=== PATIENT | female | born 1965 | race African-American/Black ===

== ENCOUNTER 2019-10-10 22:18 | Inpatient (IN) | payer MEDICARE, MEDICAID ==
[~2019-10-10] VITALS: Ht 154.9 cm; Wt 71.7 kg
[~2019-10-10 22:18] MED LIST: FOLIC ACID1 MG ORAL; IBUPROFEN200 MG ORAL; LIORESAL20 MG ORAL; MIRALAX17 G2 ORAL; NEURONTIN300 MG ORAL; NKM
--- NOTE | 2019-10-10 22:35 | Emergency Room Report ---
History of Present Illness General Chief Complaint: General Complaint Source: Patient, EMS Present Illness HPI Patient is a 54-year-old female presents after decreased blood pressure. Patient had a prior history of multiple sclerosis. She had been noted to have diminished blood pressure in the facility and was sent to the hospital for further evaluation and treatment. She reports having some increased low back pain. Allergies: Coded Allergies: PENICILLINS (Verified Allergy, Unknown, 07/05/16) Patient History Past Medical History: see triage record Reviewed Nursing Documentation: PMH: Agreed; PSxH: Agreed Nursing Documentation-PMH Hx Cardiac Problems: No Hx Hypertension: Yes Hx Cancer: No Hx Gastrointestinal Problems: No Review of Systems All Other Systems: limited - by poor histor Physical Exam Vital Signs Date Time Temp Pulse Resp B/P (MAP) Pulse Ox O2 Delivery O2 Flow Rate FiO2 10/10/19 22:23 98.8 98 20 87/52 (64) 95 Room Air General Appearance: alert, GCS 15, Chronically Ill Head: other ENT: hearing grossly normal Neck: limited range of motion Respiratory: normal inspection, chest non-tender, lungs clear, normal breath sounds Cardiovascular #1: normal inspection, regular rate, rhythm Gastrointestinal: normal inspection, soft Musculoskeletal: other - Limited range of motion, contractures Neurologic: alert, oriented x3, motor weakness Psychiatric: normal inspection Skin: other - decubitus ulcer Medical Decision Making Diagnostic Impression: Primary Impression: Sepsis Additional Impressions: Multiple sclerosis Urinary tract infection Decubitus ulcer ER Course Present for low blood pressure. Differential diagnosis include was not limited to sepsis, myocardial infarction, dehydration among others. Because of complexity of patient's case laboratory tests and imaging studies were ordered. Laboratory testing was notable for elevated white blood count. EKG interpreted by me showed normal sinus rhythm with a rate of [address] or T wave changes. Patient was noted to have previous IV access. Patient was started on IV Levaquin due to what appears to be urinary infection. Patient's laboratory testing showed elevated white blood count. Patient will require an inpatient management due to initial hypotension.Patient was given IV fluids.Patient's lactic acid level is normal. Patient was discussed with Dr. Pavon for inpatient management for [facility] Labs Test 10/10/19 22:35 10/10/19 22:43 10/10/19 23:50 White Blood Count 15.5 K/UL (4.8-10.8) Red Blood Count 3.54 M/UL (4.20-5.40) Hemoglobin 9.2 G/DL (12.0-16.0) Hematocrit 29.4 % (37.0-47.0) Mean Corpuscular Volume 83 FL (80-99) Mean Corpuscular Hemoglobin 26.1 PG (27.0-31.0) Mean Corpuscular Hemoglobin Concent 31.4 G/DL (32.0-36.0) Red Cell Distribution Width 19.7 % (11.6-14.8) Platelet Count 265 K/UL (150-450) Mean Platelet Volume 6.3 FL (6.5-10.1) Neutrophils (%) (Auto) % (45.0-75.0) Lymphocytes (%) (Auto) % (20.0-45.0) Monocytes (%) (Auto) % (1.0-10.0) Eosinophils (%) (Auto) % (0.0-3.0) Basophils (%) (Auto) % (0.0-2.0) Sodium Level 141 MMOL/L (136-145) Potassium Level 3.9 MMOL/L (3.5-5.1) Chloride Level 109 MMOL/L (98-107) Carbon Dioxide Level 23 MMOL/L (21-32) Anion Gap 9 mmol/L (5-15) Blood Urea Nitrogen 37 mg/dL (7-18) Creatinine 0.9 MG/DL (0.55-1.30) Estimat Glomerular Filtration Rate > 60 mL/min (>60) Glucose Level 72 MG/DL (74-106) Calcium Level 8.0 MG/DL (8.5-10.1) Phosphorus Level 3.9 MG/DL (2.5-4.9) Magnesium Level 2.0 MG/DL (1.8-2.4) Total Bilirubin 0.2 MG/DL (0.2-1.0) Aspartate Amino Transf (AST/SGOT) 35 U/L (15-37) Alanine Aminotransferase (ALT/SGPT) 46 U/L (12-78) Alkaline Phosphatase 241 U/L (46-116) Total Creatine Kinase 24 U/L (26-308) Creatine Kinase MB 2.7 NG/ML (0.0-3.6) Creatine Kinase MB Relative Index 11.2 Troponin I 0.000 ng/mL (0.000-0.056) Total Protein 7.6 G/DL (6.4-8.2) Albumin 1.3 G/DL (3.4-5.0) Globulin 6.3 g/dL Albumin/Globulin Ratio 0.2 (1.0-2.7) Urine Color Yellow Urine Appearance Cloudy Urine pH 5 (4.5-8.0) Urine Specific [place] 1.020 (1.005-1.035) Urine Protein 3+ (NEGATIVE) Urine Glucose (UA) Negative (NEGATIVE) Urine Ketones Negative (NEGATIVE) Urine Blood 5+ (NEGATIVE) Urine Nitrite Positive (NEGATIVE) Urine Bilirubin Negative (NEGATIVE) Urine Urobilinogen Normal MG/DL (0.0-1.0) Urine Leukocyte Esterase 3+ (NEGATIVE) Urine RBC 15-20 /HPF (0 - 2) Urine WBC Tntc /HPF (0 - 2) Urine Squamous Epithelial Cells None /LPF (NONE/OCC) Urine Bacteria Many /HPF (NONE) Lactic Acid Level 1.00 mmol/L (0.4-2.0) EKG Diagnostic Results Rate: normal Rhythm: NSR ST Segments: no acute changes Last Vital Signs Date Time Temp Pulse Resp B/P (MAP) Pulse Ox O2 Delivery O2 Flow Rate FiO2 10/10/19 22:23 98.8 98 20 87/52 (64) 95 Room Air Status: improved Disposition: ADMITTED INPATIENT Condition: Stable Harish Tatum MD Oct 10, 2019 22:35
[2019-10-10 22:56] VITALS: BP 87/52
[2019-10-10 23:27] LABS: APPEARANCE,URINE CLOUDY; BILIRUBIN, URINE NEGATIVE (NEGATIVE); GLUCOSE, URINE (UA) NEGATIVE (NEGATIVE); KETONES,URINE NEGATIVE (NEGATIVE); LEUKOCYTE ESTERASE ,URINE 3+ (NEGATIVE); NITRITE,URINE POSITIVE (NEGATIVE); PH,URINE 5 (4.5-8.0); PROTEIN,URINE 3+ (NEGATIVE); UROBILINOGEN,URINE NORMAL MG/DL (0.0-1.0)
[2019-10-10 23:27] LABS: HEMATOCRIT 29.4 % (37.0-47.0); HEMOGLOBIN 9.2 G/DL (12.0-16.0); MEAN CORPUSCULAR VOLUME 83 FL (80-99); PLATELET COUNT 265 K/UL (150-450); RED BLOOD COUNT 3.54 M/UL (4.20-5.40); RED CELL DISTRIBUTION WIDTH 19.7 % (11.6-14.8); WHITE BLOOD COUNT 15.5 K/UL (4.8-10.8)
[2019-10-10 23:32] LABS: ANION GAP 9 mmol/L (5-15); BLOOD UREA NITROGEN 37 mg/dL (7-18); CARBON DIOXIDE 23 MMOL/L (21-32); CHLORIDE 109 MMOL/L (98-107); CREATININE 0.9 MG/DL (0.55-1.30); POTASSIUM 3.9 MMOL/L (3.5-5.1); SODIUM 141 MMOL/L (136-145)
[2019-10-10 23:35] LABS: COLOR,URINE YELLOW
[2019-10-10] MEDS ORDERED: MULTI-VITAMIN1 EACH PO (23:41)
[2019-10-10] MEDS ORDERED: ASPIR 8181 MG ORAL (23:41)
[2019-10-10] MEDS ORDERED: METOPROLOL TART25 MG ORAL (23:41)
[2019-10-10] MEDS ORDERED: DUONEB 0.5-3(2.53 ML HHN (23:41)
[2019-10-10] MEDS ORDERED: NORCO 5-325 TA1 EACH ORAL (23:41)
[2019-10-10] MEDS ORDERED: CRANBERRY400 MG PO (23:41)
[2019-10-10] MEDS ORDERED: ZOFRAN4 M1 ORAL (23:41)
[2019-10-10] MEDS ORDERED: CATAPRES0.1 MG ORAL (23:41)
[2019-10-10] MEDS ORDERED: PRO-STAT LIQUID30 ML ORAL (23:41)
[2019-10-10] MEDS ORDERED: ATORVASTATIN CA20 MG ORAL (23:41)
[2019-10-10] MEDS ORDERED: VITAMIN C500 M1 ORAL (23:41)
[2019-10-10] MEDS ORDERED: ALBUTEROL0.63 MG/3 HHN (23:41)
[2019-10-10 23:45] VITALS: BP 92/61
[2019-10-10 23:45] LABS: ALANINE AMINOTRANSFERASE 46 U/L (12-78); ALBUMIN 1.3 G/DL (3.4-5.0); ALBUMIN/GLOBULIN RATIO 0.2 (1.0-2.7); ALKALINE PHOSPHATASE 241 U/L (46-116); ASPARTATE AMINO TRANSFERASE 35 U/L (15-37); BILIRUBIN,TOTAL 0.2 MG/DL (0.2-1.0); CKMB 2.7 NG/ML (0.0-3.6); CREATINE KINASE 24 U/L (26-308); PHOSPHORUS 3.9 MG/DL (2.5-4.9)
[2019-10-11] VITALS (20 sets, daily range): BP systolic 74–125; BP diastolic 41–94
[2019-10-11] MEDS ORDERED: Cefepime HCl 2 GM in D5W 55 ML IVPB SCH (04:00)
[2019-10-11] MEDS: Cefepime HCl 2 GM in D5W 55 ML IVPB SCH ×2 (06:08→17:56)
[2019-10-11] MEDS: Heparin 5000 units/ml inj SUBQ SCH ×2 (08:44→20:40)
--- NOTE | 2019-10-11 09:55 | History and Physical ---
History of Present Illness General Date patient seen: Oct 11, 2019 Reason for Hospitalization: low bp Present Illness HPI Patient is a 54-year-old -[place] female resident of [facility] who was sent to the hospital for low blood pressure. Patient is alert and oriented x2, in addition she knows she is in the hospital, however she does not know the date. She has a medical history of advanced multiple sclerosis and functional quadriplegia. Patient is a poor historian and information was gathered via reviewing ED records and medical chart. In the ER she was found to be hypotensive to systolic blood pressures of 80/52 and tachycardic to 107. Patient currently denies any chest pain, palpitations, shortness of breath, urinary frequency or burning. She does however complain of low back pain. No report of fever or chills. She does have stage IV sacral decubiti however they do not seem infected. 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, unknown tobacco and alcohol exposure in the past Allergies: Coded Allergies: PENICILLINS (Verified Allergy, Unknown, 07/05/16) Medication History Scheduled Albuterol Sulfate (Albuterol Sulfate), 0.63 MG HHN Q4HR, (Reported) Amino Acids/Protein Hydrolys (Pro-Stat Liquid), 30 ML ORAL TWICE A DAY, ( Reported) Ascorbic Acid* (Vitamin C*), 500 MG ORAL DAILY, (Reported) Aspirin (Aspirin EC), 81 MG ORAL DAILY, (Reported) Aspirin* (Aspir 81*), 81 MG ORAL DAILY, (Reported) Atorvastatin Calcium* (Atorvastatin Calcium*), 20 MG ORAL BEDTIME, (Reported) Baclofen (Baclofen), 20 MG ORAL Q8HR Clonidine Hcl* (Catapres*), 0.1 MG ORAL EVERY 6 HOURS, (Reported) Cranberry (Cranberry), 450 MG PO DAILY, (Reported) Folic Acid* (Folic Acid*), 1 MG ORAL DAILY Gabapentin (Neurontin), 300 MG ORAL TID Metoprolol Tartrate* (Metoprolol Tartrate*), 25 MG ORAL EVERY 12 HOURS, ( Reported) No Known Medications* (NKM - No Known Medications*), 0 ., (Reported) Zinc Sulfate (Zinc Sulfate), 220 MG ORAL DAILY, (Reported) Scheduled PRN Hydrocodone Bit/Acetaminophen 5-325* (Stark 5-325*), 1 TAB ORAL EVERY 8 HOURS PRN for Moderate Breakthru Pain (5-7), (Reported) Hydrocodone Bit/Acetaminophen 5-325* (Stark 5-325*), 1 TAB ORAL Q6H PRN for For Pain, (Reported) Hydrocodone Bit/Acetaminophen 7.5-325* (Stark 7.5-325*), 1 TAB ORAL Q4H PRN for For Pain, (Reported) Ibuprofen (Ibuprofen*), 400 MG ORAL TID PRN for Mild Pain (Pain Scale 1-3) Ondansetron (Zofran), 4 MG ORAL Q6H PRN for Nausea & Vomiting, (Reported) Ondansetron (Zofran), 4 MG ORAL Q6H PRN for Nausea & Vomiting, (Reported) Polyethylene Glycol 3350* (Miralax*), 17 GM ORAL HSPRN PRN for Constipation Miscellaneous Medications Ipratropium/Albuterol Sulfate (DuoNeb 0.5-3(2.5)mg/3ml), 3 ML HHN, (Reported) Multivitamin (Multi-Vitamin Daily), 1 EACH PO, (Reported) Patient History Healthcare decision maker Resuscitation status Full Code Advanced Directive on File Review of Systems Musculoskeletal: Reports: back pain ROS Narrative Although poor historian she denies any chest pain, shortness of breath, palpitations, fever, chills, nausea, vomiting or abdominal pain. She complains of worsening lower back pain. Physical Exam General Appearance: no apparent distress Lines, tubes and drains: peripheral HEENT: normocephalic, atraumatic, anicteric, no JVD, other - right eye deviated to the right, unable to abduct Neck: non-tender, supple Respiratory/Chest: lungs clear, normal breath sounds, no respiratory distress, no accessory muscle use Cardiovascular/Chest: normal peripheral pulses, normal rate, regular rhythm, no gallop/murmur Abdomen: normal bowel sounds, non tender, soft, no organomegaly, other - pressure ulcer LLQ Genitourinary/Rectal: briseno, other - +CVA tenderness Extremities: no calf tenderness, no edema, no cyanosis Skin Exam: other - multiple stage 4 sacral decubutis Neurologic: oriented x 3, responsive, motor weakness - 3/5 bilateral LE, 4/5 bilateral UE Musculoskeletal: atrophy Last 24 Hour Vital Signs Date Time Temp Pulse Resp B/P (MAP) Pulse Ox O2 Delivery O2 Flow Rate FiO2 10/11/19 09:00 98.4 96 15 118/84 (95) 99 10/11/19 08:00 2.0 10/11/19 08:00 96 16 107/55 (72) 99 10/11/19 08:00 Nasal Cannula 2.0 10/11/19 07:53 Nasal Cannula 2.0 10/11/19 07:00 94 14 125/94 (104) 100 10/11/19 06:00 97.3 97 13 116/91 (99) 99 10/11/19 05:15 98.8 107 20 80/64 95 Room Air 10/11/19 02:47 98.8 107 20 80/64 95 Room Air 10/10/19 23:45 98.8 97 18 92/61 95 Room Air 10/10/19 22:56 98.8 94 20 87/52 95 Room Air 10/10/19 22:56 98 20 Room Air 10/10/19 22:23 98.8 98 20 87/52 (64) 95 Room Air Intake and Output 10/10/19 10/11/19 19:00 07:00 Intake Total 130 ml Output Total 200 ml Balance -70 ml Intake Oral 0 ml IV Total 130 ml Output Urine Total 200 ml Laboratory Tests Test 10/10/19 22:35 10/10/19 22:43 10/10/19 23:50 White Blood Count 15.5 K/UL (4.8-10.8) H Red Blood Count 3.54 M/UL (4.20-5.40) L Hemoglobin 9.2 G/DL (12.0-16.0) L Hematocrit 29.4 % (37.0-47.0) L Mean Corpuscular Volume 83 FL (80-99) Mean Corpuscular Hemoglobin 26.1 PG (27.0-31.0) L Mean Corpuscular Hemoglobin Concent 31.4 G/DL (32.0-36.0) L Red Cell Distribution Width 19.7 % (11.6-14.8) H Platelet Count 265 K/UL (150-450) Mean Platelet Volume 6.3 FL (6.5-10.1) L Neutrophils (%) (Auto) % (45.0-75.0) Lymphocytes (%) (Auto) % (20.0-45.0) Monocytes (%) (Auto) % (1.0-10.0) Eosinophils (%) (Auto) % (0.0-3.0) Basophils (%) (Auto) % (0.0-2.0) Sodium Level 141 MMOL/L (136-145) Potassium Level 3.9 MMOL/L (3.5-5.1) Chloride Level 109 MMOL/L (98-107) H Carbon Dioxide Level 23 MMOL/L (21-32) Anion Gap 9 mmol/L (5-15) Blood Urea Nitrogen 37 mg/dL (7-18) H Creatinine 0.9 MG/DL (0.55-1.30) Estimat Glomerular Filtration Rate > 60 mL/min (>60) Glucose Level 72 MG/DL (74-106) L Calcium Level 8.0 MG/DL (8.5-10.1) L Phosphorus Level 3.9 MG/DL (2.5-4.9) Magnesium Level 2.0 MG/DL (1.8-2.4) Total Bilirubin 0.2 MG/DL (0.2-1.0) Aspartate Amino Transf (AST/SGOT) 35 U/L (15-37) Alanine Aminotransferase (ALT/SGPT) 46 U/L (12-78) Alkaline Phosphatase 241 U/L (46-116) H Total Creatine Kinase 24 U/L (26-308) L Creatine Kinase MB 2.7 NG/ML (0.0-3.6) Creatine Kinase MB Relative Index 11.2 Troponin I 0.000 ng/mL (0.000-0.056) Total Protein 7.6 G/DL (6.4-8.2) Albumin 1.3 G/DL (3.4-5.0) L Globulin 6.3 g/dL Albumin/Globulin Ratio 0.2 (1.0-2.7) L Urine Color Yellow Urine Appearance Cloudy Urine pH 5 (4.5-8.0) Urine Specific [place] 1.020 (1.005-1.035) Urine Protein 3+ (NEGATIVE) H Urine Glucose (UA) Negative (NEGATIVE) Urine Ketones Negative (NEGATIVE) Urine Blood 5+ (NEGATIVE) H Urine Nitrite Positive (NEGATIVE) H Urine Bilirubin Negative (NEGATIVE) Urine Urobilinogen Normal MG/DL (0.0-1.0) Urine Leukocyte Esterase 3+ (NEGATIVE) H Urine RBC 15-20 /HPF (0 - 2) H Urine WBC Tntc /HPF (0 - 2) H Urine Squamous Epithelial Cells None /LPF (NONE/OCC) Urine Bacteria Many /HPF (NONE) H Lactic Acid Level 1.00 mmol/L (0.4-2.0) Height (Feet): 5 Height (Inches): 1.00 Weight (Pounds): 150 Medications Current Medications Medications (Trade) Dose Ordered Sig/Lenard Route PRN Reason Start Time Stop Time Status Last Admin Dose Admin Acetaminophen (Tylenol) 650 mg Q4H PRN ORAL Mild Pain (Pain Scale 1-3) 10/11/19 02:45 11/10/19 02:44 Acetaminophen (Tylenol) 650 mg Q4H PRN ORAL fever 10/11/19 02:45 11/10/19 02:44 Cefepime HCl 2 gm/ Dextrose 55 ml @ 110 mls/hr Q12H IVPB 10/11/19 06:00 10/18/19 05:59 10/11/19 06:08 Dextrose (Dextrose 50%) 25 ml Q30M PRN IV Hypoglycemia 10/11/19 02:45 11/10/19 02:44 Dextrose (Dextrose 50%) 50 ml Q30M PRN IV Hypoglycemia 10/11/19 02:45 11/10/19 02:44 Heparin Sodium (Porcine) (Heparin 5000 units/ml) 5,000 units EVERY 12 HOURS SUBQ 10/11/19 09:00 11/10/19 08:59 10/11/19 08:44 Sodium Chloride 1,000 ml @ 75 mls/hr [id number] IVLG 10/11/19 03:38 11/10/19 03:37 10/11/19 06:08 Objective Narrative ekg tracing personally interpreted by me: nsr no acute st-t changes CXR: pending Assessment/Plan Problem List: (1) Sepsis ICD Codes: A41.9 - Sepsis, unspecified organism SNOMED: 76671516 (2) Urinary tract infection ICD Codes: N39.0 - Urinary tract infection, site not specified SNOMED: 48094099 (3) Multiple sclerosis ICD Codes: G35 - Multiple sclerosis SNOMED: 27694733 (4) Stage 4 skin ulcer of sacral region ICD Codes: L98.429 - Non-pressure chronic ulcer of back with unspecified severity SNOMED: 36601924, 326515895 (5) HTN (hypertension) ICD Codes: I10 - Essential (primary) hypertension SNOMED: 90130916 (6) HLD (hyperlipidemia) ICD Codes: E78.5 - Hyperlipidemia, unspecified SNOMED: 75645722 (7) Unspecified dementia without behavioral disturbance ICD Codes: F03.90 - Unspecified dementia without behavioral disturbance SNOMED: 13679385 (8) Chronic pain syndrome ICD Codes: G89.4 - Chronic pain syndrome SNOMED: 795413625 (9) Moderate protein malnutrition ICD Codes: E44.0 - Moderate protein-calorie malnutrition SNOMED: 615241077 Status: progressing Assessment/Plan: 54 year old female with multiple sclerosis and functional quadriplegia being admitted for sepsis secondary to UTI. Responding to fluid resuscitation. ICU- Continue IVF, decrease rate per BP response, BP is better now continue to monitor closely. Add D5 to NS to avoid hypoglycemia. Continue Cefepime, follow up blood and urine culture. remove and replce briseno. d /w rn monitor wbc outpatient urology follow up. ? neurogenic bladder ID consult with Dr. Palacios. d/w Follow up CXR News Librarian consult wound care and wound MD consult with Dr. Solis CLAY PREPARATION SUPERVISOR consult to evaluate swallowing Aspiration precautions Hold all BP meds pain control. vte ppx: heparin subq GI ppx: not indicated Code status: full code, POLST signed by SNF Md but not patient and it's blank I spent 75 minutes on this encounter, 40 minutes dedicated to critical care. Additional 35 minutes spent in non face to face review of outside records including penitentiary and prior hospitalization. Critical services performed: Telemetry review Hemodynamic measurement interpretation Laboratory data review and interpretation Radiology image review and interpretation EKG review and interpretation Discussion of patient's care with ICU team, nursing staff and or consulting services Time of this note may not reflect time of encounter. Mikal Quiles M.D. 5, 2019 09:55
[2019-10-11] MEDS ORDERED: ZINC SULFATE220 M2 ORAL (10:21)
[2019-10-11] MEDS ORDERED: ASPIRIN-LOW81 MG ORAL (10:21)
[2019-10-11] MEDS ORDERED: NORCO 7.5-3251 EACH ORAL (10:21)
[2019-10-11] MEDS ORDERED: NORCO 5-325 TA1 EACH ORAL (10:21)
[2019-10-11] MEDS ORDERED: ZOFRAN4 M1 ORAL (10:22)
--- NOTE | 2019-10-11 12:46 | Cardiology Report ---
APPROVED REPORT EKG Measurement Heart [id number] Sinus rhythm with short MS Otherwise normal ECG
[2019-10-11] MEDS ORDERED: D5NS 1,000 ML IV SCH (14:00)
--- NOTE | 2019-10-11 14:44 | General Progress Note ---
Progress Note Progress Note An independent Hospitalist group, where every patient is our [facility] Internal Medicine Hospitalist Advanced Care Planning Note Please contact us at Date of Discussion: 10/11/2019 A [id number] discussion with the Cass Richardson regarding the patient's advanced care planning took place during this hospitalization on the above date. The discussion included the explanation and discussion of advance directives and associated forms/documents, as well as the patient's current code status. We also discussed at length the patient's medical conditions (both acute and chronic), general prognosis, treatment options, and goals of care. The following summarizes the discussion: Advance Care Planning/Goals of Care: - Will attempt to fill out an AD and/or POLST with the patient prior to discharge, if not already completed - Continue current evaluation and management of any acute and chronic medical issues - Will continue to support the patient/family - Will continue to discuss both short- and long-term goals of care DPOA-HC/Surrogate Decision Maker: None currently appointed Code Status: Full Code Advanced Care Planning Forms/Documents Completed: Deferred until later encounter/visit Mikal Quiles M.D. Oct 11, 2019 14:44
--- NOTE | 2019-10-11 16:01 | Consultation ---
History of Present Illness General Date patient seen: Oct 11, 2019 Reason for Hospitalization: General Complaint Present Illness HPI This is a very pleasant 54-year-old female with multiple medical comorbidities who presented from long term for hypotension. In ED identified to have leukocytosis and abnormal labs. Admitted to intensive care unit for further care and management. On admission identified to have multiple wounds requiring care and management. Surgery called to evaluate. Patient seen, patient evaluated, chart reviewed. Patient states she is well but feels "weird". States she is having some abdominal discomfort and unsure last bowel movement or flatus. No nausea vomiting fever chills. States she is cold at times. Noted to be lethargic by nursing staff at times. Allergies: Coded Allergies: PENICILLINS (Verified Allergy, Unknown, 07/05/16) Medication History Scheduled Albuterol Sulfate (Albuterol Sulfate), 0.63 MG HHN Q4HR, (Reported) Amino Acids/Protein Hydrolys (Pro-Stat Liquid), 30 ML ORAL TWICE A DAY, ( Reported) Ascorbic Acid* (Vitamin C*), 500 MG ORAL DAILY, (Reported) Aspirin (Aspirin EC), 81 MG ORAL DAILY, (Reported) Aspirin* (Aspir 81*), 81 MG ORAL DAILY, (Reported) Atorvastatin Calcium* (Atorvastatin Calcium*), 20 MG ORAL BEDTIME, (Reported) Baclofen (Baclofen), 20 MG ORAL Q8HR Clonidine Hcl* (Catapres*), 0.1 MG ORAL EVERY 6 HOURS, (Reported) Cranberry (Cranberry), 450 MG PO DAILY, (Reported) Folic Acid* (Folic Acid*), 1 MG ORAL DAILY Gabapentin (Neurontin), 300 MG ORAL TID Metoprolol Tartrate* (Metoprolol Tartrate*), 25 MG ORAL EVERY 12 HOURS, ( Reported) No Known Medications* (NKM - No Known Medications*), 0 ., (Reported) Zinc Sulfate (Zinc Sulfate), 220 MG ORAL DAILY, (Reported) Scheduled PRN Hydrocodone Bit/Acetaminophen 5-325* ([place] 5-325*), 1 TAB ORAL EVERY 8 HOURS PRN for Moderate [place] Pain (5-7), (Reported) Hydrocodone Bit/Acetaminophen 5-325* ([place] 5-325*), 1 TAB ORAL Q6H PRN for For Pain, (Reported) Hydrocodone Bit/Acetaminophen 7.5-325* ([place] 7.5-325*), 1 TAB ORAL Q4H PRN for For Pain, (Reported) Ibuprofen (Ibuprofen*), 400 MG ORAL TID PRN for Mild Pain (Pain Scale 1-3) Ondansetron (Zofran), 4 MG ORAL Q6H PRN for Nausea & Vomiting, (Reported) Ondansetron (Zofran), 4 MG ORAL Q6H PRN for Nausea & Vomiting, (Reported) Polyethylene Glycol 3350* (Miralax*), 17 GM ORAL HSPRN PRN for Constipation Miscellaneous Medications Ipratropium/Albuterol Sulfate (DuoNeb 0.5-3(2.5)mg/3ml), 3 ML HHN, (Reported) Multivitamin (Multi-Vitamin Daily), 1 EACH PO, (Reported) Patient History Limited by: medical condition History Provided By: Medical Record, PMD Healthcare decision maker Resuscitation status Full Code Advanced Directive on File Past Medical/Surgical History Past Medical/Surgical History: (1) Back pain (2) Decubitus ulcer (3) ACS (acute coronary syndrome) (4) Costochondritis (5) four point quadroplegia (6) Uncontrolled hypertension (7) UTI (urinary tract infection) (8) Multiple sclerosis (9) Urinary tract infection (10) Sepsis (11) Chronic pain syndrome (12) HTN (hypertension) (13) HLD (hyperlipidemia) (14) Moderate protein malnutrition (15) Unspecified dementia without behavioral disturbance (16) Stage 4 skin ulcer of sacral region Review of Systems Review of Symptoms General ROS: no weight loss or fever Psychological ROS: no depression or mood changes, no memory loss Ophthalmic ROS: no visual changes or eye irritation ENT ROS: no nasal congestion, hearing loss, dizziness Allergy and Immunology ROS: no allergic symptoms or urticaria Hematological and Lymphatic ROS: no swollen glands, unusual bleeding or bruising Endocrine ROS: no polyuria, polydipsia, weight changes, temperature intolerance Respiratory ROS: no cough, shortness of breath, or wheezing Cardiovascular ROS: no chest pain or dyspnea on exertion Gastrointestinal ROS: denies abdominal pain, bright red blood in stool. Musculoskeletal ROS: no myalgias or arthralgias Neurological ROS: no TIA or stroke symptoms Dermatological ROS: no new or changing skin lesions, rashes or pruritis Limited given patient's current mental status. Physical Exam Physical Exam General appearance: alert, lethargic at times no distress, appears stated age Head: Normocephalic, without obvious abnormality, atraumatic Eyes: conjunctivae/corneas clear. PERRL, EOM's intact. Fundi benign Throat: Lips, mucosa, and tongue normal. Teeth and gums normal Neck: supple, symmetrical, trachea midline, no adenopathy, thyroid: not enlarged, symmetric, no tenderness/mass/nodules, no carotid bruit and no JVD Lungs: clear to auscultation bilaterally Heart: regular rate and rhythm, S1, S2 normal, no murmur, click, rub or gallop Abdomen: soft, non-tender. Bowel sounds normal. No masses, no organomegaly Extremities: extremities normal, atraumatic, no cyanosis or edema Pulses: 2+ and symmetric Skin: Skin color, texture, turgor normal. No rashes or lesions Neurologic: Grossly normal Last 24 Hour Vital Signs Date Time Temp Pulse Resp B/P (MAP) Pulse Ox O2 Delivery O2 Flow Rate FiO2 10/11/19 15:00 92 12 110/46 (67) 100 10/11/19 14:00 86 15 117/71 (86) 99 10/11/19 13:00 86 14 103/41 (61) 99 10/11/19 12:00 2.0 10/11/19 12:00 96.5 85 13 99/52 (68) 99 10/11/19 12:00 Nasal Cannula 2.0 10/11/19 11:09 84 10/11/19 11:00 89 14 102/52 (69) 100 10/11/19 11:00 89 14 102/52 (69) 100 10/11/19 10:00 96 19 109/90 (96) 100 10/11/19 10:00 96 19 109/90 (96) 100 10/11/19 09:00 98.4 96 15 118/84 (95) 99 10/11/19 09:00 96 15 118/84 (95) 99 10/11/19 08:04 94 10/11/19 08:00 96 16 107/55 (72) 99 10/11/19 08:00 2.0 10/11/19 08:00 96 16 107/55 (72) 99 10/11/19 08:00 Nasal Cannula 2.0 10/11/19 07:53 Nasal Cannula 2.0 10/11/19 07:00 94 14 125/94 (104) 100 10/11/19 07:00 94 14 125/94 (104) 100 10/11/19 06:00 97 13 116/91 (99) 99 10/11/19 06:00 97.3 97 13 116/91 (99) 99 10/11/19 05:15 98.8 107 20 80/64 95 Room Air 10/11/19 02:47 98.8 107 20 80/64 95 Room Air 10/10/19 23:45 98.8 97 18 92/61 95 Room Air 10/10/19 22:56 98.8 94 20 87/52 95 Room Air 10/10/19 22:56 98 20 Room Air 10/10/19 22:23 98.8 98 20 87/52 (64) 95 Room Air Intake and Output 10/10/19 10/11/19 18:59 06:59 Intake Total 0 ml Output Total 200 ml Balance -200 ml Intake Oral 0 ml Output Urine Total 200 ml Laboratory Tests Test 10/10/19 22:35 10/10/19 22:43 10/10/19 23:50 White Blood Count 15.5 K/UL (4.8-10.8) H Red Blood Count 3.54 M/UL (4.20-5.40) L Hemoglobin 9.2 G/DL (12.0-16.0) L Hematocrit 29.4 % (37.0-47.0) L Mean Corpuscular Volume 83 FL (80-99) Mean Corpuscular Hemoglobin 26.1 PG (27.0-31.0) L Mean Corpuscular Hemoglobin Concent 31.4 G/DL (32.0-36.0) L Red Cell Distribution Width 19.7 % (11.6-14.8) H Platelet Count 265 K/UL (150-450) Mean Platelet Volume 6.3 FL (6.5-10.1) L Neutrophils (%) (Auto) % (45.0-75.0) Lymphocytes (%) (Auto) % (20.0-45.0) Monocytes (%) (Auto) % (1.0-10.0) Eosinophils (%) (Auto) % (0.0-3.0) Basophils (%) (Auto) % (0.0-2.0) Sodium Level 141 MMOL/L (136-145) Potassium Level 3.9 MMOL/L (3.5-5.1) Chloride Level 109 MMOL/L (98-107) H Carbon Dioxide Level 23 MMOL/L (21-32) Anion Gap 9 mmol/L (5-15) Blood Urea Nitrogen 37 mg/dL (7-18) H Creatinine 0.9 MG/DL (0.55-1.30) Estimat Glomerular Filtration Rate > 60 mL/min (>60) Glucose Level 72 MG/DL (74-106) L Calcium Level 8.0 MG/DL (8.5-10.1) L Phosphorus Level 3.9 MG/DL (2.5-4.9) Magnesium Level 2.0 MG/DL (1.8-2.4) Total Bilirubin 0.2 MG/DL (0.2-1.0) Aspartate Amino Transf (AST/SGOT) 35 U/L (15-37) Alanine Aminotransferase (ALT/SGPT) 46 U/L (12-78) Alkaline Phosphatase 241 U/L (46-116) H Total Creatine Kinase 24 U/L (26-308) L Creatine Kinase MB 2.7 NG/ML (0.0-3.6) Creatine Kinase MB Relative Index 11.2 Troponin I 0.000 ng/mL (0.000-0.056) Total Protein 7.6 G/DL (6.4-8.2) Albumin 1.3 G/DL (3.4-5.0) L Globulin 6.3 g/dL Albumin/Globulin Ratio 0.2 (1.0-2.7) L Urine Color Yellow Urine Appearance Cloudy Urine pH 5 (4.5-8.0) Urine Specific [place] 1.020 (1.005-1.035) Urine Protein 3+ (NEGATIVE) H Urine Glucose (UA) Negative (NEGATIVE) Urine Ketones Negative (NEGATIVE) Urine Blood 5+ (NEGATIVE) H Urine Nitrite Positive (NEGATIVE) H Urine Bilirubin Negative (NEGATIVE) Urine Urobilinogen Normal MG/DL (0.0-1.0) Urine Leukocyte Esterase 3+ (NEGATIVE) H Urine RBC 15-20 /HPF (0 - 2) H Urine WBC Tntc /HPF (0 - 2) H Urine Squamous Epithelial Cells None /LPF (NONE/OCC) Urine Bacteria Many /HPF (NONE) H Lactic Acid Level 1.00 mmol/L (0.4-2.0) Height (Feet): 5 Height (Inches): 1.00 Weight (Pounds): 150 Medications Current Medications Medications (Trade) Dose Ordered Sig/Lenard Route PRN Reason Start Time Stop Time Status Last Admin Dose Admin Acetaminophen (Tylenol) 650 mg Q4H PRN ORAL Mild Pain (Pain Scale 1-3) 10/11/19 02:45 11/10/19 02:44 Acetaminophen (Tylenol) 650 mg Q4H PRN ORAL fever 10/11/19 02:45 11/10/19 02:44 Ascorbic Acid (Vitamin C) 500 mg DAILY ORAL 10/12/19 09:00 11/11/19 08:59 Aspirin (Ecotrin) 81 mg DAILY ORAL 10/12/19 09:00 11/11/19 08:59 Atorvastatin Calcium (Lipitor) 20 mg BEDTIME ORAL 10/11/19 21:00 11/10/19 20:59 Cefepime HCl 2 gm/ Dextrose 55 ml @ 110 mls/hr Q12H IVPB 10/11/19 06:00 10/18/19 05:59 10/11/19 06:08 Dextrose (Dextrose 50%) 25 ml Q30M PRN IV Hypoglycemia 10/11/19 02:45 11/10/19 02:44 Dextrose (Dextrose 50%) 50 ml Q30M PRN IV Hypoglycemia 10/11/19 02:45 11/10/19 02:44 Dextrose/Sodium Chloride 1,000 ml @ 75 mls/hr [id number] IV 10/11/19 14:00 11/10/19 13:59 10/11/19 13:48 Folic Acid (Folate) 1 mg DAILY ORAL 10/12/19 09:00 11/11/19 08:59 Heparin Sodium (Porcine) (Heparin 5000 units/ml) 5,000 units EVERY 12 HOURS SUBQ 10/11/19 09:00 11/10/19 08:59 10/11/19 08:44 Multivitamins (Multivitamins) 1 tab DAILY ORAL 10/12/19 09:00 11/11/19 08:59 Sodium Chloride 1,000 ml @ 75 mls/hr [id number] IVLG 10/11/19 03:38 11/10/19 03:37 10/11/19 06:08 Zinc Sulfate (Zinc Sulfate) 220 mg DAILY ORAL 10/12/19 09:00 11/11/19 08:59 Assessment/Plan Problem List: (1) Decubitus ulcer Assessment & Plan: 54-year-old female multiple comorbidities who is fairly bedbound and care dependent presented from nursing facility with multiple decubitus ulcers requiring care and management and evaluation. Patient identified to have a right ischial and left ischial stage IV decubitus ulcers Patient Identified to have historic healed sacral decubitus ulcer pt presented on admission with multiple pressure injuries. Full thickness wound L abd with 95% slough, 5% surrounding erythema with macerated borders. Erythema without induration or elevation in skin temp periwound.(L)1.6cm x (W)1.7cm. Moisture intertrigo noted to abd folds and groin folds. Labia majora noted to be swollen. Hyperpigmentation from previous wound noted to Sacrum. Full thickness stage 4 pressure injury with undermining noted to L Ischium. [place] granulation noted to base of wound. No odor noted. Small amt serous exudate.(L)7.5cm x (W)4.5cm x (D)2.3cm, undermining clockwise 9-12o'clock by 3.6cm @12o'clock. Full thickness stage 4 pressure injury R ischium with two areas of tunneling. [place] granulation at base of wound with small amt of Biofilm. Surrounding pink epithelial borders. Small amt serosanguineous exudate noted. No odor noted. Periwound skin is dark without erythema,induration or elevation in skin temp.(L) 4cm x (W)2.5cm x (D)2.6cm ,tunneling clockwise @12 o'clock by3.6cm ,Tunneling clockwise @2o'clock by5.7cm. Areas of hyperpigmentation noted to L heel, distal/lateral L foot extending into plantar aspect. R heel is boggy with non-blanching erythema. Tx.Plan: Cleanse Abdominal wound with Saline. Apply TheraHoney. Apply Cavilon Skin Barrier periwound. Cover with Optifoam drsg. Change every 3 days and prn. Cleanse L ischial wound with Saline. Loosely Pack with Hydrogel impregnated Kerlix packing. Apply Moisture Barrier Paste periwound. Cover with Optifoam drsg Daily and prn. Cleanse R Ischial wound with Saline. Loosely pack with Hydrogel impregnated Kerlix. (ATTENTION:2 Tunneled areas 9o'clock and 2o'clock). Apply Moisture Barrier Paste periwound. Cover with Optifoam drsg Daily and prn. Apply Cav[place] Skin BArrier to both heels. Cover each heel with Optifoam drsg. Change every 7 days and prn. APM/AURA Mattress overlay. Reposition at least every 2hours or as tolerated. Off-load heels with pillow. Place pillow between knees. nutritional optimization as below ICD Codes: L89.90 - Pressure ulcer of unspecified site, unspecified stage SNOMED: 861635309 (2) Sepsis Assessment & Plan: 54-year-old female multiple committees presents with hypotension altered mental status. Patient with leukocytosis, abnormal labs. Currently intensive care unit under care and management. Wound evaluated and stage IV multiple but chronic and unlikely etiology of sepsis. We will continue to monitor and evaluate IV fluids IV antibiotics as per infectious disease O2 Trend labs We will follow with recommendations Thank you for let me participate in patient's care ICD Codes: A41.9 - Sepsis, unspecified organism SNOMED: 84221388 (3) Moderate protein malnutrition Assessment & Plan: DAILY ESTIMATED NEEDS: Needs based on Sepsis, stage 4 wounds; 51.6kg adj 30-35 kcals/kg 3447-4259 total kcals 1.5-2 g protein/kg 77-103 g total protein 25-30 mL/kg 1290- 1548 total fluid mLs NUTRITION DIAGNOSIS: * Increased kcal and pro needs r/t wound healing AEB pt adm with stage 4 wounds x2, unstageable abdominal wound, h/o MS. CURRENT DIET: No diet order in place yet. PO DIET RECOMMENDATIONS: Regular as tolerated; texture per ENVIRONMENTAL FIELD TEAM MEMBER Monitor PO intake w/ diet/ need for supplements and/or snacks ADDITIONAL RECOMMENDATIONS: 1) Obtain calibrated bedscale wt PER SNF: 139 lbs + 61 inches 2) 2) Wound healing: provide Elias in 8oz water BID -> Vit C 250mg BID + Zinc 220mg daily x 10days + MVI w/ MIN 3) Monitor BG- slightly low (72)-> rec D5 for hydration 4) ENVIRONMENTAL FIELD TEAM MEMBER eval for appropriate texture/ previously on aspiration precautions ICD Codes: E44.0 - Moderate protein-calorie malnutrition SNOMED: 317571902 Matty Solis Oct 11, 2019 16:01
--- NOTE | 2019-10-11 17:23 | Diagnostic Imaging Report ---
Indication: Shortness of breath Technique: One view of the chest Comparison: 06/26/1916 Findings: Patient is rotated to the right. Body habitus limits evaluation. Apparent hazy opacity of the left lung probably reflects overlying breast tissue. There is some thickening of the minor fissure. Lungs and pleural spaces are otherwise grossly clear. Impression: Doubt acute process. Findings as noted
[2019-10-11] MEDS ORDERED: Amikacin Rx to dose MISC PRN (17:45)
--- NOTE | 2019-10-11 17:57 | Infectious Diseases Prog Note ---
Assessment/Plan Assessment/Plan Full consult dictated: A) 1) uti/pyelonephritis, sepsis, leukocytosis, sirs 2) pmh noted 3) allergies - pcn 4) wounds noted P) 1) cefepime and amikacin 2) check urine culture and blood cultures 3) monitor labs 4) icu care 5) thank you Subjective Allergies: Coded Allergies: PENICILLINS (Verified Allergy, Unknown, 07/05/16) Objective Vital Signs Last 24 Hour Vital Signs Date Time Temp Pulse Resp B/P (MAP) Pulse Ox O2 Delivery O2 Flow Rate FiO2 10/11/19 17:00 103 15 104/89 (94) 10/11/19 16:18 Nasal Cannula 2.0 10/11/19 16:00 2.0 10/11/19 16:00 100 17 107/77 (87) 100 10/11/19 15:57 103 10/11/19 15:00 92 12 110/46 (67) 100 10/11/19 15:00 92 12 110/46 (67) 100 10/11/19 14:00 86 15 117/71 (86) 99 10/11/19 14:00 86 15 117/71 (86) 99 10/11/19 13:05 89 15 103/41 (61) 99 10/11/19 13:01 91 20 84/56 (65) 100 10/11/19 13:00 86 14 103/41 (61) 99 10/11/19 13:00 86 14 99 10/11/19 12:00 2.0 10/11/19 12:00 96.5 85 13 99/52 (68) 99 10/11/19 12:00 Nasal Cannula 2.0 10/11/19 12:00 85 13 74/46 (55) 99 10/11/19 11:09 84 10/11/19 11:00 89 14 102/52 (69) 100 10/11/19 11:00 89 14 102/52 (69) 100 10/11/19 11:00 89 14 102/52 (69) 100 10/11/19 10:00 96 19 109/90 (96) 100 10/11/19 10:00 96 19 109/90 (96) 100 10/11/19 10:00 96 19 109/90 (96) 100 10/11/19 09:00 96 15 118/84 (95) 99 10/11/19 09:00 98.4 96 15 118/84 (95) 99 10/11/19 09:00 96 15 118/84 (95) 99 10/11/19 08:04 94 10/11/19 08:00 96 16 107/55 (72) 99 10/11/19 08:00 96 16 107/55 (72) 99 10/11/19 08:00 2.0 10/11/19 08:00 96 16 107/55 (72) 99 10/11/19 08:00 Nasal Cannula 2.0 10/11/19 07:53 Nasal Cannula 2.0 10/11/19 07:00 94 14 125/94 (104) 100 10/11/19 07:00 94 14 125/94 (104) 100 10/11/19 07:00 94 14 125/94 (104) 100 10/11/19 06:00 97 13 116/91 (99) 99 10/11/19 06:00 97 13 116/91 (99) 99 10/11/19 06:00 97.3 97 13 116/91 (99) 99 10/11/19 05:15 98.8 107 20 80/64 95 Room Air 10/11/19 02:47 98.8 107 20 80/64 95 Room Air 10/10/19 23:45 98.8 97 18 92/61 95 Room Air 10/10/19 22:56 98.8 94 20 87/52 95 Room Air 10/10/19 22:56 98 20 Room Air 10/10/19 22:23 98.8 98 20 87/52 (64) 95 Room Air Height (Feet): 5 Height (Inches): 1.00 Weight (Pounds): 150 Laboratory Tests Test 10/10/19 22:35 10/10/19 22:43 10/10/19 23:50 White Blood Count 15.5 K/UL (4.8-10.8) H Red Blood Count 3.54 M/UL (4.20-5.40) L Hemoglobin 9.2 G/DL (12.0-16.0) L Hematocrit 29.4 % (37.0-47.0) L Mean Corpuscular Volume 83 FL (80-99) Mean Corpuscular Hemoglobin 26.1 PG (27.0-31.0) L Mean Corpuscular Hemoglobin Concent 31.4 G/DL (32.0-36.0) L Red Cell Distribution Width 19.7 % (11.6-14.8) H Platelet Count 265 K/UL (150-450) Mean Platelet Volume 6.3 FL (6.5-10.1) L Neutrophils (%) (Auto) % (45.0-75.0) Lymphocytes (%) (Auto) % (20.0-45.0) Monocytes (%) (Auto) % (1.0-10.0) Eosinophils (%) (Auto) % (0.0-3.0) Basophils (%) (Auto) % (0.0-2.0) Sodium Level 141 MMOL/L (136-145) Potassium Level 3.9 MMOL/L (3.5-5.1) Chloride Level 109 MMOL/L (98-107) H Carbon Dioxide Level 23 MMOL/L (21-32) Anion Gap 9 mmol/L (5-15) Blood Urea Nitrogen 37 mg/dL (7-18) H Creatinine 0.9 MG/DL (0.55-1.30) Estimat Glomerular Filtration Rate > 60 mL/min (>60) Glucose Level 72 MG/DL (74-106) L Calcium Level 8.0 MG/DL (8.5-10.1) L Phosphorus Level 3.9 MG/DL (2.5-4.9) Magnesium Level 2.0 MG/DL (1.8-2.4) Total Bilirubin 0.2 MG/DL (0.2-1.0) Aspartate Amino Transf (AST/SGOT) 35 U/L (15-37) Alanine Aminotransferase (ALT/SGPT) 46 U/L (12-78) Alkaline Phosphatase 241 U/L (46-116) H Total Creatine Kinase 24 U/L (26-308) L Creatine Kinase MB 2.7 NG/ML (0.0-3.6) Creatine Kinase MB Relative Index 11.2 Troponin I 0.000 ng/mL (0.000-0.056) Total Protein 7.6 G/DL (6.4-8.2) Albumin 1.3 G/DL (3.4-5.0) L Globulin 6.3 g/dL Albumin/Globulin Ratio 0.2 (1.0-2.7) L Urine Color Yellow Urine Appearance Cloudy Urine pH 5 (4.5-8.0) Urine Specific [place] 1.020 (1.005-1.035) Urine Protein 3+ (NEGATIVE) H Urine Glucose (UA) Negative (NEGATIVE) Urine Ketones Negative (NEGATIVE) Urine Blood 5+ (NEGATIVE) H Urine Nitrite Positive (NEGATIVE) H Urine Bilirubin Negative (NEGATIVE) Urine Urobilinogen Normal MG/DL (0.0-1.0) Urine Leukocyte Esterase 3+ (NEGATIVE) H Urine RBC 15-20 /HPF (0 - 2) H Urine WBC Tntc /HPF (0 - 2) H Urine Squamous Epithelial Cells None /LPF (NONE/OCC) Urine Bacteria Many /HPF (NONE) H Lactic Acid Level 1.00 mmol/L (0.4-2.0) Current Medications Medications (Trade) Dose Ordered Sig/[place] Route PRN Reason Start Time Stop Time Status Last Admin Dose Admin Acetaminophen (Tylenol) 650 mg Q4H PRN ORAL Mild Pain (Pain Scale 1-3) 10/11/19 02:45 11/10/19 02:44 Acetaminophen (Tylenol) 650 mg Q4H PRN ORAL fever 10/11/19 02:45 11/10/19 02:44 Ascorbic Acid (Vitamin C) 500 mg DAILY ORAL 10/12/19 09:00 11/11/19 08:59 Aspirin (Ecotrin) 81 mg DAILY ORAL 10/12/19 09:00 11/11/19 08:59 Atorvastatin Calcium (Lipitor) 20 mg BEDTIME ORAL 10/11/19 21:00 11/10/19 20:59 Cefepime HCl 2 gm/ Dextrose 55 ml @ 110 mls/hr Q12H IVPB 10/11/19 06:00 10/18/19 05:59 10/11/19 06:08 Dextrose (Dextrose 50%) 25 ml Q30M PRN IV Hypoglycemia 10/11/19 02:45 11/10/19 02:44 Dextrose (Dextrose 50%) 50 ml Q30M PRN IV Hypoglycemia 10/11/19 02:45 11/10/19 02:44 Dextrose/Sodium Chloride 1,000 ml @ 75 mls/hr [id number] IV 10/11/19 14:00 11/10/19 13:59 10/11/19 13:48 Folic Acid (Folate) 1 mg DAILY ORAL 10/12/19 09:00 11/11/19 08:59 Heparin Sodium (Porcine) (Heparin 5000 units/ml) 5,000 units EVERY 12 HOURS SUBQ 10/11/19 09:00 11/10/19 08:59 10/11/19 08:44 Multivitamins (Multivitamins) 1 tab DAILY ORAL 10/12/19 09:00 11/11/19 08:59 Sodium Chloride 1,000 ml @ 75 mls/hr [id number] IVLG 10/11/19 03:38 11/10/19 03:37 10/11/19 06:08 Zinc Sulfate (Zinc Sulfate) 220 mg DAILY ORAL 10/12/19 09:00 11/11/19 08:59 Jt Land MD Oct 11, 2019 17:57
[2019-10-11] MEDS ORDERED: Amikacin 850 MG in NS 110 ML IV SCH (20:00)
[2019-10-11] MEDS: Atorvastatin 20mg tab ORAL SCH ×2 (20:39→20:44)
[2019-10-11] MEDS ORDERED: Dyna-Hex 2% Top Sol 2oz TOPIC SCH ×2 (21:00→21:30)
[2019-10-11] MEDS: D5NS 1,000 ML IV SCH (21:28)
--- NOTE | 2019-10-11 22:04 | Consultation ---
DATE OF CONSULTATION: 10/11/2019 INFECTIOUS DISEASE CONSULTATION CONSULTING PHYSICIAN: Jt Land M.D. ATTENDING PHYSICIAN: Yoly Tai M.D. REFERRING PHYSICIAN: Mikal Quiles M.D. REASON FOR CONSULTATION: Urinary tract infection, sepsis, and leukocytosis. CHIEF COMPLAINT: The patient's chief complaint coming in to the hospital is hypotension and sepsis. HISTORY OF PRESENT ILLNESS: This is a very pleasant 54-year-old female, who has I believe a chronic Haynes. The patient presents to [facility] with sepsis, elevated white count, and hypotension. She is not on pressors. Workup shows that she has urinary tract infection with 3+ leukocyte esterase and positive nitrite on urinalysis and too many to count white blood cells. Infectious Disease consultation is requested for antibiotic management. She is allergic to penicillin, but tolerates cefepime. She is on 2 grams intravenous q.12 hours for cefepime for urinary tract infection, sepsis, and elevated white count. She could have a pyelonephritis based on urinalysis also. I will also add amikacin because of her critical status and allergy to penicillin. Case was communicated with Dr. Quiles. We will continue cefepime and amikacin for urinary tract infection and sepsis pending final culture results. Chest x-ray showed no acute disease. The patient is currently in the ICU. MAR was noted. Orders were noted. Noted and records were reviewed. The case was discussed with RN at length. REVIEW OF SYSTEMS: CONSTITUTIONAL: The patient has a Haynes that is chronic I believe. She has generalized fatigue, weakness, and is responsive. She is not on pressors. She has no fevers. HEAD AND NECK: No head pain or neck pain. CARDIAC: No chest pain. No pressors. GASTROINTESTINAL: No nausea, vomiting, or diarrhea. GENITOURINARY: She has a Haynes. No CVA tenderness. PULMONARY: No significant congestion or shortness of breath. SKIN: No rash or itching. EXTREMITY: No pain. NEUROLOGIC: No seizures, generalized fatigue, and weakness. No night sweats or weight loss. PAST MEDICAL HISTORY: The patient's past medical history includes the following: The patient has a past medical history of multiple wounds. She has chronic Haynes. She has a history from being to an ECF. She has history of multiple sclerosis, history of UTIs in the past, hypertension, hyperlipidemia, dyslipidemia, history of seizures, chronic pain syndrome, dementia, and behavioral disturbance. History of protein malnutrition also. MEDICATIONS: Upon reviewing the MAR, she is on the following medications. She is ascorbic acid, aspirin, folic acid, multivitamins, amikacin to be started , atorvastatin, intravenous fluids, heparin, cefepime, and acetaminophen. Outside medications were noted and reconciliated. ALLERGIES: Include penicillin. Tolerates cephalosporins and cefepime. FAMILY HISTORY: Noncontributory. Negative for tuberculosis or cancer. SOCIAL HISTORY: Negative for smoking, alcohol, or drug abuse. She resides in [facility]. PHYSICAL EXAMINATION: VITAL SIGNS: Pulse rate 103, respiratory rate 15, blood pressure 104/89, and saturation is 100% on 2 liters. T-max is 98.8. Currently, temperature is 96.5. GENERAL: Alert and responsive, in no distress. HEAD AND NECK: Oral exam, no thrush. Eye exam, no icterus. Neck is supple. No JVD. Normocephalic. HEART: Regular. No gallop or murmur. No friction rub. ABDOMEN: Soft. Positive bowel sounds. Nontender. LUNGS: Clear bilaterally. No rhonchi or rales. SKIN: No rash. Multiple wounds were reviewed, not acutely infected. MUSCULOSKELETAL: No effusion or septic arthritis. Legs are without cellulitis. PERIPHERAL VASCULAR: No gangrene. GENITOURINARY: She has a Haynes. Urine is cloudy. LINE SITES: Without phlebitis. NEUROLOGIC: Generalized weakness, responsive, and alert. Nodules responsive alert. LABORATORY DATA: The laboratory data data is as follows. UA had positive nitrite, 3+ leukocyte esterase, too many to count white blood cells, many bacteria. Blood and urine cultures are pending. White count 15.5 and hemoglobin 9.2. Creatinine 0.9. Chest x-ray showed no acute process noted and reviewed. ASSESSMENT AND PLAN: 1. The patient has urinary tract infection, low blood pressure, sepsis, elevated white count, SIRS criteria, and tachycardia. It is unclear if she has pyelonephritis. She has too many to count white blood cells on urinalysis. She does have significant complicated urinary tract infection with sepsis, and elevated white count. Continue cefepime 2 grams IV q.12 hours for sepsis and urinary tract infection. However, I will also add amikacin for ESBL coverage. She is allergic to penicillin. We will try to avoid carbapenems, but she could have a cross reaction and she is tolerating cefepime. Continue cefepime and amikacin for urinary tract infection and sepsis and elevated white count. Check cultures and laboratories. Chest x-ray is negative. 2. Intensive care unit care. 3. Skin care protocol. 4. The patient is anemic. 5. Hypertension. 6. Blood pressure treatment primary care team. 7. Multiple sclerosis. 8. History of UTIs. 9. Hyperlipidemia. 10. Seizures. 11. Chronic pain syndrome. 12. Dementia. 13. Malnutrition. 14. Allergic to penicillin. 15. Social history is negative. 16. Family history is noncontributory. 17. MAR is noted. 18. Case was discussed with RN. 19. Case was discussed with Dr. Quiles. 20. Continue treatment per primary consultants. Jt Land M.D. DR: ROXANNA JOB#: [id number] CC: KAUR
[2019-10-12 04:00] VITALS: BP 131/75
[2019-10-12] MEDS: Cefepime HCl 2 GM in D5W 55 ML IVPB SCH ×2 (06:52→18:21)
[2019-10-12 08:00] VITALS: BP 120/83
[2019-10-12] MEDS ORDERED: Aspirin EC 81mg tab ORAL SCH (09:00)
[2019-10-12] MEDS ORDERED: Amikacin Rx to dose MISC PRN (09:00)
[2019-10-12] MEDS ORDERED: Ascorbic Acid 500mg tab ORAL SCH (09:00)
[2019-10-12] MEDS ORDERED: Zinc Sulfate 220mg cap ORAL SCH (09:00)
[2019-10-12] MEDS: Zinc Sulfate 220mg cap ORAL SCH (09:21)
[2019-10-12] MEDS: Aspirin EC 81mg tab ORAL SCH (09:21)
[2019-10-12] MEDS: Ascorbic Acid 500mg tab ORAL SCH (09:22)
[2019-10-12] MEDS: Heparin 5000 units/ml inj SUBQ SCH ×2 (09:23→20:44)
[2019-10-12] MEDS: D5NS 1,000 ML IV SCH ×3 (09:23→20:43)
--- NOTE | 2019-10-12 09:24 | General Progress Note ---
Assessment/Plan Problem List: (1) Sepsis ICD Codes: A41.9 - Sepsis, unspecified organism SNOMED: 05036059 (2) Urinary tract infection ICD Codes: N39.0 - Urinary tract infection, site not specified SNOMED: 18997548 (3) Multiple sclerosis ICD Codes: G35 - Multiple sclerosis SNOMED: 32153700 (4) Stage 4 skin ulcer of sacral region ICD Codes: L98.429 - Non-pressure chronic ulcer of back with unspecified severity SNOMED: 43891797, 122532502 (5) HTN (hypertension) ICD Codes: I10 - Essential (primary) hypertension SNOMED: 86430103 (6) HLD (hyperlipidemia) ICD Codes: E78.5 - Hyperlipidemia, unspecified SNOMED: 19539729 (7) Unspecified dementia without behavioral disturbance ICD Codes: F03.90 - Unspecified dementia without behavioral disturbance SNOMED: 00596589 (8) Chronic pain syndrome ICD Codes: G89.4 - Chronic pain syndrome SNOMED: 646074046 (9) Moderate protein malnutrition ICD Codes: E44.0 - Moderate protein-calorie malnutrition SNOMED: 147584362 Status: progressing Assessment/Plan: 54 year old female with multiple sclerosis, neurogenic bladder and functional quadriplegia being admitted for sepsis secondary to UTI. Responding to fluid resuscitation. Remains tachycardic, wbc increasing. ?CAP or possibly wound infection ICU --> telemetry Continue Cefepime and Amikacin per ID. Will consider adding Azithromycin and vancomycin to cover wound infection and atypical pneumonia Repeat CXR follow up blood cultures urine culture- gram negative rods remove and replaced briseno. d/w rn monitor wbc outpatient urology follow up. ID consult with Dr. Palacios. 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 Solis [employer] T[employer] RE[employer]ER consult to evaluate swallowing- PENDING Aspiration precautions Hold all BP meds pain control. vte ppx: heparin subq GI ppx: not indicated Code status: full code, POLST signed by SNF Md but not patient and it's blank. Will attempt to call Kirsten Richardson, daughter of patient: [phone] I spent 40 minutes on this encounter, > 50% spent on counselling and care coordination Time of this note may not reflect time of encounter. Subjective Date patient seen: Oct 12, 2019 ROS Limited/Unobtainable: Yes Allergies: Coded Allergies: PENICILLINS (Verified Allergy, Unknown, 07/05/16) Subjective Confused. BP stable but tachycardic. Tele reviewed, sinus tachycardia. WBC worsening. temp 100.4 Objective Last 24 Hour Vital Signs Date Time Temp Pulse Resp B/P (MAP) Pulse Ox O2 Delivery O2 Flow Rate FiO2 10/12/19 08:30 Nasal Cannula 2.0 10/12/19 08:00 96.6 61 18 120/83 (95) 98 10/12/19 08:00 126 10/12/19 04:00 119 10/12/19 04:00 100.4 121 19 131/75 (93) 95 10/12/19 00:00 10/12/19 00:00 121 10/11/19 22:00 97.2 113 20 125/72 (89) 95 10/11/19 21:00 108 16 122/73 (89) 100 10/11/19 20:00 108 10/11/19 20:00 Nasal Cannula 2.0 10/11/19 20:00 98.4 110 16 116/73 (87) 100 10/11/19 19:00 109 16 121/67 (85) 100 10/11/19 18:00 109 17 116/54 (74) 99 10/11/19 17:00 103 15 104/89 (94) 10/11/19 16:18 Nasal Cannula 2.0 10/11/19 16:00 2.0 10/11/19 16:00 98.5 100 17 107/77 (87) 100 10/11/19 15:57 103 10/11/19 15:00 92 12 110/46 (67) 100 10/11/19 14:00 86 15 117/71 (86) 99 10/11/19 13:00 86 14 103/41 (61) 99 10/11/19 12:00 2.0 10/11/19 12:00 96.5 85 13 99/52 (68) 99 10/11/19 12:00 Nasal Cannula 2.0 10/11/19 11:09 84 10/11/19 11:00 89 14 102/52 (69) 100 10/11/19 10:00 96 19 109/90 (96) 100 Intake and Output 10/11/19 10/12/19 19:00 07:00 Intake Total 1195.00 ml 263.4 ml Output Total 490 ml 160 ml Balance 705.00 ml 103.4 ml Intake Oral 240 ml IV Total 955.00 ml 263.4 ml Output Urine Total 490 ml 160 ml # Bowel Movements 2 Laboratory Tests 10/12/19 08:00: Random Amikacin Level [Pending] 10/12/19 08:10: Laboratory Tests Test 10/10/19 22:35 10/10/19 22:43 10/10/19 23:50 10/12/19 08:10 White Blood Count 15.5 K/UL (4.8-10.8) H 16.3 K/UL (4.8-10.8) H Red Blood Count 3.54 M/UL (4.20-5.40) L 3.37 M/UL (4.20-5.40) L Hemoglobin 9.2 G/DL (12.0-16.0) L 8.6 G/DL (12.0-16.0) L Hematocrit 29.4 % (37.0-47.0) L 27.8 % (37.0-47.0) L Mean Corpuscular Volume 83 FL (80-99) 83 FL (80-99) Mean Corpuscular Hemoglobin 26.1 PG (27.0-31.0) L 25.5 PG (27.0-31.0) L Mean Corpuscular Hemoglobin Concent 31.4 G/DL (32.0-36.0) L 30.9 G/DL (32.0-36.0) L Red Cell Distribution Width 19.7 % (11.6-14.8) H 19.4 % (11.6-14.8) H Platelet Count 265 K/UL (150-450) 280 K/UL (150-450) Mean Platelet Volume 6.3 FL (6.5-10.1) L 6.8 FL (6.5-10.1) Neutrophils (%) (Auto) % (45.0-75.0) % (45.0-75.0) Lymphocytes (%) (Auto) % (20.0-45.0) % (20.0-45.0) Monocytes (%) (Auto) % (1.0-10.0) % (1.0-10.0) Eosinophils (%) (Auto) % (0.0-3.0) % (0.0-3.0) Basophils (%) (Auto) % (0.0-2.0) % (0.0-2.0) Sodium Level 141 MMOL/L (136-145) 143 MMOL/L (136-145) Potassium Level 3.9 MMOL/L (3.5-5.1) 3.5 MMOL/L (3.5-5.1) Chloride Level 109 MMOL/L (98-107) H 114 MMOL/L (98-107) H Carbon Dioxide Level 23 MMOL/L (21-32) 17 MMOL/L (21-32) L Anion Gap 9 mmol/L (5-15) 12 mmol/L (5-15) Blood Urea Nitrogen 37 mg/dL (7-18) H 34 mg/dL (7-18) H Creatinine 0.9 MG/DL (0.55-1.30) 0.9 MG/DL (0.55-1.30) Estimate Glomerular Filtration Rate > 60 mL/min (>60) > 60 mL/min (>60) Glucose Level 72 MG/DL (74-106) L 121 MG/DL (74-106) H Calcium Level 8.0 MG/DL (8.5-10.1) L 8.4 MG/DL (8.5-10.1) L Phosphorus Level 3.9 MG/DL (2.5-4.9) Magnesium Level 2.0 MG/DL (1.8-2.4) Total Bilirubin 0.2 MG/DL (0.2-1.0) 0.3 MG/DL (0.2-1.0) Aspartate Amino Transferase (AST) 35 U/L (15-37) 22 U/L (15-37) Alanine Aminotransferase (ALT) 46 U/L (12-78) 33 U/L (12-78) Alkaline Phosphatase 241 U/L (46-116) H 216 U/L (46-116) H Total Creatine Kinase 24 U/L (26-308) L Creatine Kinase MB 2.7 NG/ML (0.0-3.6) Creatine Kinase MB Relative Index 11.2 Troponin I 0.000 ng/mL (0.000-0.056) Total Protein 7.6 G/DL (6.4-8.2) 7.6 G/DL (6.4-8.2) Albumin 1.3 G/DL (3.4-5.0) L 1.3 G/DL (3.4-5.0) L Globulin 6.3 g/dL 6.3 g/dL Albumin/Globulin Ratio 0.2 (1.0-2.7) L 0.2 (1.0-2.7) L Urine Color Yellow Urine Appearance Cloudy Urine pH 5 (4.5-8.0) Urine Specific Coral 1.020 (1.005-1.035) Urine Protein 3+ (NEGATIVE) H Urine Glucose (UA) Negative (NEGATIVE) Urine Ketones Negative (NEGATIVE) Urine Blood 5+ (NEGATIVE) H Urine Nitrite Positive (NEGATIVE) H Urine Bilirubin Negative (NEGATIVE) Urine Urobilinogen Normal MG/DL (0.0-1.0) Urine Leukocyte Esterase 3+ (NEGATIVE) H Urine RBC 15-20 /HPF (0 - 2) H Urine WBC Tntc /HPF (0 - 2) H Urine Squamous Epithelial Cells None /LPF (NONE/OCC) Urine Bacteria Many /HPF (NONE) H Lactic Acid Level 1.00 mmol/L (0.4-2.0) Differential Total Cells Counted 100 Neutrophils % (Manual) 87 % (45-75) H Lymphocytes % (Manual) 8 % (20-45) L Monocytes % (Manual) 5 % (1-10) Eosinophils % (Manual) 0 % (0-3) Basophils % (Manual) 0 % (0-2) Band Neutrophils 0 % (0-8) Platelet Estimate Adequate Platelet Morphology Normal Hypochromasia 2+ Anisocytosis 2+ Random Amikacin Level 30.2 ug/mL Microbiology Date/Time Source Procedure Growth Status 10/10/19 23:50 Blood Blood Culture - Preliminary NO GROWTH AFTER 24 HOURS Resulted 10/10/19 23:35 Blood Blood Culture - Preliminary Resulted 10/11/19 16:23 Indwelling Cath Urine Culture - Preliminary Resulted 10/10/19 22:43 Urine,Clean Catch Urine Culture - Preliminary Gram Negative Bacillus 1 Resulted White Blood Count [Pending], Red Blood Count [Pending], Hemoglobin [Pending], Hematocrit [Pending], Mean Corpuscular Volume [Pending], Mean Corpuscular Hemoglobin [Pending], Mean Corpuscular Hemoglobin Concent [Pending], Red Cell Distribution Width [Pending], Platelet Count [Pending], Mean Platelet Volume [ Pending], Neutrophils (%) (Auto) [Pending], Lymphocytes (%) (Auto) [Pending], Monocytes (%) (Auto) [Pending], Eosinophils (%) (Auto) [Pending], Basophils (%) (Auto) [Pending], Sodium Level [Pending], Potassium Level [Pending], Chloride Level [Pending], Carbon Dioxide Level [Pending], Blood Urea Nitrogen [Pending], Creatinine [Pending], Estimat Glomerular Filtration Rate [Pending], Glucose Level [Pending], Calcium Level [Pending], Total Bilirubin [Pending], Aspartate Amino Transf (AST/SGOT) [Pending], Alanine Aminotransferase (ALT/SGPT) [Pending] , Alkaline Phosphatase [Pending], Total Protein [Pending], Albumin [Pending], Globulin [Pending] Height (Feet): 5 Height (Inches): 1.00 Weight (Pounds): 160 Objective General Appearance: no apparent distress, confused Lines, tubes and drains: peripheral HEENT: normocephalic, atraumatic, anicteric, no JVD, other - right eye deviated to the right, unable to abduct Neck: non-tender, supple Respiratory/Chest: lungs clear, normal breath sounds, no respiratory distress, no accessory muscle use Cardiovascular/Chest: normal peripheral pulses, normal rate, regular rhythm, no gallop/murmur Abdomen: normal bowel sounds, non tender, soft, no organomegaly, other - pressure ulcer LLQ Genitourinary/Rectal: briseno, other - +CVA tenderness Extremities: no calf tenderness, no edema, no cyanosis Skin Exam: other - multiple stage 4 sacral decubutis Neurologic: confused , motor weakness - quadriplegia Musculoskeletal: atrophy Mikal Quiles M.D. Oct 12, 2019 09:24
[2019-10-12 09:28] LABS: ALANINE AMINOTRANSFERASE 33 U/L (12-78); ALBUMIN 1.3 G/DL (3.4-5.0); ALBUMIN/GLOBULIN RATIO 0.2 (1.0-2.7); ALKALINE PHOSPHATASE 216 U/L (46-116); ANION GAP 12 mmol/L (5-15); ASPARTATE AMINO TRANSFERASE 22 U/L (15-37); BILIRUBIN,TOTAL 0.3 MG/DL (0.2-1.0); BLOOD UREA NITROGEN 34 mg/dL (7-18); CALCIUM 8.4 MG/DL (8.5-10.1); CARBON DIOXIDE 17 MMOL/L (21-32); CHLORIDE 114 MMOL/L (98-107); CREATININE 0.9 MG/DL (0.55-1.30); POTASSIUM 3.5 MMOL/L (3.5-5.1); SODIUM 143 MMOL/L (136-145)
[2019-10-12 09:33] LABS: HEMATOCRIT 27.8 % (37.0-47.0); HEMOGLOBIN 8.6 G/DL (12.0-16.0); MEAN CORPUSCULAR VOLUME 83 FL (80-99); PLATELET COUNT 280 K/UL (150-450); RED BLOOD COUNT 3.37 M/UL (4.20-5.40); RED CELL DISTRIBUTION WIDTH 19.4 % (11.6-14.8); WHITE BLOOD COUNT 16.3 K/UL (4.8-10.8)
[2019-10-12 12:00] VITALS: BP 124/64
--- NOTE | 2019-10-12 13:36 | Infectious Diseases Prog Note ---
Assessment/Plan Assessment/Plan Full consult dictated: A) 1) gram neg uti/pyelonephritis, sepsis, leukocytosis, sirs, fevers, ? pna, ? wound infection 2) pmh noted 3) allergies - pcn 4) wounds noted P) 1) cefepime and amikacin, vancomycin and azithromycin added 2) check urine culture and blood cultures 3) monitor labs 4) icu care 5) d/w Dr. Quiles Subjective Constitutional: Reports: fever HEENT: Denies: congestion Respiratory: Denies: shortness of breath Cardiovascular: Denies: chest pain Gastrointestinal/Abdominal: Denies: nausea, vomiting Neurologic: Reports: headache Allergies: Coded Allergies: PENICILLINS (Verified Allergy, Unknown, 07/05/16) Objective Vital Signs Last 24 Hour Vital Signs Date Time Temp Pulse Resp B/P (MAP) Pulse Ox O2 Delivery O2 Flow Rate FiO2 10/12/19 12:15 126 120/83 10/12/19 12:00 125 10/12/19 12:00 98.6 80 20 124/64 (84) 92 10/12/19 08:30 Nasal Cannula 2.0 10/12/19 08:00 96.6 61 18 120/83 (95) 98 10/12/19 08:00 126 10/12/19 04:00 119 10/12/19 04:00 100.4 121 19 131/75 (93) 95 10/12/19 00:00 10/12/19 00:00 121 10/11/19 22:00 97.2 113 20 125/72 (89) 95 10/11/19 21:00 108 16 122/73 (89) 100 10/11/19 20:00 108 10/11/19 20:00 Nasal Cannula 2.0 10/11/19 20:00 98.4 110 16 116/73 (87) 100 10/11/19 19:00 109 16 121/67 (85) 100 10/11/19 18:00 109 17 116/54 (74) 99 10/11/19 17:00 103 15 104/89 (94) 10/11/19 16:18 Nasal Cannula 2.0 10/11/19 16:00 2.0 10/11/19 16:00 98.5 100 17 107/77 (87) 100 10/11/19 15:57 103 10/11/19 15:00 92 12 110/46 (67) 100 10/11/19 14:00 86 15 117/71 (86) 99 Height (Feet): 5 Height (Inches): 1.00 Weight (Pounds): 160 General Appearance: no acute distress HEENT: normocephalic, atraumatic, anicteric, mucous membranes moist Respiratory/Chest: crackles/rales, rhonchi - bilaterally Cardiovascular: normal rate, regular rhythm Abdomen: soft, non tender, no organomegaly Genitourinary: other - + briseno Skin: ulcers - wound pictures reviewed Microbiology Date/Time Source Procedure Growth Status 10/10/19 23:50 Blood Blood Culture - Preliminary NO GROWTH AFTER 24 HOURS Resulted 10/10/19 23:35 Blood Blood Culture - Preliminary Resulted 10/11/19 16:23 Indwelling Cath Urine Culture - Preliminary Resulted 10/10/19 22:43 Urine,Clean Catch Urine Culture - Preliminary Gram Negative Bacillus 1 Resulted Laboratory Tests Test 10/12/19 08:10 White Blood Count 16.3 K/UL (4.8-10.8) H Red Blood Count 3.37 M/UL (4.20-5.40) L Hemoglobin 8.6 G/DL (12.0-16.0) L Hematocrit 27.8 % (37.0-47.0) L Mean Corpuscular Volume 83 FL (80-99) Mean Corpuscular Hemoglobin 25.5 PG (27.0-31.0) L Mean Corpuscular Hemoglobin Concent 30.9 G/DL (32.0-36.0) L Red Cell Distribution Width 19.4 % (11.6-14.8) H Platelet Count 280 K/UL (150-450) Mean Platelet Volume 6.8 FL (6.5-10.1) Neutrophils (%) (Auto) % (45.0-75.0) Lymphocytes (%) (Auto) % (20.0-45.0) Monocytes (%) (Auto) % (1.0-10.0) Eosinophils (%) (Auto) % (0.0-3.0) Basophils (%) (Auto) % (0.0-2.0) Differential Total Cells Counted 100 Neutrophils % (Manual) 87 % (45-75) H Lymphocytes % (Manual) 8 % (20-45) L Monocytes % (Manual) 5 % (1-10) Eosinophils % (Manual) 0 % (0-3) Basophils % (Manual) 0 % (0-2) Band Neutrophils 0 % (0-8) Platelet Estimate Adequate Platelet Morphology Normal Hypochromasia 2+ Anisocytosis 2+ Sodium Level 143 MMOL/L (136-145) Potassium Level 3.5 MMOL/L (3.5-5.1) Chloride Level 114 MMOL/L (98-107) H Carbon Dioxide Level 17 MMOL/L (21-32) L Anion Gap 12 mmol/L (5-15) Blood Urea Nitrogen 34 mg/dL (7-18) H Creatinine 0.9 MG/DL (0.55-1.30) Estimat Glomerular Filtration Rate > 60 mL/min (>60) Glucose Level 121 MG/DL (74-106) H Calcium Level 8.4 MG/DL (8.5-10.1) L Total Bilirubin 0.3 MG/DL (0.2-1.0) Aspartate Amino Transf (AST/SGOT) 22 U/L (15-37) Alanine Aminotransferase (ALT/SGPT) 33 U/L (12-78) Alkaline Phosphatase 216 U/L (46-116) H Total Protein 7.6 G/DL (6.4-8.2) Albumin 1.3 G/DL (3.4-5.0) L Globulin 6.3 g/dL Albumin/Globulin Ratio 0.2 (1.0-2.7) L Random Amikacin Level 30.2 ug/mL Current Medications Medications (Trade) Dose Ordered Sig/Lenard Route PRN Reason Start Time Stop Time Status Last Admin Dose Admin Acetaminophen (Tylenol) 650 mg Q4H PRN ORAL Mild Pain (Pain Scale 1-3) 10/11/19 21:28 11/10/19 21:27 Acetaminophen (Tylenol) 650 mg Q4H PRN ORAL fever 10/11/19 21:28 11/10/19 21:27 Amikacin Protocol (Amikacin pharmacy to dose) 1 ea DAILY PRN MISC Per rx protocol 10/12/19 09:00 11/10/19 17:44 Ascorbic Acid (Vitamin C) 500 mg DAILY ORAL 10/12/19 09:00 11/11/19 08:59 10/12/19 09:22 Aspirin (Ecotrin) 81 mg DAILY ORAL 10/12/19 09:00 11/11/19 08:59 10/12/19 09:21 Atorvastatin Calcium (Lipitor) 20 mg BEDTIME ORAL 10/12/19 21:00 11/10/19 20:59 Azithromycin 500 mg/Dextrose 275 ml @ 275 mls/hr Q24HRS IV 10/12/19 15:00 10/16/19 15:59 Cefepime HCl 2 gm/ Dextrose 55 ml @ 110 mls/hr Q12H IVPB 10/12/19 06:00 10/18/19 05:59 10/12/19 06:52 Chlorhexidine Gluconate (Bailee-Hex 2%) 1 applic DAILY@2000 TOPIC 10/12/19 20:00 11/11/19 19:59 Dextrose (Dextrose 50%) 25 ml Q30M PRN IV Hypoglycemia 10/11/19 21:45 11/10/19 02:44 Dextrose (Dextrose 50%) 50 ml Q30M PRN IV Hypoglycemia 10/11/19 21:45 11/10/19 02:44 Dextrose/Sodium Chloride 1,000 ml @ 125 mls/hr Q8H IV 10/12/19 12:39 11/11/19 12:38 10/12/19 13:04 Folic Acid (Folate) 1 mg DAILY ORAL 10/12/19 09:00 11/11/19 08:59 10/12/19 09:22 Heparin Sodium (Porcine) (Heparin 5000 units/ml) 5,000 units EVERY 12 HOURS SUBQ 10/12/19 09:00 11/10/19 08:59 10/12/19 09:23 Multivitamins (Multivitamins) 1 tab DAILY ORAL 10/12/19 09:00 11/11/19 08:59 10/12/19 09:22 Vancomycin HCl (Vanco rx to dose) 1 ea DAILY PRN MISC Per rx protocol 10/12/19 12:45 11/11/19 12:44 Vancomycin HCl 1 gm/Dextrose 275 ml @ 183.708 mls/hr Q12HR@0200,1400 IVPB 10/12/19 14:00 10/17/19 13:59 Zinc Sulfate (Zinc Sulfate) 220 mg DAILY ORAL 10/12/19 09:00 11/11/19 08:59 10/12/19 09:21 Jt Land MD Oct 12, 2019 13:35
[2019-10-12] MEDS: Vancomycin 1gm in D5W 275ml IVPB SCH (14:29)
--- NOTE | 2019-10-12 15:57 | Diagnostic Imaging Report ---
Indication: Shortness of breath Technique: One view of the chest Comparison: Of 02/24/2019 Findings: The heart is upper limits of normal in size. Lungs and pleural spaces are clear. No significant interim change Impression: No acute process
[2019-10-12 16:00] VITALS: BP 120/63
[2019-10-12] MEDS: Azithromycin 500 MG in D5W 275 ML IV SCH (16:17)
[2019-10-12] MEDS ORDERED: Dyna-Hex 2% Top Sol 2oz TOPIC SCH (20:00)
[2019-10-12] MEDS: Atorvastatin 20mg tab ORAL SCH (20:43)
[2019-10-12] MEDS: Dyna-Hex 2% Top Sol 2oz TOPIC SCH (20:43)
[2019-10-13] VITALS: BP 135/79
[2019-10-13] MEDS: Vancomycin 1gm in D5W 275ml IVPB SCH ×2 (02:11→13:57)
[2019-10-13 04:00] VITALS: BP 153/84
[2019-10-13] MEDS: D5NS 1,000 ML IV SCH ×3 (06:00→20:10)
[2019-10-13] MEDS: Cefepime HCl 2 GM in D5W 55 ML IVPB SCH ×2 (06:00→17:25)
[2019-10-13 07:38] LABS: HEMATOCRIT 25.2 % (37.0-47.0); HEMOGLOBIN 7.8 G/DL (12.0-16.0); MEAN CORPUSCULAR VOLUME 83 FL (80-99); PLATELET COUNT 186 K/UL (150-450); RED BLOOD COUNT 3.03 M/UL (4.20-5.40); RED CELL DISTRIBUTION WIDTH 19.1 % (11.6-14.8); WHITE BLOOD COUNT 11.8 K/UL (4.8-10.8)
[2019-10-13 07:56] LABS: ANION GAP 10 mmol/L (5-15); BLOOD UREA NITROGEN 28 mg/dL (7-18); CALCIUM 7.6 MG/DL (8.5-10.1); CARBON DIOXIDE 21 MMOL/L (21-32); CHLORIDE 113 MMOL/L (98-107); CREATININE 1.1 MG/DL (0.55-1.30); POTASSIUM 3.5 MMOL/L (3.5-5.1); SODIUM 144 MMOL/L (136-145)
[2019-10-13] MEDS ORDERED: Amikacin 850 MG in NS 110 ML IV SCH (08:00)
[2019-10-13 08:36] VITALS: BP 137/63
[2019-10-13] MEDS: Ascorbic Acid 500mg tab ORAL SCH (09:22)
[2019-10-13] MEDS: Zinc Sulfate 220mg cap ORAL SCH (09:22)
[2019-10-13] MEDS: Aspirin EC 81mg tab ORAL SCH (09:22)
[2019-10-13] MEDS: Heparin 5000 units/ml inj SUBQ SCH ×2 (09:23→20:11)
--- NOTE | 2019-10-13 11:41 | Surgery Progress Note ---
Surgery Progress Note Subjective Additional Comments Patient seen and examined bedside. No acute events. Resting comfortable. No complaints. Wants to be repositioned more often. Labs noted. Leukocytosis trending down. ESR CRP elevated. H&H noted Objective Last 24 Hour Vital Signs Date Time Temp Pulse Resp B/P (MAP) Pulse Ox O2 Delivery O2 Flow Rate FiO2 10/13/19 08:36 98.1 100 18 137/63 (87) 100 10/13/19 04:00 125 10/13/19 04:00 98.1 124 20 153/84 (107) 98 10/13/19 00:00 97.7 127 21 135/79 (97) 97 10/13/19 00:00 125 10/12/19 21:00 Nasal Cannula 2.0 10/12/19 20:00 125 10/12/19 20:00 122 10/12/19 16:00 98.2 70 18 120/63 (82) 96 10/12/19 16:00 113 10/12/19 12:15 126 120/83 10/12/19 12:00 125 10/12/19 12:00 98.6 80 20 124/64 (84) 92 I&O Intake and Output 10/12/19 10/13/19 19:00 07:00 Output Total 800 ml Balance -800 ml Output Urine Total 800 ml Dressing: saturated Wound: clean Cardiovascular: RSR Respiratory: clear Abdomen: soft, non-tender, present bowel sounds Extremities: edema, no cyanosis, other Laboratory Tests Test 10/12/19 17:45 10/13/19 07:00 Random Amikacin Level 14.0 MG/L 5.3 ug/mL White Blood Count 11.8 K/UL (4.8-10.8) H Red Blood Count 3.03 M/UL (4.20-5.40) L Hemoglobin 7.8 G/DL (12.0-16.0) L Hematocrit 25.2 % (37.0-47.0) L Mean Corpuscular Volume 83 FL (80-99) Mean Corpuscular Hemoglobin 25.6 PG (27.0-31.0) L Mean Corpuscular Hemoglobin Concent 30.8 G/DL (32.0-36.0) L Red Cell Distribution Width 19.1 % (11.6-14.8) H Platelet Count 186 K/UL (150-450) Mean Platelet Volume 6.5 FL (6.5-10.1) Neutrophils (%) (Auto) % (45.0-75.0) Lymphocytes (%) (Auto) % (20.0-45.0) Monocytes (%) (Auto) % (1.0-10.0) Eosinophils (%) (Auto) % (0.0-3.0) Basophils (%) (Auto) % (0.0-2.0) Differential Total Cells Counted 100 Neutrophils % (Manual) 79 % (45-75) H Lymphocytes % (Manual) 17 % (20-45) L Monocytes % (Manual) 4 % (1-10) Eosinophils % (Manual) 0 % (0-3) Basophils % (Manual) 0 % (0-2) Band Neutrophils 0 % (0-8) Platelet Estimate Adequate Platelet Morphology Normal Hypochromasia 3+ Anisocytosis 2+ Erythrocyte Sedimentation Rate 128 MM/HR (0-30) H Sodium Level 144 MMOL/L (136-145) Potassium Level 3.5 MMOL/L (3.5-5.1) Chloride Level 113 MMOL/L (98-107) H Carbon Dioxide Level 21 MMOL/L (21-32) Anion Gap 10 mmol/L (5-15) Blood Urea Nitrogen 28 mg/dL (7-18) H Creatinine 1.1 MG/DL (0.55-1.30) Estimat Glomerular Filtration Rate > 60 mL/min (>60) Glucose Level 145 MG/DL (74-106) H Calcium Level 7.6 MG/DL (8.5-10.1) L C-Reactive Protein, Quantitative 19.2 mg/dL (0.00-0.90) H Lipase 128 U/L (73-393) Plan Problems: (1) Decubitus ulcer Assessment & Plan: 54-year-old female multiple comorbidities who is fairly bedbound and care dependent presented from nursing facility with multiple decubitus ulcers requiring care and management and evaluation. Patient identified to have a right ischial and left ischial stage IV decubitus ulcers Patient Identified to have historic healed sacral decubitus ulcer pt presented on admission with multiple pressure injuries. Full thickness wound L abd with 95% slough, 5% surrounding erythema with macerated borders. Erythema without induration or elevation in skin temp periwound.(L)1.6cm x (W)1.7cm. Moisture intertrigo noted to abd folds and groin folds. Labia majora noted to be swollen. Hyperpigmentation from previous wound noted to Sacrum. Full thickness stage 4 pressure injury with undermining noted to L Ischium. Langlois granulation noted to base of wound. No odor noted. Small amt serous exudate.(L)7.5cm x (W)4.5cm x (D)2.3cm, undermining clockwise 9-12o'clock by 3.6cm @12o'clock. Full thickness stage 4 pressure injury R ischium with two areas of tunneling. Langlois granulation at base of wound with small amt of Biofilm. Surrounding pink epithelial borders. Small amt serosanguineous exudate noted. No odor noted. Periwound skin is dark without erythema,induration or elevation in skin temp.(L) 4cm x (W)2.5cm x (D)2.6cm ,tunneling clockwise @12 o'clock by3.6cm ,Tunneling clockwise @2o'clock by5.7cm. Areas of hyperpigmentation noted to L heel, distal/lateral L foot extending into plantar aspect. R heel is boggy with non-blanching erythema. unlikely etiology of sepsis as chronic wounds with good granulation tissue slowly healing Tx.Plan: Cleanse Abdominal wound with Saline. Apply TheraHoney. Apply Cavilon Skin Barrier periwound. Cover with Optifoam drsg. Change every 3 days and prn. Cleanse L ischial wound with Saline. Loosely Pack with Hydrogel impregnated Kerlix packing. Apply Moisture Barrier Paste periwound. Cover with Optifoam drsg Daily and prn. Cleanse R Ischial wound with Saline. Loosely pack with Hydrogel impregnated Kerlix. (ATTENTION:2 Tunneled areas 9o'clock and 2o'clock). Apply Moisture Barrier Paste periwound. Cover with Optifoam drsg Daily and prn. Apply Cavilon Skin BArrier to both heels. Cover each heel with Optifoam drsg. Change every 7 days and prn. APM/AURA Mattress overlay. Reposition at least every 2hours or as tolerated. Off-load heels with pillow. Place pillow between knees. nutritional optimization as below (2) Sepsis Assessment & Plan: 54-year-old female multiple committees presents with hypotension altered mental status. Patient with leukocytosis, abnormal labs. Currently intensive care unit under care and management. Wound evaluated and stage IV multiple but chronic and unlikely etiology of sepsis. We will continue to monitor and evaluate IV fluids IV antibiotics as per infectious disease O2 Trend labs We will follow with recommendations Thank you for let me participate in patient's care (3) Moderate protein malnutrition Assessment & Plan: DAILY ESTIMATED NEEDS: Needs based on Sepsis, stage 4 wounds; 51.6kg adj 30-35 kcals/kg 8797-7991 total kcals 1.5-2 g protein/kg 77-103 g total protein 25-30 mL/kg 1290- 1548 total fluid mLs NUTRITION DIAGNOSIS: * Increased kcal and pro needs r/t wound healing AEB pt adm with stage 4 wounds x2, unstageable abdominal wound, h/o MS. CURRENT DIET: No diet order in place yet. PO DIET RECOMMENDATIONS: Regular as tolerated; texture per V BELT BUILDER Monitor PO intake w/ diet/ need for supplements and/or snacks ADDITIONAL RECOMMENDATIONS: 1) Obtain calibrated bedscale wt PER SNF: 139 lbs + 61 inches 2) 2) Wound healing: provide Elias in 8oz water BID -> Vit C 250mg BID + Zinc 220mg daily x 10days + MVI w/ MIN 3) Monitor BG- slightly low (72)-> rec D5 for hydration 4) V BELT BUILDER eval for appropriate texture/ previously on aspiration precautions Matty Solis Oct 13, 2019 11:41
[2019-10-13 12:00] VITALS: BP 108/69
--- NOTE | 2019-10-13 14:42 | General Progress Note ---
Assessment/Plan Status: progressing Assessment/Plan: Sepsis Urinary tract infection Multiple sclerosis Functional quadriplegia Stage 4 skin ulcer of sacral region HTN HLD Unspecified dementia without behavioral disturbance Chronic pain syndrome Moderate protein malnutrition Assessment/Plan: 54 year old female with multiple sclerosis, neurogenic bladder and functional quadriplegia being admitted for sepsis secondary to UTI. Responding to fluid resuscitation. Remains tachycardic, wbc increasing. ?CAP or possibly wound infection continue telemetry Continue abx for ID Repeat CXR without acute disease Urine culture from 10/10 with E. coli remove and replaced briseno monitor wbc outpatient urology follow up. Technical Illustrator consult offloading, local wound care and wound MD consult with Dr. Solis WAIST PRESSER eval Aspiration precautions cont to hold all BP meds pain control. vte ppx: heparin subq I spent 40 minutes on this encounter, > 50% spent on counselling and care coordination I spent an additional 35 minutes on review of medical records including prior outside hospital records, consult notes, progress notes, procedures, imaging, labs, hemodynamics, and other clinical documentation. Time of this note may not reflect time of encounter. Subjective Date patient seen: Oct 13, 2019 Time patient seen: 14:00 ROS Limited/Unobtainable: Yes Constitutional: Denies: fever Cardiovascular: Denies: chest pain Respiratory: Denies: cough Gastrointestinal/Abdominal: Denies: abdominal pain Allergies: Coded Allergies: PENICILLINS (Verified Allergy, Unknown, 07/05/16) Subjective Follow up for sepsis, UTI, possible pneumonia. No new issues overnight per nursing. Objective Last 24 Hour Vital Signs Date Time Temp Pulse Resp B/P (MAP) Pulse Ox O2 Delivery O2 Flow Rate FiO2 10/13/19 12:00 97.8 118 18 108/69 (82) 100 10/13/19 11:44 120 10/13/19 09:00 Nasal Cannula 2.0 10/13/19 08:36 98.1 100 18 137/63 (87) 100 10/13/19 07:41 103 10/13/19 04:00 125 10/13/19 04:00 98.1 124 20 153/84 (107) 98 10/13/19 00:00 97.7 127 21 135/79 (97) 97 10/13/19 00:00 125 10/12/19 21:00 Nasal Cannula 2.0 10/12/19 20:00 125 10/12/19 20:00 122 10/12/19 16:00 98.2 70 18 120/63 (82) 96 10/12/19 16:00 113 Intake and Output 10/12/19 10/13/19 19:00 07:00 Output Total 800 ml Balance -800 ml Output Urine Total 800 ml Laboratory Tests 10/12/19 17:45: Random Amikacin Level 14.0 10/13/19 07:00: Random Amikacin Level 5.3, White Blood Count 11.8H, Red Blood Count 3.03L, Hemoglobin 7.8L, Hematocrit 25.2L, Mean Corpuscular Volume 83, Mean Corpuscular Hemoglobin 25.6L, Mean Corpuscular Hemoglobin Concent 30.8L, Red Cell Distribution Width 19.1H, Platelet Count 186, Mean Platelet Volume 6.5, Neutrophils (%) (Auto) , Lymphocytes (%) (Auto) , Monocytes (%) (Auto) , Eosinophils (%) (Auto) , Basophils (%) (Auto) , Differential Total Cells Counted 100, Neutrophils % (Manual) 79H, Lymphocytes % (Manual) 17L, Monocytes % (Manual) 4, Eosinophils % (Manual) 0, Basophils % (Manual) 0, Band Neutrophils 0, Platelet Estimate Adequate, Platelet Morphology Normal, Hypochromasia 3+, Anisocytosis 2+, Erythrocyte Sedimentation Rate 128H, Sodium Level 144, Potassium Level 3.5, Chloride Level 113H, Carbon Dioxide Level 21, Anion Gap 10, Blood Urea Nitrogen 28H, Creatinine 1.1, Estimat Glomerular Filtration Rate > 60, Glucose Level 145H, Calcium Level 7.6L, C-Reactive Protein , Quantitative 19.2H, Lipase 128 Height (Feet): 5 Height (Inches): 1.00 Weight (Pounds): 187 General Appearance: alert Neck: normal alignment, supple Cardiovascular: normal rate, regular rhythm Respiratory/Chest: lungs clear, normal breath sounds Abdomen: non tender, soft Maik Coello MD Oct 13, 2019 14:42
[2019-10-13] MEDS: Azithromycin 500 MG in D5W 275 ML IV SCH (15:00)
[2019-10-13 16:00] VITALS: BP 115/74
--- NOTE | 2019-10-13 17:38 | Infectious Diseases Prog Note ---
Assessment/Plan Assessment/Plan ASSESSMENT AND PLAN: 1. e.coli uti, hearing examiner bacteremia, sepsis, leukocytosis, fevers, ? sig gram +/yeast on f/u urine culture - likely contaminant chest x-ray neg x 2, wounds noted - vancomycin and cefepime, discontinue azithromycin - f/u cultures, labs, echo, f/u ua and reflex to culture - wound care per surgery and protocol - clinically improved 2. telemetry care 3. Skin care protocol. 4. The patient is anemic. 5. Hypertension. 6. Blood pressure treatment primary care team. 7. Multiple sclerosis. 8. History of UTIs. 9. Hyperlipidemia. 10. Seizures. 11. Chronic pain syndrome. 12. Dementia. 13. Malnutrition. 14. Allergic to penicillin. 15. Social history is negative. 16. Family history is noncontributory. 17. MAR is noted. 18. Case was discussed with RN. 19. Case was discussed with Dr. Quiles. 20. Continue treatment per primary consultants. Subjective Constitutional: Denies: fever HEENT: Denies: congestion Respiratory: Denies: shortness of breath Cardiovascular: Denies: chest pain Gastrointestinal/Abdominal: Denies: nausea, vomiting, diarrhea Genitourinary: Reports: other - + briseno Neurologic: Denies: headache Psychiatric: Denies: depression Skin: Denies: rash Hematologic: Denies: bleeding Musculoskeletal: Denies: pain Allergies: Coded Allergies: PENICILLINS (Verified Allergy, Unknown, 07/05/16) Objective Vital Signs Last 24 Hour Vital Signs Date Time Temp Pulse Resp B/P (MAP) Pulse Ox O2 Delivery O2 Flow Rate FiO2 10/13/19 16:00 97.9 117 18 115/74 (88) 99 10/13/19 12:00 97.8 118 18 108/69 (82) 100 10/13/19 11:44 120 10/13/19 09:00 Nasal Cannula 2.0 10/13/19 08:36 98.1 100 18 137/63 (87) 100 10/13/19 07:41 103 10/13/19 04:00 125 10/13/19 04:00 98.1 124 20 153/84 (107) 98 10/13/19 00:00 97.7 127 21 135/79 (97) 97 10/13/19 00:00 125 10/12/19 21:00 Nasal Cannula 2.0 10/12/19 20:00 125 10/12/19 20:00 122 Height (Feet): 5 Height (Inches): 1.00 Weight (Pounds): 187 General Appearance: no acute distress HEENT: normocephalic, atraumatic, anicteric, mucous membranes moist Respiratory/Chest: lungs clear, normal breath sounds, no respiratory distress, no accessory muscle use Cardiovascular: normal rate, regular rhythm, no gallop/murmur, no JVD Abdomen: normal bowel sounds, soft, non tender, no organomegaly, non distended Genitourinary: other - + briseno - urine clearer Extremities: no cyanosis Skin: no rash Neurologic/Psychiatric: teaching dietitian II-XII grossly normal, alert, oriented x 3, responsive Lymphatic: no neck adenopathy Musculoskeletal: no effusion Objective Chest x- ray - 10/12/19 - Procedure: XRAY Chest 1v Indication: Shortness of breath Technique: One view of the chest Comparison: Of 02/24/2019 Findings: The heart is upper limits of normal in size. Lungs and pleural spaces are clear. No significant interim change Impression: No acute process Microbiology Date/Time Source Procedure Growth Status 10/10/19 23:50 Blood Blood Culture - Preliminary Resulted 10/10/19 23:35 Blood Blood Culture - Preliminary Staphylococcus Sp Coag Neg Resulted 10/11/19 01:35 Nasal Nares MRSA Culture - Final Staphylococcus Aureus - Mrsa Complete 10/11/19 16:23 Indwelling Cath Urine Culture - Preliminary April Albicans Gram Positive Cocci Resulted 10/10/19 22:43 Urine,Clean Catch Urine Culture - Final Escherichia Coli Complete 10/11/19 01:35 Rectum - Final NO CARBAPENEM-RESISTANT ENTEROBACTERI... Complete 10/11/19 01:35 Rectum VRE Culture - Final NO VANCOMYCIN RESISTANT ENTEROCOCCUS ... Complete Laboratory Tests Test 10/12/19 17:45 10/13/19 07:00 Random Amikacin Level 14.0 MG/L 5.3 ug/mL White Blood Count 11.8 K/UL (4.8-10.8) H Red Blood Count 3.03 M/UL (4.20-5.40) L Hemoglobin 7.8 G/DL (12.0-16.0) L Hematocrit 25.2 % (37.0-47.0) L Mean Corpuscular Volume 83 FL (80-99) Mean Corpuscular Hemoglobin 25.6 PG (27.0-31.0) L Mean Corpuscular Hemoglobin Concent 30.8 G/DL (32.0-36.0) L Red Cell Distribution Width 19.1 % (11.6-14.8) H Platelet Count 186 K/UL (150-450) Mean Platelet Volume 6.5 FL (6.5-10.1) Neutrophils (%) (Auto) % (45.0-75.0) Lymphocytes (%) (Auto) % (20.0-45.0) Monocytes (%) (Auto) % (1.0-10.0) Eosinophils (%) (Auto) % (0.0-3.0) Basophils (%) (Auto) % (0.0-2.0) Differential Total Cells Counted 100 Neutrophils % (Manual) 79 % (45-75) H Lymphocytes % (Manual) 17 % (20-45) L Monocytes % (Manual) 4 % (1-10) Eosinophils % (Manual) 0 % (0-3) Basophils % (Manual) 0 % (0-2) Band Neutrophils 0 % (0-8) Platelet Estimate Adequate Platelet Morphology Normal Hypochromasia 3+ Anisocytosis 2+ Erythrocyte Sedimentation Rate 128 MM/HR (0-30) H Sodium Level 144 MMOL/L (136-145) Potassium Level 3.5 MMOL/L (3.5-5.1) Chloride Level 113 MMOL/L (98-107) H Carbon Dioxide Level 21 MMOL/L (21-32) Anion Gap 10 mmol/L (5-15) Blood Urea Nitrogen 28 mg/dL (7-18) H Creatinine 1.1 MG/DL (0.55-1.30) Estimat Glomerular Filtration Rate > 60 mL/min (>60) Glucose Level 145 MG/DL (74-106) H Calcium Level 7.6 MG/DL (8.5-10.1) L C-Reactive Protein, Quantitative 19.2 mg/dL (0.00-0.90) H Lipase 128 U/L (73-393) Current Medications Medications (Trade) Dose Ordered Sig/Lenard Route PRN Reason Start Time Stop Time Status Last Admin Dose Admin Acetaminophen (Tylenol) 650 mg Q4H PRN ORAL Mild Pain (Pain Scale 1-3) 12/5/19 21:28 11/10/19 21:27 Acetaminophen (Tylenol) 650 mg Q4H PRN ORAL fever 10/11/19 21:28 11/10/19 21:27 Amikacin Protocol (Amikacin pharmacy to dose) 1 ea DAILY PRN MISC Per rx protocol 10/12/19 09:00 11/10/19 17:44 Ascorbic Acid (Vitamin C) 500 mg DAILY ORAL 10/12/19 09:00 11/11/19 08:59 10/13/19 09:22 Aspirin (Ecotrin) 81 mg DAILY ORAL 10/12/19 09:00 11/11/19 08:59 10/13/19 09:22 Atorvastatin Calcium (Lipitor) 20 mg BEDTIME ORAL 10/12/19 21:00 11/10/19 20:59 10/12/19 20:43 Azithromycin 500 mg/Dextrose 275 ml @ 275 mls/hr Q24HRS IV 10/12/19 15:00 10/16/19 15:59 10/13/19 15:00 Cefepime HCl 2 gm/ Dextrose 55 ml @ 110 mls/hr Q12H IVPB 10/12/19 06:00 10/18/19 05:59 10/13/19 06:00 Chlorhexidine Gluconate (Bailee-Hex 2%) 1 applic DAILY@2000 TOPIC 10/12/19 20:00 11/11/19 19:59 10/12/19 20:43 Dextrose (Dextrose 50%) 25 ml Q30M PRN IV Hypoglycemia 10/11/19 21:45 11/10/19 02:44 Dextrose (Dextrose 50%) 50 ml Q30M PRN IV Hypoglycemia 10/11/19 21:45 11/10/19 02:44 Dextrose/Sodium Chloride 1,000 ml @ 125 mls/hr Q8H IV 10/12/19 12:39 11/11/19 12:38 10/13/19 13:57 Folic Acid (Folate) 1 mg DAILY ORAL 10/12/19 09:00 11/11/19 08:59 10/13/19 09:22 Heparin Sodium (Porcine) (Heparin 5000 units/ml) 5,000 units EVERY 12 HOURS SUBQ 10/12/19 09:00 11/10/19 08:59 10/13/19 09:23 Multivitamins (Multivitamins) 1 tab DAILY ORAL 10/12/19 09:00 11/11/19 08:59 10/13/19 09:22 Vancomycin HCl (Vanco rx to dose) 1 ea DAILY PRN MISC Per rx protocol 10/12/19 12:45 11/11/19 12:44 Vancomycin HCl 1 gm/Dextrose 275 ml @ 183.708 mls/hr Q12HR@0200,1400 IVPB 10/12/19 14:00 10/17/19 13:59 10/13/19 13:57 Zinc Sulfate (Zinc Sulfate) 220 mg DAILY ORAL 10/12/19 09:00 11/11/19 08:59 10/13/19 09:22 Jt Land MD Oct 13, 2019 17:38
[2019-10-13 18:41] LABS: APPEARANCE,URINE CLOUDY; BILIRUBIN, URINE NEGATIVE (NEGATIVE); COLOR,URINE PALE YELLOW; GLUCOSE, URINE (UA) NEGATIVE (NEGATIVE); KETONES,URINE NEGATIVE (NEGATIVE); LEUKOCYTE ESTERASE ,URINE 3+ (NEGATIVE); NITRITE,URINE NEGATIVE (NEGATIVE); PH,URINE 5 (4.5-8.0); PROTEIN,URINE 1+ (NEGATIVE); UROBILINOGEN,URINE NORMAL MG/DL (0.0-1.0)
[2019-10-13 20:00] VITALS: BP 135/77
[2019-10-13] MEDS: Dyna-Hex 2% Top Sol 2oz TOPIC SCH (20:08)
[2019-10-13] MEDS: Atorvastatin 20mg tab ORAL SCH (20:09)
[2019-10-14] VITALS: BP 127/72
[2019-10-14 01:35] LABS: HEMATOCRIT 24.7 % (37.0-47.0); HEMOGLOBIN 7.6 G/DL (12.0-16.0); MEAN CORPUSCULAR VOLUME 82 FL (80-99); PLATELET COUNT 160 K/UL (150-450); RED BLOOD COUNT 3.03 M/UL (4.20-5.40); WHITE BLOOD COUNT 18.5 K/UL (4.8-10.8)
[2019-10-14 01:55] LABS: ALANINE AMINOTRANSFERASE 49 U/L (12-78); ALBUMIN 1.1 G/DL (3.4-5.0); ALBUMIN/GLOBULIN RATIO 0.2 (1.0-2.7); ALKALINE PHOSPHATASE 272 U/L (46-116); ANION GAP 11 mmol/L (5-15); ASPARTATE AMINO TRANSFERASE 64 U/L (15-37); BILIRUBIN,TOTAL 0.5 MG/DL (0.2-1.0); BLOOD UREA NITROGEN 20 mg/dL (7-18); CALCIUM 7.9 MG/DL (8.5-10.1); CARBON DIOXIDE 20 MMOL/L (21-32); CHLORIDE 111 MMOL/L (98-107); SODIUM 139 MMOL/L (136-145)
[2019-10-14] MEDS: Vancomycin 1gm in D5W 275ml IVPB SCH (02:00)
[2019-10-14 02:06] LABS: POTASSIUM 2.3 MMOL/L (3.5-5.1)
[2019-10-14 03:15] LABS: ANION GAP 10 mmol/L (5-15); BLOOD UREA NITROGEN 20 mg/dL (7-18); CALCIUM 7.8 MG/DL (8.5-10.1); CARBON DIOXIDE 19 MMOL/L (21-32); CHLORIDE 110 MMOL/L (98-107); CREATININE 0.9 MG/DL (0.55-1.30); SODIUM 139 MMOL/L (136-145)
[2019-10-14 03:24] LABS: POTASSIUM 2.3 MMOL/L (3.5-5.1)
[2019-10-14] MEDS: D5NS 1,000 ML IV SCH ×4 (03:43→23:44)
[2019-10-14 04:00] VITALS: BP 121/54
[2019-10-14 08:00] VITALS: BP 154/102
[2019-10-14] MEDS: Zinc Sulfate 220mg cap ORAL SCH (09:26)
[2019-10-14] MEDS: Aspirin EC 81mg tab ORAL SCH (09:26)
[2019-10-14] MEDS: Cefepime HCl 2 GM in D5W 55 ML IVPB SCH ×2 (09:27→21:16)
[2019-10-14] MEDS: Ascorbic Acid 500mg tab ORAL SCH (09:32)
[2019-10-14] MEDS: Heparin 5000 units/ml inj SUBQ SCH ×2 (09:32→21:00)
[2019-10-14 12:00] VITALS: BP 137/93
--- NOTE | 2019-10-14 12:52 | General Progress Note ---
Assessment/Plan Status: progressing Assessment/Plan: Sepsis Urinary tract infection Multiple sclerosis Functional quadriplegia Stage 4 skin ulcer of sacral region HTN HLD Unspecified dementia without behavioral disturbance Chronic pain syndrome Moderate protein malnutrition Severe hypokalemia Assessment/Plan: 54 year old female with multiple sclerosis, neurogenic bladder and functional quadriplegia being admitted for sepsis secondary to UTI. Responding to fluid resuscitation. Remains tachycardic, wbc increasing. ?CAP or possibly wound infection continue telemetry Continue abx for ID Repeat CXR without acute disease Urine culture from 10/10 with E. coli remove and replaced briseno monitor wbc outpatient urology follow up. Gaggerman consult offloading, local wound care and wound MD consult with Dr. Solis MULTIMEDIA PRODUCTION ASSISTANT eval Aspiration precautions cont to hold all BP meds pain control. Check stat BMP, replace potassium as needed. Check AM labs vte ppx: heparin subq I spent 40 minutes on this encounter, > 50% spent on counselling and care coordination Time of this note may not reflect time of encounter. Subjective Date patient seen: Oct 14, 2019 Time patient seen: 11:35 ROS Limited/Unobtainable: Yes Constitutional: Denies: fever Cardiovascular: Denies: chest pain Respiratory: Denies: cough Allergies: Coded Allergies: PENICILLINS (Verified Allergy, Unknown, 07/05/16) Subjective Follow up for sepsis, UTI, possible pneumonia. K noted to be 2.3 overnight, given 40 mEq KCl. Repeat labs pending. Patient also with intermittent agitation per RN. Objective Last 24 Hour Vital Signs Date Time Temp Pulse Resp B/P (MAP) Pulse Ox O2 Delivery O2 Flow Rate FiO2 10/14/19 09:00 Nasal Cannula 2.0 10/14/19 08:00 98.2 114 16 154/102 (119) 100 10/14/19 08:00 107 10/14/19 04:58 98 10/14/19 04:00 98.7 100 16 121/54 (76) 98 10/14/19 00:00 105 10/14/19 00:00 97.9 105 18 127/72 (90) 99 10/13/19 21:00 Nasal Cannula 2.0 10/13/19 20:00 97.9 98 16 135/77 (96) 99 10/13/19 20:00 104 10/13/19 16:00 97.9 117 18 115/74 (88) 99 10/13/19 16:00 113 Intake and Output 10/13/19 10/14/19 19:00 07:00 Intake Total 635 ml 875 ml Output Total 750 ml 1500 ml Balance -115 ml -625 ml Intake Oral 510 ml IV Total 125 ml 875 ml Output Urine Total 750 ml 1500 ml Laboratory Tests 10/13/19 17:55: Urine Color Pale yellow, Urine Appearance Cloudy, Urine pH 5, Urine Specific [place] 1.005, Urine Protein 1+H, Urine Glucose (UA) Negative, Urine Ketones Negative, Urine Blood 4+H, Urine Nitrite Negative, Urine Bilirubin Negative, Urine Urobilinogen Normal, Urine Leukocyte Esterase 3+H, Urine RBC 30-40H, Urine WBC TntcH, Urine Squamous Epithelial Cells Occasional, Urine Bacteria ModerateH, Urine Yeast ModerateH 10/14/19 01:12: White Blood Count 18.5#H, Red Blood Count 3.03L, Hemoglobin 7.6L, Hematocrit 24.7L, Mean Corpuscular Volume 82, Mean Corpuscular Hemoglobin 25.1L, Mean Corpuscular Hemoglobin Concent 30.7L, Red Cell Distribution Width 19.0H, Platelet Count 160, Mean Platelet Volume 6.7, Neutrophils (%) (Auto) , Lymphocytes (%) (Auto) , Monocytes (%) (Auto) , Eosinophils (%) (Auto) , Basophils (%) (Auto) , Differential Total Cells Counted 100, Neutrophils % ( Manual) 85H, Lymphocytes % (Manual) 10L, Monocytes % (Manual) 5, Eosinophils % ( Manual) 0, Basophils % (Manual) 0, Band Neutrophils 0, Platelet Estimate Adequate, Platelet Morphology Normal, Sodium Level 139, Potassium Level 2.3*L, Chloride Level 111H, Carbon Dioxide Level 20L, Anion Gap 11, Blood Urea Nitrogen 20H, Creatinine 1.0, Estimat Glomerular Filtration Rate > 60, Glucose Level 128H, Calcium Level 7.9L, Total Bilirubin 0.5, Aspartate Amino Transf (AST /SGOT) 64H, Alanine Aminotransferase (ALT/SGPT) 49, Alkaline Phosphatase 272H, Total Protein 6.6, Albumin 1.1L, Globulin 5.5, Albumin/Globulin Ratio 0.2L, Vancomycin Level Trough 24.8H 10/14/19 03:03: Sodium Level 139, Potassium Level 2.3*L, Chloride Level 110H, Carbon Dioxide Level 19L, Anion Gap 10, Blood Urea Nitrogen 20H, Creatinine 0.9, Estimat Glomerular Filtration Rate > 60, Glucose Level 125H, Calcium Level 7.8L Height (Feet): 5 Height (Inches): 1.00 Weight (Pounds): 209 General Appearance: no apparent distress, alert Neck: normal alignment, supple Cardiovascular: normal rate, regular rhythm Respiratory/Chest: lungs clear, normal breath sounds Abdomen: non tender Maik Coello MD Oct 14, 2019 12:52
[2019-10-14 13:22] LABS: ANION GAP 12 mmol/L (5-15); BLOOD UREA NITROGEN 19 mg/dL (7-18); CALCIUM 8.2 MG/DL (8.5-10.1); CARBON DIOXIDE 17 MMOL/L (21-32); CHLORIDE 112 MMOL/L (98-107); CREATININE 0.9 MG/DL (0.55-1.30); SODIUM 141 MMOL/L (136-145)
[2019-10-14] MEDS: Vancomycin 750mg/D5W 275ml IVPB SCH ×2 (14:21)
[2019-10-14] MEDS ORDERED: D5NS 1000ml IV ONE (15:03)
[2019-10-14] MEDS ORDERED: Tubing IV Secondary IV ONE (15:03)
[2019-10-14 16:00] VITALS: BP 149/83
--- NOTE | 2019-10-14 16:12 | Surgery Progress Note ---
Surgery Progress Note Subjective Additional Comments Patient seen and examined bedside. No acute events. Afebrile, tachycardic, significant leukocytosis 18,000 with shift. Microbiology identified. Chest x-ray pending MRI pelvis ordered to ensure no acute active osteo-despite clean clinical appearance Objective Last 24 Hour Vital Signs Date Time Temp Pulse Resp B/P (MAP) Pulse Ox O2 Delivery O2 Flow Rate FiO2 10/14/19 12:00 114 10/14/19 12:00 97.9 93 18 137/93 (108) 99 10/14/19 09:00 Nasal Cannula 2.0 10/14/19 08:00 98.2 114 16 154/102 (119) 100 10/14/19 08:00 107 10/14/19 04:58 98 10/14/19 04:00 98.7 100 16 121/54 (76) 98 10/14/19 00:00 105 10/14/19 00:00 97.9 105 18 127/72 (90) 99 10/13/19 21:00 Nasal Cannula 2.0 10/13/19 20:00 97.9 98 16 135/77 (96) 99 10/13/19 20:00 104 I&O Intake and Output 10/13/19 10/14/19 19:00 07:00 Intake Total 635 ml 1475 ml Output Total 750 ml 1500 ml Balance -115 ml -25 ml Intake Oral 510 ml IV Total 125 ml 1475 ml Output Urine Total 750 ml 1500 ml Dressing: saturated Wound: clean Drains: other Cardiovascular: RSR Respiratory: clear, decreased breath sounds Abdomen: soft, non-tender, present bowel sounds Extremities: no cyanosis, other Laboratory Tests Test 10/13/19 17:55 10/14/19 01:12 10/14/19 03:03 10/14/19 12:30 Urine Color Pale yellow Urine Appearance Cloudy Urine pH 5 (4.5-8.0) Urine Specific Stanley 1.005 (1.005-1.035) Urine Protein 1+ (NEGATIVE) H Urine Glucose (UA) Negative (NEGATIVE) Urine Ketones Negative (NEGATIVE) Urine Blood 4+ (NEGATIVE) H Urine Nitrite Negative (NEGATIVE) Urine Bilirubin Negative (NEGATIVE) Urine Urobilinogen Normal MG/DL (0.0-1.0) Urine Leukocyte Esterase 3+ (NEGATIVE) H Urine RBC 30-40 /HPF (0 - 2) H Urine WBC Tntc /HPF (0 - 2) H Urine Squamous Epithelial Cells Occasional /LPF Urine Bacteria Moderate /HPF (NONE) H Urine Yeast Moderate /HPF (NONE) H White Blood Count 18.5 K/UL (4.8-10.8) #H Red Blood Count 3.03 M/UL (4.20-5.40) L Hemoglobin 7.6 G/DL (12.0-16.0) L Hematocrit 24.7 % (37.0-47.0) L Mean Corpuscular Volume 82 FL (80-99) Mean Corpuscular Hemoglobin 25.1 PG (27.0-31.0) L Mean Corpuscular Hemoglobin Concent 30.7 G/DL (32.0-36.0) L Red Cell Distribution Width 19.0 % (11.6-14.8) H Platelet Count 160 K/UL (150-450) Mean Platelet Volume 6.7 FL (6.5-10.1) Neutrophils (%) (Auto) % (45.0-75.0) Lymphocytes (%) (Auto) % (20.0-45.0) Monocytes (%) (Auto) % (1.0-10.0) Eosinophils (%) (Auto) % (0.0-3.0) Basophils (%) (Auto) % (0.0-2.0) Differential Total Cells Counted 100 Neutrophils % (Manual) 85 % (45-75) H Lymphocytes % (Manual) 10 % (20-45) L Monocytes % (Manual) 5 % (1-10) Eosinophils % (Manual) 0 % (0-3) Basophils % (Manual) 0 % (0-2) Band Neutrophils 0 % (0-8) Platelet Estimate Adequate Platelet Morphology Normal Sodium Level 139 MMOL/L (136-145) 139 MMOL/L (136-145) 141 MMOL/L (136-145) Potassium Level 2.3 MMOL/L (3.5-5.1) *L 2.3 MMOL/L (3.5-5.1) *L 3.0 MMOL/L (3.5-5.1) L Chloride Level 111 MMOL/L (98-107) H 110 MMOL/L (98-107) H 112 MMOL/L (98-107) H Carbon Dioxide Level 20 MMOL/L (21-32) L 19 MMOL/L (21-32) L 17 MMOL/L (21-32) L Anion Gap 11 mmol/L (5-15) 10 mmol/L (5-15) 12 mmol/L (5-15) Blood Urea Nitrogen 20 mg/dL (7-18) H 20 mg/dL (7-18) H 19 mg/dL (7-18) H Creatinine 1.0 MG/DL (0.55-1.30) 0.9 MG/DL (0.55-1.30) 0.9 MG/DL (0.55-1.30) Estimat Glomerular Filtration Rate > 60 mL/min (>60) > 60 mL/min (>60) > 60 mL/min (>60) Glucose Level 128 MG/DL (74-106) H 125 MG/DL (74-106) H 146 MG/DL (74-106) H Calcium Level 7.9 MG/DL (8.5-10.1) L 7.8 MG/DL (8.5-10.1) L 8.2 MG/DL (8.5-10.1) L Total Bilirubin 0.5 MG/DL (0.2-1.0) Aspartate Amino Transf (AST/SGOT) 64 U/L (15-37) H Alanine Aminotransferase (ALT/SGPT) 49 U/L (12-78) Alkaline Phosphatase 272 U/L (46-116) H Total Protein 6.6 G/DL (6.4-8.2) Albumin 1.1 G/DL (3.4-5.0) L Globulin 5.5 g/dL Albumin/Globulin Ratio 0.2 (1.0-2.7) L Vancomycin Level Trough 24.8 ug/mL (5.0-12.0) H Plan Problems: (1) Decubitus ulcer Assessment & Plan: 54-year-old female multiple comorbidities who is fairly bedbound and care dependent presented from nursing facility with multiple decubitus ulcers requiring care and management and evaluation. Patient identified to have a right ischial and left ischial stage IV decubitus ulcers Patient Identified to have historic healed sacral decubitus ulcer pt presented on admission with multiple pressure injuries. Full thickness wound L abd with 95% slough, 5% surrounding erythema with macerated borders. Erythema without induration or elevation in skin temp periwound.(L)1.6cm x (W)1.7cm. Moisture intertrigo noted to abd folds and groin folds. Labia majora noted to be swollen. Hyperpigmentation from previous wound noted to Sacrum. Full thickness stage 4 pressure injury with undermining noted to L Ischium. [place] granulation noted to base of wound. No odor noted. Small amt serous exudate.(L)7.5cm x (W)4.5cm x (D)2.3cm, undermining clockwise 9-12o'clock by 3.6cm @12o'clock. Full thickness stage 4 pressure injury R ischium with two areas of tunneling. [place] granulation at base of wound with small amt of Biofilm. Surrounding pink epithelial borders. Small amt serosanguineous exudate noted. No odor noted. Periwound skin is dark without erythema,induration or elevation in skin temp.(L) 4cm x (W)2.5cm x (D)2.6cm ,tunneling clockwise @12 o'clock by3.6cm ,Tunneling clockwise @2o'clock by5.7cm. Areas of hyperpigmentation noted to L heel, distal/lateral L foot extending into plantar aspect. R heel is boggy with non-blanching erythema. unlikely etiology of sepsis as chronic wounds with good granulation tissue slowly healing Tx.Plan: Cleanse Abdominal wound with Saline. Apply TheraHoney. Apply Cavilon Skin Barrier periwound. Cover with Optifoam drsg. Change every 3 days and prn. Cleanse L ischial wound with Saline. Loosely Pack with Hydrogel impregnated Kerlix packing. Apply Moisture Barrier Paste periwound. Cover with Optifoam drsg Daily and prn. Cleanse R Ischial wound with Saline. Loosely pack with Hydrogel impregnated Kerlix. (ATTENTION:2 Tunneled areas 9o'clock and 2o'clock). Apply Moisture Barrier Paste periwound. Cover with Optifoam drsg Daily and prn. Apply Cavilon Skin BArrier to both heels. Cover each heel with Optifoam drsg. Change every 7 days and prn. APM/AURA Mattress overlay. Reposition at least every 2hours or as tolerated. Off-load heels with pillow. Place pillow between knees. nutritional optimization as below (2) Sepsis Assessment & Plan: 54-year-old female multiple committees presents with hypotension altered mental status. Patient with leukocytosis, abnormal labs. Currently intensive care unit under care and management. Wound evaluated and stage IV multiple but chronic and unlikely etiology of sepsis. MRI ordered to ensure no leukocytosis from acute osteo despite clean clinical appearance We will continue to monitor and evaluate IV fluids IV antibiotics as per infectious disease O2 Trend labs We will follow with recommendations Thank you for let me participate in patient's care (3) Moderate protein malnutrition Assessment & Plan: DAILY ESTIMATED NEEDS: Needs based on Sepsis, stage 4 wounds; 51.6kg adj 30-35 kcals/kg 5278-4231 total kcals 1.5-2 g protein/kg 77-103 g total protein 25-30 mL/kg 1290- 1548 total fluid mLs NUTRITION DIAGNOSIS: * Increased kcal and pro needs r/t wound healing AEB pt adm with stage 4 wounds x2, unstageable abdominal wound, h/o MS. CURRENT DIET: No diet order in place yet. PO DIET RECOMMENDATIONS: Regular as tolerated; texture per ASSISTANT OFFICE MANAGER Monitor PO intake w/ diet/ need for supplements and/or snacks ADDITIONAL RECOMMENDATIONS: 1) Obtain calibrated bedscale wt PER SNF: 139 lbs + 61 inches 2) 2) Wound healing: provide Elias in 8oz water BID -> Vit C 250mg BID + Zinc 220mg daily x 10days + MVI w/ MIN 3) Monitor BG- slightly low (72)-> rec D5 for hydration 4) ASSISTANT OFFICE MANAGER eval for appropriate texture/ previously on aspiration precautions Matty Solis Oct 14, 2019 16:12
[2019-10-14 20:00] VITALS: BP 118/79
[2019-10-14] MEDS: Dyna-Hex 2% Top Sol 2oz TOPIC SCH (20:08)
[2019-10-14] MEDS: Atorvastatin 20mg tab ORAL SCH (21:16)
--- NOTE | 2019-10-14 22:47 | Initial Psychiatric Evaluation ---
Psychiatry Consultation Psychiatry Consultation Chief Complaint: General Complaint History of Present Illness: 54-year-old female, who has I believe a chronic Haynes. The patient presents to [facility] with sepsis, elevated white count, and hypotension. Allergies: Coded Allergies: PENICILLINS (Verified Allergy, Unknown, 07/05/16) Medication History Scheduled Albuterol Sulfate (Albuterol Sulfate), 0.63 MG HHN Q4HR, (Reported) Amino Acids/Protein Hydrolys (Pro-Stat Liquid), 30 ML ORAL TWICE A DAY, ( Reported) Ascorbic Acid* (Vitamin C*), 500 MG ORAL DAILY, (Reported) Aspirin (Aspirin EC), 81 MG ORAL DAILY, (Reported) Aspirin* (Aspir 81*), 81 MG ORAL DAILY, (Reported) Atorvastatin Calcium* (Atorvastatin Calcium*), 20 MG ORAL BEDTIME, (Reported) Baclofen (Baclofen), 20 MG ORAL Q8HR Clonidine Hcl* (Catapres*), 0.1 MG ORAL EVERY 6 HOURS, (Reported) Cranberry (Cranberry), 450 MG PO DAILY, (Reported) Folic Acid* (Folic Acid*), 1 MG ORAL DAILY Gabapentin (Neurontin), 300 MG ORAL TID Metoprolol Tartrate* (Metoprolol Tartrate*), 25 MG ORAL EVERY 12 HOURS, ( Reported) No Known Medications* (NKM - No Known Medications*), 0 ., (Reported) Zinc Sulfate (Zinc Sulfate), 220 MG ORAL DAILY, (Reported) Scheduled PRN Hydrocodone Bit/Acetaminophen 5-325* (Powersite 5-325*), 1 TAB ORAL EVERY 8 HOURS PRN for Moderate Breakthru Pain (5-7), (Reported) Hydrocodone Bit/Acetaminophen 5-325* (Pow[place] 5-325*), 1 TAB ORAL Q6H PRN for For Pain, (Reported) Hydrocodone Bit/Acetaminophen 7.5-325* ([place] 7.5-325*), 1 TAB ORAL Q4H PRN for For Pain, (Reported) Ibuprofen (Ibuprofen*), 400 MG ORAL TID PRN for Mild Pain (Pain Scale 1-3) Ondansetron (Zofran), 4 MG ORAL Q6H PRN for Nausea & Vomiting, (Reported) Ondansetron (Zofran), 4 MG ORAL Q6H PRN for Nausea & Vomiting, (Reported) Polyethylene Glycol 3350* (Miralax*), 17 GM ORAL HSPRN PRN for Constipation Miscellaneous Medications Ipratropium/Albuterol Sulfate (DuoNeb 0.5-3(2.5)mg/3ml), 3 ML HHN, (Reported) Multivitamin (Multi-Vitamin Daily), 1 EACH PO, (Reported) Objective Data Height (Feet): 5 Height (Inches): 1.00 Weight (Pounds): 209 Laron Louie MD Oct 14, 2019 22:47
[2019-10-15] VITALS (7 sets, daily range): BP systolic 110–128; BP diastolic 58–78
[2019-10-15] MEDS: Vancomycin 750mg/D5W 275ml IVPB SCH ×4 (01:53→14:45)
--- NOTE | 2019-10-15 06:18 | Consultation ---
History of Present Illness General Chief Complaint: General Complaint Present Illness Allergies: Coded Allergies: PENICILLINS (Verified Allergy, Unknown, 07/05/16) Medication History Scheduled Albuterol Sulfate (Albuterol Sulfate), 0.63 MG HHN Q4HR, (Reported) Amino Acids/Protein Hydrolys (Pro-Stat Liquid), 30 ML ORAL TWICE A DAY, ( Reported) Ascorbic Acid* (Vitamin C*), 500 MG ORAL DAILY, (Reported) Aspirin (Aspirin EC), 81 MG ORAL DAILY, (Reported) Aspirin* (Aspir 81*), 81 MG ORAL DAILY, (Reported) Atorvastatin Calcium* (Atorvastatin Calcium*), 20 MG ORAL BEDTIME, (Reported) Baclofen (Baclofen), 20 MG ORAL Q8HR Clonidine Hcl* (Catapres*), 0.1 MG ORAL EVERY 6 HOURS, (Reported) Cranberry (Cranberry), 450 MG PO DAILY, (Reported) Folic Acid* (Folic Acid*), 1 MG ORAL DAILY Gabapentin (Neurontin), 300 MG ORAL TID Metoprolol Tartrate* (Metoprolol Tartrate*), 25 MG ORAL EVERY 12 HOURS, ( Reported) No Known Medications* (NKM - No Known Medications*), 0 ., (Reported) Zinc Sulfate (Zinc Sulfate), 220 MG ORAL DAILY, (Reported) Scheduled PRN Hydrocodone Bit/Acetaminophen 5-325* (Bill[place] 5-325*), 1 TAB ORAL EVERY 8 HOURS PRN for Moderate Breakthru Pain (5-7), (Reported) Hydrocodone Bit/Acetaminophen 5-325* ([place] 5-325*), 1 TAB ORAL Q6H PRN for For Pain, (Reported) Hydrocodone Bit/Acetaminophen 7.5-325* ([place] 7.5-325*), 1 TAB ORAL Q4H PRN for For Pain, (Reported) Ibuprofen (Ibuprofen*), 400 MG ORAL TID PRN for Mild Pain (Pain Scale 1-3) Ondansetron (Zofran), 4 MG ORAL Q6H PRN for Nausea & Vomiting, (Reported) Ondansetron (Zofran), 4 MG ORAL Q6H PRN for Nausea & Vomiting, (Reported) Polyethylene Glycol 3350* (Miralax*), 17 GM ORAL HSPRN PRN for Constipation Miscellaneous Medications Ipratropium/Albuterol Sulfate (DuoNeb 0.5-3(2.5)mg/3ml), 3 ML HHN, (Reported) Multivitamin (Multi-Vitamin Daily), 1 EACH PO, (Reported) Patient History Healthcare decision maker Resuscitation status Full Code Advanced Directive on File Physical Exam Last 24 Hour Vital Signs Date Time Temp Pulse Resp B/P (MAP) Pulse Ox O2 Delivery O2 Flow Rate FiO2 10/15/19 04:00 101 10/15/19 04:00 98.7 98 16 113/77 (89) 99 10/15/19 00:00 99.0 100 16 119/78 (92) 98 10/15/19 00:00 103 10/14/19 21:00 Nasal Cannula 2.0 10/14/19 20:00 103 10/14/19 20:00 99.0 103 16 118/79 (92) 98 10/14/19 16:00 98.1 98 18 149/83 (105) 98 10/14/19 16:00 104 10/14/19 12:00 114 10/14/19 12:00 97.9 93 18 137/93 (108) 99 10/14/19 09:00 Nasal Cannula 2.0 10/14/19 08:00 98.2 114 16 154/102 (119) 100 10/14/19 08:00 107 Intake and Output 10/14/19 10/15/19 18:59 06:59 Intake Total 2886.666 ml 60 ml Output Total 800 ml 2200 ml Balance 2086.666 ml -2140 ml Intake Oral 240 ml 60 ml IV Total 2646.666 ml Output Urine Total 800 ml 2200 ml Laboratory Tests Test 10/14/19 12:30 Sodium Level 141 MMOL/L (136-145) Potassium Level 3.0 MMOL/L (3.5-5.1) L Chloride Level 112 MMOL/L (98-107) H Carbon Dioxide Level 17 MMOL/L (21-32) L Anion Gap 12 mmol/L (5-15) Blood Urea Nitrogen 19 mg/dL (7-18) H Creatinine 0.9 MG/DL (0.55-1.30) Estimat Glomerular Filtration Rate > 60 mL/min (>60) Glucose Level 146 MG/DL (74-106) H Calcium Level 8.2 MG/DL (8.5-10.1) L Height (Feet): 5 Height (Inches): 1.00 Weight (Pounds): 210 Medications Current Medications Medications (Trade) Dose Ordered Sig/Lenard Route PRN Reason Start Time Stop Time Status Last Admin Dose Admin Acetaminophen (Tylenol) 650 mg Q4H PRN ORAL Mild Pain (Pain Scale 1-3) 10/11/19 21:28 11/10/19 21:27 Acetaminophen (Tylenol) 650 mg Q4H PRN ORAL fever 10/11/19 21:28 11/10/19 21:27 Ascorbic Acid (Vitamin C) 500 mg DAILY ORAL 10/12/19 09:00 11/11/19 08:59 10/14/19 09:32 Aspirin (Ecotrin) 81 mg DAILY ORAL 10/12/19 09:00 11/11/19 08:59 10/14/19 09:26 Atorvastatin Calcium (Lipitor) 20 mg BEDTIME ORAL 10/12/19 21:00 11/10/19 20:59 10/14/19 21:16 Cefepime HCl 2 gm/ Dextrose 55 ml @ 110 mls/hr Q12H IVPB 10/14/19 09:00 10/21/19 08:59 10/14/19 21:16 Chlorhexidine Gluconate (Bailee-Hex 2%) 1 applic DAILY@2000 TOPIC 10/12/19 20:00 11/11/19 19:59 10/14/19 20:08 Dextrose (Dextrose 50%) 25 ml Q30M PRN IV Hypoglycemia 10/11/19 21:45 11/10/19 02:44 Dextrose (Dextrose 50%) 50 ml Q30M PRN IV Hypoglycemia 10/11/19 21:45 11/10/19 02:44 Dextrose/Sodium Chloride 1,000 ml @ 125 mls/hr Q8H IV 10/12/19 12:39 11/11/19 12:38 10/14/19 23:44 Folic Acid (Folate) 1 mg DAILY ORAL 10/12/19 09:00 11/11/19 08:59 10/14/19 09:25 Heparin Sodium (Porcine) (Heparin 5000 units/ml) 5,000 units EVERY 12 HOURS SUBQ 10/12/19 09:00 11/10/19 08:59 10/14/19 09:32 Multivitamins (Multivitamins) 1 tab DAILY ORAL 10/12/19 09:00 11/11/19 08:59 10/14/19 09:26 Vancomycin HCl (Vanco rx to dose) 1 ea DAILY PRN MISC Per rx protocol 10/12/19 12:45 11/11/19 12:44 Vancomycin HCl 750 mg/Dextrose 275 ml @ 183.333 mls/hr Q12H IVPB 10/14/19 14:00 10/19/19 13:59 10/15/19 01:53 Zinc Sulfate (Zinc Sulfate) 220 mg DAILY ORAL 10/12/19 09:00 11/11/19 08:59 10/14/19 09:26 Assessment/Plan Assessment/Plan: Hematology Consult REQ MD: Ted Coello RFC: Anemia evaluation, progressive DOS: 10/15/[address] Vo to eval this lady. Patient is a 54-year-old -[place] female resident of [facility] who was sent to the hospital for low blood pressure. Patient is alert and oriented x2 in the ER, in addition she knows she is in the hospital, however she does not know the date. She has a medical history of advanced multiple sclerosis and functional quadriplegia. Patient is a poor historian and information was gathered via reviewing ED records and medical chart. In the ER she was found to be hypotensive to systolic blood pressures of 80/52 and tachycardic to 107. Patient currently denies any chest pain, palpitations, shortness of breath, urinary frequency or burning. She does however complain of low back pain. No report of fever or chills. She does have stage IV sacral decubiti however they do not seem infected. At this time, she is sleepy during exam, wants me to come back at a later time when she is more awake. Past medical history Per chart review: Multiple sclerosis, urinary tract infection, hypertension, hyperlipidemia, history of seizure, chronic pain syndrome, unspecified dementia without behavioral disturbance, moderate protein calorie malnutrition Past surgical history: Unable to obtain due to poor historian Family history: Unable to obtain due to poor historian Social history: Resident of long-term, unknown tobacco and alcohol exposure in the past Allergies: Coded Allergies: Medication History Scheduled Albuterol Sulfate (Albuterol Sulfate), 0.63 MG HHN Q4HR, (Reported) Amino Acids/Protein Hydrolys (Pro-Stat Liquid), 30 ML ORAL TWICE A DAY, ( Reported) Ascorbic Acid* (Vitamin C*), 500 MG ORAL DAILY, (Reported) Aspirin (Aspirin EC), 81 MG ORAL DAILY, (Reported) Aspirin* (Aspir 81*), 81 MG ORAL DAILY, (Reported) Atorvastatin Calcium* (Atorvastatin Calcium*), 20 MG ORAL BEDTIME, (Reported) Baclofen (Baclofen), 20 MG ORAL Q8HR Clonidine Hcl* (Catapres*), 0.1 MG ORAL EVERY 6 HOURS, (Reported) Cranberry (Cranberry), 450 MG PO DAILY, (Reported) Folic Acid* (Folic Acid*), 1 MG ORAL DAILY Gabapentin (Neurontin), 300 MG ORAL TID Metoprolol Tartrate* (Metoprolol Tartrate*), 25 MG ORAL EVERY 12 HOURS, ( Reported) No Known Medications* (NKM - No Known Medications*), 0 ., (Reported) Zinc Sulfate (Zinc Sulfate), 220 MG ORAL DAILY, (Reported) Scheduled PRN Hydrocodone Bit/Acetaminophen 5-325* ([place] 5-325*), 1 TAB ORAL EVERY 8 HOURS PRN for Moderate Breakthru Pain (5-7), (Reported) Hydrocodone Bit/Acetaminophen 5-325* ([place] 5-325*), 1 TAB ORAL Q6H PRN for For Pain, (Reported) Hydrocodone Bit/Acetaminophen 7.5-325* ([place] 7.5-325*), 1 TAB ORAL Q4H PRN for For Pain, (Reported) Ibuprofen (Ibuprofen*), 400 MG ORAL TID PRN for Mild Pain (Pain Scale 1-3) Ondansetron (Zofran), 4 MG ORAL Q6H PRN for Nausea & Vomiting, (Reported) Ondansetron (Zofran), 4 MG ORAL Q6H PRN for Nausea & Vomiting, (Reported) Polyethylene Glycol 3350* (Miralax*), 17 GM ORAL HSPRN PRN for Constipation Miscellaneous Medications Ipratropium/Albuterol Sulfate (DuoNeb 0.5-3(2.5)mg/3ml), 3 ML HHN, (Reported) Multivitamin (Multi-Vitamin Daily), 1 EACH PO, (Reported) Patient History Healthcare decision maker Resuscitation status Full Code Advanced Directive on File Review of Systems Musculoskeletal: Reports: back pain ROS Narrative Although poor historian she denies any chest pain, shortness of breath, palpitations, fever, chills, nausea, vomiting or abdominal pain. She complains of worsening lower back pain. Physical Exam General Appearance: nad, a+o x2 HEENT: normocephalic, atraumatic, anicteric, no JVD, other - right eye deviated to the right Chest: lungs clear, normal breath sounds, no respiratory distress Cardiovascular/Chest: normal peripheral pulses Abdomen: normal bowel sounds, non tender, soft, no organomegaly, other - pressure ulcer LLQ Genitourinary/Rectal: briseno, other - +CVA tenderness Extremities: no calf tenderness, no edema, no cyanosis Skin Exam: other - multiple stage 4 sacral decubutis Neurologic: motor weakness Labs: reviewed Imaging: ntoed Assessmenta and Recs # Anemia due to underlying chronic disease, has been downtrending since admission r/o gi bleed as well, underlying cause likely due to stage IV ulceration, MS, sepsis POA --> anemia panel reviewed and c/w acd --> hold off on epogen at this time, not indicated --> review ferritin when returns, may need iron --> hgb trend 9.2-->8.6-->7.6 --> hgb goal >7, transfuse prn # Leukocytosis with Sepsis poa with uti --> on abx as per id --> on vanc/cefepime # Urinary tract infection, with e.coli --> per id # Multiple sclerosis # Functional quadriplegia # Stage 4 skin ulcer of sacral region --> per surg, offloading, wound care # HTN # HLD # Unspecified dementia without behavioral disturbance # Chronic pain syndrome # Moderate protein malnutrition # Severe hypokalemia # Dvt ppx heparin sq Appreciate consultation and dw Jerry Hernadez MD Oct 15, 2019 06:18
--- NOTE | 2019-10-15 08:47 | General Progress Note ---
Assessment/Plan Problem List: (1) Sepsis ICD Codes: A41.9 - Sepsis, unspecified organism SNOMED: 54091857 (2) Urinary tract infection ICD Codes: N39.0 - Urinary tract infection, site not specified SNOMED: 80985321 (3) Multiple sclerosis ICD Codes: G35 - Multiple sclerosis SNOMED: 13755240 (4) Stage 4 skin ulcer of sacral region ICD Codes: L98.429 - Non-pressure chronic ulcer of back with unspecified severity SNOMED: 05114509, 215252846 (5) HTN (hypertension) ICD Codes: I10 - Essential (primary) hypertension SNOMED: 87021671 (6) HLD (hyperlipidemia) ICD Codes: E78.5 - Hyperlipidemia, unspecified SNOMED: 99623972 (7) Unspecified dementia without behavioral disturbance ICD Codes: F03.90 - Unspecified dementia without behavioral disturbance SNOMED: 93439051 (8) Chronic pain syndrome ICD Codes: G89.4 - Chronic pain syndrome SNOMED: 263899488 (9) Moderate protein malnutrition ICD Codes: E44.0 - Moderate protein-calorie malnutrition SNOMED: 107466832 (10) Hypokalemia ICD Codes: E87.6 - Hypokalemia SNOMED: 67223096 Status: progressing Assessment/Plan: 54 year old female with multiple sclerosis, neurogenic bladder and functional quadriplegia being admitted for sepsis secondary to UTI. Responded to fluid resuscitation. VSS. Ucx: 10/13, yeast >100K, 10/11: MRSA, 10/10: E.coli . Blood culture: 10/10: Strep Agalactias group B, Staph capitis. CXR negative x 2 ICU --> telemetry Continue Cefepime, vancomycin. s/p Azithromycin. Add Fluconazole. follow up blood cultures continue briseno monitor wbc outpatient urology follow up. ID consult with Dr. Palacios. d/w Head Grease Maker consult wound care and wound MD consult with Dr. Solis RETAIL LOSS PREVENTION SPECIALIST consult to evaluate. d/w Princess. Tolerated regular diet, slow bites. Aspiration precautions Hold all BP meds pain control. No labs today, treated for severe hypokalemia over the weekend. Monitor and replace as needed. Appetite stimulant psychiatry consult vte ppx: heparin subq GI ppx: not indicated Code status: full code, POLST signed by SNF Md but not patient and it's blank. Will attempt to call Kirsten Richardson, daughter of patient: [phone] I spent 40 minutes on this encounter, > 50% spent on counselling and care coordination Time of this note may not reflect time of encounter. Subjective Date patient seen: Oct 15, 2019 ROS Limited/Unobtainable: Yes Allergies: Coded Allergies: PENICILLINS (Verified Allergy, Unknown, 07/05/16) Subjective Following up for sepsis and bacteremia due to UTI. Confused. BP stable, Hr better. Afebrile. Poor PO intake. Objective Last 24 Hour Vital Signs Date Time Temp Pulse Resp B/P (MAP) Pulse Ox O2 Delivery O2 Flow Rate FiO2 10/15/19 08:00 99.7 99 20 128/59 (82) 97 10/15/19 04:00 101 10/15/19 04:00 98.7 98 16 113/77 (89) 99 10/15/19 00:00 99.0 100 16 119/78 (92) 98 10/15/19 00:00 103 10/14/19 21:00 Nasal Cannula 2.0 10/14/19 20:00 103 10/14/19 20:00 99.0 103 16 118/79 (92) 98 10/14/19 16:00 98.1 98 18 149/83 (105) 98 10/14/19 16:00 104 10/14/19 12:00 114 10/14/19 12:00 97.9 93 18 137/93 (108) 99 10/14/19 09:00 Nasal Cannula 2.0 Intake and Output 10/14/19 10/15/19 19:00 07:00 Intake Total 2286.666 ml 60 ml Output Total 800 ml 2200 ml Balance 1486.666 ml -2140 ml Intake Oral 240 ml 60 ml IV Total 2046.666 ml Output Urine Total 800 ml 2200 ml Test 10/13/19 17:55 10/14/19 01:12 10/14/19 03:03 10/14/19 12:30 Urine Color Pale yellow Urine Appearance Cloudy Urine pH 5 (4.5-8.0) Urine Specific [place] 1.005 (1.005-1.035) Urine Protein 1+ (NEGATIVE) H Urine Glucose (UA) Negative (NEGATIVE) Urine Ketones Negative (NEGATIVE) Urine Blood 4+ (NEGATIVE) H Urine Nitrite Negative (NEGATIVE) Urine Bilirubin Negative (NEGATIVE) Urine Urobilinogen Normal MG/DL (0.0-1.0) Urine Leukocyte Esterase 3+ (NEGATIVE) H Urine RBC 30-40 /HPF (0 - 2) H Urine WBC Tntc /HPF (0 - 2) H Urine Squamous Epithelial Cells Occasional /LPF Urine Bacteria Moderate /HPF (NONE) H Urine Yeast Moderate /HPF (NONE) H White Blood Count 18.5 K/UL (4.8-10.8) #H Red Blood Count 3.03 M/UL (4.20-5.40) L Hemoglobin 7.6 G/DL (12.0-16.0) L Hematocrit 24.7 % (37.0-47.0) L Mean Corpuscular Volume 82 FL (80-99) Mean Corpuscular Hemoglobin 25.1 PG (27.0-31.0) L Mean Corpuscular Hemoglobin Concent 30.7 G/DL (32.0-36.0) L Red Cell Distribution Width 19.0 % (11.6-14.8) H Platelet Count 160 K/UL (150-450) Mean Platelet Volume 6.7 FL (6.5-10.1) Neutrophils (%) (Auto) % (45.0-75.0) Lymphocytes (%) (Auto) % (20.0-45.0) Monocytes (%) (Auto) % (1.0-10.0) Eosinophils (%) (Auto) % (0.0-3.0) Basophils (%) (Auto) % (0.0-2.0) Differential Total Cells Counted 100 Neutrophils % (Manual) 85 % (45-75) H Lymphocytes % (Manual) 10 % (20-45) L Monocytes % (Manual) 5 % (1-10) Eosinophils % (Manual) 0 % (0-3) Basophils % (Manual) 0 % (0-2) Band Neutrophils 0 % (0-8) Platelet Estimate Adequate Platelet Morphology Normal Sodium Level 139 MMOL/L (136-145) 139 MMOL/L (136-145) 141 MMOL/L (136-145) Potassium Level 2.3 MMOL/L (3.5-5.1) *L 2.3 MMOL/L (3.5-5.1) *L 3.0 MMOL/L (3.5-5.1) L Chloride Level 111 MMOL/L (98-107) H 110 MMOL/L (98-107) H 112 MMOL/L (98-107) H Carbon Dioxide Level 20 MMOL/L (21-32) L 19 MMOL/L (21-32) L 17 MMOL/L (21-32) L Anion Gap 11 mmol/L (5-15) 10 mmol/L (5-15) 12 mmol/L (5-15) Blood Urea Nitrogen 20 mg/dL (7-18) H 20 mg/dL (7-18) H 19 mg/dL (7-18) H Creatinine 1.0 MG/DL (0.55-1.30) 0.9 MG/DL (0.55-1.30) 0.9 MG/DL (0.55-1.30) Estimate Glomerular Filtration Rate > 60 mL/min (>60) > 60 mL/min (>60) > 60 mL/min (>60) Glucose Level 128 MG/DL (74-106) H 125 MG/DL (74-106) H 146 MG/DL (74-106) H Calcium Level 7.9 MG/DL (8.5-10.1) L 7.8 MG/DL (8.5-10.1) L 8.2 MG/DL (8.5-10.1) L Total Bilirubin 0.5 MG/DL (0.2-1.0) Aspartate Amino Transferase (AST) 64 U/L (15-37) H Alanine Aminotransferase (ALT) 49 U/L (12-78) Alkaline Phosphatase 272 U/L (46-116) H Total Protein 6.6 G/DL (6.4-8.2) Albumin 1.1 G/DL (3.4-5.0) L Globulin 5.5 g/dL Albumin/Globulin Ratio 0.2 (1.0-2.7) L Vancomycin Level Trough 24.8 ug/mL (5.0-12.0) H Microbiology Date/Time Source Procedure Growth Status 10/13/19 18:20 Blood Blood Culture - Preliminary NO GROWTH AFTER 24 HOURS Resulted 10/13/19 18:15 Blood Blood Culture - Preliminary NO GROWTH AFTER 24 HOURS Resulted 10/13/19 06:30 Sputum Gram Stain - Final Resulted 10/13/19 06:30 Sputum Culture - Preliminary April Albicans Resulted 10/13/19 17:55 Urine,Clean Catch Urine Culture - Preliminary YEAST Resulted Height (Feet): 5 Height (Inches): 1.00 Weight (Pounds): 210 Objective General Appearance: no apparent distress, confused Lines, tubes and drains: peripheral HEENT: normocephalic, atraumatic, anicteric, no JVD, other - right eye deviated to the right, unable to abduct Neck: non-tender, supple Respiratory/Chest: lungs clear, normal breath sounds, no respiratory distress, no accessory muscle use Cardiovascular/Chest: normal peripheral pulses, normal rate, regular rhythm, no gallop/murmur Abdomen: normal bowel sounds, non tender, soft, no organomegaly, other - pressure ulcer LLQ Genitourinary/Rectal: briseno, other - +CVA tenderness Extremities: no calf tenderness, no edema, no cyanosis Skin Exam: other - multiple stage 4 sacral decubutis Neurologic: confused , motor weakness - quadriplegia Musculoskeletal: atrophy Mikal Quiles M.D. Oct 15, 2019 08:47
[2019-10-15] MEDS: Aspirin EC 81mg tab ORAL SCH (09:00)
[2019-10-15] MEDS: Heparin 5000 units/ml inj SUBQ SCH ×2 (09:00→22:11)
[2019-10-15] MEDS: Ascorbic Acid 500mg tab ORAL SCH (09:00)
[2019-10-15] MEDS: Zinc Sulfate 220mg cap ORAL SCH (09:00)
[2019-10-15] MEDS: Cefepime HCl 2 GM in D5W 55 ML IVPB SCH ×2 (09:14→22:09)
[2019-10-15] MEDS: D5NS 1,000 ML IV SCH ×2 (09:14→20:39)
[2019-10-15] MEDS ORDERED: Fluconazole 100mg tab ORAL SCH (10:07)
--- NOTE | 2019-10-15 12:36 | Diagnostic Imaging Report ---
Indication: Shortness of breath Technique: One view of the chest Comparison: 10/12/2019 Findings: Lungs and pleural spaces are clear. Heart size is normal. Is no significant interim change Impression: No acute process
--- NOTE | 2019-10-15 13:09 | Surgery Progress Note ---
Surgery Progress Note Subjective Additional Comments no acute events resting comfortable no n/v/f/c labs stable, anemia dressings saturated MRI pending Objective Last 24 Hour Vital Signs Date Time Temp Pulse Resp B/P (MAP) Pulse Ox O2 Delivery O2 Flow Rate FiO2 10/15/19 12:00 97.9 90 18 114/67 (83) 97 10/15/19 09:00 Nasal Cannula 2.0 10/15/19 08:00 99 10/15/19 08:00 99.7 99 20 128/59 (82) 97 10/15/19 04:00 101 10/15/19 04:00 98.7 98 16 113/77 (89) 99 10/15/19 00:00 99.0 100 16 119/78 (92) 98 10/15/19 00:00 103 10/14/19 21:00 Nasal Cannula 2.0 10/14/19 20:00 103 10/14/19 20:00 99.0 103 16 118/79 (92) 98 10/14/19 16:00 98.1 98 18 149/83 (105) 98 10/14/19 16:00 104 I&O Intake and Output 10/14/19 10/15/19 19:00 07:00 Intake Total 2286.666 ml 60 ml Output Total 800 ml 2200 ml Balance 1486.666 ml -2140 ml Intake Oral 240 ml 60 ml IV Total 2046.666 ml Output Urine Total 800 ml 2200 ml Dressing: saturated Wound: other Drains: other Cardiovascular: RSR Respiratory: clear Abdomen: soft, non-tender, present bowel sounds Extremities: no tenderness, no cyanosis Plan Problems: (1) Decubitus ulcer Assessment & Plan: 54-year-old female multiple comorbidities who is fairly bedbound and care dependent presented from nursing facility with multiple decubitus ulcers requiring care and management and evaluation. Patient identified to have a right ischial and left ischial stage IV decubitus ulcers Patient Identified to have historic healed sacral decubitus ulcer pt presented on admission with multiple pressure injuries. Full thickness wound L abd with 95% slough, 5% surrounding erythema with macerated borders. Erythema without induration or elevation in skin temp periwound.(L)1.6cm x (W)1.7cm. Moisture intertrigo noted to abd folds and groin folds. Labia majora noted to be swollen. Hyperpigmentation from previous wound noted to Sacrum. Full thickness stage 4 pressure injury with undermining noted to L Ischium. [place] granulation noted to base of wound. No odor noted. Small amt serous exudate.(L)7.5cm x (W)4.5cm x (D)2.3cm, undermining clockwise 9-12o'clock by 3.6cm @12o'clock. Full thickness stage 4 pressure injury R ischium with two areas of tunneling. [place] granulation at base of wound with small amt of Biofilm. Surrounding pink epithelial borders. Small amt serosanguineous exudate noted. No odor noted. Periwound skin is dark without erythema,induration or elevation in skin temp.(L) 4cm x (W)2.5cm x (D)2.6cm ,tunneling clockwise @12 o'clock by3.6cm ,Tunneling clockwise @2o'clock by5.7cm. Areas of hyperpigmentation noted to L heel, distal/lateral L foot extending into plantar aspect. R heel is boggy with non-blanching erythema. unlikely etiology of sepsis as chronic wounds with good granulation tissue slowly healing Tx.Plan: Cleanse Abdominal wound with Saline. Apply TheraHoney. Apply [place] Skin Barrier periwound. Cover with Optifoam drsg. Change every 3 days and prn. Cleanse L ischial wound with Saline. Loosely Pack with Hydrogel impregnated Kerlix packing. Apply Moisture Barrier Paste periwound. Cover with Optifoam drsg Daily and prn. Cleanse R Ischial wound with Saline. Loosely pack with Hydrogel impregnated Kerlix. (ATTENTION:2 Tunneled areas 9o'clock and 2o'clock). Apply Moisture Barrier Paste periwound. Cover with Optifoam drsg Daily and prn. Apply [place] Skin BArrier to both heels. Cover each heel with Optifoam drsg. Change every 7 days and prn. APM/AURA Mattress overlay. Reposition at least every 2hours or as tolerated. Off-load heels with pillow. Place pillow between knees. nutritional optimization as below (2) Sepsis Assessment & Plan: 54-year-old female multiple committees presents with hypotension altered mental status. Patient with leukocytosis, abnormal labs. Currently intensive care unit under care and management. Wound evaluated and stage IV multiple but chronic and unlikely etiology of sepsis. MRI ordered to ensure no leukocytosis from acute osteo despite clean clinical appearance We will continue to monitor and evaluate IV fluids IV antibiotics as per infectious disease O2 Trend labs We will follow with recommendations Thank you for let me participate in patient's care (3) Moderate protein malnutrition Assessment & Plan: DAILY ESTIMATED NEEDS: Needs based on Sepsis, stage 4 wounds; 51.6kg adj 30-35 kcals/kg 5630-4295 total kcals 1.5-2 g protein/kg 77-103 g total protein 25-30 mL/kg 1290- 1548 total fluid mLs NUTRITION DIAGNOSIS: * Increased kcal and pro needs r/t wound healing AEB pt adm with stage 4 wounds x2, unstageable abdominal wound, h/o MS. CURRENT DIET: No diet order in place yet. PO DIET RECOMMENDATIONS: Regular as tolerated; texture per [employer] Monitor PO intake w/ diet/ need for supplements and/or snacks ADDITIONAL RECOMMENDATIONS: 1) Obtain calibrated bedscale wt PER SNF: 139 lbs + 61 inches 2) 2) Wound healing: provide Elias in 8oz water BID -> Vit C 250mg BID + Zinc 220mg daily x 10days + MVI w/ MIN 3) Monitor BG- slightly low (72)-> rec D5 for hydration 4) [employer] eval for appropriate texture/ previously on aspiration precautions Matty Solis Oct 15, 2019 13:09
--- NOTE | 2019-10-15 16:01 | Diagnostic Imaging Report ---
Indication: Large open clean wound in coccygeal region, stage IV, possible osteomyelitis Technique: Coronal and sagittal T1 FSE and FSE IR, axial T1 FSE, axial STIR FSE images of the pelvis Comparison: none Findings: There is a small area of edema of the subcutaneous fat posterior to the upper sacrum. This appears to be associated with a small soft tissue ulcer lateral to midline. This appears to strictly involves the subcutaneous fat and does not definitely extend through the subjacent musculature. No discrete organized collection to suggest abscess is demonstrated. No underlying marrow edema is demonstrated. There is more questionably a tiny area of edema of the soft tissues adjacent to the tip of the coccyx, best appreciated on the sagittal STIR images, possibly with the small adjacent ulceration. Likewise no underlying marrow signal abnormality is evident. Considerable edema of the subcutaneous fat adjacent to both ischia are demonstrated. There is evidence of discrete fluid on the right, area measures 2.4 x 2.4 cm. However, this appears to extend beyond the confines of the subcutaneous tissues, and may just represent incontinent urine within a skin fold. There is a small left hip joint effusion noted. There is edema of the presacral fat noted. There is considerable edema of the bilateral hips. There is edema of the fat surrounding the umbilicus there is also edema of the fat of the anterior pelvic dean, left greater than right. A Haynes catheter is present within the bladder. The uterus and adnexal structures appear unremarkable. Impression: Evidence of a small soft tissue ulcer within the subcutaneous fat posterior to the upper sacrum. Surrounding edema likely reflects adjacent inflammation. This does not appear to extend through the subjacent musculature, and no marrow edema to suggest osteomyelitis is demonstrated. Smaller apparent area of edema adjacent to the tip of the coccyx, likewise with no underlying marrow signal abnormality Edema of the subcutaneous fat adjacent to both ischia, could indicate decubitus changes 2.4 x 2.4 cm apparent fluid collection superficial to the right ischium. Could represent a small subcutaneous abscess, but suspect that this actually represents extracorporeal incontinent urine within a skin fold. Correlate with clinical findings Small left hip joint effusion Edema of the fat surrounding the umbilicus, could indicate inflammation of the periumbilical skin and subcutaneous fat. Correlate with clinical findings Edema of the bilateral hips and anterior pelvic dean, probably a manifestation of generalized systemic edema. Nonspecific edema of the presacral fat Haynes catheter seen within the bladder
--- NOTE | 2019-10-15 18:15 | Progress Note ---
DATE: 10/15/2019 SUBJECTIVE: The patient is less confused today and was eating more with the speech therapist. The patient is asking outside food. Stated that she does not like the hospital food. The patient was able to sleep better last night. The patient has waxing and waning consciousness. Still disoriented to date. MENTAL STATUS EXAMINATION: Alert, oriented times self, place, and year. Mood is dysphoric. Affect is constricted, congruent with mood. Thought process is concrete. Thought content, no suicidal or homicidal ideation. Cognition is impaired. Insight and judgment is impaired. ASSESSMENT: 1. Acute encephalopathy. 2. Failure to thrive. PLAN: 1. We will start the patient on Zyprexa 2.5 at bedtime. 2. We will continue to follow and readjust the medications. Laron Louie M.D. DR: LUCIANO JOB#: [id number] CC:
--- NOTE | 2019-10-15 19:56 | Infectious Diseases Prog Note ---
Assessment/Plan Assessment/Plan ASSESSMENT AND PLAN: 1. 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 fungemia/fungal uti, chest x-ray neg x 2, wounds noted - ? infected but look fairly clean, MRI without osteo, MRI with incontinent urine within skin fold > right ischium/hip abscess - vancomycin and cefepime add flagyl for anaerobic coverage - surveillance blood cultures negative, monitor leukocytosis, monitor labs - wound care per surgery and protocol - echo report with vegetation - CT abdomen and pelvis ordered 2. telemetry care 3. Skin care protocol. 4. The patient is anemic. 5. Hypertension. 6. Blood pressure treatment primary care team. 7. Multiple sclerosis. 8. History of UTIs. 9. Hyperlipidemia. 10. Seizures. 11. Chronic pain syndrome. 12. Dementia. 13. Malnutrition. 14. Allergic to penicillin. 15. Social history is negative. 16. Family history is noncontributory. 17. MAR is noted. 18. Case was discussed with RN. 19. Case was discussed with Dr. Quiles. 20. Continue treatment per primary consultants. Subjective Constitutional: Reports: fever - lgt , fatigue, other - no chills HEENT: Denies: congestion Respiratory: Denies: shortness of breath Cardiovascular: Denies: chest pain Gastrointestinal/Abdominal: Denies: nausea, vomiting, diarrhea Genitourinary: Reports: other - + briseno Neurologic: Denies: headache Psychiatric: Denies: depression Skin: Denies: rash Hematologic: Denies: bleeding Musculoskeletal: Denies: pain Allergies: Coded Allergies: PENICILLINS (Verified Allergy, Unknown, 07/05/16) Objective Vital Signs Last 24 Hour Vital Signs Date Time Temp Pulse Resp B/P (MAP) Pulse Ox O2 Delivery O2 Flow Rate FiO2 10/15/19 16:00 99.9 95 20 110/58 (75) 98 10/15/19 16:00 103 10/15/19 12:00 74 10/15/19 12:00 97.9 90 18 114/67 (83) 97 10/15/19 09:00 Nasal Cannula 2.0 10/15/19 08:00 99 10/15/19 08:00 99.7 99 20 128/59 (82) 97 10/15/19 04:00 101 10/15/19 04:00 98.7 98 16 113/77 (89) 99 10/15/19 00:00 99.0 100 16 119/78 (92) 98 10/15/19 00:00 103 10/14/19 21:00 Nasal Cannula 2.0 10/14/19 20:00 103 10/14/19 20:00 99.0 103 16 118/79 (92) 98 Height (Feet): 5 Height (Inches): 1.00 Weight (Pounds): 126 General Appearance: no acute distress HEENT: normocephalic, atraumatic, anicteric, mucous membranes moist Respiratory/Chest: crackles/rales, rhonchi - bilaterally Cardiovascular: normal rate, regular rhythm, no gallop/murmur, no JVD Abdomen: normal bowel sounds, soft, non tender, no organomegaly, non distended Genitourinary: other - + briseno - urine cloudy Extremities: no cyanosis Skin: no rash 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 Lungs and pleural spaces are clear. No significant interim change Impression: No acute process Chest x-ray - 10/15/19 - Procedure: XRAY Chest 1v Indication: Shortness of breath Technique: One view of the chest Comparison: 10/12/2019 Findings: Lungs and pleural spaces are clear. Heart size is normal. Is no significant interim change Impression: No acute process MRI - Pelvis: Impression: Evidence of a small soft tissue ulcer within the subcutaneous fat posterior to the upper sacrum. Surrounding edema likely reflects adjacent inflammation. This does not appear to extend through the subjacent musculature, and no marrow edema to suggest osteomyelitis is demonstrated. Smaller apparent area of edema adjacent to the tip of the coccyx, likewise with no underlying marrow signal abnormality Edema of the subcutaneous fat adjacent to both ischia, could indicate decubitus changes 2.4 x 2.4 cm apparent fluid collection superficial to the right ischium. Could represent a small subcutaneous abscess, but suspect that this actually represents extracorporeal incontinent urine within a skin fold. Correlate with clinical findings Small left hip joint effusion Edema of the fat surrounding the umbilicus, could indicate inflammation of the periumbilical skin and subcutaneous fat. Correlate with clinical findings Edema of the bilateral hips and anterior pelvic dean, probably a manifestation of generalized systemic edema. Nonspecific edema of the presacral fat Microbiology Date/Time Source Procedure Growth Status 10/13/19 18:20 Blood Blood Culture - Preliminary NO GROWTH AFTER 24 HOURS Resulted 10/13/19 06:30 Sputum Gram Stain - Final Resulted 10/13/19 06:30 Sputum Culture - Preliminary April Albicans Resulted 10/13/19 17:55 Urine,Clean Catch Urine Culture - Preliminary YEAST Resulted 10/11/19 01:35 Rectum - Final NO CARBAPENEM-RESISTANT ENTEROBACTERI... Complete Microbiology Date/Time Source Procedure Growth Status 10/13/19 18:20 Blood Blood Culture - Preliminary NO GROWTH AFTER 24 HOURS Resulted 10/13/19 06:30 Sputum Gram Stain - Final Resulted 10/13/19 06:30 Sputum Culture - Preliminary April Albicans Resulted 10/13/19 17:55 Urine,Clean Catch Urine Culture - Preliminary YEAST Resulted 10/11/19 01:35 Rectum - Final NO CARBAPENEM-RESISTANT ENTEROBACTERI... Complete Microbiology Date/Time Source Procedure Growth Status 10/13/19 18:20 Blood Blood Culture - Preliminary NO GROWTH AFTER 24 HOURS Resulted 10/13/19 18:15 Blood Blood Culture - Preliminary NO GROWTH AFTER 24 HOURS Resulted 10/13/19 06:30 Sputum Gram Stain - Final Resulted 10/13/19 06:30 Sputum Culture - Preliminary April Albicans Resulted 10/13/19 17:55 Urine,Clean Catch Urine Culture - Preliminary YEAST Resulted Labs Test 10/13/19 07:00 10/13/19 17:55 10/14/19 01:12 10/14/19 03:03 White Blood Count 11.8 K/UL (4.8-10.8) 18.5 K/UL (4.8-10.8) Red Blood Count 3.03 M/UL (4.20-5.40) 3.03 M/UL (4.20-5.40) Hemoglobin 7.8 G/DL (12.0-16.0) 7.6 G/DL (12.0-16.0) Hematocrit 25.2 % (37.0-47.0) 24.7 % (37.0-47.0) Mean Corpuscular Volume 83 FL (80-99) 82 FL (80-99) Mean Corpuscular Hemoglobin 25.6 PG (27.0-31.0) 25.1 PG (27.0-31.0) Mean Corpuscular Hemoglobin Concent 30.8 G/DL (32.0-36.0) 30.7 G/DL (32.0-36.0) Red Cell Distribution Width 19.1 % (11.6-14.8) 19.0 % (11.6-14.8) Platelet Count 186 K/UL (150-450) 160 K/UL (150-450) Mean Platelet Volume 6.5 FL (6.5-10.1) 6.7 FL (6.5-10.1) Neutrophils (%) (Auto) % (45.0-75.0) % (45.0-75.0) Lymphocytes (%) (Auto) % (20.0-45.0) % (20.0-45.0) Monocytes (%) (Auto) % (1.0-10.0) % (1.0-10.0) Eosinophils (%) (Auto) % (0.0-3.0) % (0.0-3.0) Basophils (%) (Auto) % (0.0-2.0) % (0.0-2.0) Differential Total Cells Counted 100 100 Neutrophils % (Manual) 79 % (45-75) 85 % (45-75) Lymphocytes % (Manual) 17 % (20-45) 10 % (20-45) Monocytes % (Manual) 4 % (1-10) 5 % (1-10) Eosinophils % (Manual) 0 % (0-3) 0 % (0-3) Basophils % (Manual) 0 % (0-2) 0 % (0-2) Band Neutrophils 0 % (0-8) 0 % (0-8) Platelet Estimate Adequate Adequate Platelet Morphology Normal Normal Hypochromasia 3+ Anisocytosis 2+ Erythrocyte Sedimentation Rate 128 MM/HR (0-30) Sodium Level 144 MMOL/L (136-145) 139 MMOL/L (136-145) 139 MMOL/L (136-145) Potassium Level 3.5 MMOL/L (3.5-5.1) 2.3 MMOL/L (3.5-5.1) 2.3 MMOL/L (3.5-5.1) Chloride Level 113 MMOL/L (98-107) 111 MMOL/L (98-107) 110 MMOL/L (98-107) Carbon Dioxide Level 21 MMOL/L (21-32) 20 MMOL/L (21-32) 19 MMOL/L (21-32) Anion Gap 10 mmol/L (5-15) 11 mmol/L (5-15) 10 mmol/L (5-15) Blood Urea Nitrogen 28 mg/dL (7-18) 20 mg/dL (7-18) 20 mg/dL (7-18) Creatinine 1.1 MG/DL (0.55-1.30) 1.0 MG/DL (0.55-1.30) 0.9 MG/DL (0.55-1.30) Estimat Glomerular Filtration Rate > 60 mL/min (>60) > 60 mL/min (>60) > 60 mL/min (>60) Glucose Level 145 MG/DL (74-106) 128 MG/DL (74-106) 125 MG/DL (74-106) Calcium Level 7.6 MG/DL (8.5-10.1) 7.9 MG/DL (8.5-10.1) 7.8 MG/DL (8.5-10.1) C-Reactive Protein, Quantitative 19.2 mg/dL (0.00-0.90) Lipase 128 U/L (73-393) Random Amikacin Level 5.3 ug/mL Urine Color Pale yellow Urine Appearance Cloudy Urine pH 5 (4.5-8.0) Urine Specific [place] 1.005 (1.005-1.035) Urine Protein 1+ (NEGATIVE) Urine Glucose (UA) Negative (NEGATIVE) Urine Ketones Negative (NEGATIVE) Urine Blood 4+ (NEGATIVE) Urine Nitrite Negative (NEGATIVE) Urine Bilirubin Negative (NEGATIVE) Urine Urobilinogen Normal MG/DL (0.0-1.0) Urine Leukocyte Esterase 3+ (NEGATIVE) Urine RBC 30-40 /HPF (0 - 2) Urine WBC Tntc /HPF (0 - 2) Urine Squamous Epithelial Cells Occasional /LPF Urine Bacteria Moderate /HPF (NONE) Urine Yeast Moderate /HPF (NONE) Total Bilirubin 0.5 MG/DL (0.2-1.0) Aspartate Amino Transf (AST/SGOT) 64 U/L (15-37) Alanine Aminotransferase (ALT/SGPT) 49 U/L (12-78) Alkaline Phosphatase 272 U/L (46-116) Total Protein 6.6 G/DL (6.4-8.2) Albumin 1.1 G/DL (3.4-5.0) Globulin 5.5 g/dL Albumin/Globulin Ratio 0.2 (1.0-2.7) Vancomycin Level Trough 24.8 ug/mL (5.0-12.0) Test 10/14/19 12:30 Sodium Level 141 MMOL/L (136-145) Potassium Level 3.0 MMOL/L (3.5-5.1) Chloride Level 112 MMOL/L (98-107) Carbon Dioxide Level 17 MMOL/L (21-32) Anion Gap 12 mmol/L (5-15) Blood Urea Nitrogen 19 mg/dL (7-18) Creatinine 0.9 MG/DL (0.55-1.30) Estimat Glomerular Filtration Rate > 60 mL/min (>60) Glucose Level 146 MG/DL (74-106) Calcium Level 8.2 MG/DL (8.5-10.1) Current Medications Medications (Trade) Dose Ordered Sig/Lenard Route PRN Reason Start Time Stop Time Status Last Admin Dose Admin Acetaminophen (Tylenol) 650 mg Q4H PRN ORAL Mild Pain (Pain Scale 1-3) 10/11/19 21:28 11/10/19 21:27 Acetaminophen (Tylenol) 650 mg Q4H PRN ORAL fever 10/11/19 21:28 11/10/19 21:27 Ascorbic Acid (Vitamin C) 500 mg DAILY ORAL 10/12/19 09:00 11/11/19 08:59 10/14/19 09:32 Aspirin (Ecotrin) 81 mg DAILY ORAL 10/12/19 09:00 11/11/19 08:59 10/14/19 09:26 Atorvastatin Calcium (Lipitor) 20 mg BEDTIME ORAL 10/12/19 21:00 11/10/19 20:59 10/14/19 21:16 Cefepime HCl 2 gm/ Dextrose 55 ml @ 110 mls/hr Q12H IVPB 10/14/19 09:00 10/21/19 08:59 10/15/19 09:14 Chlorhexidine Gluconate (Bailee-Hex 2%) 1 applic DAILY@2000 TOPIC 10/12/19 20:00 11/11/19 19:59 10/14/19 20:08 Dextrose (Dextrose 50%) 25 ml Q30M PRN IV Hypoglycemia 10/11/19 21:45 11/10/19 02:44 Dextrose (Dextrose 50%) 50 ml Q30M PRN IV Hypoglycemia 10/11/19 21:45 11/10/19 02:44 Dextrose/Sodium Chloride 1,000 ml @ 125 mls/hr Q8H IV 10/12/19 12:39 11/11/19 12:38 10/15/19 09:14 Fluconazole (Diflucan) 200 mg DAILY ORAL 10/16/19 09:00 10/22/19 10:06 Folic Acid (Folate) 1 mg DAILY ORAL 10/12/19 09:00 11/11/19 08:59 10/14/19 09:25 Heparin Sodium (Porcine) (Heparin 5000 units/ml) 5,000 units EVERY 12 HOURS SUBQ 10/12/19 09:00 11/10/19 08:59 10/14/19 09:32 Multivitamins (Multivitamins) 1 tab DAILY ORAL 10/12/19 09:00 11/11/19 08:59 10/14/19 09:26 Olanzapine (ZyPREXA) 2.5 mg BEDTIME ORAL 10/15/19 21:00 11/14/19 20:59 Vancomycin HCl (Vanco rx to dose) 1 ea DAILY PRN MISC Per rx protocol 10/12/19 12:45 11/11/19 12:44 Vancomycin HCl 750 mg/Dextrose 275 ml @ 183.333 mls/hr Q12H IVPB 10/14/19 14:00 10/19/19 13:59 10/15/19 14:45 Zinc Sulfate (Zinc Sulfate) 220 mg DAILY ORAL 10/12/19 09:00 11/11/19 08:59 10/14/19 09:26 Jt Land MD Oct 15, 2019 19:56
[2019-10-15] MEDS ORDERED: Sennosides 8.6mg tab ORAL PRN (20:45)
[2019-10-15] MEDS: Docusate 100mg cap ORAL SCH (20:45)
[2019-10-15] MEDS: OLANZapine 2.5mg tab ORAL SCH (22:09)
[2019-10-15] MEDS: Dyna-Hex 2% Top Sol 2oz TOPIC SCH (22:09)
[2019-10-15] MEDS: Miralax 17gm pkt ORAL SCH (22:10)
[2019-10-15] MEDS: Atorvastatin 20mg tab ORAL SCH (22:10)
[2019-10-16 01:29] LABS: MEAN CORPUSCULAR VOLUME 81 FL (80-99); PLATELET COUNT 111 K/UL (150-450); RED BLOOD COUNT 2.59 M/UL (4.20-5.40); RED CELL DISTRIBUTION WIDTH 18.5 % (11.6-14.8); WHITE BLOOD COUNT 17.1 K/UL (4.8-10.8)
[2019-10-16 01:32] LABS: HEMOGLOBIN 6.6 G/DL (12.0-16.0)
[2019-10-16 01:53] LABS: ANION GAP 11 mmol/L (5-15); BLOOD UREA NITROGEN 15 mg/dL (7-18); CALCIUM 7.4 MG/DL (8.5-10.1); CARBON DIOXIDE 19 MMOL/L (21-32); CHLORIDE 110 MMOL/L (98-107); CREATININE 0.9 MG/DL (0.55-1.30); FERRITIN 859 NG/ML (8-388); SODIUM 139 MMOL/L (136-145)
[2019-10-16 01:56] LABS: POTASSIUM 2.4 MMOL/L (3.5-5.1)
[2019-10-16 04:00] VITALS: BP 127/64
[2019-10-16] MEDS: D5NS 1,000 ML IV SCH (04:28)
--- NOTE | 2019-10-16 06:14 | Hematology/Onc Progress Note ---
Assessment/Plan Assessment/Plan Assessmenta and Recs # Anemia due to underlying chronic disease, has been downtrending since admission r/o gi bleed as well, underlying cause likely due to stage IV ulceration, MS, sepsis POA --> anemia panel reviewed and c/w acd --> hold off on epogen at this time, not indicated --> ferritin 859, doesn't need iron --> hgb trend 9.2-->8.6-->7.6-->6.6 --> hgb goal >7, transfuse prn --> 1 unit 10/16 # Thrombocytopenia ACUTE likely due to sepsis --> send off prelim pt/ptt, if any evidence dic --> hep and hiv ordered --> on abx for underlying cause # Leukocytosis with Sepsis poa with uti --> on abx as per id --> on vanc/cefepime--> vanc/fluc/flagy # Urinary tract infection, with e.coli --> per id # Multiple sclerosis # Functional quadriplegia # Stage 4 skin ulcer of sacral region --> per surg, offloading, wound care # HTN # HLD # Unspecified dementia without behavioral disturbance # Chronic pain syndrome # Moderate protein malnutrition # Severe hypokalemia # Dvt ppx heparin sq Appreciate consultation and dw RN Subjective HEENT: Denies: no symptoms, eye pain, blurred vision, tearing, double vision, ear pain, ear discharge, nose pain, nose congestion, throat pain, throat swelling, mouth pain, mouth swelling, other Cardiovascular: Denies: no symptoms, chest pain, edema, irregular heart rate, lightheadedness, palpitations, syncope, other Neurologic/Psychiatric: Denies: no symptoms, anxiety, depressed, emotional problems, headache, numbness, paresthesia, pre-existing deficit, seizure, tingling, tremors, weakness, other Endocrine: Denies: no symptoms, excessive sweating, flushing, intolerance to cold, intolerance to heat, increased hunger, increased thirst, increased urine, unexplained weight gain, unexplained weight loss, other Allergies: Coded Allergies: PENICILLINS (Verified Allergy, Unknown, 07/05/16) Uncoded Allergies: seafood (Allergy, Mild, 10/15/19) Subjective 11/16: remains confused, no bleeding, labs noted, plt lower, hgb requiring prbc transf Objective Objective Current Medications Medications (Trade) Dose Ordered Sig/Lenard Route PRN Reason Start Time Stop Time Status Last Admin Dose Admin Acetaminophen (Tylenol) 650 mg Q4H PRN ORAL Mild Pain (Pain Scale 1-3) 10/11/19 21:28 11/10/19 21:27 Acetaminophen (Tylenol) 650 mg Q4H PRN ORAL fever 10/11/19 21:28 11/10/19 21:27 Ascorbic Acid (Vitamin C) 500 mg DAILY ORAL 10/12/19 09:00 11/11/19 08:59 10/14/19 09:32 Aspirin (Ecotrin) 81 mg DAILY ORAL 10/12/19 09:00 11/11/19 08:59 10/14/19 09:26 Atorvastatin Calcium (Lipitor) 20 mg BEDTIME ORAL 10/12/19 21:00 11/10/19 20:59 10/15/19 22:10 Cefepime HCl 2 gm/ Dextrose 55 ml @ 110 mls/hr Q12H IVPB 10/14/19 09:00 10/21/19 08:59 10/15/19 22:09 Chlorhexidine Gluconate (Bailee-Hex 2%) 1 applic DAILY@2000 TOPIC 10/12/19 20:00 11/11/19 19:59 10/15/19 22:09 Dextrose (Dextrose 50%) 25 ml Q30M PRN IV Hypoglycemia 10/11/19 21:45 11/10/19 02:44 Dextrose (Dextrose 50%) 50 ml Q30M PRN IV Hypoglycemia 10/11/19 21:45 11/10/19 02:44 Dextrose/Sodium Chloride 1,000 ml @ 125 mls/hr Q8H IV 10/12/19 12:39 11/11/19 12:38 10/16/19 04:28 Docusate Sodium (Colace) 100 mg TWICE A DAY ORAL 10/15/19 20:45 11/14/19 20:44 Fluconazole (Diflucan) 200 mg DAILY ORAL 10/16/19 09:00 10/22/19 10:06 Folic Acid (Folate) 1 mg DAILY ORAL 10/12/19 09:00 11/11/19 08:59 10/14/19 09:25 Heparin Sodium (Porcine) (Heparin 5000 units/ml) 5,000 units EVERY 12 HOURS SUBQ 10/12/19 09:00 11/10/19 08:59 10/15/19 22:11 Metronidazole 100 ml @ 100 mls/hr Q8HR IVPB 10/15/19 22:00 10/22/19 21:59 10/15/19 22:12 Multivitamins (Multivitamins) 1 tab DAILY ORAL 10/12/19 09:00 11/11/19 08:59 10/14/19 09:26 Olanzapine (ZyPREXA) 2.5 mg BEDTIME ORAL 10/15/19 21:00 11/14/19 20:59 10/15/19 22:09 Polyethylene Glycol (Miralax) 17 gm BEDTIME ORAL 10/15/19 21:00 11/14/19 20:59 10/15/19 22:10 Potassium Chloride 100 ml @ 50 mls/hr Q1H IVPB 10/16/19 04:15 10/16/19 06:14 10/16/19 04:27 Sennosides (Senokot) 17.2 mg DAILYPRN PRN ORAL Constipation 10/15/19 20:45 11/14/19 20:44 10/15/19 22:10 Vancomycin HCl (Vanco rx to dose) 1 ea DAILY PRN MISC Per rx protocol 10/12/19 12:45 11/11/19 12:44 Vancomycin/Sodium Chloride 275 ml @ 183.333 mls/hr Q24H IVPB 10/16/19 14:00 10/21/19 13:59 Zinc Sulfate (Zinc Sulfate) 220 mg DAILY ORAL 10/12/19 09:00 11/11/19 08:59 10/14/19 09:26 Last 24 Hour Vital Signs Date Time Temp Pulse Resp B/P (MAP) Pulse Ox O2 Delivery O2 Flow Rate FiO2 10/16/19 04:54 94 10/16/19 04:00 99.8 97 17 127/64 (85) 95 10/16/19 00:00 91 10/15/19 23:14 99.1 95 17 123/74 (90) 97 10/15/19 21:00 Nasal Cannula 2.0 10/15/19 20:00 100.2 98 18 120/78 (92) 98 10/15/19 20:00 100 10/15/19 16:00 99.9 95 20 110/58 (75) 98 10/15/19 16:00 103 10/15/19 12:00 74 10/15/19 12:00 97.9 90 18 114/67 (83) 97 10/15/19 09:00 Nasal Cannula 2.0 10/15/19 08:00 99 10/15/19 08:00 99.7 99 20 128/59 (82) 97 10/15/19 04:00 101 10/15/19 04:00 98.7 98 16 113/77 (89) 99 10/15/19 00:00 99.0 100 16 119/78 (92) 98 10/15/19 00:00 103 10/14/19 21:00 Nasal Cannula 2.0 10/14/19 20:00 103 10/14/19 20:00 99.0 103 16 118/79 (92) 98 10/14/19 16:00 98.1 98 18 149/83 (105) 98 10/14/19 16:00 104 10/14/19 12:00 114 10/14/19 12:00 97.9 93 18 137/93 (108) 99 10/14/19 09:00 Nasal Cannula 2.0 10/14/19 08:00 98.2 114 16 154/102 (119) 100 10/14/19 08:00 107 Intake and Output 10/15/19 10/16/19 18:59 06:59 Intake Total 2540.000 ml Output Total 1050 ml 1300 ml Balance 1490.000 ml -1300 ml Intake Oral 60 ml IV Total 2480.000 ml Output Urine Total 1050 ml 1300 ml # Voids 2 Labs Test 10/13/19 07:00 10/13/19 17:55 10/14/19 01:12 10/14/19 03:03 White Blood Count 11.8 K/UL (4.8-10.8) 18.5 K/UL (4.8-10.8) Red Blood Count 3.03 M/UL (4.20-5.40) 3.03 M/UL (4.20-5.40) Hemoglobin 7.8 G/DL (12.0-16.0) 7.6 G/DL (12.0-16.0) Hematocrit 25.2 % (37.0-47.0) 24.7 % (37.0-47.0) Mean Corpuscular Volume 83 FL (80-99) 82 FL (80-99) Mean Corpuscular Hemoglobin 25.6 PG (27.0-31.0) 25.1 PG (27.0-31.0) Mean Corpuscular Hemoglobin Concent 30.8 G/DL (32.0-36.0) 30.7 G/DL (32.0-36.0) Red Cell Distribution Width 19.1 % (11.6-14.8) 19.0 % (11.6-14.8) Platelet Count 186 K/UL (150-450) 160 K/UL (150-450) Mean Platelet Volume 6.5 FL (6.5-10.1) 6.7 FL (6.5-10.1) Neutrophils (%) (Auto) % (45.0-75.0) % (45.0-75.0) Lymphocytes (%) (Auto) % (20.0-45.0) % (20.0-45.0) Monocytes (%) (Auto) % (1.0-10.0) % (1.0-10.0) Eosinophils (%) (Auto) % (0.0-3.0) % (0.0-3.0) Basophils (%) (Auto) % (0.0-2.0) % (0.0-2.0) Differential Total Cells Counted 100 100 Neutrophils % (Manual) 79 % (45-75) 85 % (45-75) Lymphocytes % (Manual) 17 % (20-45) 10 % (20-45) Monocytes % (Manual) 4 % (1-10) 5 % (1-10) Eosinophils % (Manual) 0 % (0-3) 0 % (0-3) Basophils % (Manual) 0 % (0-2) 0 % (0-2) Band Neutrophils 0 % (0-8) 0 % (0-8) Platelet Estimate Adequate Adequate Platelet Morphology Normal Normal Hypochromasia 3+ Anisocytosis 2+ Erythrocyte Sedimentation Rate 128 MM/HR (0-30) Sodium Level 144 MMOL/L (136-145) 139 MMOL/L (136-145) 139 MMOL/L (136-145) Potassium Level 3.5 MMOL/L (3.5-5.1) 2.3 MMOL/L (3.5-5.1) 2.3 MMOL/L (3.5-5.1) Chloride Level 113 MMOL/L (98-107) 111 MMOL/L (98-107) 110 MMOL/L (98-107) Carbon Dioxide Level 21 MMOL/L (21-32) 20 MMOL/L (21-32) 19 MMOL/L (21-32) Anion Gap 10 mmol/L (5-15) 11 mmol/L (5-15) 10 mmol/L (5-15) Blood Urea Nitrogen 28 mg/dL (7-18) 20 mg/dL (7-18) 20 mg/dL (7-18) Creatinine 1.1 MG/DL (0.55-1.30) 1.0 MG/DL (0.55-1.30) 0.9 MG/DL (0.55-1.30) Estimat Glomerular Filtration Rate > 60 mL/min (>60) > 60 mL/min (>60) > 60 mL/min (>60) Glucose Level 145 MG/DL (74-106) 128 MG/DL (74-106) 125 MG/DL (74-106) Calcium Level 7.6 MG/DL (8.5-10.1) 7.9 MG/DL (8.5-10.1) 7.8 MG/DL (8.5-10.1) C-Reactive Protein, Quantitative 19.2 mg/dL (0.00-0.90) Lipase 128 U/L (73-393) Random Amikacin Level 5.3 ug/mL Urine Color Pale yellow Urine Appearance Cloudy Urine pH 5 (4.5-8.0) Urine Specific [place] 1.005 (1.005-1.035) Urine Protein 1+ (NEGATIVE) Urine Glucose (UA) Negative (NEGATIVE) Urine Ketones Negative (NEGATIVE) Urine Blood 4+ (NEGATIVE) Urine Nitrite Negative (NEGATIVE) Urine Bilirubin Negative (NEGATIVE) Urine Urobilinogen Normal MG/DL (0.0-1.0) Urine Leukocyte Esterase 3+ (NEGATIVE) Urine RBC 30-40 /HPF (0 - 2) Urine WBC Tntc /HPF (0 - 2) Urine Squamous Epithelial Cells Occasional /LPF Urine Bacteria Moderate /HPF (NONE) Urine Yeast Moderate /HPF (NONE) Total Bilirubin 0.5 MG/DL (0.2-1.0) Aspartate Amino Transf (AST/SGOT) 64 U/L (15-37) Alanine Aminotransferase (ALT/SGPT) 49 U/L (12-78) Alkaline Phosphatase 272 U/L (46-116) Total Protein 6.6 G/DL (6.4-8.2) Albumin 1.1 G/DL (3.4-5.0) Globulin 5.5 g/dL Albumin/Globulin Ratio 0.2 (1.0-2.7) Vancomycin Level Trough 24.8 ug/mL (5.0-12.0) Test 10/14/19 12:30 10/16/19 01:10 Sodium Level 141 MMOL/L (136-145) 139 MMOL/L (136-145) Potassium Level 3.0 MMOL/L (3.5-5.1) 2.4 MMOL/L (3.5-5.1) Chloride Level 112 MMOL/L (98-107) 110 MMOL/L (98-107) Carbon Dioxide Level 17 MMOL/L (21-32) 19 MMOL/L (21-32) Anion Gap 12 mmol/L (5-15) 11 mmol/L (5-15) Blood Urea Nitrogen 19 mg/dL (7-18) 15 mg/dL (7-18) Creatinine 0.9 MG/DL (0.55-1.30) 0.9 MG/DL (0.55-1.30) Estimat Glomerular Filtration Rate > 60 mL/min (>60) > 60 mL/min (>60) Glucose Level 146 MG/DL (74-106) 156 MG/DL (74-106) Calcium Level 8.2 MG/DL (8.5-10.1) 7.4 MG/DL (8.5-10.1) White Blood Count 17.1 K/UL (4.8-10.8) Red Blood Count 2.59 M/UL (4.20-5.40) Hemoglobin 6.6 G/DL (12.0-16.0) Hematocrit 21.0 % (37.0-47.0) Mean Corpuscular Volume 81 FL (80-99) Mean Corpuscular Hemoglobin 25.4 PG (27.0-31.0) Mean Corpuscular Hemoglobin Concent 31.4 G/DL (32.0-36.0) Red Cell Distribution Width 18.5 % (11.6-14.8) Platelet Count 111 K/UL (150-450) Mean Platelet Volume 8.4 FL (6.5-10.1) Neutrophils (%) (Auto) % (45.0-75.0) Lymphocytes (%) (Auto) % (20.0-45.0) Monocytes (%) (Auto) % (1.0-10.0) Eosinophils (%) (Auto) % (0.0-3.0) Basophils (%) (Auto) % (0.0-2.0) Differential Total Cells Counted 100 Neutrophils % (Manual) 82 % (45-75) Lymphocytes % (Manual) 15 % (20-45) Monocytes % (Manual) 3 % (1-10) Eosinophils % (Manual) 0 % (0-3) Basophils % (Manual) 0 % (0-2) Band Neutrophils 0 % (0-8) Platelet Estimate Decreased Platelet Morphology Normal Ferritin 859 NG/ML (8-388) Vancomycin Level Trough 31.0 ug/mL (5.0-12.0) Height (Feet): 5 Height (Inches): 1.00 Weight (Pounds): 126 Jerry Ervin MD Oct 16, 2019 06:14
[2019-10-16 08:00] VITALS: BP 113/67
--- NOTE | 2019-10-16 08:26 | General Progress Note ---
Assessment/Plan Problem List: (1) Sepsis ICD Codes: A41.9 - Sepsis, unspecified organism SNOMED: 34777908 (2) Urinary tract infection ICD Codes: N39.0 - Urinary tract infection, site not specified SNOMED: 43333680 (3) Multiple sclerosis ICD Codes: G35 - Multiple sclerosis SNOMED: 88295671 (4) Stage 4 skin ulcer of sacral region ICD Codes: L98.429 - Non-pressure chronic ulcer of back with unspecified severity SNOMED: 27909681, 761110262 (5) HTN (hypertension) ICD Codes: I10 - Essential (primary) hypertension SNOMED: 06999482 (6) HLD (hyperlipidemia) ICD Codes: E78.5 - Hyperlipidemia, unspecified SNOMED: 38708877 (7) Unspecified dementia without behavioral disturbance ICD Codes: F03.90 - Unspecified dementia without behavioral disturbance SNOMED: 14595841 (8) Chronic pain syndrome ICD Codes: G89.4 - Chronic pain syndrome SNOMED: 588328358 (9) Moderate protein malnutrition ICD Codes: E44.0 - Moderate protein-calorie malnutrition SNOMED: 329888355 (10) Hypokalemia ICD Codes: E87.6 - Hypokalemia SNOMED: 07685274 Status: progressing Assessment/Plan: 54 year old female with multiple sclerosis, neurogenic bladder and functional quadriplegia being admitted for sepsis secondary to UTI, ?fungal uti, MRSA uti . Responded to fluid resuscitation. VSS. Ucx: 10/13, yeast >100K, 10/11: MRSA, 10/10: E.coli . Blood culture: 10/10: Strep Agalactias group B, Staph capitis. CXR negative x 2 ICU --> telemetry Continue Cefepime, vancomycin. s/p Azithromycin. Added Fluconazole and metronidazole. d/w ID MRI pelvis reviewed. CT abdomen pelvis pending follow up blood cultures continue briseno monitor wbc outpatient urology follow up. ID consult with Dr. Palacios. d/w Frame Opener consult wound care and wound MD consult with Dr. Solis MACHINE TESTER consult to evaluate. d/w Princess. Tolerated regular diet, slow bites. Aspiration precautions Hold all BP meds pain control. Severe hypokalemia. Add kcl to fluid, encourage po intake, should be better Appetite stimulant psychiatry consult appreciated vte ppx: heparin subq GI ppx: not indicated CM consult for discharge planning Code status: full code, POLST signed by SNF Md but not patient and it's blank. Will attempt to call Kirsten Richardson, daughter of patient: [phone] I spent 40 minutes on this encounter, > 50% spent on counselling and care coordination Time of this note may not reflect time of encounter. Subjective Date patient seen: Oct 16, 2019 ROS Limited/Unobtainable: No Constitutional: Reports: other - pain where pressur eulcer in back are HEENT: Denies: no symptoms, eye pain, blurred vision, tearing, double vision, ear pain, ear discharge, nose pain, nose congestion, throat pain, throat swelling, mouth pain, mouth swelling, other Cardiovascular: Denies: no symptoms, chest pain, edema, irregular heart rate, lightheadedness, palpitations, syncope, other Respiratory: Denies: no symptoms, cough, orthopnea, shortness of breath, SOB with excertion, SOB at rest, sputum, stridor, wheezing, other Gastrointestinal/Abdominal: Denies: no symptoms, abdomen distended, abdominal pain, black stools, tarry stools, blood in stool, constipated, diarrhea, difficulty swallowing, nausea, poor appetite, poor fluid intake, rectal bleeding , vomiting, other Genitourinary: Denies: no symptoms, burning, discharge, frequency, flank pain, hematuria, incontinence, pain, urgency, other Neurologic/Psychiatric: Denies: no symptoms, anxiety, depressed, emotional problems, headache, numbness, paresthesia, pre-existing deficit, seizure, tingling, tremors, weakness, other Endocrine: Denies: no symptoms, excessive sweating, flushing, intolerance to cold, intolerance to heat, increased hunger, increased thirst, increased urine, unexplained weight gain, unexplained weight loss, other Hematologic/Lymphatic: Denies: no symptoms, anemia, easy bleeding, easy bruising, other Allergies: Coded Allergies: PENICILLINS (Verified Allergy, Unknown, 07/05/16) Uncoded Allergies: seafood (Allergy, Mild, 10/15/19) Subjective Following up for sepsis and bacteremia due to UTI. Mental status much improved today. Alert and oriented x4. NPO for CT abdomen pelvis. wbc trending down Objective Last 24 Hour Vital Signs Date Time Temp Pulse Resp B/P (MAP) Pulse Ox O2 Delivery O2 Flow Rate FiO2 10/16/19 08:00 98.6 98 17 113/67 (82) 100 10/16/19 04:54 94 10/16/19 04:00 99.8 97 17 127/64 (85) 95 10/16/19 00:00 91 10/15/19 23:14 99.1 95 17 123/74 (90) 97 10/15/19 21:00 Nasal Cannula 2.0 10/15/19 20:00 100.2 98 18 120/78 (92) 98 10/15/19 20:00 100 10/15/19 16:00 99.9 95 20 110/58 (75) 98 10/15/19 16:00 103 10/15/19 12:00 74 10/15/19 12:00 97.9 90 18 114/67 (83) 97 10/15/19 09:00 Nasal Cannula 2.0 Intake and Output 10/15/19 10/16/19 18:59 06:59 Intake Total 2540.000 ml Output Total 1050 ml 1300 ml Balance 1490.000 ml -1300 ml Intake Oral 60 ml IV Total 2480.000 ml Output Urine Total 1050 ml 1300 ml # Voids 2 Laboratory Tests 10/16/19 01:10: White Blood Count 17.1H, Red Blood Count 2.59L, Hemoglobin 6.6*L, Hematocrit 21.0L, Mean Corpuscular Volume 81, Mean Corpuscular Hemoglobin 25.4L, Mean Corpuscular Hemoglobin Concent 31.4L, Red Cell Distribution Width 18.5H, Platelet Count 111L, Mean Platelet Volume 8.4, Neutrophils (%) (Auto) , Lymphocytes (%) (Auto) , Monocytes (%) (Auto) , Eosinophils (%) (Auto) , Basophils (%) (Auto) , Differential Total Cells Counted 100, Neutrophils % ( Manual) 82H, Lymphocytes % (Manual) 15L, Monocytes % (Manual) 3, Eosinophils % ( Manual) 0, Basophils % (Manual) 0, Band Neutrophils 0, Platelet Estimate DecreasedL, Platelet Morphology Normal, Sodium Level 139, Potassium Level 2.4*L , Chloride Level 110H, Carbon Dioxide Level 19L, Anion Gap 11, Blood Urea Nitrogen 15, Creatinine 0.9, Estimat Glomerular Filtration Rate > 60, Glucose Level 156H, Calcium Level 7.4L, Ferritin 859H, Carcinoembryonic Antigen [Pending ], Vancomycin Level Trough 31.0H 10/16/19 07:10: Prothrombin Time [Pending], Prothromb Time International Ratio [Pending], Fibrinogen [Pending], Hepatitis A IgM Antibody [Pending], Hepatitis B Surface Antigen [Pending], Hepatitis B Core IgM Antibody [Pending], Hepatitis C Antibody [Pending], HIV (1&2) Antibody Rapid [Pending] Height (Feet): 5 Height (Inches): 1.00 Weight (Pounds): 171 Objective General Appearance: no apparent distress, confused Lines, tubes and drains: peripheral HEENT: normocephalic, atraumatic, anicteric, no JVD, other - right eye deviated to the right, unable to abduct Neck: non-tender, supple Respiratory/Chest: lungs clear, normal breath sounds, no respiratory distress, no accessory muscle use Cardiovascular/Chest: normal peripheral pulses, normal rate, regular rhythm, no gallop/murmur Abdomen: normal bowel sounds, non tender, soft, no organomegaly, other - pressure ulcer LLQ Genitourinary/Rectal: briseno, other - +CVA tenderness Extremities: no calf tenderness, no edema, no cyanosis Skin Exam: other - multiple stage 4 sacral decubutis Neurologic: confused , motor weakness - quadriplegia Musculoskeletal: atrophy Mikal Quiles M.D. Oct 16, 2019 08:26
[2019-10-16] MEDS: Cefepime HCl 2 GM in D5W 55 ML IVPB SCH ×2 (08:36→21:57)
[2019-10-16] MEDS: Aspirin EC 81mg tab ORAL SCH (08:37)
[2019-10-16] MEDS: Docusate 100mg cap ORAL SCH ×2 (08:37→17:37)
[2019-10-16] MEDS: Ascorbic Acid 500mg tab ORAL SCH (08:38)
[2019-10-16] MEDS: Fluconazole 100mg tab ORAL SCH (08:38)
[2019-10-16] MEDS: Zinc Sulfate 220mg cap ORAL SCH (08:38)
[2019-10-16] MEDS: Heparin 5000 units/ml inj SUBQ SCH ×2 (08:41→21:00)
[2019-10-16 08:44] LABS: INR 1.7 (0.9-1.1)
[2019-10-16 09:56] LABS: ANION GAP 9 mmol/L (5-15); BLOOD UREA NITROGEN 14 mg/dL (7-18); CALCIUM 6.6 MG/DL (8.5-10.1); CARBON DIOXIDE 20 MMOL/L (21-32); CHLORIDE 109 MMOL/L (98-107); CREATININE 0.9 MG/DL (0.55-1.30); POTASSIUM 2.9 MMOL/L (3.5-5.1); SODIUM 138 MMOL/L (136-145)
[2019-10-16 12:00] VITALS: BP 128/92
[2019-10-16] MEDS ORDERED: Vancomycin 1.25gm/NS Premix q24h IVPB SCH (14:00)
[2019-10-16 16:00] VITALS: BP 121/91
--- NOTE | 2019-10-16 16:45 | Progress Note ---
DATE: 10/16/2019 SUBJECTIVE: The patient is presenting with depressed mood, low energy. The patient's mental condition is improving. The patient is not having any suicidal or homicidal ideation. Cognition is improving. She was able to answer the questions, still has low appetite however eats and drinks with prompting. She is on calorie count. MENTAL STATUS EXAMINATION: Alert and oriented x3 today. Mood is depressed. Affect is constricted. Congruent with mood. Thought process is concrete. Thought content, no suicidal or homicidal ideations. ASSESSMENT: 1. Acute encephalopathy. 2. Depression. PLAN: 1. We will continue the Zyprexa 2.5 at bedtime. 2. The patient should be discharged when medically cleared. Laron Louie M.D. DR: Amita JOB#: [id number] CC:
--- NOTE | 2019-10-16 17:33 | Diagnostic Imaging Report ---
Indication: Abdominal pain, history of Streptococcus bacteremia, sepsis, leukocytosis Technique: Spiral acquisitions obtained through the abdomen and pelvis. Patient given oral contrast. No IV contrast utilized, per referring physician request.. Multiplanar reconstructions were generated. Total dose length product 1156 mGycm. CTDIvol(s) 20 mGy. Dose reduction achieved using automated exposure control Comparison: None. Reference made to MRI pelvis 10/15/2019 Findings: Bilateral ischial region ulcers are demonstrated, containing packing material. The packing material may be what represented the high T2 signal abnormality in this area on the prior CT. There is also thickening of the soft tissue deep to the ulcers. Also noted is some thickening of the retrococcygeal sacral and retrococcygeal soft tissues. No definite osseous destruction demonstrated in these areas. Considerable tissue seen surrounding both proximal femurs Lack of IV contrast limits assessment of solid organs. The liver, gallbladder, bile ducts, pancreas, spleen, adrenals, kidneys are all grossly unremarkable. There is an inferior vena cava filter present in good position. The uterus and adnexal structures appear unremarkable. There is a Haynes catheter present within the bladder, which is nondistended. No pelvic mass or adenopathy. There is edema of the presacral fat. No retroperitoneal or mesenteric mass or adenopathy. The distal esophagus, stomach, duodenum are unremarkable. The appendix is normal. The small bowel loops are diffusely prominent, fluid-filled, but is seen throughout the small bowel with a small amount in the cecum, indicating absence of obstructive pathology. No free or loculated intraperitoneal gas or fluid is evident. There is trace left pleural effusion and a small amount of basilar pulmonary parenchymal atelectasis. A calcified granuloma is seen at the right lung base. A few cystic spaces are seen at the right lung base. The bones demonstrate mild degenerative spondylosis changes. Impression: Bilateral ischial ulcers, also previously reported on prior MRI. There appears to be packing material within the ulcers. Correlate with clinical findings Small retrococcygeal and retrosacral decubitus changes, also previously described No definite acute abdominal or pelvic process Trace left pleural effusion. Small amount of basilar pulmonary parenchymal atelectasis Haynes catheter, inferior vena cava filter incidentally noted Right basilar pulmonary cystic spaces Other findings as noted, including degenerative spondylosis The CT scanner at [facility] is accredited by the [employer] and the scans are performed using protocols designed to limit radiation exposure to as low as reasonably achievable to attain images of sufficient resolution adequate for diagnostic evaluation.
[2019-10-16 20:00] VITALS: BP 152/76
--- NOTE | 2019-10-16 20:24 | Surgery Progress Note ---
Surgery Progress Note Subjective Additional Comments anemia CT noted MRI noted ill appearing leucocytosis Objective Last 24 Hour Vital Signs Date Time Temp Pulse Resp B/P (MAP) Pulse Ox O2 Delivery O2 Flow Rate FiO2 10/16/19 16:00 90 10/16/19 16:00 97.9 87 19 121/91 (101) 97 10/16/19 12:00 98.8 105 18 128/92 (104) 99 10/16/19 12:00 99 10/16/19 09:00 Nasal Cannula 2.0 10/16/19 08:00 87 10/16/19 08:00 98.6 98 17 113/67 (82) 100 10/16/19 04:54 94 10/16/19 04:00 99.8 97 17 127/64 (85) 95 10/16/19 00:00 91 10/15/19 23:14 99.1 95 17 123/74 (90) 97 10/15/19 21:00 Nasal Cannula 2.0 I&O Intake and Output 10/15/19 10/16/19 19:00 07:00 Intake Total 1390.000 ml Output Total 1050 ml 1300 ml Balance 340.000 ml -1300 ml Intake Oral 60 ml IV Total 1330.000 ml Output Urine Total 1050 ml 1300 ml # Voids 2 Dressing: saturated Wound: other Drains: other Cardiovascular: RSR Respiratory: decreased breath sounds Abdomen: soft, present bowel sounds Extremities: no cyanosis, other Laboratory Tests Test 10/16/19 01:10 10/16/19 07:10 White Blood Count 17.1 K/UL (4.8-10.8) H Red Blood Count 2.59 M/UL (4.20-5.40) L Hemoglobin 6.6 G/DL (12.0-16.0) *L Hematocrit 21.0 % (37.0-47.0) L Mean Corpuscular Volume 81 FL (80-99) Mean Corpuscular Hemoglobin 25.4 PG (27.0-31.0) L Mean Corpuscular Hemoglobin Concent 31.4 G/DL (32.0-36.0) L Red Cell Distribution Width 18.5 % (11.6-14.8) H Platelet Count 111 K/UL (150-450) L Mean Platelet Volume 8.4 FL (6.5-10.1) Neutrophils (%) (Auto) % (45.0-75.0) Lymphocytes (%) (Auto) % (20.0-45.0) Monocytes (%) (Auto) % (1.0-10.0) Eosinophils (%) (Auto) % (0.0-3.0) Basophils (%) (Auto) % (0.0-2.0) Differential Total Cells Counted 100 Neutrophils % (Manual) 82 % (45-75) H Lymphocytes % (Manual) 15 % (20-45) L Monocytes % (Manual) 3 % (1-10) Eosinophils % (Manual) 0 % (0-3) Basophils % (Manual) 0 % (0-2) Band Neutrophils 0 % (0-8) Platelet Estimate Decreased L Platelet Morphology Normal Sodium Level 139 MMOL/L (136-145) 138 MMOL/L (136-145) Potassium Level 2.4 MMOL/L (3.5-5.1) *L 2.9 MMOL/L (3.5-5.1) L Chloride Level 110 MMOL/L (98-107) H 109 MMOL/L (98-107) H Carbon Dioxide Level 19 MMOL/L (21-32) L 20 MMOL/L (21-32) L Anion Gap 11 mmol/L (5-15) 9 mmol/L (5-15) Blood Urea Nitrogen 15 mg/dL (7-18) 14 mg/dL (7-18) Creatinine 0.9 MG/DL (0.55-1.30) 0.9 MG/DL (0.55-1.30) Estimat Glomerular Filtration Rate > 60 mL/min (>60) > 60 mL/min (>60) Glucose Level 156 MG/DL (74-106) H 124 MG/DL (74-106) H Calcium Level 7.4 MG/DL (8.5-10.1) L 6.6 MG/DL (8.5-10.1) L Ferritin 859 NG/ML (8-388) H Carcinoembryonic Antigen Pending Vancomycin Level Trough 31.0 ug/mL (5.0-12.0) H Prothrombin Time 18.0 SEC (9.30-11.50) H Prothromb Time International Ratio 1.7 (0.9-1.1) H Fibrinogen 478 mg/dL (200-400) H Hepatitis A IgM Antibody Pending Hepatitis B Surface Antigen Pending Hepatitis B Core IgM Antibody Pending Hepatitis C Antibody Pending HIV (1&2) Antibody Rapid Negative (NEGATIVE) Plan Problems: (1) Decubitus ulcer Assessment & Plan: 54-year-old female multiple comorbidities who is fairly bedbound and care dependent presented from nursing facility with multiple decubitus ulcers requiring care and management and evaluation. Patient identified to have a right ischial and left ischial stage IV decubitus ulcers Patient Identified to have historic healed sacral decubitus ulcer pt presented on admission with multiple pressure injuries. Full thickness wound L abd with 95% slough, 5% surrounding erythema with macerated borders. Erythema without induration or elevation in skin temp periwound.(L)1.6cm x (W)1.7cm. Moisture intertrigo noted to abd folds and groin folds. Labia majora noted to be swollen. Hyperpigmentation from previous wound noted to Sacrum. Full thickness stage 4 pressure injury with undermining noted to L Ischium. [place] granulation noted to base of wound. No odor noted. Small amt serous exudate.(L)7.5cm x (W)4.5cm x (D)2.3cm, undermining clockwise 9-12o'clock by 3.6cm @12o'clock. Full thickness stage 4 pressure injury R ischium with two areas of tunneling. [place] granulation at base of wound with small amt of Biofilm. Surrounding pink epithelial borders. Small amt serosanguineous exudate noted. No odor noted. Periwound skin is dark without erythema,induration or elevation in skin temp.(L) 4cm x (W)2.5cm x (D)2.6cm ,tunneling clockwise @12 o'clock by3.6cm ,Tunneling clockwise @2o'clock by5.7cm. Areas of hyperpigmentation noted to L heel, distal/lateral L foot extending into plantar aspect. R heel is boggy with non-blanching erythema. unlikely etiology of sepsis as chronic wounds with good granulation tissue slowly healing Tx.Plan: Cleanse Abdominal wound with Saline. Apply TheraHoney. Apply Cavilon Skin Barrier periwound. Cover with Optifoam drsg. Change every 3 days and prn. Cleanse L ischial wound with Saline. Loosely Pack with Hydrogel impregnated Kerlix packing. Apply Moisture Barrier Paste periwound. Cover with Optifoam drsg Daily and prn. Cleanse R Ischial wound with Saline. Loosely pack with Hydrogel impregnated Kerlix. (ATTENTION:2 Tunneled areas 9o'clock and 2o'clock). Apply Moisture Barrier Paste periwound. Cover with Optifoam drsg Daily and prn. Apply Cavilon Skin BArrier to both heels. Cover each heel with Optifoam drsg. Change every 7 days and prn. APM/AURA Mattress overlay. Reposition at least every 2hours or as tolerated. Off-load heels with pillow. Place pillow between knees. nutritional optimization as below (2) Sepsis Assessment & Plan: 54-year-old female multiple committees presents with hypotension altered mental status. Patient with leukocytosis, abnormal labs. Currently intensive care unit under care and management. Wound evaluated and stage IV multiple but chronic and unlikely etiology of sepsis. MRI ordered to ensure no leukocytosis from acute osteo despite clean clinical appearance - reviewed Evidence of a small soft tissue ulcer within the subcutaneous fat posterior to the upper sacrum. Surrounding edema likely reflects adjacent inflammation. This does not appear to extend through the subjacent musculature, and no marrow edema to suggest osteomyelitis is demonstrated. Smaller apparent area of edema adjacent to the tip of the coccyx, likewise with no underlying marrow signal abnormality Edema of the subcutaneous fat adjacent to both ischia, could indicate decubitus changes 2.4 x 2.4 cm apparent fluid collection superficial to the right ischium. Could represent a small subcutaneous abscess, but suspect that this actually represents extracorporeal incontinent urine within a skin fold. Correlate with clinical findings Small left hip joint effusion Edema of the fat surrounding the umbilicus, could indicate inflammation of the periumbilical skin and subcutaneous fat. Correlate with clinical findings Edema of the bilateral hips and anterior pelvic dean, probably a manifestation of generalized systemic edema. Nonspecific edema of the presacral fat Haynes catheter seen within the bladder CT noted Bilateral ischial ulcers, also previously reported on prior MRI. There appears to be packing material within the ulcers. Correlate with clinical findings Small retrococcygeal and retrosacral decubitus changes, also previously described No definite acute abdominal or pelvic process Trace left pleural effusion. Small amount of basilar pulmonary parenchymal atelectasis Haynes catheter, inferior vena cava filter incidentally noted Right basilar pulmonary cystic spaces We will continue to monitor and evaluate IV fluids IV antibiotics as per infectious disease O2 Trend labs We will follow with recommendations Thank you for let me participate in patient's care (3) Moderate protein malnutrition Assessment & Plan: DAILY ESTIMATED NEEDS: Needs based on Sepsis, stage 4 wounds; 51.6kg adj 30-35 kcals/kg 1245-6819 total kcals 1.5-2 g protein/kg 77-103 g total protein 25-30 mL/kg 1290- 1548 total fluid mLs NUTRITION DIAGNOSIS: * Increased kcal and pro needs r/t wound healing AEB pt adm with stage 4 wounds x2, unstageable abdominal wound, h/o MS. CURRENT DIET: No diet order in place yet. PO DIET RECOMMENDATIONS: Regular as tolerated; texture per PREPARATION OPERATOR Monitor PO intake w/ diet/ need for supplements and/or snacks ADDITIONAL RECOMMENDATIONS: 1) Obtain calibrated bedscale wt PER SNF: 139 lbs + 61 inches 2) 2) Wound healing: provide Elias in 8oz water BID -> Vit C 250mg BID + Zinc 220mg daily x 10days + MVI w/ MIN 3) Monitor BG- slightly low (72)-> rec D5 for hydration 4) PREPARATION OPERATOR eval for appropriate texture/ previously on aspiration precautions Matty Solis Oct 16, 2019 20:24
[2019-10-16] MEDS: Miralax 17gm pkt ORAL SCH (20:28)
[2019-10-16] MEDS: Atorvastatin 20mg tab ORAL SCH ×2 (21:00→21:58)
[2019-10-16] MEDS: OLANZapine 2.5mg tab ORAL SCH ×2 (21:00→21:58)
[2019-10-16] MEDS: Vancomycin 1gm/D5W 275ml IVPB SCH ×2 (21:57)
[2019-10-16] MEDS: Dyna-Hex 2% Top Sol 2oz TOPIC SCH (22:00)
[2019-10-17] VITALS: BP 133/88
[2019-10-17 04:00] VITALS: BP 123/73
[2019-10-17 07:16] LABS: ANION GAP 11 mmol/L (5-15); BLOOD UREA NITROGEN 12 mg/dL (7-18); CALCIUM 6.9 MG/DL (8.5-10.1); CARBON DIOXIDE 17 MMOL/L (21-32); CHLORIDE 111 MMOL/L (98-107); CREATININE 0.7 MG/DL (0.55-1.30); POTASSIUM 3.8 MMOL/L (3.5-5.1); SODIUM 139 MMOL/L (136-145)
[2019-10-17 08:00] VITALS: BP 122/72
[2019-10-17 08:00] LABS: BASOPHILS % (AUTO) 0.4 % (0.0-2.0); EOSINOPHILS % (AUTO) 0.7 % (0.0-3.0); HEMATOCRIT 24.8 % (37.0-47.0); HEMOGLOBIN 8.3 G/DL (12.0-16.0); LYMPHOCYTES % (AUTO) 15.9 % (20.0-45.0); MEAN CORPUSCULAR VOLUME 79 FL (80-99); MONOCYTES % (AUTO) 5.5 % (1.0-10.0); NEUTROPHILS % (AUTO) 77.6 % (45.0-75.0); PLATELET COUNT 123 K/UL (150-450); RED BLOOD COUNT 3.12 M/UL (4.20-5.40); RED CELL DISTRIBUTION WIDTH 15.5 % (11.6-14.8); WHITE BLOOD COUNT 16.7 K/UL (4.8-10.8)
[2019-10-17] MEDS: Ascorbic Acid 500mg tab ORAL SCH (09:00)
[2019-10-17] MEDS: Aspirin EC 81mg tab ORAL SCH (09:00)
[2019-10-17] MEDS: Docusate 100mg cap ORAL SCH ×2 (09:10→17:31)
[2019-10-17] MEDS: Zinc Sulfate 220mg cap ORAL SCH (09:10)
[2019-10-17] MEDS: Fluconazole 100mg tab ORAL SCH (09:11)
[2019-10-17] MEDS: Heparin 5000 units/ml inj SUBQ SCH ×2 (09:12→20:20)
--- NOTE | 2019-10-17 09:22 | General Progress Note ---
Assessment/Plan Problem List: (1) Sepsis ICD Codes: A41.9 - Sepsis, unspecified organism SNOMED: 61691004 (2) Urinary tract infection ICD Codes: N39.0 - Urinary tract infection, site not specified SNOMED: 21354933 (3) Multiple sclerosis ICD Codes: G35 - Multiple sclerosis SNOMED: 78056325 (4) Stage 4 skin ulcer of sacral region ICD Codes: L98.429 - Non-pressure chronic ulcer of back with unspecified severity SNOMED: 70113305, 072750637 (5) HTN (hypertension) ICD Codes: I10 - Essential (primary) hypertension SNOMED: 48034502 (6) HLD (hyperlipidemia) ICD Codes: E78.5 - Hyperlipidemia, unspecified SNOMED: 55486822 (7) Unspecified dementia without behavioral disturbance ICD Codes: F03.90 - Unspecified dementia without behavioral disturbance SNOMED: 12152534 (8) Chronic pain syndrome ICD Codes: G89.4 - Chronic pain syndrome SNOMED: 814223716 (9) Moderate protein malnutrition ICD Codes: E44.0 - Moderate protein-calorie malnutrition SNOMED: 702658522 (10) Hypokalemia ICD Codes: E87.6 - Hypokalemia SNOMED: 12705100 Status: progressing Assessment/Plan: 54 year old female with multiple sclerosis, neurogenic bladder and functional quadriplegia being admitted for sepsis secondary to UTI, ?fungal uti, MRSA uti . Responded to fluid resuscitation. VSS. Ucx: 10/13, yeast >100K, 10/11: MRSA, 10/10: E.coli . Blood culture: 10/10: Strep Agalactias group B, Staph capitis. CXR negative x 2 ICU --> telemetry Continue Cefepime, vancomycin. s/p Azithromycin. Added Fluconazole and metronidazole. d/w ID MRI pelvis reviewed. no abscess or osteo. CT abdomen pelvis, no abscess. bilateral ischial decubitus. follow up blood cultures continue briseno monitor wbc outpatient urology follow up. ID consult with Dr. Palacios. d/w Chief Drafter consult appreciated wound care and wound MD consult with Dr. Solis EXPORT AGENT consult to evaluate. d/w Princess. Tolerated regular diet, slow bites. Aspiration precautions Hold all BP meds, introduce when more stable pain control. Severe hypokalemia. Resolved. Add kcl to fluid, encourage po intake Appetite stimulant psychiatry consult appreciated. continue Zyprexa 2.5 mg at bedtime vte ppx: heparin subq GI ppx: not indicated CM consult for discharge planning Code status: full code, POLST signed by SNF Md but not patient and it's blank. Will attempt to call Kirsten Richardson, daughter of patient: [phone] I spent 40 minutes on this encounter, > 50% spent on counselling and care coordination Time of this note may not reflect time of encounter. Subjective Date patient seen: Oct 17, 2019 ROS Limited/Unobtainable: No Constitutional: Denies: no symptoms, chills, diaphoresis, fever, malaise, weakness, other HEENT: Denies: no symptoms, eye pain, blurred vision, tearing, double vision, ear pain, ear discharge, nose pain, nose congestion, throat pain, throat swelling, mouth pain, mouth swelling, other Cardiovascular: Denies: no symptoms, chest pain, edema, irregular heart rate, lightheadedness, palpitations, syncope, other Respiratory: Denies: no symptoms, cough, orthopnea, shortness of breath, SOB with excertion, SOB at rest, sputum, stridor, wheezing, other Gastrointestinal/Abdominal: Denies: no symptoms, abdomen distended, abdominal pain, black stools, tarry stools, blood in stool, constipated, diarrhea, difficulty swallowing, nausea, poor appetite, poor fluid intake, rectal bleeding , vomiting, other Genitourinary: Denies: no symptoms, burning, discharge, frequency, flank pain, hematuria, incontinence, pain, urgency, other Neurologic/Psychiatric: Denies: no symptoms, anxiety, depressed, emotional problems, headache, numbness, paresthesia, pre-existing deficit, seizure, tingling, tremors, weakness, other Endocrine: Denies: no symptoms, excessive sweating, flushing, intolerance to cold, intolerance to heat, increased hunger, increased thirst, increased urine, unexplained weight gain, unexplained weight loss, other Hematologic/Lymphatic: Denies: no symptoms, anemia, easy bleeding, easy bruising, other Allergies: Coded Allergies: PENICILLINS (Verified Allergy, Unknown, 07/05/16) Uncoded Allergies: seafood (Allergy, Mild, 10/15/19) Subjective Following up for sepsis and bacteremia due to UTI. Mental status much improved. Alert and oriented x4. Afebrile, wbc slowly coming down Objective Last 24 Hour Vital Signs Date Time Temp Pulse Resp B/P (MAP) Pulse Ox O2 Delivery O2 Flow Rate FiO2 10/17/19 08:00 97.8 90 15 122/72 (89) 94 10/17/19 04:00 90 10/17/19 04:00 99.5 86 20 123/73 (90) 100 10/17/19 00:00 96 10/17/19 00:00 98.2 84 20 133/88 (103) 99 10/16/19 21:00 Room Air 10/16/19 20:00 87 10/16/19 20:00 98.2 90 20 152/76 (101) 100 10/16/19 16:00 90 10/16/19 16:00 97.9 87 19 121/91 (101) 97 10/16/19 12:00 98.8 105 18 128/92 (104) 99 10/16/19 12:00 99 Intake and Output 10/16/19 10/17/19 18:59 06:59 Output Total 1000 ml 1000 ml Balance -1000 ml -1000 ml Output Urine Total 1000 ml 1000 ml # Bowel Movements 1 Laboratory Tests 10/16/19 17:30: Stool Occult Blood [Pending] 10/17/19 06:15: White Blood Count 16.7H, Red Blood Count 3.12L, Hemoglobin 8.3L, Hematocrit 24.8L, Mean Corpuscular Volume 79L, Mean Corpuscular Hemoglobin 26.7L, Mean Corpuscular Hemoglobin Concent 33.7, Red Cell Distribution Width 15.5H, Platelet Count 123L, Mean Platelet Volume 9.0, Neutrophils (%) (Auto) 77.6H, Lymphocytes (%) (Auto) 15.9L, Monocytes (%) (Auto) 5.5, Eosinophils (%) (Auto) 0.7, Basophils (%) (Auto) 0.4, Sodium Level 139, Potassium Level 3.8, Chloride Level 111H, Carbon Dioxide Level 17L, Anion Gap 11, Blood Urea Nitrogen 12, Creatinine 0.7, Estimat Glomerular Filtration Rate > 60, Glucose Level 105, Calcium Level 6.9L Height (Feet): 5 Height (Inches): 1.00 Weight (Pounds): 158 Objective General Appearance: no apparent distress, confused Lines, tubes and drains: peripheral HEENT: normocephalic, atraumatic, anicteric, no JVD, other - right eye deviated to the right, unable to abduct Neck: non-tender, supple Respiratory/Chest: lungs clear, normal breath sounds, no respiratory distress, no accessory muscle use Cardiovascular/Chest: normal peripheral pulses, normal rate, regular rhythm, no gallop/murmur Abdomen: normal bowel sounds, non tender, soft, no organomegaly, other - pressure ulcer LLQ Genitourinary/Rectal: briseno, other - +CVA tenderness Extremities: no calf tenderness, no edema, no cyanosis Skin Exam: other - multiple stage 4 sacral decub Neurologic: confused , motor weakness - quadriplegia, now bilateral upper extremity motor improved to 4/5, bl LE 1/5 Musculoskeletal: atrophy Mikal Quiles M.D. Oct 17, 2019 09:22
[2019-10-17] MEDS: Cefepime HCl 2 GM in D5W 55 ML IVPB SCH ×2 (09:39→20:33)
[2019-10-17] MEDS ORDERED: LORazepam 1mg tab ORAL SCH (09:50)
[2019-10-17 12:00] VITALS: BP 129/74
--- NOTE | 2019-10-17 13:03 | Hematology/Onc Progress Note ---
Assessment/Plan Assessment/Plan Assessment and Recs # Anemia due to underlying chronic disease, has been downtrending since admission r/o gi bleed as well, underlying cause likely due to stage IV ulceration, MS, sepsis POA --> anemia panel reviewed and c/w acd --> hold off on epogen at this time, not indicated --> ferritin 859, doesn't need iron --> hgb trend 9.2-->8.6-->7.6-->6.6-->8.3 --> hgb goal >7, transfuse prn --> blood tx: 1 unit 10/16 --> continue folic acid # Thrombocytopenia ACUTE likely due to sepsis --> send off prelim pt/ptt, if any evidence dic --> hep and hiv ordered, both negative --> on abx for underlying cause --> plt trend: 123k # Leukocytosis with Sepsis poa with uti --> on abx as per id --> on vanc/cefepime--> vanc/fluc/flagy-->vanc/cefe --> wbc trend: 16.7 # Urinary tract infection, with e.coli --> per id # Multiple sclerosis # Functional quadriplegia # Stage 4 skin ulcer of sacral region --> per surg, offloading, wound care # HTN # HLD # Unspecified dementia without behavioral disturbance # Chronic pain syndrome # Moderate protein malnutrition # Severe hypokalemia # Dvt ppx heparin sq Appreciate consultation and dw RN Subjective Allergies: Coded Allergies: PENICILLINS (Verified Allergy, Unknown, 07/05/16) Uncoded Allergies: seafood (Allergy, Mild, 10/15/19) Subjective 10/16: remains confused, no bleeding, labs noted, plt lower, hgb requiring prbc transf 10/17: awake and alert, s/p blood tx, hgb improved to 8.3, stool ob positive Objective Objective Current Medications Medications (Trade) Dose Ordered Sig/Lenard Route PRN Reason Start Time Stop Time Status Last Admin Dose Admin Acetaminophen (Tylenol) 650 mg Q4H PRN ORAL Mild Pain (Pain Scale 1-3) 10/11/19 21:28 11/10/19 21:27 10/16/19 08:41 Acetaminophen (Tylenol) 650 mg Q4H PRN ORAL fever 10/11/19 21:28 11/10/19 21:27 Ascorbic Acid (Vitamin C) 500 mg DAILY ORAL 10/12/19 09:00 11/11/19 08:59 10/16/19 08:38 Aspirin (Ecotrin) 81 mg DAILY ORAL 10/12/19 09:00 11/11/19 08:59 10/16/19 08:37 Atorvastatin Calcium (Lipitor) 20 mg BEDTIME ORAL 10/12/19 21:00 11/10/19 20:59 10/15/19 22:10 Cefepime HCl 2 gm/ Dextrose 55 ml @ 110 mls/hr Q12H IVPB 10/14/19 09:00 10/21/19 08:59 10/17/19 09:39 Chlorhexidine Gluconate (Bailee-Hex 2%) 1 applic DAILY@2000 TOPIC 10/12/19 20:00 11/11/19 19:59 10/16/19 22:00 Dextrose (Dextrose 50%) 25 ml Q30M PRN IV Hypoglycemia 10/11/19 21:45 11/10/19 02:44 Dextrose (Dextrose 50%) 50 ml Q30M PRN IV Hypoglycemia 10/11/19 21:45 11/10/19 02:44 Dextrose/ Electrolytes 1,000 ml @ 75 mls/hr [id number] IV 10/16/19 10:00 11/11/19 09:59 10/16/19 10:08 Docusate Sodium (Colace) 100 mg TWICE A DAY ORAL 10/15/19 20:45 11/14/19 20:44 10/17/19 09:10 Fluconazole (Diflucan) 200 mg DAILY ORAL 10/16/19 09:00 10/22/19 10:06 10/17/19 09:11 Folic Acid (Folate) 1 mg DAILY ORAL 10/12/19 09:00 11/11/19 08:59 10/17/19 09:10 Heparin Sodium (Porcine) (Heparin 5000 units/ml) 5,000 units EVERY 12 HOURS SUBQ 10/12/19 09:00 11/10/19 08:59 10/17/19 09:12 Metronidazole 100 ml @ 100 mls/hr Q8HR IVPB 10/15/19 22:00 10/22/19 21:59 10/17/19 06:20 Multivitamins (Multivitamins) 1 tab DAILY ORAL 10/12/19 09:00 11/11/19 08:59 10/17/19 09:10 Polyethylene Glycol (Miralax) 17 gm BEDTIME ORAL 10/15/19 21:00 11/14/19 20:59 10/15/19 22:10 Sennosides (Senokot) 17.2 mg DAILYPRN PRN ORAL Constipation 10/15/19 20:45 11/14/19 20:44 10/15/19 22:10 Vancomycin HCl (Vanco rx to dose) 1 ea DAILY PRN MISC Per rx protocol 10/12/19 12:45 11/11/19 12:44 Vancomycin HCl 1 gm/Dextrose 275 ml @ 183.708 mls/hr Q24H IVPB 10/16/19 21:00 10/21/19 20:59 10/16/19 21:57 Zinc Sulfate (Zinc Sulfate) 220 mg DAILY ORAL 10/12/19 09:00 11/11/19 08:59 10/17/19 09:10 Last 24 Hour Vital Signs Date Time Temp Pulse Resp B/P (MAP) Pulse Ox O2 Delivery O2 Flow Rate FiO2 10/17/19 12:00 101 10/17/19 12:00 98.0 97 15 129/74 (92) 92 10/17/19 09:00 Room Air 10/17/19 08:00 89 10/17/19 08:00 97.8 90 15 122/72 (89) 94 10/17/19 04:00 90 10/17/19 04:00 99.5 86 20 123/73 (90) 100 10/17/19 00:00 96 10/17/19 00:00 98.2 84 20 133/88 (103) 99 10/16/19 21:00 Room Air 10/16/19 20:00 87 10/16/19 20:00 98.2 90 20 152/76 (101) 100 10/16/19 16:00 90 10/16/19 16:00 97.9 87 19 121/91 (101) 97 10/16/19 12:00 98.8 105 18 128/92 (104) 99 10/16/19 12:00 99 10/16/19 09:00 Nasal Cannula 2.0 10/16/19 08:00 87 10/16/19 08:00 98.6 98 17 113/67 (82) 100 10/16/19 04:54 94 10/16/19 04:00 99.8 97 17 127/64 (85) 95 10/16/19 00:00 91 10/15/19 23:14 99.1 95 17 123/74 (90) 97 10/15/19 21:00 Nasal Cannula 2.0 10/15/19 20:00 100.2 98 18 120/78 (92) 98 10/15/19 20:00 100 10/15/19 16:00 99.9 95 20 110/58 (75) 98 10/15/19 16:00 103 Intake and Output 10/16/19 10/17/19 18:59 06:59 Output Total 1000 ml 1000 ml Balance -1000 ml -1000 ml Output Urine Total 1000 ml 1000 ml # Bowel Movements 1 Labs Test 10/16/19 01:10 10/16/19 07:10 10/16/19 17:30 10/17/19 06:15 White Blood Count 17.1 K/UL (4.8-10.8) 16.7 K/UL (4.8-10.8) Red Blood Count 2.59 M/UL (4.20-5.40) 3.12 M/UL (4.20-5.40) Hemoglobin 6.6 G/DL (12.0-16.0) 8.3 G/DL (12.0-16.0) Hematocrit 21.0 % (37.0-47.0) 24.8 % (37.0-47.0) Mean Corpuscular Volume 81 FL (80-99) 79 FL (80-99) Mean Corpuscular Hemoglobin 25.4 PG (27.0-31.0) 26.7 PG (27.0-31.0) Mean Corpuscular Hemoglobin Concent 31.4 G/DL (32.0-36.0) 33.7 G/DL (32.0-36.0) Red Cell Distribution Width 18.5 % (11.6-14.8) 15.5 % (11.6-14.8) Platelet Count 111 K/UL (150-450) 123 K/UL (150-450) Mean Platelet Volume 8.4 FL (6.5-10.1) 9.0 FL (6.5-10.1) Neutrophils (%) (Auto) % (45.0-75.0) 77.6 % (45.0-75.0) Lymphocytes (%) (Auto) % (20.0-45.0) 15.9 % (20.0-45.0) Monocytes (%) (Auto) % (1.0-10.0) 5.5 % (1.0-10.0) Eosinophils (%) (Auto) % (0.0-3.0) 0.7 % (0.0-3.0) Basophils (%) (Auto) % (0.0-2.0) 0.4 % (0.0-2.0) Differential Total Cells Counted 100 Neutrophils % (Manual) 82 % (45-75) Lymphocytes % (Manual) 15 % (20-45) Monocytes % (Manual) 3 % (1-10) Eosinophils % (Manual) 0 % (0-3) Basophils % (Manual) 0 % (0-2) Band Neutrophils 0 % (0-8) Platelet Estimate Decreased Platelet Morphology Normal Sodium Level 139 MMOL/L (136-145) 138 MMOL/L (136-145) 139 MMOL/L (136-145) Potassium Level 2.4 MMOL/L (3.5-5.1) 2.9 MMOL/L (3.5-5.1) 3.8 MMOL/L (3.5-5.1) Chloride Level 110 MMOL/L (98-107) 109 MMOL/L (98-107) 111 MMOL/L (98-107) Carbon Dioxide Level 19 MMOL/L (21-32) 20 MMOL/L (21-32) 17 MMOL/L (21-32) Anion Gap 11 mmol/L (5-15) 9 mmol/L (5-15) 11 mmol/L (5-15) Blood Urea Nitrogen 15 mg/dL (7-18) 14 mg/dL (7-18) 12 mg/dL (7-18) Creatinine 0.9 MG/DL (0.55-1.30) 0.9 MG/DL (0.55-1.30) 0.7 MG/DL (0.55-1.30) Estimat Glomerular Filtration Rate > 60 mL/min (>60) > 60 mL/min (>60) > 60 mL/min (>60) Glucose Level 156 MG/DL (74-106) 124 MG/DL (74-106) 105 MG/DL (74-106) Calcium Level 7.4 MG/DL (8.5-10.1) 6.6 MG/DL (8.5-10.1) 6.9 MG/DL (8.5-10.1) Ferritin 859 NG/ML (8-388) Carcinoembryonic Antigen 3.7 ng/mL (0.0-4.7) Vancomycin Level Trough 31.0 ug/mL (5.0-12.0) Prothrombin Time 18.0 SEC (9.30-11.50) Prothromb Time International Ratio 1.7 (0.9-1.1) Fibrinogen 478 mg/dL (200-400) Hepatitis A IgM Antibody Negative (Negative) Hepatitis B Surface Antigen Negative (Negative) Hepatitis B Core IgM Antibody Negative (Negative) Hepatitis C Antibody 0.1 s/co ratio (0.0-0.9) HIV (1&2) Antibody Rapid Negative (NEGATIVE) Stool Occult Blood Positive (NEGATIVE) Height (Feet): 5 Height (Inches): 1.00 Weight (Pounds): 158 Jerry Ervin MD Oct 17, 2019 13:02
[2019-10-17 16:00] VITALS: BP 125/71
--- NOTE | 2019-10-17 16:41 | Surgery Progress Note ---
Surgery Progress Note Subjective Additional Comments leukocytosis trending down awake and alert, s/p blood tx, hgb improved to 8.3, stool ob positive. comfortable appearing no n/v/f/c Objective Last 24 Hour Vital Signs Date Time Temp Pulse Resp B/P (MAP) Pulse Ox O2 Delivery O2 Flow Rate FiO2 10/17/19 12:00 101 10/17/19 12:00 98.0 97 15 129/74 (92) 92 10/17/19 09:00 Room Air 10/17/19 08:00 89 10/17/19 08:00 97.8 90 15 122/72 (89) 94 10/17/19 04:00 90 10/17/19 04:00 99.5 86 20 123/73 (90) 100 10/17/19 00:00 96 10/17/19 00:00 98.2 84 20 133/88 (103) 99 10/16/19 21:00 Room Air 10/16/19 20:00 87 10/16/19 20:00 98.2 90 20 152/76 (101) 100 I&O Intake and Output 10/16/19 10/17/19 19:00 07:00 Output Total 1000 ml 1000 ml Balance -1000 ml -1000 ml Output Urine Total 1000 ml 1000 ml # Bowel Movements 1 Dressing: saturated Wound: other Drains: other Cardiovascular: RSR Respiratory: decreased breath sounds Abdomen: soft, present bowel sounds Extremities: edema, no cyanosis Laboratory Tests Test 10/16/19 17:30 10/17/19 06:15 Stool Occult Blood Positive (NEGATIVE) White Blood Count 16.7 K/UL (4.8-10.8) H Red Blood Count 3.12 M/UL (4.20-5.40) L Hemoglobin 8.3 G/DL (12.0-16.0) L Hematocrit 24.8 % (37.0-47.0) L Mean Corpuscular Volume 79 FL (80-99) L Mean Corpuscular Hemoglobin 26.7 PG (27.0-31.0) L Mean Corpuscular Hemoglobin Concent 33.7 G/DL (32.0-36.0) Red Cell Distribution Width 15.5 % (11.6-14.8) H Platelet Count 123 K/UL (150-450) L Mean Platelet Volume 9.0 FL (6.5-10.1) Neutrophils (%) (Auto) 77.6 % (45.0-75.0) H Lymphocytes (%) (Auto) 15.9 % (20.0-45.0) L Monocytes (%) (Auto) 5.5 % (1.0-10.0) Eosinophils (%) (Auto) 0.7 % (0.0-3.0) Basophils (%) (Auto) 0.4 % (0.0-2.0) Sodium Level 139 MMOL/L (136-145) Potassium Level 3.8 MMOL/L (3.5-5.1) Chloride Level 111 MMOL/L (98-107) H Carbon Dioxide Level 17 MMOL/L (21-32) L Anion Gap 11 mmol/L (5-15) Blood Urea Nitrogen 12 mg/dL (7-18) Creatinine 0.7 MG/DL (0.55-1.30) Estimat Glomerular Filtration Rate > 60 mL/min (>60) Glucose Level 105 MG/DL (74-106) Calcium Level 6.9 MG/DL (8.5-10.1) L Plan Problems: (1) Decubitus ulcer Assessment & Plan: 54-year-old female multiple comorbidities who is fairly bedbound and care dependent presented from nursing facility with multiple decubitus ulcers requiring care and management and evaluation. Patient identified to have a right ischial and left ischial stage IV decubitus ulcers Patient Identified to have historic healed sacral decubitus ulcer pt presented on admission with multiple pressure injuries. Full thickness wound L abd with 95% slough, 5% surrounding erythema with macerated borders. Erythema without induration or elevation in skin temp periwound.(L)1.6cm x (W)1.7cm. Moisture intertrigo noted to abd folds and groin folds. Labia majora noted to be swollen. Hyperpigmentation from previous wound noted to Sacrum. Full thickness stage 4 pressure injury with undermining noted to L Ischium. Wishram granulation noted to base of wound. No odor noted. Small amt serous exudate.(L)7.5cm x (W)4.5cm x (D)2.3cm, undermining clockwise 9-12o'clock by 3.6cm @12o'clock. Full thickness stage 4 pressure injury R ischium with two areas of tunneling. Wishram granulation at base of wound with small amt of Biofilm. Surrounding pink epithelial borders. Small amt serosanguineous exudate noted. No odor noted. Periwound skin is dark without erythema,induration or elevation in skin temp.(L) 4cm x (W)2.5cm x (D)2.6cm ,tunneling clockwise @12 o'clock by3.6cm ,Tunneling clockwise @2o'clock by5.7cm. Areas of hyperpigmentation noted to L heel, distal/lateral L foot extending into plantar aspect. R heel is boggy with non-blanching erythema. unlikely etiology of sepsis as chronic wounds with good granulation tissue slowly healing Tx.Plan: Cleanse Abdominal wound with Saline. Apply TheraHoney. Apply Cavilon Skin Barrier periwound. Cover with Optifoam drsg. Change every 3 days and prn. Cleanse L ischial wound with Saline. Loosely Pack with Hydrogel impregnated Kerlix packing. Apply Moisture Barrier Paste periwound. Cover with Optifoam drsg Daily and prn. Cleanse R Ischial wound with Saline. Loosely pack with Hydrogel impregnated Kerlix. (ATTENTION:2 Tunneled areas 9o'clock and 2o'clock). Apply Moisture Barrier Paste periwound. Cover with Optifoam drsg Daily and prn. Apply Cavilon Skin BArrier to both heels. Cover each heel with Optifoam drsg. Change every 7 days and prn. APM/AURA Mattress overlay. Reposition at least every 2hours or as tolerated. Off-load heels with pillow. Place pillow between knees. nutritional optimization as below (2) Sepsis Assessment & Plan: 54-year-old female multiple committees presents with hypotension altered mental status. Patient with leukocytosis, abnormal labs. Currently intensive care unit under care and management. Wound evaluated and stage IV multiple but chronic and unlikely etiology of sepsis. MRI ordered to ensure no leukocytosis from acute osteo despite clean clinical appearance - reviewed Evidence of a small soft tissue ulcer within the subcutaneous fat posterior to the upper sacrum. Surrounding edema likely reflects adjacent inflammation. This does not appear to extend through the subjacent musculature, and no marrow edema to suggest osteomyelitis is demonstrated. Smaller apparent area of edema adjacent to the tip of the coccyx, likewise with no underlying marrow signal abnormality Edema of the subcutaneous fat adjacent to both ischia, could indicate decubitus changes 2.4 x 2.4 cm apparent fluid collection superficial to the right ischium. Could represent a small subcutaneous abscess, but suspect that this actually represents extracorporeal incontinent urine within a skin fold. Correlate with clinical findings Small left hip joint effusion Edema of the fat surrounding the umbilicus, could indicate inflammation of the periumbilical skin and subcutaneous fat. Correlate with clinical findings Edema of the bilateral hips and anterior pelvic dean, probably a manifestation of generalized systemic edema. Nonspecific edema of the presacral fat Haynes catheter seen within the bladder CT noted Bilateral ischial ulcers, also previously reported on prior MRI. There appears to be packing material within the ulcers. Correlate with clinical findings Small retrococcygeal and retrosacral decubitus changes, also previously described No definite acute abdominal or pelvic process Trace left pleural effusion. Small amount of basilar pulmonary parenchymal atelectasis Haynes catheter, inferior vena cava filter incidentally noted Right basilar pulmonary cystic spaces We will continue to monitor and evaluate IV fluids IV antibiotics as per infectious disease O2 Trend labs We will follow with recommendations Thank you for let me participate in patient's care (3) Moderate protein malnutrition Assessment & Plan: DAILY ESTIMATED NEEDS: Needs based on Sepsis, stage 4 wounds; 51.6kg adj 30-35 kcals/kg 3352-6417 total kcals 1.5-2 g protein/kg 77-103 g total protein 25-30 mL/kg 1290- 1548 total fluid mLs NUTRITION DIAGNOSIS: * Increased kcal and pro needs r/t wound healing AEB pt adm with stage 4 wounds x2, unstageable abdominal wound, h/o MS. CURRENT DIET: No diet order in place yet. PO DIET RECOMMENDATIONS: Regular as tolerated; texture per CHANNEL MARKETING PROGRAM MANAGER Monitor PO intake w/ diet/ need for supplements and/or snacks ADDITIONAL RECOMMENDATIONS: 1) Obtain calibrated bedscale wt PER SNF: 139 lbs + 61 inches 2) 2) Wound healing: provide Elias in 8oz water BID -> Vit C 250mg BID + Zinc 220mg daily x 10days + MVI w/ MIN 3) Monitor BG- slightly low (72)-> rec D5 for hydration 4) CH[employer] MARKETING PROGRAM MANAGER eval for appropriate texture/ previously on aspiration precautions Matty Solis Oct 17, 2019 16:41
--- NOTE | 2019-10-17 18:38 | Infectious Diseases Prog Note ---
Assessment/Plan Assessment/Plan ASSESSMENT AND PLAN: 1. 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 fungemia/fungal uti, chest x-ray neg x 2, wounds noted - ? infected but look fairly clean, MRI without osteo, MRI with incontinent urine within skin fold > right ischium/hip abscess - vancomycin, cefepime add flagyl, on diflucan for fungemia coverage - surveillance blood cultures negative, monitor leukocytosis, monitor labs - leukocytosis slowly improving, lgt, clinically more alert - wound care per surgery and protocol - echo report without vegetation mentioned - CT abdomen and pelvis - no abscess, report noted 2. telemetry care 3. Skin care protocol. 4. The patient is anemic. 5. Hypertension. 6. Blood pressure treatment primary care team. 7. Multiple sclerosis. 8. History of UTIs. 9. Hyperlipidemia. 10. Seizures. 11. Chronic pain syndrome. 12. Dementia. 13. Malnutrition. 14. Allergic to penicillin. 15. Social history is negative. 16. Family history is noncontributory. 17. MAR is noted. 18. Case was discussed with RN. 19. Case was discussed with Dr. Quiles. 20. Continue treatment per primary consultants. Subjective Constitutional: Reports: fever, fatigue, other - more alert HEENT: Denies: congestion Respiratory: Denies: shortness of breath Cardiovascular: Denies: chest pain Gastrointestinal/Abdominal: Denies: nausea, vomiting, diarrhea Genitourinary: Reports: other - + briseno Neurologic: Denies: headache Psychiatric: Denies: depression Skin: Denies: rash Hematologic: Denies: bleeding Musculoskeletal: Denies: pain Allergies: Coded Allergies: PENICILLINS (Verified Allergy, Unknown, 07/05/16) Uncoded Allergies: seafood (Allergy, Mild, 10/15/19) Objective Vital Signs Last 24 Hour Vital Signs Date Time Temp Pulse Resp B/P (MAP) Pulse Ox O2 Delivery O2 Flow Rate FiO2 10/17/19 16:00 96 10/17/19 16:00 98.3 89 15 125/71 (89) 94 10/17/19 12:00 101 10/17/19 12:00 98.0 97 15 129/74 (92) 92 10/17/19 09:00 Room Air 10/17/19 08:00 89 10/17/19 08:00 97.8 90 15 122/72 (89) 94 10/17/19 04:00 90 10/17/19 04:00 99.5 86 20 123/73 (90) 100 10/17/19 00:00 96 10/17/19 00:00 98.2 84 20 133/88 (103) 99 10/16/19 21:00 Room Air 10/16/19 20:00 87 10/16/19 20:00 98.2 90 20 152/76 (101) 100 Height (Feet): 5 Height (Inches): 1.00 Weight (Pounds): 158 General Appearance: no acute distress HEENT: normocephalic, atraumatic, anicteric, mucous membranes moist Respiratory/Chest: lungs clear, normal breath sounds, no respiratory distress, no accessory muscle use Cardiovascular: normal rate, regular rhythm, no gallop/murmur, no JVD Abdomen: normal bowel sounds, soft, non tender, no organomegaly, non distended Genitourinary: other - + briseno Extremities: no cyanosis Skin: no rash Neurologic/Psychiatric: limb driver II-XII grossly normal, alert, oriented x 3, responsive Lymphatic: no neck adenopathy Musculoskeletal: no effusion Objective Chest x- ray - 10/12/19 - Procedure: XRAY Chest 1v Indication: Shortness of breath Technique: One view of the chest Comparison: Of 02/24/2019 Findings: The heart is upper limits of normal in size. Lungs and pleural spaces are clear. No significant interim change Impression: No acute process Chest x-ray - 10/15/19 - Procedure: XRAY Chest 1v Indication: Shortness of breath Technique: One view of the chest Comparison: 10/12/2019 Findings: Lungs and pleural spaces are clear. Heart size is normal. Is no significant interim change Impression: No acute process MRI - Pelvis: Impression: Evidence of a small soft tissue ulcer within the subcutaneous fat posterior to the upper sacrum. Surrounding edema likely reflects adjacent inflammation. This does not appear to extend through the subjacent musculature, and no marrow edema to suggest osteomyelitis is demonstrated. Smaller apparent area of edema adjacent to the tip of the coccyx, likewise with no underlying marrow signal abnormality Edema of the subcutaneous fat adjacent to both ischia, could indicate decubitus changes 2.4 x 2.4 cm apparent fluid collection superficial to the right ischium. Could represent a small subcutaneous abscess, but suspect that this actually represents extracorporeal incontinent urine within a skin fold. Correlate with clinical findings Small left hip joint effusion Edema of the fat surrounding the umbilicus, could indicate inflammation of the periumbilical skin and subcutaneous fat. Correlate with clinical findings Edema of the bilateral hips and anterior pelvic dean, probably a manifestation of generalized systemic edema. Nonspecific edema of the presacral fat CT scan of abdomen and pelvis: Impression: Bilateral ischial ulcers, also previously reported on prior MRI. There appears to be packing material within the ulcers. Correlate with clinical findings Small retrococcygeal and retrosacral decubitus changes, also previously described No definite acute abdominal or pelvic process Trace left pleural effusion. Small amount of basilar pulmonary parenchymal atelectasis Briseno catheter, inferior vena cava filter incidentally noted Right basilar pulmonary cystic spaces Other findings as noted, including degenerative spondylosis The CT scanner at [facility] is accredited by the [employer] and the scans are performed using protocols designed to limit radiation exposure to as low as reasonably achievable to attain images of sufficient resolution adequate for diagnostic evaluation. Microbiology Date/Time Source Procedure Growth Status 10/13/19 18:20 Blood Blood Culture - Preliminary NO GROWTH AFTER 72 HOURS Resulted 10/13/19 06:30 Sputum Gram Stain - Final Complete 10/13/19 06:30 Sputum Culture - Final April Albicans Staphylococcus Aureus Complete 10/13/19 17:55 Urine,Clean Catch Urine Culture - Final April Albicans Complete 10/11/19 01:35 Rectum - Final NO CARBAPENEM-RESISTANT ENTEROBACTERI... Complete Laboratory Tests Test 10/17/19 06:15 White Blood Count 16.7 K/UL (4.8-10.8) H Red Blood Count 3.12 M/UL (4.20-5.40) L Hemoglobin 8.3 G/DL (12.0-16.0) L Hematocrit 24.8 % (37.0-47.0) L Mean Corpuscular Volume 79 FL (80-99) L Mean Corpuscular Hemoglobin 26.7 PG (27.0-31.0) L Mean Corpuscular Hemoglobin Concent 33.7 G/DL (32.0-36.0) Red Cell Distribution Width 15.5 % (11.6-14.8) H Platelet Count 123 K/UL (150-450) L Mean Platelet Volume 9.0 FL (6.5-10.1) Neutrophils (%) (Auto) 77.6 % (45.0-75.0) H Lymphocytes (%) (Auto) 15.9 % (20.0-45.0) L Monocytes (%) (Auto) 5.5 % (1.0-10.0) Eosinophils (%) (Auto) 0.7 % (0.0-3.0) Basophils (%) (Auto) 0.4 % (0.0-2.0) Sodium Level 139 MMOL/L (136-145) Potassium Level 3.8 MMOL/L (3.5-5.1) Chloride Level 111 MMOL/L (98-107) H Carbon Dioxide Level 17 MMOL/L (21-32) L Anion Gap 11 mmol/L (5-15) Blood Urea Nitrogen 12 mg/dL (7-18) Creatinine 0.7 MG/DL (0.55-1.30) Estimat Glomerular Filtration Rate > 60 mL/min (>60) Glucose Level 105 MG/DL (74-106) Calcium Level 6.9 MG/DL (8.5-10.1) L Current Medications Medications (Trade) Dose Ordered Sig/Lenard Route PRN Reason Start Time Stop Time Status Last Admin Dose Admin Acetaminophen (Tylenol) 650 mg Q4H PRN ORAL Mild Pain (Pain Scale 1-3) 10/11/19 21:28 11/10/19 21:27 10/17/19 17:35 Acetaminophen (Tylenol) 650 mg Q4H PRN ORAL fever 10/11/19 21:28 11/10/19 21:27 Ascorbic Acid (Vitamin C) 500 mg DAILY ORAL 10/12/19 09:00 11/11/19 08:59 10/16/19 08:38 Aspirin (Ecotrin) 81 mg DAILY ORAL 10/12/19 09:00 11/11/19 08:59 10/16/19 08:37 Atorvastatin Calcium (Lipitor) 20 mg BEDTIME ORAL 10/12/19 21:00 11/10/19 20:59 10/15/19 22:10 Cefepime HCl 2 gm/ Dextrose 55 ml @ 110 mls/hr Q12H IVPB 10/14/19 09:00 10/21/19 08:59 10/17/19 09:39 Chlorhexidine Gluconate (Bailee-Hex 2%) 1 applic DAILY@2000 TOPIC 10/12/19 20:00 11/11/19 19:59 10/16/19 22:00 Dextrose (Dextrose 50%) 25 ml Q30M PRN IV Hypoglycemia 10/11/19 21:45 11/10/19 02:44 Dextrose (Dextrose 50%) 50 ml Q30M PRN IV Hypoglycemia 10/11/19 21:45 11/10/19 02:44 Dextrose/ Electrolytes 1,000 ml @ 75 mls/hr [id number] IV 10/16/19 10:00 11/11/19 09:59 10/17/19 17:31 Docusate Sodium (Colace) 100 mg TWICE A DAY ORAL 10/15/19 20:45 11/14/19 20:44 10/17/19 17:31 Fluconazole (Diflucan) 200 mg DAILY ORAL 10/16/19 09:00 10/22/19 10:06 10/17/19 09:11 Folic Acid (Folate) 1 mg DAILY ORAL 10/12/19 09:00 11/11/19 08:59 10/17/19 09:10 Heparin Sodium (Porcine) (Heparin 5000 units/ml) 5,000 units EVERY 12 HOURS SUBQ 10/12/19 09:00 11/10/19 08:59 10/17/19 09:12 Metronidazole 100 ml @ 100 mls/hr Q8HR IVPB 10/15/19 22:00 10/22/19 21:59 10/17/19 13:47 Multivitamins (Multivitamins) 1 tab DAILY ORAL 10/12/19 09:00 11/11/19 08:59 10/17/19 09:10 Polyethylene Glycol (Miralax) 17 gm BEDTIME ORAL 10/15/19 21:00 11/14/19 20:59 10/15/19 22:10 Sennosides (Senokot) 17.2 mg DAILYPRN PRN ORAL Constipation 10/15/19 20:45 11/14/19 20:44 10/15/19 22:10 Vancomycin HCl (Vanco rx to dose) 1 ea DAILY PRN MISC Per rx protocol 10/12/19 12:45 11/11/19 12:44 Vancomycin HCl 1 gm/Dextrose 275 ml @ 183.708 mls/hr Q24H IVPB 10/16/19 21:00 10/21/19 20:59 10/16/19 21:57 Zinc Sulfate (Zinc Sulfate) 220 mg DAILY ORAL 10/12/19 09:00 11/11/19 08:59 10/17/19 09:10 Jt Land MD Oct 17, 2019 18:38
[2019-10-17 20:00] VITALS: BP 125/80
[2019-10-17] MEDS: Atorvastatin 20mg tab ORAL SCH (20:32)
[2019-10-17] MEDS: Dyna-Hex 2% Top Sol 2oz TOPIC SCH (20:32)
[2019-10-17] MEDS: Miralax 17gm pkt ORAL SCH (20:33)
[2019-10-17] MEDS: Vancomycin 1gm/D5W 275ml IVPB SCH ×2 (20:34)
[2019-10-18] VITALS: BP 130/67
[2019-10-18 04:00] VITALS: BP 137/86
[2019-10-18 08:00] VITALS: BP 145/86
--- NOTE | 2019-10-18 08:54 | Hematology/Onc Progress Note ---
Assessment/Plan Assessment/Plan Assessment and Recs # Anemia due to underlying chronic disease, has been downtrending since admission r/o gi bleed as well, underlying cause likely due to stage IV ulceration, MS, sepsis POA --> anemia panel reviewed and c/w acd --> hold off on epogen at this time, not indicated --> ferritin 859, doesn't need iron --> hgb trend 9.2-->8.6-->7.6-->6.6-->8.3 --> hgb goal >7, transfuse prn --> blood tx: 1 unit 10/16 --> continue folic acid --> OCCULT ++ --> consider gi # Thrombocytopenia ACUTE likely due to sepsis --> send off prelim pt/ptt, if any evidence dic --> hep and hiv ordered, both negative --> on abx for underlying cause --> plt trend: 123k # 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 --> has not migrated per imaging # Leukocytosis with Sepsis poa with uti --> on abx as per id --> on vanc/cefepime--> vanc/fluc/flagy-->vanc/cefe/flagy --> wbc trend: 16.7 # Urinary tract infection, with e.coli --> per id # Multiple sclerosis # Functional quadriplegia # Stage 4 skin ulcer of sacral region --> per surg, offloading, wound care # HTN # HLD # Unspecified dementia without behavioral disturbance # Chronic pain syndrome # Moderate protein malnutrition # Severe hypokalemia # Dvt ppx heparin sq Appreciate consultation and geeta RN Subjective HEENT: Denies: no symptoms, eye pain, blurred vision, tearing, double vision, ear pain, ear discharge, nose pain, nose congestion, throat pain, throat swelling, mouth pain, mouth swelling, other Cardiovascular: Denies: no symptoms, chest pain, edema, irregular heart rate, lightheadedness, palpitations, syncope, other Respiratory: Denies: no symptoms, cough, shortness of breath, SOB with excertion, SOB at rest, sputum, wheezing, other Gastrointestinal/Abdominal: Denies: no symptoms, abdomen distended, abdominal pain, black stools, tarry stools, blood in stool, constipated, diarrhea, difficulty swallowing, nausea, poor appetite, poor fluid intake, rectal bleeding , vomiting, other Genitourinary: Denies: no symptoms, burning, discharge, frequency, flank pain, hematuria, incontinence, pain, urgency, other Neurologic/Psychiatric: Denies: no symptoms, anxiety, depressed, emotional problems, headache, numbness, paresthesia, pre-existing deficit, seizure, tingling, tremors, weakness, other Endocrine: Denies: no symptoms, excessive sweating, flushing, intolerance to cold, intolerance to heat, increased hunger, increased thirst, increased urine, unexplained weight gain, unexplained weight loss, other Hematologic/Lymphatic: Denies: no symptoms, anemia, easy bleeding, easy bruising, adenopathy, other Allergies: Coded Allergies: PENICILLINS (Verified Allergy, Unknown, 07/05/16) Uncoded Allergies: seafood (Allergy, Mild, 10/15/19) Subjective 10/16: remains confused, no bleeding, labs noted, plt lower, hgb requiring prbc transf 10/17: awake and alert, s/p blood tx, hgb improved to 8.3, stool ob positive 10/18: no events to report, is on abx per geeta tucker, labs noted, occult + Objective Objective Current Medications Medications (Trade) Dose Ordered Sig/Lenard Route PRN Reason Start Time Stop Time Status Last Admin Dose Admin Acetaminophen (Tylenol) 650 mg Q4H PRN ORAL Mild Pain (Pain Scale 1-3) 10/11/19 21:28 11/10/19 21:27 10/17/19 17:35 Acetaminophen (Tylenol) 650 mg Q4H PRN ORAL fever 10/11/19 21:28 11/10/19 21:27 Ascorbic Acid (Vitamin C) 500 mg DAILY ORAL 10/12/19 09:00 11/11/19 08:59 10/16/19 08:38 Aspirin (Ecotrin) 81 mg DAILY ORAL 10/12/19 09:00 11/11/19 08:59 10/16/19 08:37 Atorvastatin Calcium (Lipitor) 20 mg BEDTIME ORAL 10/12/19 21:00 11/10/19 20:59 10/17/19 20:32 Cefepime HCl 2 gm/ Dextrose 55 ml @ 110 mls/hr Q12H IVPB 10/14/19 09:00 10/21/19 08:59 10/17/19 20:33 Chlorhexidine Gluconate (Bailee-Hex 2%) 1 applic DAILY@2000 TOPIC 10/12/19 20:00 11/11/19 19:59 10/17/19 20:32 Dextrose (Dextrose 50%) 25 ml Q30M PRN IV Hypoglycemia 10/11/19 21:45 11/10/19 02:44 Dextrose (Dextrose 50%) 50 ml Q30M PRN IV Hypoglycemia 10/11/19 21:45 11/10/19 02:44 Dextrose/ Electrolytes 1,000 ml @ 75 mls/hr [id number] IV 10/16/19 10:00 11/11/19 09:59 10/18/19 05:29 Docusate Sodium (Colace) 100 mg TWICE A DAY ORAL 10/15/19 20:45 11/14/19 20:44 10/17/19 17:31 Fluconazole (Diflucan) 200 mg DAILY ORAL 10/16/19 09:00 10/22/19 10:06 10/17/19 09:11 Folic Acid (Folate) 1 mg DAILY ORAL 10/12/19 09:00 11/11/19 08:59 10/17/19 09:10 Heparin Sodium (Porcine) (Heparin 5000 units/ml) 5,000 units EVERY 12 HOURS SUBQ 10/12/19 09:00 11/10/19 08:59 10/17/19 09:12 Metronidazole 100 ml @ 100 mls/hr Q8HR IVPB 10/15/19 22:00 10/22/19 21:59 10/18/19 05:29 Multivitamins (Multivitamins) 1 tab DAILY ORAL 10/12/19 09:00 11/11/19 08:59 10/17/19 09:10 Polyethylene Glycol (Miralax) 17 gm BEDTIME ORAL 10/15/19 21:00 11/14/19 20:59 10/17/19 20:33 Sennosides (Senokot) 17.2 mg DAILYPRN PRN ORAL Constipation 10/15/19 20:45 11/14/19 20:44 10/15/19 22:10 Vancomycin HCl (Vanco rx to dose) 1 ea DAILY PRN MISC Per rx protocol 10/12/19 12:45 11/11/19 12:44 Vancomycin HCl 1 gm/Dextrose 275 ml @ 183.708 mls/hr Q24H IVPB 10/16/19 21:00 10/21/19 20:59 10/17/19 20:34 Zinc Sulfate (Zinc Sulfate) 220 mg DAILY ORAL 10/12/19 09:00 11/11/19 08:59 10/17/19 09:10 Last 24 Hour Vital Signs Date Time Temp Pulse Resp B/P (MAP) Pulse Ox O2 Delivery O2 Flow Rate FiO2 10/18/19 04:00 97.0 86 19 137/86 (103) 97 10/18/19 04:00 87 10/18/19 00:00 104 10/18/19 00:00 97.8 92 19 130/67 (88) 98 10/17/19 21:00 Room Air 10/17/19 20:00 98.2 102 20 125/80 (95) 97 10/17/19 20:00 101 10/17/19 16:00 96 10/17/19 16:00 98.3 89 15 125/71 (89) 94 10/17/19 12:00 101 10/17/19 12:00 98.0 97 15 129/74 (92) 92 10/17/19 09:00 Room Air 10/17/19 08:00 89 10/17/19 08:00 97.8 90 15 122/72 (89) 94 10/17/19 04:00 90 10/17/19 04:00 99.5 86 20 123/73 (90) 100 10/17/19 00:00 96 10/17/19 00:00 98.2 84 20 133/88 (103) 99 10/16/19 21:00 Room Air 10/16/19 20:00 87 10/16/19 20:00 98.2 90 20 152/76 (101) 100 10/16/19 16:00 90 10/16/19 16:00 97.9 87 19 121/91 (101) 97 10/16/19 12:00 98.8 105 18 128/92 (104) 99 10/16/19 12:00 99 10/16/19 09:00 Nasal Cannula 2.0 Intake and Output 10/17/19 10/18/19 19:00 07:00 Intake Total 60 ml Output Total 1000 ml 1100 ml Balance -1000 ml -1040 ml Intake Oral 60 ml Output Urine Total 1000 ml 1100 ml Labs Test 10/16/19 01:10 10/16/19 07:10 10/16/19 17:30 10/17/19 06:15 White Blood Count 17.1 K/UL (4.8-10.8) 16.7 K/UL (4.8-10.8) Red Blood Count 2.59 M/UL (4.20-5.40) 3.12 M/UL (4.20-5.40) Hemoglobin 6.6 G/DL (12.0-16.0) 8.3 G/DL (12.0-16.0) Hematocrit 21.0 % (37.0-47.0) 24.8 % (37.0-47.0) Mean Corpuscular Volume 81 FL (80-99) 79 FL (80-99) Mean Corpuscular Hemoglobin 25.4 PG (27.0-31.0) 26.7 PG (27.0-31.0) Mean Corpuscular Hemoglobin Concent 31.4 G/DL (32.0-36.0) 33.7 G/DL (32.0-36.0) Red Cell Distribution Width 18.5 % (11.6-14.8) 15.5 % (11.6-14.8) Platelet Count 111 K/UL (150-450) 123 K/UL (150-450) Mean Platelet Volume 8.4 FL (6.5-10.1) 9.0 FL (6.5-10.1) Neutrophils (%) (Auto) % (45.0-75.0) 77.6 % (45.0-75.0) Lymphocytes (%) (Auto) % (20.0-45.0) 15.9 % (20.0-45.0) Monocytes (%) (Auto) % (1.0-10.0) 5.5 % (1.0-10.0) Eosinophils (%) (Auto) % (0.0-3.0) 0.7 % (0.0-3.0) Basophils (%) (Auto) % (0.0-2.0) 0.4 % (0.0-2.0) Differential Total Cells Counted 100 Neutrophils % (Manual) 82 % (45-75) Lymphocytes % (Manual) 15 % (20-45) Monocytes % (Manual) 3 % (1-10) Eosinophils % (Manual) 0 % (0-3) Basophils % (Manual) 0 % (0-2) Band Neutrophils 0 % (0-8) Platelet Estimate Decreased Platelet Morphology Normal Sodium Level 139 MMOL/L (136-145) 138 MMOL/L (136-145) 139 MMOL/L (136-145) Potassium Level 2.4 MMOL/L (3.5-5.1) 2.9 MMOL/L (3.5-5.1) 3.8 MMOL/L (3.5-5.1) Chloride Level 110 MMOL/L (98-107) 109 MMOL/L (98-107) 111 MMOL/L (98-107) Carbon Dioxide Level 19 MMOL/L (21-32) 20 MMOL/L (21-32) 17 MMOL/L (21-32) Anion Gap 11 mmol/L (5-15) 9 mmol/L (5-15) 11 mmol/L (5-15) Blood Urea Nitrogen 15 mg/dL (7-18) 14 mg/dL (7-18) 12 mg/dL (7-18) Creatinine 0.9 MG/DL (0.55-1.30) 0.9 MG/DL (0.55-1.30) 0.7 MG/DL (0.55-1.30) Estimat Glomerular Filtration Rate > 60 mL/min (>60) > 60 mL/min (>60) > 60 mL/min (>60) Glucose Level 156 MG/DL (74-106) 124 MG/DL (74-106) 105 MG/DL (74-106) Calcium Level 7.4 MG/DL (8.5-10.1) 6.6 MG/DL (8.5-10.1) 6.9 MG/DL (8.5-10.1) Ferritin 859 NG/ML (8-388) Carcinoembryonic Antigen 3.7 ng/mL (0.0-4.7) Vancomycin Level Trough 31.0 ug/mL (5.0-12.0) Prothrombin Time 18.0 SEC (9.30-11.50) Prothromb Time International Ratio 1.7 (0.9-1.1) Fibrinogen 478 mg/dL (200-400) Hepatitis A IgM Antibody Negative (Negative) Hepatitis B Surface Antigen Negative (Negative) Hepatitis B Core IgM Antibody Negative (Negative) Hepatitis C Antibody 0.1 s/co ratio (0.0-0.9) HIV (1&2) Antibody Rapid Negative (NEGATIVE) Stool Occult Blood Positive (NEGATIVE) Height (Feet): 5 Height (Inches): 1.00 Weight (Pounds): 184 Objective GeN: nad, somewhat confused Pulm: ctab, no cwr CV: rrr, no gmr Abd: soft, nt, nd Ext: no cce Jerry Ervin MD Oct 18, 2019 08:54
[2019-10-18] MEDS: Ascorbic Acid 500mg tab ORAL SCH (09:08)
[2019-10-18] MEDS: Docusate 100mg cap ORAL SCH ×2 (09:08→18:00)
[2019-10-18] MEDS: Fluconazole 100mg tab ORAL SCH (09:08)
[2019-10-18] MEDS: Zinc Sulfate 220mg cap ORAL SCH (09:08)
[2019-10-18] MEDS: Aspirin EC 81mg tab ORAL SCH (09:08)
[2019-10-18] MEDS: Heparin 5000 units/ml inj SUBQ SCH ×2 (09:10→20:45)
[2019-10-18] MEDS: Cefepime HCl 2 GM in D5W 55 ML IVPB SCH ×2 (09:16→20:44)
--- NOTE | 2019-10-18 10:48 | General Progress Note ---
Assessment/Plan Problem List: (1) Sepsis ICD Codes: A41.9 - Sepsis, unspecified organism SNOMED: 00284286 (2) Urinary tract infection ICD Codes: N39.0 - Urinary tract infection, site not specified SNOMED: 98589660 (3) Multiple sclerosis ICD Codes: G35 - Multiple sclerosis SNOMED: 69828158 (4) Stage 4 skin ulcer of sacral region ICD Codes: L98.429 - Non-pressure chronic ulcer of back with unspecified severity SNOMED: 07633096, 689171468 (5) HTN (hypertension) ICD Codes: I10 - Essential (primary) hypertension SNOMED: 28945804 (6) HLD (hyperlipidemia) ICD Codes: E78.5 - Hyperlipidemia, unspecified SNOMED: 60485030 (7) Unspecified dementia without behavioral disturbance ICD Codes: F03.90 - Unspecified dementia without behavioral disturbance SNOMED: 39183297 (8) Chronic pain syndrome ICD Codes: G89.4 - Chronic pain syndrome SNOMED: 528845701 (9) Moderate protein malnutrition ICD Codes: E44.0 - Moderate protein-calorie malnutrition SNOMED: 094195522 (10) Hypokalemia ICD Codes: E87.6 - Hypokalemia SNOMED: 57297141 Status: progressing Assessment/Plan: 54 year old female with multiple sclerosis, neurogenic bladder and functional quadriplegia being admitted for sepsis secondary to UTI, ?fungal uti, MRSA uti . Responded to fluid resuscitation. VSS. Ucx: 10/13, yeast >100K, 10/11: MRSA, 10/10: E.coli . Blood culture: 10/10: Strep Agalactias group B, Staph capitis. CXR negative x 2 ICU --> telemetry Continue Cefepime, vancomycin. s/p Azithromycin. Added Fluconazole and metronidazole. d/w ID MRI pelvis reviewed. no abscess or osteo. CT abdomen pelvis, no abscess. bilateral ischial decubitus. follow up blood cultures continue briseno monitor wbc outpatient urology follow up. ID consult with Dr. Palacios. d/w Math And Science Instructor consult appreciated wound care and wound MD consult with Dr. Solis FURNACE CONVERTER consult to evaluate. d/w Princess. Tolerated regular diet, slow bites. Aspiration precautions Hold all BP meds, introduce when more stable pain control. Severe hypokalemia. Resolved. Add kcl to fluid, encourage po intake Appetite stimulant psychiatry consult appreciated. continue Zyprexa 2.5 mg at bedtime vte ppx: heparin subq GI ppx: not indicated CM consult for discharge planning Code status: full code, POLST signed by SNF Md but not patient and it's blank. Will attempt to call Kirsten Richardson daughter of patient: [phone] Disposition: Waiting for labs to monitor wbc and adjust antibiotics I spent 40 minutes on this encounter, > 50% spent on counselling and care coordination Time of this note may not reflect time of encounter. Subjective Date patient seen: Oct 18, 2019 ROS Limited/Unobtainable: No Constitutional: Denies: no symptoms, chills, diaphoresis, fever, malaise, weakness, other HEENT: Denies: no symptoms, eye pain, blurred vision, tearing, double vision, ear pain, ear discharge, nose pain, nose congestion, throat pain, throat swelling, mouth pain, mouth swelling, other Cardiovascular: Denies: no symptoms, chest pain, edema, irregular heart rate, lightheadedness, palpitations, syncope, other Respiratory: Denies: no symptoms, cough, orthopnea, shortness of breath, SOB with excertion, SOB at rest, sputum, stridor, wheezing, other Gastrointestinal/Abdominal: Denies: no symptoms, abdomen distended, abdominal pain, black stools, tarry stools, blood in stool, constipated, diarrhea, difficulty swallowing, nausea, poor appetite, poor fluid intake, rectal bleeding , vomiting, other Genitourinary: Denies: no symptoms, burning, discharge, frequency, flank pain, hematuria, incontinence, pain, urgency, other Neurologic/Psychiatric: Denies: no symptoms, anxiety, depressed, emotional problems, headache, numbness, paresthesia, pre-existing deficit, seizure, tingling, tremors, weakness, other Endocrine: Denies: no symptoms, excessive sweating, flushing, intolerance to cold, intolerance to heat, increased hunger, increased thirst, increased urine, unexplained weight gain, unexplained weight loss, other Hematologic/Lymphatic: Denies: no symptoms, anemia, easy bleeding, easy bruising, other Allergies: Coded Allergies: PENICILLINS (Verified Allergy, Unknown, 07/05/16) Uncoded Allergies: seafood (Allergy, Mild, 10/15/19) Subjective Following up for sepsis and bacteremia due to UTI. Mental status much improved. Alert and oriented x4. Afebrile, wbc slowly coming down, however no labs today. Attempted, unable to draw Objective Last 24 Hour Vital Signs Date Time Temp Pulse Resp B/P (MAP) Pulse Ox O2 Delivery O2 Flow Rate FiO2 10/18/19 08:00 97.3 65 20 145/86 (105) 98 10/18/19 04:00 97.0 86 19 137/86 (103) 97 10/18/19 04:00 87 10/18/19 00:00 104 10/18/19 00:00 97.8 92 19 130/67 (88) 98 10/17/19 21:00 Room Air 10/17/19 20:00 98.2 102 20 125/80 (95) 97 10/17/19 20:00 101 10/17/19 16:00 96 10/17/19 16:00 98.3 89 15 125/71 (89) 94 10/17/19 12:00 101 10/17/19 12:00 98.0 97 15 129/74 (92) 92 Intake and Output 10/17/19 10/18/19 18:59 06:59 Intake Total 60 ml Output Total 1000 ml 1100 ml Balance -1000 ml -1040 ml Intake Oral 60 ml Output Urine Total 1000 ml 1100 ml Height (Feet): 5 Height (Inches): 1.00 Weight (Pounds): 184 Objective General Appearance: no apparent distress, confused Lines, tubes and drains: peripheral HEENT: normocephalic, atraumatic, anicteric, no JVD, other - right eye deviated to the right, unable to abduct Neck: non-tender, supple Respiratory/Chest: lungs clear, normal breath sounds, no respiratory distress, no accessory muscle use Cardiovascular/Chest: normal peripheral pulses, normal rate, regular rhythm, no gallop/murmur Abdomen: normal bowel sounds, non tender, soft, no organomegaly, other - pressure ulcer LLQ Genitourinary/Rectal: briseno, other - +CVA tenderness Extremities: no calf tenderness, no edema, no cyanosis Skin Exam: other - multiple stage 4 sacral decub Neurologic: confused , motor weakness - quadriplegia, now bilateral upper extremity motor improved to 4/5, bl LE 1/5 Musculoskeletal: atrophy Mikal Quiles M.D. Oct 18, 2019 10:48
[2019-10-18 12:00] VITALS: BP 146/70
--- NOTE | 2019-10-18 13:29 | Cardiology Report ---
APPROVED REPORT EXAM: Two-dimensional and M-mode echocardiogram with Doppler and color Doppler. INDICATION [place] M-Mode DIMENSIONS IVSd1.0 (0.7-1.1cm)Left Atrium (MM)2.9 (1.6-4.0cm) LVDd5.1 (3.5-5.6cm)Aortic Root3.2 (2.0-3.7cm) PWd0.6 (0.7-1.1cm)Aortic Cusp Exc.1.6 (1.5-2.0cm) IVSs1.1 cm LVDs4.0 (2.5-4.0cm) PWs0.7 cm Study quality precludes accurate assessment of regional wall motion. Normal left ventricular chamber size with mild basal hypokinesis . Left ventricular ejection fraction estimated to be 50 %. No evidence left ventricular hypertrophy. Anterior Echo-free space, may be due to pericardial fat or effusion. All other cardiac chamber sizes are within normal limits. Aortic valve calcification with normal cusp excursion . Mildly thickened mitral valve leaflets with normal excursion. Mild mitral annulus and aortic root calcification. Pulmonic valve not well visualized. IVC at normal size with physiologic collapse . A color flow and spectral Doppler study was performed and revealed: No aortic insufficiency . Mitral diastolic velocities suggest reduced left ventricular relaxation c/w mild LV diastolic dysfunction (Grade I ). Trace mitral regurgitation. Mild tricuspid regurgitation. Tricuspid systolic velocities suggests peak right ventricular systolic pressure of 38 mmHg, consistent with mild pulmonary hypertension.
[2019-10-18 16:00] VITALS: BP 135/97
[2019-10-18 18:50] LABS: BASOPHILS % (AUTO) 0.4 % (0.0-2.0); EOSINOPHILS % (AUTO) 0.5 % (0.0-3.0); HEMATOCRIT 24.4 % (37.0-47.0); HEMOGLOBIN 8.3 G/DL (12.0-16.0); LYMPHOCYTES % (AUTO) 19.7 % (20.0-45.0); MEAN CORPUSCULAR VOLUME 79 FL (80-99); MONOCYTES % (AUTO) 5.9 % (1.0-10.0); NEUTROPHILS % (AUTO) 73.4 % (45.0-75.0); PLATELET COUNT 252 K/UL (150-450); RED CELL DISTRIBUTION WIDTH 15.4 % (11.6-14.8); WHITE BLOOD COUNT 12.9 K/UL (4.8-10.8)
[2019-10-18 18:55] LABS: ANION GAP 7 mmol/L (5-15); BLOOD UREA NITROGEN 10 mg/dL (7-18); CALCIUM 7.2 MG/DL (8.5-10.1); CARBON DIOXIDE 21 MMOL/L (21-32); CHLORIDE 108 MMOL/L (98-107); CREATININE 0.8 MG/DL (0.55-1.30); POTASSIUM 3.2 MMOL/L (3.5-5.1); SODIUM 136 MMOL/L (136-145)
--- NOTE | 2019-10-18 18:55 | Surgery Progress Note ---
Surgery Progress Note Subjective Additional Comments Patient seen and examined bedside. States she feels well but had nausea and then emesis after having the Ensure. Believes that she may potentially not tolerate the milk byproduct in the Ensure. Otherwise patient states that she recently filed for section 8 in [place] and wants to be discharged soon as possible to get into housing. Objective Last 24 Hour Vital Signs Date Time Temp Pulse Resp B/P (MAP) Pulse Ox O2 Delivery O2 Flow Rate FiO2 10/18/19 16:00 98.2 86 18 135/97 (110) 100 10/18/19 16:00 90 10/18/19 12:00 98.2 89 18 146/70 (95) 100 10/18/19 12:00 89 10/18/19 09:00 Room Air 10/18/19 08:00 97.3 65 20 145/86 (105) 98 10/18/19 08:00 85 10/18/19 04:00 97.0 86 19 137/86 (103) 97 10/18/19 04:00 87 10/18/19 00:00 104 10/18/19 00:00 97.8 92 19 130/67 (88) 98 10/17/19 21:00 Room Air 10/17/19 20:00 98.2 102 20 125/80 (95) 97 10/17/19 20:00 101 I&O Intake and Output 10/17/19 10/18/19 19:00 07:00 Intake Total 60 ml Output Total 1000 ml 1100 ml Balance -1000 ml -1040 ml Intake Oral 60 ml Output Urine Total 1000 ml 1100 ml Dressing: other Wound: other Drains: other Cardiovascular: RSR Respiratory: decreased breath sounds Abdomen: soft, present bowel sounds, non-distended Extremities: no cyanosis, other Laboratory Tests Test 10/18/19 18:05 White Blood Count Pending Red Blood Count Pending Hemoglobin Pending Hematocrit Pending Mean Corpuscular Volume Pending Mean Corpuscular Hemoglobin Pending Mean Corpuscular Hemoglobin Concent Pending Red Cell Distribution Width Pending Platelet Count Pending Mean Platelet Volume Pending Neutrophils (%) (Auto) Pending Lymphocytes (%) (Auto) Pending Monocytes (%) (Auto) Pending Eosinophils (%) (Auto) Pending Basophils (%) (Auto) Pending Sodium Level Pending Potassium Level Pending Chloride Level Pending Carbon Dioxide Level Pending Blood Urea Nitrogen Pending Creatinine Pending Estimat Glomerular Filtration Rate Pending Glucose Level Pending Calcium Level Pending Plan Problems: (1) Decubitus ulcer Assessment & Plan: 54-year-old female multiple comorbidities who is fairly bedbound and care dependent presented from nursing facility with multiple decubitus ulcers requiring care and management and evaluation. Patient identified to have a right ischial and left ischial stage IV decubitus ulcers Patient Identified to have historic healed sacral decubitus ulcer pt presented on admission with multiple pressure injuries. Full thickness wound L abd with 95% slough, 5% surrounding erythema with macerated borders. Erythema without induration or elevation in skin temp periwound.(L)1.6cm x (W)1.7cm. Moisture intertrigo noted to abd folds and groin folds. Labia majora noted to be swollen. Hyperpigmentation from previous wound noted to Sacrum. Full thickness stage 4 pressure injury with undermining noted to L Ischium. [place] granulation noted to base of wound. No odor noted. Small amt serous exudate.(L)7.5cm x (W)4.5cm x (D)2.3cm, undermining clockwise 9-12o'clock by 3.6cm @12o'clock. Full thickness stage 4 pressure injury R ischium with two areas of tunneling. [place] granulation at base of wound with small amt of Biofilm. Surrounding pink epithelial borders. Small amt serosanguineous exudate noted. No odor noted. Periwound skin is dark without erythema,induration or elevation in skin temp.(L) 4cm x (W)2.5cm x (D)2.6cm ,tunneling clockwise @12 o'clock by3.6cm ,Tunneling clockwise @2o'clock by5.7cm. Areas of hyperpigmentation noted to L heel, distal/lateral L foot extending into plantar aspect. R heel is boggy with non-blanching erythema. unlikely etiology of sepsis as chronic wounds with good granulation tissue slowly healing Tx.Plan: Cleanse Abdominal wound with Saline. Apply TheraHoney. Apply Cavilon Skin Barrier periwound. Cover with Optifoam drsg. Change every 3 days and prn. Cleanse L ischial wound with Saline. Loosely Pack with Hydrogel impregnated Kerlix packing. Apply Moisture Barrier Paste periwound. Cover with Optifoam drsg Daily and prn. Cleanse R Ischial wound with Saline. Loosely pack with Hydrogel impregnated Kerlix. (ATTENTION:2 Tunneled areas 9o'clock and 2o'clock). Apply Moisture Barrier Paste periwound. Cover with Optifoam drsg Daily and prn. Apply Cavilon Skin BArrier to both heels. Cover each heel with Optifoam drsg. Change every 7 days and prn. APM/AURA Mattress overlay. Reposition at least every 2hours or as tolerated. Off-load heels with pillow. Place pillow between knees. nutritional optimization as below (2) Sepsis Assessment & Plan: 54-year-old female multiple committees presents with hypotension altered mental status. Patient with leukocytosis, abnormal labs. Currently intensive care unit under care and management. Wound evaluated and stage IV multiple but chronic and unlikely etiology of sepsis. MRI ordered to ensure no leukocytosis from acute osteo despite clean clinical appearance - reviewed Evidence of a small soft tissue ulcer within the subcutaneous fat posterior to the upper sacrum. Surrounding edema likely reflects adjacent inflammation. This does not appear to extend through the subjacent musculature, and no marrow edema to suggest osteomyelitis is demonstrated. Smaller apparent area of edema adjacent to the tip of the coccyx, likewise with no underlying marrow signal abnormality Edema of the subcutaneous fat adjacent to both ischia, could indicate decubitus changes 2.4 x 2.4 cm apparent fluid collection superficial to the right ischium. Could represent a small subcutaneous abscess, but suspect that this actually represents extracorporeal incontinent urine within a skin fold. Correlate with clinical findings Small left hip joint effusion Edema of the fat surrounding the umbilicus, could indicate inflammation of the periumbilical skin and subcutaneous fat. Correlate with clinical findings Edema of the bilateral hips and anterior pelvic dean, probably a manifestation of generalized systemic edema. Nonspecific edema of the presacral fat Haynes catheter seen within the bladder CT noted Bilateral ischial ulcers, also previously reported on prior MRI. There appears to be packing material within the ulcers. Correlate with clinical findings Small retrococcygeal and retrosacral decubitus changes, also previously described No definite acute abdominal or pelvic process Trace left pleural effusion. Small amount of basilar pulmonary parenchymal atelectasis Haynes catheter, inferior vena cava filter incidentally noted Right basilar pulmonary cystic spaces We will continue to monitor and evaluate IV fluids IV antibiotics as per infectious disease O2 Trend labs We will follow with recommendations Thank you for let me participate in patient's care (3) Moderate protein malnutrition Assessment & Plan: DAILY ESTIMATED NEEDS: Needs based on Sepsis, stage 4 wounds; 51.6kg adj 30-35 kcals/kg 6191-2789 total kcals 1.5-2 g protein/kg 77-103 g total protein 25-30 mL/kg 1290- 1548 total fluid mLs NUTRITION DIAGNOSIS: * Increased kcal and pro needs r/t wound healing AEB pt adm with stage 4 wounds x2, unstageable abdominal wound, h/o MS. CURRENT DIET: No diet order in place yet. PO DIET RECOMMENDATIONS: Regular as tolerated; texture per [employer] Monitor PO intake w/ diet/ need for supplements and/or snacks ADDITIONAL RECOMMENDATIONS: 1) Obtain calibrated bedscale wt PER SNF: 139 lbs + 61 inches 2) 2) Wound healing: provide Elias in 8oz water BID -> Vit C 250mg BID + Zinc 220mg daily x 10days + MVI w/ MIN 3) Monitor BG- slightly low (72)-> rec D5 for hydration 4) [employer] eval for appropriate texture/ previously on aspiration precautions Matty Solis Oct 18, 2019 18:55
[2019-10-18 20:00] VITALS: BP 135/88
[2019-10-18] MEDS: Dyna-Hex 2% Top Sol 2oz TOPIC SCH (20:43)
[2019-10-18] MEDS: Miralax 17gm pkt ORAL SCH ×2 (20:44→20:57)
[2019-10-18] MEDS: Atorvastatin 20mg tab ORAL SCH (20:45)
[2019-10-18] MEDS: Vancomycin 750mg/NS 275ml IVPB SCH ×2 (23:26)
[2019-10-19] VITALS: BP 152/81
[2019-10-19 04:00] VITALS: BP 115/77
--- NOTE | 2019-10-19 06:11 | Hematology/Onc Progress Note ---
Assessment/Plan Assessment/Plan Assessment and Recs # Anemia due to underlying chronic disease, has been downtrending since admission r/o gi bleed as well, underlying cause likely due to stage IV ulceration, MS, sepsis POA --> anemia panel reviewed and c/w acd --> hold off on epogen at this time, not indicated --> ferritin 859, doesn't need iron --> hgb trend 9.2-->8.6-->7.6-->6.6-->8.3 --> hgb goal >7, transfuse prn --> blood tx: 1 unit 10/16 --> continue folic acid --> OCCULT ++ --> consider gi # Thrombocytopenia ACUTE likely due to sepsis --> send off prelim pt/ptt, if any evidence dic --> hep and hiv ordered, both negative --> on abx for underlying cause --> plt trend: 123k-->252 # 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 --> has not migrated per imaging # Leukocytosis with Sepsis poa with uti --> on abx as per id --> on vanc/cefepime--> vanc/fluc/flagy-->vanc/cefe/flagy --> wbc trend: 16.7 # Urinary tract infection, with e.coli --> per id # Multiple sclerosis # Functional quadriplegia # Stage 4 skin ulcer of sacral region --> per surg, offloading, wound care # HTN # HLD # Unspecified dementia without behavioral disturbance # Chronic pain syndrome # Moderate protein malnutrition # Severe hypokalemia # Dvt ppx heparin sq Appreciate consultation and geeta RN Subjective HEENT: Denies: no symptoms, eye pain, blurred vision, tearing, double vision, ear pain, ear discharge, nose pain, nose congestion, throat pain, throat swelling, mouth pain, mouth swelling, other Cardiovascular: Denies: no symptoms, chest pain, edema, irregular heart rate, lightheadedness, palpitations, syncope, other Respiratory: Denies: no symptoms, cough, shortness of breath, SOB with excertion, SOB at rest, sputum, wheezing, other Gastrointestinal/Abdominal: Denies: no symptoms, abdomen distended, abdominal pain, black stools, tarry stools, blood in stool, constipated, diarrhea, difficulty swallowing, nausea, poor appetite, poor fluid intake, rectal bleeding , vomiting, other Genitourinary: Denies: no symptoms, burning, discharge, frequency, flank pain, hematuria, incontinence, pain, urgency, other Neurologic/Psychiatric: Denies: no symptoms, anxiety, depressed, emotional problems, headache, numbness, paresthesia, pre-existing deficit, seizure, tingling, tremors, weakness, other Endocrine: Denies: no symptoms, excessive sweating, flushing, intolerance to cold, intolerance to heat, increased hunger, increased thirst, increased urine, unexplained weight gain, unexplained weight loss, other Allergies: Coded Allergies: PENICILLINS (Verified Allergy, Unknown, 07/05/16) Uncoded Allergies: seafood (Allergy, Mild, 10/15/19) Subjective 10/16: remains confused, no bleeding, labs noted, plt lower, hgb requiring prbc transf 10/17: awake and alert, s/p blood tx, hgb improved to 8.3, stool ob positive 10/18: no events to report, is on abx per idgeeta, labs noted, occult + 10/19: awake, alert, remains confused, wants to be discharged, labs reviewed, ordered for am Objective Objective Current Medications Medications (Trade) Dose Ordered Sig/Lenard Route PRN Reason Start Time Stop Time Status Last Admin Dose Admin Acetaminophen (Tylenol) 650 mg Q4H PRN ORAL Mild Pain (Pain Scale 1-3) 10/11/19 21:28 11/10/19 21:27 10/17/19 17:35 Acetaminophen (Tylenol) 650 mg Q4H PRN ORAL fever 10/11/19 21:28 11/10/19 21:27 Ascorbic Acid (Vitamin C) 500 mg DAILY ORAL 10/12/19 09:00 11/11/19 08:59 10/18/19 09:08 Aspirin (Ecotrin) 81 mg DAILY ORAL 10/12/19 09:00 11/11/19 08:59 10/18/19 09:08 Atorvastatin Calcium (Lipitor) 20 mg BEDTIME ORAL 10/12/19 21:00 11/10/19 20:59 10/18/19 20:45 Cefepime HCl 2 gm/ Dextrose 55 ml @ 110 mls/hr Q12H IVPB 10/14/19 09:00 10/21/19 08:59 10/18/19 20:44 Chlorhexidine Gluconate (Bailee-Hex 2%) 1 applic DAILY@2000 TOPIC 10/12/19 20:00 11/11/19 19:59 10/18/19 20:43 Dextrose (Dextrose 50%) 25 ml Q30M PRN IV Hypoglycemia 10/11/19 21:45 11/10/19 02:44 Dextrose (Dextrose 50%) 50 ml Q30M PRN IV Hypoglycemia 10/11/19 21:45 11/10/19 02:44 Dextrose/ Electrolytes 1,000 ml @ 75 mls/hr [id number] IV 10/16/19 10:00 11/11/19 09:59 10/18/19 20:44 Docusate Sodium (Colace) 100 mg TWICE A DAY ORAL 10/15/19 20:45 11/14/19 20:44 10/18/19 09:08 Fluconazole (Diflucan) 200 mg DAILY ORAL 10/16/19 09:00 10/22/19 10:06 10/18/19 09:08 Folic Acid (Folate) 1 mg DAILY ORAL 10/12/19 09:00 11/11/19 08:59 10/18/19 09:08 Heparin Sodium (Porcine) (Heparin 5000 units/ml) 5,000 units EVERY 12 HOURS SUBQ 10/12/19 09:00 11/10/19 08:59 10/18/19 20:45 Metronidazole 100 ml @ 100 mls/hr Q8HR IVPB 10/15/19 22:00 10/22/19 21:59 10/19/19 05:30 Multivitamins (Multivitamins) 1 tab DAILY ORAL 10/12/19 09:00 11/11/19 08:59 10/18/19 09:08 Polyethylene Glycol (Miralax) 17 gm BEDTIME ORAL 10/15/19 21:00 11/14/19 20:59 10/17/19 20:33 Sennosides (Senokot) 17.2 mg DAILYPRN PRN ORAL Constipation 10/15/19 20:45 11/14/19 20:44 10/15/19 22:10 Vancomycin HCl (Vanco rx to dose) 1 ea DAILY PRN MISC Per rx protocol 10/12/19 12:45 11/11/19 12:44 Vancomycin HCl 750 mg/Sodium Chloride 275 ml @ 183.333 mls/hr Q24H IVPB 10/18/19 23:00 10/23/19 22:59 10/18/19 23:26 Zinc Sulfate (Zinc Sulfate) 220 mg DAILY ORAL 10/12/19 09:00 11/11/19 08:59 10/18/19 09:08 Last 24 Hour Vital Signs Date Time Temp Pulse Resp B/P (MAP) Pulse Ox O2 Delivery O2 Flow Rate FiO2 10/19/19 00:00 97.2 89 20 152/81 (104) 97 10/19/19 00:00 79 10/18/19 21:00 Room Air 10/18/19 20:00 83 10/18/19 20:00 97.6 90 21 135/88 (104) 91 10/18/19 16:00 98.2 86 18 135/97 (110) 100 10/18/19 16:00 90 10/18/19 12:00 98.2 89 18 146/70 (95) 100 10/18/19 12:00 89 10/18/19 09:00 Room Air 10/18/19 08:00 97.3 65 20 145/86 (105) 98 10/18/19 08:00 85 10/18/19 04:00 97.0 86 19 137/86 (103) 97 10/18/19 04:00 87 10/18/19 00:00 104 10/18/19 00:00 97.8 92 19 130/67 (88) 98 10/17/19 21:00 Room Air 10/17/19 20:00 98.2 102 20 125/80 (95) 97 10/17/19 20:00 101 10/17/19 16:00 96 10/17/19 16:00 98.3 89 15 125/71 (89) 94 10/17/19 12:00 101 10/17/19 12:00 98.0 97 15 129/74 (92) 92 10/17/19 09:00 Room Air 10/17/19 08:00 89 10/17/19 08:00 97.8 90 15 122/72 (89) 94 Intake and Output 10/18/19 10/19/19 19:00 07:00 Intake Total 275 ml 750.000 ml Output Total 1100 ml Balance -825 ml 750.000 ml Intake Oral 200 ml IV Total 75 ml 750.000 ml Output Urine Total 1100 ml Labs Test 10/16/19 07:10 10/16/19 17:30 10/17/19 06:15 10/18/19 18:05 Prothrombin Time 18.0 SEC (9.30-11.50) Prothromb Time International Ratio 1.7 (0.9-1.1) Fibrinogen 478 mg/dL (200-400) Sodium Level 138 MMOL/L (136-145) 139 MMOL/L (136-145) 136 MMOL/L (136-145) Potassium Level 2.9 MMOL/L (3.5-5.1) 3.8 MMOL/L (3.5-5.1) 3.2 MMOL/L (3.5-5.1) Chloride Level 109 MMOL/L (98-107) 111 MMOL/L (98-107) 108 MMOL/L (98-107) Carbon Dioxide Level 20 MMOL/L (21-32) 17 MMOL/L (21-32) 21 MMOL/L (21-32) Anion Gap 9 mmol/L (5-15) 11 mmol/L (5-15) 7 mmol/L (5-15) Blood Urea Nitrogen 14 mg/dL (7-18) 12 mg/dL (7-18) 10 mg/dL (7-18) Creatinine 0.9 MG/DL (0.55-1.30) 0.7 MG/DL (0.55-1.30) 0.8 MG/DL (0.55-1.30) Estimat Glomerular Filtration Rate > 60 mL/min (>60) > 60 mL/min (>60) > 60 mL/min (>60) Glucose Level 124 MG/DL (74-106) 105 MG/DL (74-106) 106 MG/DL (74-106) Calcium Level 6.6 MG/DL (8.5-10.1) 6.9 MG/DL (8.5-10.1) 7.2 MG/DL (8.5-10.1) Hepatitis A IgM Antibody Negative (Negative) Hepatitis B Surface Antigen Negative (Negative) Hepatitis B Core IgM Antibody Negative (Negative) Hepatitis C Antibody 0.1 s/co ratio (0.0-0.9) HIV (1&2) Antibody Rapid Negative (NEGATIVE) Stool Occult Blood Positive (NEGATIVE) White Blood Count 16.7 K/UL (4.8-10.8) 12.9 K/UL (4.8-10.8) Red Blood Count 3.12 M/UL (4.20-5.40) 3.10 M/UL (4.20-5.40) Hemoglobin 8.3 G/DL (12.0-16.0) 8.3 G/DL (12.0-16.0) Hematocrit 24.8 % (37.0-47.0) 24.4 % (37.0-47.0) Mean Corpuscular Volume 79 FL (80-99) 79 FL (80-99) Mean Corpuscular Hemoglobin 26.7 PG (27.0-31.0) 26.6 PG (27.0-31.0) Mean Corpuscular Hemoglobin Concent 33.7 G/DL (32.0-36.0) 33.8 G/DL (32.0-36.0) Red Cell Distribution Width 15.5 % (11.6-14.8) 15.4 % (11.6-14.8) Platelet Count 123 K/UL (150-450) 252 K/UL (150-450) Mean Platelet Volume 9.0 FL (6.5-10.1) 8.2 FL (6.5-10.1) Neutrophils (%) (Auto) 77.6 % (45.0-75.0) 73.4 % (45.0-75.0) Lymphocytes (%) (Auto) 15.9 % (20.0-45.0) 19.7 % (20.0-45.0) Monocytes (%) (Auto) 5.5 % (1.0-10.0) 5.9 % (1.0-10.0) Eosinophils (%) (Auto) 0.7 % (0.0-3.0) 0.5 % (0.0-3.0) Basophils (%) (Auto) 0.4 % (0.0-2.0) 0.4 % (0.0-2.0) Test 10/18/19 19:15 Vancomycin Level Trough 23.9 ug/mL (5.0-12.0) Height (Feet): 5 Height (Inches): 1.00 Weight (Pounds): 184 Objective GeN: nad, somewhat confused Pulm: ctab, no cwr CV: rrr, no gmr Abd: soft, nt, nd Ext: no cce Jerry Ervin MD Oct 19, 2019 06:11
[2019-10-19 08:00] VITALS: BP 119/72
[2019-10-19] MEDS: Zinc Sulfate 220mg cap ORAL SCH (09:05)
[2019-10-19] MEDS: Docusate 100mg cap ORAL SCH ×2 (09:06→18:00)
[2019-10-19] MEDS: Aspirin EC 81mg tab ORAL SCH (09:06)
[2019-10-19] MEDS: Fluconazole 100mg tab ORAL SCH (09:06)
[2019-10-19] MEDS: Ascorbic Acid 500mg tab ORAL SCH (09:06)
[2019-10-19] MEDS: Cefepime HCl 2 GM in D5W 55 ML IVPB SCH ×2 (09:07→20:56)
[2019-10-19] MEDS: Heparin 5000 units/ml inj SUBQ SCH ×2 (09:08→21:00)
[2019-10-19 12:00] VITALS: BP 122/68
--- NOTE | 2019-10-19 12:05 | General Progress Note ---
Assessment/Plan Problem List: (1) Sepsis ICD Codes: A41.9 - Sepsis, unspecified organism SNOMED: 75159378 (2) Urinary tract infection ICD Codes: N39.0 - Urinary tract infection, site not specified SNOMED: 31999630 (3) Multiple sclerosis ICD Codes: G35 - Multiple sclerosis SNOMED: 31494255 (4) Stage 4 skin ulcer of sacral region ICD Codes: L98.429 - Non-pressure chronic ulcer of back with unspecified severity SNOMED: 08372543, 417781418 (5) HTN (hypertension) ICD Codes: I10 - Essential (primary) hypertension SNOMED: 63558392 (6) HLD (hyperlipidemia) ICD Codes: E78.5 - Hyperlipidemia, unspecified SNOMED: 39009785 (7) Unspecified dementia without behavioral disturbance ICD Codes: F03.90 - Unspecified dementia without behavioral disturbance SNOMED: 72694309 (8) Chronic pain syndrome ICD Codes: G89.4 - Chronic pain syndrome SNOMED: 047219869 (9) Moderate protein malnutrition ICD Codes: E44.0 - Moderate protein-calorie malnutrition SNOMED: 518405058 (10) Hypokalemia ICD Codes: E87.6 - Hypokalemia SNOMED: 71217749 (11) Anemia ICD Codes: D64.9 - Anemia, unspecified SNOMED: 540707832 Status: progressing Assessment/Plan: 54 year old female with multiple sclerosis, neurogenic bladder and functional quadriplegia being admitted for sepsis secondary to UTI, ?fungal uti, MRSA uti . Responded to fluid resuscitation. VSS. Ucx: 10/13, yeast >100K, 10/11: MRSA, 10/10: E.coli . Blood culture: 10/10: Strep Agalactias group B, Staph capitis. CXR negative x 2 ICU --> telemetry Continue Cefepime, vancomycin. s/p Azithromycin. Added Fluconazole and metronidazole. d/w ID MRI pelvis reviewed. no abscess or osteo. CT abdomen pelvis, no abscess. bilateral ischial decubitus. follow up blood cultures continue briseno monitor wbc outpatient urology follow up. ID consult with Dr. Palacios. d/w Cloth Calender consult appreciated wound care and wound MD consult with Dr. 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 d/w Princess. Tolerated regular diet, slow bites. Aspiration precautions Hold all BP meds, introduce when more stable pain control. Severe hypokalemia. Resolved. no labs today to monitor Normocytic anemia, occult blood positive stool. received 1 unit prbc, iron studies pending. seen by GI refused all interventions Appetite stimulant psychiatry consult appreciated. continue Zyprexa 2.5 mg at bedtime vte ppx: heparin subq GI ppx: not indicated CM consult for discharge planning Code status: full code, POLST signed by SNF Md but not patient and it's blank. Will attempt to call Kirsten Richardson, daughter of patient: [phone] Disposition: Waiting for labs to monitor wbc and adjust antibiotics I spent 40 minutes on this encounter, > 50% spent on counselling and care coordination Time of this note may not reflect time of encounter. Subjective Date patient seen: Oct 19, 2019 ROS Limited/Unobtainable: No Constitutional: Denies: no symptoms, chills, diaphoresis, fever, malaise, weakness, other HEENT: Denies: no symptoms, eye pain, blurred vision, tearing, double vision, ear pain, ear discharge, nose pain, nose congestion, throat pain, throat swelling, mouth pain, mouth swelling, other Cardiovascular: Denies: no symptoms, chest pain, edema, irregular heart rate, lightheadedness, palpitations, syncope, other Respiratory: Denies: no symptoms, cough, orthopnea, shortness of breath, SOB with excertion, SOB at rest, sputum, stridor, wheezing, other Gastrointestinal/Abdominal: Denies: no symptoms, abdomen distended, abdominal pain, black stools, tarry stools, blood in stool, constipated, diarrhea, difficulty swallowing, nausea, poor appetite, poor fluid intake, rectal bleeding , vomiting, other Genitourinary: Denies: no symptoms, burning, discharge, frequency, flank pain, hematuria, incontinence, pain, urgency, other Neurologic/Psychiatric: Denies: no symptoms, anxiety, depressed, emotional problems, headache, numbness, paresthesia, pre-existing deficit, seizure, tingling, tremors, weakness, other Endocrine: Denies: no symptoms, excessive sweating, flushing, intolerance to cold, intolerance to heat, increased hunger, increased thirst, increased urine, unexplained weight gain, unexplained weight loss, other Allergies: Coded Allergies: PENICILLINS (Verified Allergy, Unknown, 07/05/16) Uncoded Allergies: seafood (Allergy, Mild, 10/15/19) Subjective Following up for sepsis and bacteremia due to UTI. Mental status much improved. Alert and oriented x4. Afebrile, wbc slowly coming down, however no labs today again. Refused. Explained to importance to patient. Seen by GI refused all interventions. H/H stable as of yesterday. Objective Last 24 Hour Vital Signs Date Time Temp Pulse Resp B/P (MAP) Pulse Ox O2 Delivery O2 Flow Rate FiO2 10/19/19 09:00 Room Air 10/19/19 08:00 84 10/19/19 08:00 98.8 92 18 119/72 (88) 98 10/19/19 04:00 98.1 105 21 115/77 (90) 98 10/19/19 04:00 86 10/19/19 00:00 97.2 89 20 152/81 (104) 97 10/19/19 00:00 79 10/18/19 21:00 Room Air 10/18/19 20:00 83 10/18/19 20:00 97.6 90 21 135/88 (104) 91 10/18/19 16:00 98.2 86 18 135/97 (110) 100 10/18/19 16:00 90 Intake and Output 10/18/19 10/19/19 19:00 07:00 Intake Total 275 ml 1085.000 ml Output Total 1100 ml 1200 ml Balance -825 ml -115.000 ml Intake Oral 200 ml 50 ml IV Total 75 ml 1035.000 ml Output Urine Total 1100 ml 1200 ml Laboratory Tests 10/18/19 18:05: White Blood Count 12.9H, Red Blood Count 3.10L, Hemoglobin 8.3L, Hematocrit 24.4L, Mean Corpuscular Volume 79L, Mean Corpuscular Hemoglobin 26.6L, Mean Corpuscular Hemoglobin Concent 33.8, Red Cell Distribution Width 15.4H, Platelet Count 252#, Mean Platelet Volume 8.2, Neutrophils (%) (Auto) 73.4, Lymphocytes (%) (Auto) 19.7L, Monocytes (%) (Auto) 5.9, Eosinophils (%) (Auto) 0.5, Basophils (%) (Auto) 0.4, Sodium Level 136, Potassium Level 3.2L, Chloride Level 108H, Carbon Dioxide Level 21, Anion Gap 7, Blood Urea Nitrogen 10, Creatinine 0.8, Estimat Glomerular Filtration Rate > 60, Glucose Level 106, Calcium Level 7.2L 10/18/19 19:15: Vancomycin Level Trough 23.9H Height (Feet): 5 Height (Inches): 1.00 Weight (Pounds): 189 Objective General Appearance: no apparent distress, confused Lines, tubes and drains: peripheral HEENT: normocephalic, atraumatic, anicteric, no JVD, other - right eye deviated to the right, unable to abduct Neck: non-tender, supple Respiratory/Chest: lungs clear, normal breath sounds, no respiratory distress, no accessory muscle use Cardiovascular/Chest: normal peripheral pulses, normal rate, regular rhythm, no gallop/murmur Abdomen: normal bowel sounds, non tender, soft, no organomegaly, other - pressure ulcer LLQ Genitourinary/Rectal: briseno, other - +CVA tenderness Extremities: no calf tenderness, no edema, no cyanosis Skin Exam: other - multiple stage 4 sacral decub Neurologic: confused , motor weakness - quadriplegia, now bilateral upper extremity motor improved to 4/5, bl LE 1/5 Musculoskeletal: atrophy Mikal Quiles M.D. Oct 19, 2019 12:05
--- NOTE | 2019-10-19 14:15 | Consultation ---
DATE OF CONSULTATION: 10/19/2019 CONSULTING PHYSICIAN: Paulo Christine M.D. CHIEF COMPLAINT: Anemia, stool OB positive. HISTORY OF PRESENT ILLNESS: This is a very unfortunate 54-year-old female with past medical history of multiple sclerosis who lives in a fpc was found to be hypotensive. That is why she was transferred to the hospital. She was also found to be anemic. Stool OB came back positive and GI consult requested for evaluation for possible GI bleeding. According to the patient, she does not have any abdominal pain. She does not remember ever having a problem with anemia before. She never had endoscopy and colonoscopy before. At this time, she is refusing to have them anyway. PAST MEDICAL HISTORY: 1. Multiple sclerosis. 2. Multiple UTIs. 3. Hypertension. 4. Hyperlipidemia. 5. Seizure disorder. 6. Chronic pain syndrome. 7. Malnutrition. 8. Decubital ulcerations. ALLERGIES: To penicillin. MEDICATIONS: Please see medication reconciliation list. SOCIAL HISTORY: Currently lives in a fpc. No recent history of tobacco, alcohol, or drug abuse. FAMILY HISTORY: Noncontributory. REVIEW OF SYSTEMS: The patient is a poor historian. So, review of systems is limited. PHYSICAL EXAMINATION: VITAL SIGNS: Most recent vital signs, temperature is 98.1, pulse is 86, respirations 21, blood pressure is 116/77. HEENT: Normocephalic and atraumatic. Sclerae anicteric. NECK: Supple. No evidence of obvious lymphadenopathy. CARDIOVASCULAR: Regular rate and rhythm. Plus S1, S2. LUNGS: Decreased breath sounds bilaterally based on the supine exam. ABDOMEN: Soft, nontender. No rebound. No guarding. No peritoneal sign. EXTREMITIES: The patient has no cyanosis. No clubbing. Trace edema and also had evidence of decubital ulcerations on the sacral area. LABORATORY DATA: White count is 12.9, hemoglobin 8.3, hematocrit 24, platelet count is 252. Chem-7 sodium 136, potassium 3.2, BUN 10, creatinine 0.8. ASSESSMENT AND PLAN: This is a 54-year-old female with profound anemia, requiring blood transfusions. Stool OB positive. Needs endoscopy and colonoscopy for evaluation of GI bleeding, but the patient is refusing at this time. She states she does not want to have those procedures done. I explained the risks of not having the endoscopy and colonoscopy, but she is still refusing. Our plan will be to monitor hemoglobin and hematocrit, transfuse as needed, to keep hemoglobin above 7, repeat the stool for OB. Send iron panel. The CEA has been checked, it has been negative. We will continue talking to the patient and if she agrees to the endoscopy and colonoscopy, we will schedule for Tuesday. We also recommend repeating stool OB, repeating PT, PTT, INR given INR was elevated in last month. The patient also needs wound care for decubitus ulceration. The patient has elevated alkaline phosphatase that might be secondary to sacral decubitus and possible osteomyelitis. We will recommend followup. Paulo Christine M.D. DR: GENNY JOB#: [id number] CC:
--- NOTE | 2019-10-19 14:28 | Surgery Progress Note ---
Surgery Progress Note Subjective Additional Comments anemia wbc trending down refusing scope exam dressing changd Objective Last 24 Hour Vital Signs Date Time Temp Pulse Resp B/P (MAP) Pulse Ox O2 Delivery O2 Flow Rate FiO2 10/19/19 12:00 100.4 93 16 122/68 (86) 97 10/19/19 12:00 93 10/19/19 09:00 Room Air 10/19/19 08:00 84 10/19/19 08:00 98.8 92 18 119/72 (88) 98 10/19/19 04:00 98.1 105 21 115/77 (90) 98 10/19/19 04:00 86 10/19/19 00:00 97.2 89 20 152/81 (104) 97 10/19/19 00:00 79 10/18/19 21:00 Room Air 10/18/19 20:00 83 10/18/19 20:00 97.6 90 21 135/88 (104) 91 10/18/19 16:00 98.2 86 18 135/97 (110) 100 10/18/19 16:00 90 I&O Intake and Output 10/18/19 10/19/19 19:00 07:00 Intake Total 275 ml 1085.000 ml Output Total 1100 ml 1200 ml Balance -825 ml -115.000 ml Intake Oral 200 ml 50 ml IV Total 75 ml 1035.000 ml Output Urine Total 1100 ml 1200 ml Dressing: saturated Wound: other Drains: other Cardiovascular: RSR Respiratory: decreased breath sounds Abdomen: soft, present bowel sounds, non-distended Extremities: edema, no cyanosis, other Laboratory Tests Test 10/18/19 18:05 10/18/19 19:15 White Blood Count 12.9 K/UL (4.8-10.8) H Red Blood Count 3.10 M/UL (4.20-5.40) L Hemoglobin 8.3 G/DL (12.0-16.0) L Hematocrit 24.4 % (37.0-47.0) L Mean Corpuscular Volume 79 FL (80-99) L Mean Corpuscular Hemoglobin 26.6 PG (27.0-31.0) L Mean Corpuscular Hemoglobin Concent 33.8 G/DL (32.0-36.0) Red Cell Distribution Width 15.4 % (11.6-14.8) H Platelet Count 252 K/UL (150-450) # Mean Platelet Volume 8.2 FL (6.5-10.1) Neutrophils (%) (Auto) 73.4 % (45.0-75.0) Lymphocytes (%) (Auto) 19.7 % (20.0-45.0) L Monocytes (%) (Auto) 5.9 % (1.0-10.0) Eosinophils (%) (Auto) 0.5 % (0.0-3.0) Basophils (%) (Auto) 0.4 % (0.0-2.0) Sodium Level 136 MMOL/L (136-145) Potassium Level 3.2 MMOL/L (3.5-5.1) L Chloride Level 108 MMOL/L (98-107) H Carbon Dioxide Level 21 MMOL/L (21-32) Anion Gap 7 mmol/L (5-15) Blood Urea Nitrogen 10 mg/dL (7-18) Creatinine 0.8 MG/DL (0.55-1.30) Estimat Glomerular Filtration Rate > 60 mL/min (>60) Glucose Level 106 MG/DL (74-106) Calcium Level 7.2 MG/DL (8.5-10.1) L Vancomycin Level Trough 23.9 ug/mL (5.0-12.0) H Plan Problems: (1) Decubitus ulcer Assessment & Plan: 54-year-old female multiple comorbidities who is fairly bedbound and care dependent presented from nursing facility with multiple decubitus ulcers requiring care and management and evaluation. Patient identified to have a right ischial and left ischial stage IV decubitus ulcers Patient Identified to have historic healed sacral decubitus ulcer pt presented on admission with multiple pressure injuries. Full thickness wound L abd with 95% slough, 5% surrounding erythema with macerated borders. Erythema without induration or elevation in skin temp periwound.(L)1.6cm x (W)1.7cm. Moisture intertrigo noted to abd folds and groin folds. Labia majora noted to be swollen. Hyperpigmentation from previous wound noted to Sacrum. Full thickness stage 4 pressure injury with undermining noted to L Ischium. Phelan granulation noted to base of wound. No odor noted. Small amt serous exudate.(L)7.5cm x (W)4.5cm x (D)2.3cm, undermining clockwise 9-12o'clock by 3.6cm @12o'clock. Full thickness stage 4 pressure injury R ischium with two areas of tunneling. Phelan granulation at base of wound with small amt of Biofilm. Surrounding pink epithelial borders. Small amt serosanguineous exudate noted. No odor noted. Periwound skin is dark without erythema,induration or elevation in skin temp.(L) 4cm x (W)2.5cm x (D)2.6cm ,tunneling clockwise @12 o'clock by3.6cm ,Tunneling clockwise @2o'clock by5.7cm. Areas of hyperpigmentation noted to L heel, distal/lateral L foot extending into plantar aspect. R heel is boggy with non-blanching erythema. unlikely etiology of sepsis as chronic wounds with good granulation tissue slowly healing Tx.Plan: Cleanse Abdominal wound with Saline. Apply TheraHoney. Apply Cavilon Skin Barrier periwound. Cover with Optifoam drsg. Change every 3 days and prn. Cleanse L ischial wound with Saline. Loosely Pack with Hydrogel impregnated Kerlix packing. Apply Moisture Barrier Paste periwound. Cover with Optifoam drsg Daily and prn. Cleanse R Ischial wound with Saline. Loosely pack with Hydrogel impregnated Kerlix. (ATTENTION:2 Tunneled areas 9o'clock and 2o'clock). Apply Moisture Barrier Paste periwound. Cover with Optifoam drsg Daily and prn. Apply Cavilon Skin BArrier to both heels. Cover each heel with Optifoam drsg. Change every 7 days and prn. APM/AURA Mattress overlay. Reposition at least every 2hours or as tolerated. Off-load heels with pillow. Place pillow between knees. nutritional optimization as below (2) Sepsis Assessment & Plan: 54-year-old female multiple committees presents with hypotension altered mental status. Patient with leukocytosis, abnormal labs. Currently intensive care unit under care and management. Wound evaluated and stage IV multiple but chronic and unlikely etiology of sepsis. MRI ordered to ensure no leukocytosis from acute osteo despite clean clinical appearance - reviewed Evidence of a small soft tissue ulcer within the subcutaneous fat posterior to the upper sacrum. Surrounding edema likely reflects adjacent inflammation. This does not appear to extend through the subjacent musculature, and no marrow edema to suggest osteomyelitis is demonstrated. Smaller apparent area of edema adjacent to the tip of the coccyx, likewise with no underlying marrow signal abnormality Edema of the subcutaneous fat adjacent to both ischia, could indicate decubitus changes 2.4 x 2.4 cm apparent fluid collection superficial to the right ischium. Could represent a small subcutaneous abscess, but suspect that this actually represents extracorporeal incontinent urine within a skin fold. Correlate with clinical findings Small left hip joint effusion Edema of the fat surrounding the umbilicus, could indicate inflammation of the periumbilical skin and subcutaneous fat. Correlate with clinical findings Edema of the bilateral hips and anterior pelvic dean, probably a manifestation of generalized systemic edema. Nonspecific edema of the presacral fat Haynes catheter seen within the bladder CT noted Bilateral ischial ulcers, also previously reported on prior MRI. There appears to be packing material within the ulcers. Correlate with clinical findings Small retrococcygeal and retrosacral decubitus changes, also previously described No definite acute abdominal or pelvic process Trace left pleural effusion. Small amount of basilar pulmonary parenchymal atelectasis Haynes catheter, inferior vena cava filter incidentally noted Right basilar pulmonary cystic spaces We will continue to monitor and evaluate IV fluids IV antibiotics as per infectious disease O2 Trend labs transfuse prn scope per GI - pt refused at this time We will follow with recommendations Thank you for let me participate in patient's care (3) Moderate protein malnutrition Assessment & Plan: DAILY ESTIMATED NEEDS: Needs based on Sepsis, stage 4 wounds; 51.6kg adj 30-35 kcals/kg 6203-2926 total kcals 1.5-2 g protein/kg 77-103 g total protein 25-30 mL/kg 1290- 1548 total fluid mLs NUTRITION DIAGNOSIS: * Increased kcal and pro needs r/t wound healing AEB pt adm with stage 4 wounds x2, unstageable abdominal wound, h/o MS. CURRENT DIET: No diet order in place yet. 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
[2019-10-19 16:00] VITALS: BP 120/70
--- NOTE | 2019-10-19 18:00 | Infectious Diseases Prog Note ---
Assessment/Plan Assessment/Plan ASSESSMENT AND PLAN: 1. e.coli uti, streptococcus bacteremia/blocker metal base bacteremia, sepsis, leukocytosis, fevers, mrsa uti, ? fungemia/fungal uti, ? mrsa pna (previous chest x-ray negative, wounds noted - ? infected but look fairly clean, MRI without osteo, MRI with incontinent urine within skin fold > right ischium/hip abscess - vancomycin, cefepime, flagyl, on diflucan for fungemia coverage x one week more - monitor chest x-ray and labs, cultures noted - leukocytosis slowly improving, lgt, clinically more alert - wound care per surgery and protocol - echo report without vegetation mentioned - CT abdomen and pelvis - no abscess, report noted - d/w Dr. Quiles - consider discharge if leukocytosis continues to improve 2. telemetry care 3. Skin care protocol. 4. The patient is anemic. 5. Hypertension. 6. Blood pressure treatment primary care team. 7. Multiple sclerosis. 8. History of UTIs. 9. Hyperlipidemia. 10. Seizures. 11. Chronic pain syndrome. 12. Dementia. 13. Malnutrition. 14. Allergic to penicillin. 15. Social history is negative. 16. Family history is noncontributory. 17. MAR is noted. 18. Case was discussed with RN. 19. Case was discussed with Dr. Quiles. 20. Continue treatment per primary consultants. Subjective Constitutional: Denies: fever HEENT: Denies: congestion Respiratory: Denies: shortness of breath Cardiovascular: Denies: chest pain Gastrointestinal/Abdominal: Denies: nausea, vomiting, diarrhea Genitourinary: Reports: other - + briseno Neurologic: Denies: headache Psychiatric: Denies: depression Skin: Denies: rash Hematologic: Denies: bleeding Musculoskeletal: Denies: pain Allergies: Coded Allergies: PENICILLINS (Verified Allergy, Unknown, 07/05/16) Uncoded Allergies: seafood (Allergy, Mild, 10/15/19) Objective Vital Signs Last 24 Hour Vital Signs Date Time Temp Pulse Resp B/P (MAP) Pulse Ox O2 Delivery O2 Flow Rate FiO2 10/19/19 16:00 98.9 89 18 120/70 (87) 98 10/19/19 16:00 99 10/19/19 12:00 100.4 93 16 122/68 (86) 97 10/19/19 12:00 93 10/19/19 09:00 Room Air 12/13/19 08:00 84 10/19/19 08:00 98.8 92 18 119/72 (88) 98 10/19/19 04:00 98.1 105 21 115/77 (90) 98 10/19/19 04:00 86 10/19/19 00:00 97.2 89 20 152/81 (104) 97 10/19/19 00:00 79 10/18/19 21:00 Room Air 10/18/19 20:00 83 10/18/19 20:00 97.6 90 21 135/88 (104) 91 Height (Feet): 5 Height (Inches): 1.00 Weight (Pounds): 189 General Appearance: no acute distress HEENT: normocephalic, atraumatic, anicteric, mucous membranes moist Respiratory/Chest: lungs clear, normal breath sounds, no respiratory distress, no accessory muscle use Cardiovascular: normal rate, regular rhythm, no gallop/murmur, no JVD Abdomen: normal bowel sounds, soft, non tender, no organomegaly, non distended Genitourinary: other - + briseno - urine slt cloudy Extremities: no cyanosis Skin: no rash Neurologic/Psychiatric: 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 Lungs and pleural spaces are clear. No significant interim change Impression: No acute process Chest x-ray - 10/15/19 - Procedure: XRAY Chest 1v Indication: Shortness of breath Technique: One view of the chest Comparison: 10/12/2019 Findings: Lungs and pleural spaces are clear. Heart size is normal. Is no significant interim change Impression: No acute process MRI - Pelvis: Impression: Evidence of a small soft tissue ulcer within the subcutaneous fat posterior to the upper sacrum. Surrounding edema likely reflects adjacent inflammation. This does not appear to extend through the subjacent musculature, and no marrow edema to suggest osteomyelitis is demonstrated. Smaller apparent area of edema adjacent to the tip of the coccyx, likewise with no underlying marrow signal abnormality Edema of the subcutaneous fat adjacent to both ischia, could indicate decubitus changes 2.4 x 2.4 cm apparent fluid collection superficial to the right ischium. Could represent a small subcutaneous abscess, but suspect that this actually represents extracorporeal incontinent urine within a skin fold. Correlate with clinical findings Small left hip joint effusion Edema of the fat surrounding the umbilicus, could indicate inflammation of the periumbilical skin and subcutaneous fat. Correlate with clinical findings Edema of the bilateral hips and anterior pelvic dean, probably a manifestation of generalized systemic edema. Nonspecific edema of the presacral fat CT scan of abdomen and pelvis: Impression: Bilateral ischial ulcers, also previously reported on prior MRI. There appears to be packing material within the ulcers. Correlate with clinical findings Small retrococcygeal and retrosacral decubitus changes, also previously described No definite acute abdominal or pelvic process Trace left pleural effusion. Small amount of basilar pulmonary parenchymal atelectasis Briseno catheter, inferior vena cava filter incidentally noted Right basilar pulmonary cystic spaces Other findings as noted, including degenerative spondylosis The CT scanner at [facility] is accredited by the [employer] and the scans are performed using protocols designed to limit radiation exposure to as low as reasonably achievable to attain images of sufficient resolution adequate for diagnostic evaluation. Microbiology Date/Time Source Procedure Growth Status 10/13/19 18:20 Blood Blood Culture - Final NO GROWTH AFTER 5 DAYS Complete 10/13/19 06:30 Sputum Gram Stain - Final Complete 10/13/19 06:30 Sputum Culture - Final April Albicans Staphylococcus Aureus Complete 10/13/19 17:55 Urine,Clean Catch Urine Culture - Final April Albicans Complete 10/11/19 01:35 Rectum - Final NO CARBAPENEM-RESISTANT ENTEROBACTERI... Complete Laboratory Tests Test 10/18/19 18:05 10/18/19 19:15 White Blood Count 12.9 K/UL (4.8-10.8) H Red Blood Count 3.10 M/UL (4.20-5.40) L Hemoglobin 8.3 G/DL (12.0-16.0) L Hematocrit 24.4 % (37.0-47.0) L Mean Corpuscular Volume 79 FL (80-99) L Mean Corpuscular Hemoglobin 26.6 PG (27.0-31.0) L Mean Corpuscular Hemoglobin Concent 33.8 G/DL (32.0-36.0) Red Cell Distribution Width 15.4 % (11.6-14.8) H Platelet Count 252 K/UL (150-450) # Mean Platelet Volume 8.2 FL (6.5-10.1) Neutrophils (%) (Auto) 73.4 % (45.0-75.0) Lymphocytes (%) (Auto) 19.7 % (20.0-45.0) L Monocytes (%) (Auto) 5.9 % (1.0-10.0) Eosinophils (%) (Auto) 0.5 % (0.0-3.0) Basophils (%) (Auto) 0.4 % (0.0-2.0) Sodium Level 136 MMOL/L (136-145) Potassium Level 3.2 MMOL/L (3.5-5.1) L Chloride Level 108 MMOL/L (98-107) H Carbon Dioxide Level 21 MMOL/L (21-32) Anion Gap 7 mmol/L (5-15) Blood Urea Nitrogen 10 mg/dL (7-18) Creatinine 0.8 MG/DL (0.55-1.30) Estimat Glomerular Filtration Rate > 60 mL/min (>60) Glucose Level 106 MG/DL (74-106) Calcium Level 7.2 MG/DL (8.5-10.1) L Vancomycin Level Trough 23.9 ug/mL (5.0-12.0) H Current Medications Medications (Trade) Dose Ordered Sig/Lenard Route PRN Reason Start Time Stop Time Status Last Admin Dose Admin Acetaminophen (Tylenol) 650 mg Q4H PRN ORAL Mild Pain (Pain Scale 1-3) 10/11/19 21:28 11/10/19 21:27 10/17/19 17:35 Acetaminophen (Tylenol) 650 mg Q4H PRN ORAL fever 10/11/19 21:28 11/10/19 21:27 Ascorbic Acid (Vitamin C) 500 mg DAILY ORAL 10/12/19 09:00 11/11/19 08:59 10/19/19 09:06 Aspirin (Ecotrin) 81 mg DAILY ORAL 10/12/19 09:00 11/11/19 08:59 10/19/19 09:06 Atorvastatin Calcium (Lipitor) 20 mg BEDTIME ORAL 10/12/19 21:00 11/10/19 20:59 10/18/19 20:45 Cefepime HCl 2 gm/ Dextrose 55 ml @ 110 mls/hr Q12H IVPB 10/14/19 09:00 10/21/19 08:59 10/19/19 09:07 Chlorhexidine Gluconate (Bailee-Hex 2%) 1 applic DAILY@2000 TOPIC 10/12/19 20:00 11/11/19 19:59 10/18/19 20:43 Dextrose (Dextrose 50%) 25 ml Q30M PRN IV Hypoglycemia 10/11/19 21:45 11/10/19 02:44 Dextrose (Dextrose 50%) 50 ml Q30M PRN IV Hypoglycemia 10/11/19 21:45 11/10/19 02:44 Dextrose/ Electrolytes 1,000 ml @ 75 mls/hr [id number] IV 10/16/19 10:00 11/11/19 09:59 10/19/19 13:45 Docusate Sodium (Colace) 100 mg TWICE A DAY ORAL 10/15/19 20:45 11/14/19 20:44 10/19/19 09:06 Fluconazole (Diflucan) 200 mg DAILY ORAL 10/16/19 09:00 10/22/19 10:06 10/19/19 09:06 Folic Acid (Folate) 1 mg DAILY ORAL 10/12/19 09:00 11/11/19 08:59 10/19/19 09:06 Heparin Sodium (Porcine) (Heparin 5000 units/ml) 5,000 units EVERY 12 HOURS SUBQ 10/12/19 09:00 11/10/19 08:59 10/19/19 09:08 Metronidazole 100 ml @ 100 mls/hr Q8HR IVPB 10/15/19 22:00 10/22/19 21:59 10/19/19 13:32 Multivitamins (Multivitamins) 1 tab DAILY ORAL 10/12/19 09:00 11/11/19 08:59 10/19/19 09:06 Polyethylene Glycol (Miralax) 17 gm BEDTIME ORAL 10/15/19 21:00 11/14/19 20:59 10/17/19 20:33 Sennosides (Senokot) 17.2 mg DAILYPRN PRN ORAL Constipation 10/15/19 20:45 11/14/19 20:44 10/15/19 22:10 Vancomycin HCl (Vanco rx to dose) 1 ea DAILY PRN MISC Per rx protocol 10/12/19 12:45 11/11/19 12:44 Vancomycin HCl 750 mg/Sodium Chloride 275 ml @ 183.333 mls/hr Q24H IVPB 10/18/19 23:00 10/23/19 22:59 10/18/19 23:26 Zinc Sulfate (Zinc Sulfate) 220 mg DAILY ORAL 10/12/19 09:00 11/11/19 08:59 10/19/19 09:05 Jt Land MD Oct 19, 2019 18:00
[2019-10-19] MEDS: Dyna-Hex 2% Top Sol 2oz TOPIC SCH ×2 (19:45→20:00)
[2019-10-19 20:00] VITALS: BP 122/81
[2019-10-19] MEDS: Miralax 17gm pkt ORAL SCH ×2 (20:56→21:00)
[2019-10-19] MEDS: Atorvastatin 20mg tab ORAL SCH ×2 (20:56→21:00)
[2019-10-19] MEDS: metroNIDAZOLE 500mg tab ORAL SCH (21:33)
[2019-10-19] MEDS: Vancomycin 750mg/NS 275ml IVPB SCH ×2 (22:22)
--- NOTE | 2019-10-19 23:45 | Progress Note ---
DATE: 10/19/2019 SUBJECTIVE: The patient is in bed, continues to be weak. Mental condition is unchanged since previous encounter. The patient is forgetful, did not know the date. Poor insight. Poor memory. MENTAL STATUS EXAMINATION: The patient is alert and oriented x3. Mood is dysphoric. Affect is constricted, congruent with mood. Thought process is concrete. Thought content, no suicidal or homicidal ideation. Cognition is impaired. Insight and judgment impaired. ASSESSMENT: 1. Acute encephalopathy. 2. Failure to thrive. PLAN: 1. We will continue to monitor her symptoms. 2. Provide the patient with reality orientation. 3. Discussed with the staff. Laron Louie M.D. DR: NEL JOB#: [id number] CC:
[2019-10-20] VITALS: BP 106/65
[2019-10-20 04:00] VITALS: BP 114/71
[2019-10-20] MEDS: metroNIDAZOLE 500mg tab ORAL SCH ×3 (06:00→21:10)
--- NOTE | 2019-10-20 07:16 | General Progress Note ---
Assessment/Plan Status: progressing Assessment/Plan: 1. Multiple sclerosis. 2. Multiple UTIs. 3. Hypertension. 4. Hyperlipidemia. 5. Seizure disorder. 6. Chronic pain syndrome. 7. Malnutrition. 8. Decubital ulcerations 9. Anemia patient refusing EGD and colonoscopy again fu cbc prn blood transfusion fu repeat stool ob ppi Subjective ROS Limited/Unobtainable: Yes Allergies: Coded Allergies: PENICILLINS (Verified Allergy, Unknown, 07/05/16) Uncoded Allergies: seafood (Allergy, Mild, 10/15/19) Objective Last 24 Hour Vital Signs Date Time Temp Pulse Resp B/P (MAP) Pulse Ox O2 Delivery O2 Flow Rate FiO2 10/20/19 04:00 97.9 114 17 114/71 (85) 97 10/20/19 04:00 116 10/20/19 01:00 90 99 10/20/19 00:00 99.3 102 18 106/65 (79) 90 10/20/19 00:00 104 10/19/19 21:00 Room Air 10/19/19 20:00 110 10/19/19 20:00 97.9 118 20 122/81 (95) 98 10/19/19 16:00 98.9 89 18 120/70 (87) 98 10/19/19 16:00 99 10/19/19 12:00 100.4 93 16 122/68 (86) 97 10/19/19 12:00 93 10/19/19 09:00 Room Air 10/19/19 08:00 84 10/19/19 08:00 98.8 92 18 119/72 (88) 98 Intake and Output 10/19/19 10/20/19 19:00 07:00 Intake Total 500 ml 635 ml Output Total 1000 ml 1650 ml Balance -500 ml -1015 ml Intake Oral 500 ml IV Total 635 ml Output Urine Total 1000 ml 1650 ml Height (Feet): 5 Height (Inches): 1.00 Weight (Pounds): 191 General Appearance: alert EENT: normal ENT inspection Neck: supple Cardiovascular: normal rate Respiratory/Chest: decreased breath sounds Abdomen: normal bowel sounds, non tender, soft Extremities: non-tender Paulo Christine MD Oct 20, 2019 07:16
[2019-10-20 08:00] VITALS: BP 128/64
[2019-10-20 08:46] LABS: HEMATOCRIT 17.9 % (37.0-47.0); MEAN CORPUSCULAR VOLUME 82 FL (80-99); PLATELET COUNT 345 K/UL (150-450); RED BLOOD COUNT 2.18 M/UL (4.20-5.40); RED CELL DISTRIBUTION WIDTH 18.1 % (11.6-14.8); WHITE BLOOD COUNT 12.8 K/UL (4.8-10.8)
[2019-10-20] MEDS: Fluconazole 100mg tab ORAL SCH (09:00)
[2019-10-20] MEDS: Heparin 5000 units/ml inj SUBQ SCH ×2 (09:00→20:43)
[2019-10-20] MEDS: Ascorbic Acid 500mg tab ORAL SCH (09:00)
[2019-10-20] MEDS: Docusate 100mg cap ORAL SCH ×2 (09:00→17:40)
[2019-10-20] MEDS: Aspirin EC 81mg tab ORAL SCH (09:00)
[2019-10-20] MEDS: Zinc Sulfate 220mg cap ORAL SCH (09:00)
[2019-10-20 09:01] LABS: HEMOGLOBIN 5.7 G/DL (12.0-16.0)
[2019-10-20 09:27] LABS: ALANINE AMINOTRANSFERASE 13 U/L (12-78); ALBUMIN/GLOBULIN RATIO 0.2 (1.0-2.7); ALKALINE PHOSPHATASE 138 U/L (46-116); ANION GAP 8 mmol/L (5-15); ASPARTATE AMINO TRANSFERASE 12 U/L (15-37); BILIRUBIN,TOTAL 0.2 MG/DL (0.2-1.0); BLOOD UREA NITROGEN 31 mg/dL (7-18); CALCIUM 7.3 MG/DL (8.5-10.1); CARBON DIOXIDE 22 MMOL/L (21-32); CHLORIDE 115 MMOL/L (98-107); CREATININE 0.8 MG/DL (0.55-1.30); POTASSIUM 3.2 MMOL/L (3.5-5.1); SODIUM 144 MMOL/L (136-145)
[2019-10-20 09:35] LABS: % IRON SATURATION 19 % (15-50); IRON 17 ug/dL (50-175); TOTAL IRON BINDING CAPACITY 89 ug/dL (250-450)
--- NOTE | 2019-10-20 10:07 | Diagnostic Imaging Report ---
EXAM: XR Chest, 1 View CLINICAL HISTORY: INFECT TECHNIQUE: Frontal view of the chest. COMPARISON: No relevant prior studies available. FINDINGS: Lungs: Asymmetry in the densities of the lungs, right is more lucent than the left. Minimal left basilar atelectasis/pneumonitis Pleural space: Unremarkable. No pneumothorax. Heart: Unremarkable. No cardiomegaly. Mediastinum: Unremarkable. Bones/joints: No acute fracture. Other findings: Patient is rotated. IMPRESSION: Asymmetry in the densities of the lungs, right is more lucent than the left. Could possibly be related to rotational changes and/or layering effusion or other. Minimal left basilar atelectasis/pneumonitis. No confluent consolidation.
[2019-10-20] MEDS: Cefepime HCl 2 GM in D5W 55 ML IVPB SCH ×2 (10:16→20:32)
--- NOTE | 2019-10-20 10:59 | General Progress Note ---
Assessment/Plan Problem List: (1) Chronic pain syndrome ICD Codes: G89.4 - Chronic pain syndrome SNOMED: 723063288 (2) HTN (hypertension) ICD Codes: I10 - Essential (primary) hypertension SNOMED: 84157309 (3) HLD (hyperlipidemia) ICD Codes: E78.5 - Hyperlipidemia, unspecified SNOMED: 65846843 (4) Moderate protein malnutrition ICD Codes: E44.0 - Moderate protein-calorie malnutrition SNOMED: 454159144 (5) Stage 4 skin ulcer of sacral region ICD Codes: L98.429 - Non-pressure chronic ulcer of back with unspecified severity SNOMED: 61964090, 337732948 (6) Back pain ICD Codes: M54.9 - Dorsalgia, unspecified SNOMED: 367849839 (7) Costochondritis ICD Codes: M94.0 - Chondrocostal junction syndrome [Tietze] SNOMED: 56192201 (8) UTI (urinary tract infection) ICD Codes: N39.0 - Urinary tract infection, site not specified SNOMED: 69572137 (9) Sepsis ICD Codes: A41.9 - Sepsis, unspecified organism SNOMED: 03246405 (10) Multiple sclerosis ICD Codes: G35 - Multiple sclerosis SNOMED: 83336712 (11) Anemia ICD Codes: D64.9 - Anemia, unspecified SNOMED: 211450165 Status: progressing Assessment/Plan: 54 year old female with multiple sclerosis, neurogenic bladder and functional quadriplegia being admitted for sepsis secondary to UTI, ?fungal uti, MRSA uti . Responded to fluid resuscitation. VSS. Ucx: 10/13, yeast >100K, 10/11: MRSA, 10/10: E.coli . Blood culture: 10/10: Strep Agalactias group B, Staph capitis. CXR negative x 2 # Acute Blood Loss Anemia # Iron deficiency Anemia - pt continues to refuse intervention - transfuse 2 U prbc today - iron replacement - CTM cbc - FOBT , no bm yet ICU --> telemetry Continue Cefepime, vancomycin. s/p Azithromycin. Added Fluconazole and metronidazole. d/w ID MRI pelvis reviewed. no abscess or osteo. CT abdomen pelvis, no abscess. bilateral ischial decubitus. follow up blood cultures continue briseno monitor wbc outpatient urology follow up. ID consult with Dr. Palacios. d/w Health Nurse consult appreciated wound care and wound MD consult with Dr. Solis TRACK GRINDER consult to evaluate. d/w Princess. Tolerated regular diet, slow bites. Aspiration precautions Hold all BP meds, introduce when more stable pain control. Severe hypokalemia. Resolved. no labs today to monitor Normocytic anemia, occult blood positive stool. received 1 unit prbc, iron studies pending. seen by GI refused all interventions Appetite stimulant psychiatry consult appreciated. continue Zyprexa 2.5 mg at bedtime vte ppx: heparin subq GI ppx: not indicated CM consult for discharge planning Code status: full code, POLST signed by SNF Md but not patient and it's blank. Will attempt to call Kirsten Richardson, daughter of patient: [phone] Disposition: Waiting for labs to monitor wbc and adjust antibiotics I spent 40 minutes on this encounter, > 50% spent on counselling and care coordination I spent an additional 38 minutes in review and interpretation of prior medical records including notes, imaging, labs, ancillary data Subjective Date patient seen: Oct 20, 2019 Time patient seen: 12:59 Allergies: Coded Allergies: PENICILLINS (Verified Allergy, Unknown, 07/05/16) Uncoded Allergies: seafood (Allergy, Mild, 10/15/19) All Systems: reviewed and negative except above Subjective denies sob, cp, light headedness Objective Last 24 Hour Vital Signs Date Time Temp Pulse Resp B/P (MAP) Pulse Ox O2 Delivery O2 Flow Rate FiO2 10/20/19 08:00 103 10/20/19 08:00 100.0 101 20 128/64 (85) 98 10/20/19 04:00 97.9 114 17 114/71 (85) 97 10/20/19 04:00 116 10/20/19 01:00 90 99 10/20/19 00:00 99.3 102 18 106/65 (79) 90 10/20/19 00:00 104 10/19/19 21:00 Room Air 10/19/19 20:00 110 10/19/19 20:00 97.9 118 20 122/81 (95) 98 10/19/19 16:00 98.9 89 18 120/70 (87) 98 10/19/19 16:00 99 10/19/19 12:00 100.4 93 16 122/68 (86) 97 10/19/19 12:00 93 Intake and Output 10/19/19 10/20/19 19:00 07:00 Intake Total 500 ml 635 ml Output Total 1000 ml 1650 ml Balance -500 ml -1015 ml Intake Oral 500 ml IV Total 635 ml Output Urine Total 1000 ml 1650 ml Laboratory Tests 10/20/19 07:00: White Blood Count 12.8H, Red Blood Count 2.18L, Hemoglobin 5.7*L, Hematocrit 17.9L, Mean Corpuscular Volume 82, Mean Corpuscular Hemoglobin 26.2L, Mean Corpuscular Hemoglobin Concent 31.8L, Red Cell Distribution Width 18.1H, Platelet Count 345, Mean Platelet Volume 6.7, Neutrophils (%) (Auto) , Lymphocytes (%) (Auto) , Monocytes (%) (Auto) , Eosinophils (%) (Auto) , Basophils (%) (Auto) , Differential Total Cells Counted 100, Neutrophils % ( Manual) 74, Lymphocytes % (Manual) 19L, Monocytes % (Manual) 7, Eosinophils % ( Manual) 0, Basophils % (Manual) 0, Band Neutrophils 0, Platelet Estimate Adequate, Platelet Morphology Normal, Hypochromasia 2+, Anisocytosis 1+, Prothrombin Time 20.6H, Prothromb Time International Ratio 2.0H, Sodium Level 144, Potassium Level 3.2L, Chloride Level 115H, Carbon Dioxide Level 22, Anion Gap 8, Blood Urea Nitrogen 31H, Creatinine 0.8, Estimat Glomerular Filtration Rate > 60, Glucose Level 103, Calcium Level 7.3L, Iron Level 17L, Total Iron Binding Capacity 89L, Percent Iron Saturation 19, Unsaturated Iron Binding 72L, Total Bilirubin 0.2, Aspartate Amino Transf (AST/SGOT) 12L, Alanine Aminotransferase (ALT/SGPT) 13, Alkaline Phosphatase 138H, Total Protein 6.3L, Albumin 1.0L, Globulin 5.3, Albumin/Globulin Ratio 0.2L Height (Feet): 5 Height (Inches): 1.00 Weight (Pounds): 191 General Appearance: no apparent distress, alert Neck: non-tender, normal alignment Cardiovascular: normal rate, regular rhythm, regularly irregular Respiratory/Chest: lungs clear, no respiratory distress, no accessory muscle use Abdomen: soft, no organomegaly, no mass Extremities: normal range of motion, non-tender, no calf tenderness Edema: no edema noted Arm (L), no edema noted Arm (R), no edema noted Leg (L), no edema noted Leg (R), no edema noted Pedal (L), no edema noted Pedal (R), no edema noted Generalized Neurologic: oriented x 3, normal mood/affect Xenia Abraham DO Oct 20, 2019 10:59
[2019-10-20 12:00] VITALS: BP 119/69
--- NOTE | 2019-10-20 14:13 | Surgery Progress Note ---
Surgery Progress Note Subjective Additional Comments leukocytosis febrile anemia refusing scope Objective Last 24 Hour Vital Signs Date Time Temp Pulse Resp B/P (MAP) Pulse Ox O2 Delivery O2 Flow Rate FiO2 10/20/19 12:00 99.5 103 18 119/69 (86) 96 10/20/19 09:00 Room Air 10/20/19 08:00 103 10/20/19 08:00 100.0 101 20 128/64 (85) 98 10/20/19 04:00 97.9 114 17 114/71 (85) 97 10/20/19 04:00 116 10/20/19 01:00 90 99 10/20/19 00:00 99.3 102 18 106/65 (79) 90 10/20/19 00:00 104 10/19/19 21:00 Room Air 10/19/19 20:00 110 10/19/19 20:00 97.9 118 20 122/81 (95) 98 10/19/19 16:00 98.9 89 18 120/70 (87) 98 10/19/19 16:00 99 I&O Intake and Output 10/19/19 10/20/19 19:00 07:00 Intake Total 500 ml 635 ml Output Total 1000 ml 1650 ml Balance -500 ml -1015 ml Intake Oral 500 ml IV Total 635 ml Output Urine Total 1000 ml 1650 ml Dressing: other Wound: other Drains: other Cardiovascular: RSR Respiratory: decreased breath sounds Abdomen: soft, present bowel sounds, non-distended Extremities: no cyanosis, other Laboratory Tests Test 10/20/19 07:00 White Blood Count 12.8 K/UL (4.8-10.8) H Red Blood Count 2.18 M/UL (4.20-5.40) L Hemoglobin 5.7 G/DL (12.0-16.0) *L Hematocrit 17.9 % (37.0-47.0) L Mean Corpuscular Volume 82 FL (80-99) Mean Corpuscular Hemoglobin 26.2 PG (27.0-31.0) L Mean Corpuscular Hemoglobin Concent 31.8 G/DL (32.0-36.0) L Red Cell Distribution Width 18.1 % (11.6-14.8) H Platelet Count 345 K/UL (150-450) Mean Platelet Volume 6.7 FL (6.5-10.1) Neutrophils (%) (Auto) % (45.0-75.0) Lymphocytes (%) (Auto) % (20.0-45.0) Monocytes (%) (Auto) % (1.0-10.0) Eosinophils (%) (Auto) % (0.0-3.0) Basophils (%) (Auto) % (0.0-2.0) Differential Total Cells Counted 100 Neutrophils % (Manual) 74 % (45-75) Lymphocytes % (Manual) 19 % (20-45) L Monocytes % (Manual) 7 % (1-10) Eosinophils % (Manual) 0 % (0-3) Basophils % (Manual) 0 % (0-2) Band Neutrophils 0 % (0-8) Platelet Estimate Adequate Platelet Morphology Normal Hypochromasia 2+ Anisocytosis 1+ Prothrombin Time 20.6 SEC (9.30-11.50) H Prothromb Time International Ratio 2.0 (0.9-1.1) H Sodium Level 144 MMOL/L (136-145) Potassium Level 3.2 MMOL/L (3.5-5.1) L Chloride Level 115 MMOL/L (98-107) H Carbon Dioxide Level 22 MMOL/L (21-32) Anion Gap 8 mmol/L (5-15) Blood Urea Nitrogen 31 mg/dL (7-18) H Creatinine 0.8 MG/DL (0.55-1.30) Estimat Glomerular Filtration Rate > 60 mL/min (>60) Glucose Level 103 MG/DL (74-106) Calcium Level 7.3 MG/DL (8.5-10.1) L Iron Level 17 ug/dL (50-175) L Total Iron Binding Capacity 89 ug/dL (250-450) L Percent Iron Saturation 19 % (15-50) Unsaturated Iron Binding 72 ug/dL (112-346) L Total Bilirubin 0.2 MG/DL (0.2-1.0) Aspartate Amino Transf (AST/SGOT) 12 U/L (15-37) L Alanine Aminotransferase (ALT/SGPT) 13 U/L (12-78) Alkaline Phosphatase 138 U/L (46-116) H Total Protein 6.3 G/DL (6.4-8.2) L Albumin 1.0 G/DL (3.4-5.0) L Globulin 5.3 g/dL Albumin/Globulin Ratio 0.2 (1.0-2.7) L Plan Problems: (1) Decubitus ulcer Assessment & Plan: 54-year-old female multiple comorbidities who is fairly bedbound and care dependent presented from nursing facility with multiple decubitus ulcers requiring care and management and evaluation. Patient identified to have a right ischial and left ischial stage IV decubitus ulcers Patient Identified to have historic healed sacral decubitus ulcer pt presented on admission with multiple pressure injuries. Full thickness wound L abd with 95% slough, 5% surrounding erythema with macerated borders. Erythema without induration or elevation in skin temp periwound.(L)1.6cm x (W)1.7cm. Moisture intertrigo noted to abd folds and groin folds. Labia majora noted to be swollen. Hyperpigmentation from previous wound noted to Sacrum. Full thickness stage 4 pressure injury with undermining noted to L Ischium. Dilworth granulation noted to base of wound. No odor noted. Small amt serous exudate.(L)7.5cm x (W)4.5cm x (D)2.3cm, undermining clockwise 9-12o'clock by 3.6cm @12o'clock. Full thickness stage 4 pressure injury R ischium with two areas of tunneling. Dilworth granulation at base of wound with small amt of Biofilm. Surrounding pink epithelial borders. Small amt serosanguineous exudate noted. No odor noted. Periwound skin is dark without erythema,induration or elevation in skin temp.(L) 4cm x (W)2.5cm x (D)2.6cm ,tunneling clockwise @12 o'clock by3.6cm ,Tunneling clockwise @2o'clock by5.7cm. Areas of hyperpigmentation noted to L heel, distal/lateral L foot extending into plantar aspect. R heel is boggy with non-blanching erythema. unlikely etiology of sepsis as chronic wounds with good granulation tissue slowly healing Tx.Plan: Cleanse Abdominal wound with Saline. Apply TheraHoney. Apply Cavilon Skin Barrier periwound. Cover with Optifoam drsg. Change every 3 days and prn. Cleanse L ischial wound with Saline. Loosely Pack with Hydrogel impregnated Kerlix packing. Apply Moisture Barrier Paste periwound. Cover with Optifoam drsg Daily and prn. Cleanse R Ischial wound with Saline. Loosely pack with Hydrogel impregnated Kerlix. (ATTENTION:2 Tunneled areas 9o'clock and 2o'clock). Apply Moisture Barrier Paste periwound. Cover with Optifoam drsg Daily and prn. Apply Cavilon Skin BArrier to both heels. Cover each heel with Optifoam drsg. Change every 7 days and prn. APM/AURA Mattress overlay. Reposition at least every 2hours or as tolerated. Off-load heels with pillow. Place pillow between knees. nutritional optimization as below (2) Sepsis Assessment & Plan: 54-year-old female multiple committees presents with hypotension altered mental status. Patient with leukocytosis, abnormal labs. Currently intensive care unit under care and management. Wound evaluated and stage IV multiple but chronic and unlikely etiology of sepsis. MRI ordered to ensure no leukocytosis from acute osteo despite clean clinical appearance - reviewed Evidence of a small soft tissue ulcer within the subcutaneous fat posterior to the upper sacrum. Surrounding edema likely reflects adjacent inflammation. This does not appear to extend through the subjacent musculature, and no marrow edema to suggest osteomyelitis is demonstrated. Smaller apparent area of edema adjacent to the tip of the coccyx, likewise with no underlying marrow signal abnormality Edema of the subcutaneous fat adjacent to both ischia, could indicate decubitus changes 2.4 x 2.4 cm apparent fluid collection superficial to the right ischium. Could represent a small subcutaneous abscess, but suspect that this actually represents extracorporeal incontinent urine within a skin fold. Correlate with clinical findings Small left hip joint effusion Edema of the fat surrounding the umbilicus, could indicate inflammation of the periumbilical skin and subcutaneous fat. Correlate with clinical findings Edema of the bilateral hips and anterior pelvic dean, probably a manifestation of generalized systemic edema. Nonspecific edema of the presacral fat Haynes catheter seen within the bladder CT noted Bilateral ischial ulcers, also previously reported on prior MRI. There appears to be packing material within the ulcers. Correlate with clinical findings Small retrococcygeal and retrosacral decubitus changes, also previously described No definite acute abdominal or pelvic process Trace left pleural effusion. Small amount of basilar pulmonary parenchymal atelectasis Haynes catheter, inferior vena cava filter incidentally noted Right basilar pulmonary cystic spaces We will continue to monitor and evaluate IV fluids IV antibiotics as per infectious disease O2 Trend labs transfuse prn scope per GI - pt refused at this time We will follow with recommendations Thank you for let me participate in patient's care (3) Moderate protein malnutrition Assessment & Plan: DAILY ESTIMATED NEEDS: Needs based on Sepsis, stage 4 wounds; 51.6kg adj 30-35 kcals/kg 5539-3795 total kcals 1.5-2 g protein/kg 77-103 g total protein 25-30 mL/kg 1290- 1548 total fluid mLs NUTRITION DIAGNOSIS: * Increased kcal and pro needs r/t wound healing AEB pt adm with stage 4 wounds x2, unstageable abdominal wound, h/o MS. CURRENT DIET: No diet order in place yet. PO DIET RECOMMENDATIONS: Regular as tolerated; texture per SURFACE SUPERVISOR Monitor PO intake w/ diet/ need for supplements and/or snacks ADDITIONAL RECOMMENDATIONS: 1) Obtain calibrated bedscale wt PER SNF: 139 lbs + 61 inches 2) 2) Wound healing: provide Elias in 8oz water BID -> Vit C 250mg BID + Zinc 220mg daily x 10days + MVI w/ MIN 3) Monitor BG- slightly low (72)-> rec D5 for hydration 4) SURFACE SUPERVISOR eval for appropriate texture/ previously on aspiration precautions Matty Solis Oct 20, 2019 14:13
[2019-10-20] MEDS ORDERED: Tubing IV Secondary IV ONE (14:14)
[2019-10-20] MEDS ORDERED: NS 275ml ONE (14:14)
[2019-10-20] MEDS ORDERED: D5NS 1000ml IV ONE (14:14)
[2019-10-20 16:00] VITALS: BP 103/77
[2019-10-20 20:00] VITALS: BP 130/74
[2019-10-20] MEDS: Dyna-Hex 2% Top Sol 2oz TOPIC SCH (20:31)
[2019-10-20] MEDS: Atorvastatin 20mg tab ORAL SCH (20:41)
[2019-10-20] MEDS: Miralax 17gm pkt ORAL SCH (21:00)
[2019-10-20] MEDS: Vancomycin 750mg/NS 275ml IVPB SCH ×4 (23:13→23:21)
[2019-10-21] VITALS: BP 146/99
[2019-10-21 04:00] VITALS: BP 123/77
[2019-10-21] MEDS: metroNIDAZOLE 500mg tab ORAL SCH ×3 (06:11→21:05)
--- NOTE | 2019-10-21 07:46 | General Progress Note ---
Assessment/Plan Status: progressing Assessment/Plan: 1. Multiple sclerosis. 2. Multiple UTIs. 3. Hypertension. 4. Hyperlipidemia. 5. Seizure disorder. 6. Chronic pain syndrome. 7. Malnutrition. 8. Decubital ulcerations 9. Anemia patient refusing EGD and colonoscopy again fu cbc prn blood transfusion, s/p 2 units yesterday no obvious GIB per nurses add lactulose fu repeat stool ob ppi Subjective ROS Limited/Unobtainable: Yes Allergies: Coded Allergies: PENICILLINS (Verified Allergy, Unknown, 07/05/16) Uncoded Allergies: seafood (Allergy, Mild, 10/15/19) Objective Last 24 Hour Vital Signs Date Time Temp Pulse Resp B/P (MAP) Pulse Ox O2 Delivery O2 Flow Rate FiO2 10/21/19 04:00 96 10/21/19 04:00 98.8 105 20 123/77 (92) 100 10/21/19 00:00 99.0 116 20 146/99 (115) 95 10/21/19 00:00 106 10/20/19 21:12 98.4 10/20/19 21:00 Room Air 10/20/19 20:00 99.5 117 20 130/74 (92) 100 10/20/19 20:00 112 10/20/19 16:00 110 10/20/19 16:00 98.4 116 20 103/77 (86) 97 10/20/19 12:00 99.5 103 18 119/69 (86) 96 10/20/19 12:00 124 10/20/19 09:00 Room Air 10/20/19 08:00 103 10/20/19 08:00 100.0 101 20 128/64 (85) 98 Intake and Output 10/20/19 10/21/19 19:00 07:00 Intake Total 500 ml 870.15 ml Output Total 1400 ml 300 ml Balance -900 ml 570.15 ml Intake Oral 240 ml IV Total 630.15 ml Blood Product 500 ml Output Urine Total 1400 ml 300 ml Laboratory Tests 10/20/19 21:53: Vancomycin Level Trough 17.1H Height (Feet): 5 Height (Inches): 1.00 Weight (Pounds): 188 General Appearance: alert EENT: normal ENT inspection Neck: supple Cardiovascular: normal rate Respiratory/Chest: decreased breath sounds Abdomen: normal bowel sounds, non tender, soft Extremities: non-tender Vosoghi,Paulo MD Oct 21, 2019 07:46
[2019-10-21 08:00] VITALS: BP 129/73
[2019-10-21] MEDS ORDERED: Sennosides 8.6mg tab ORAL PRN (08:00)
[2019-10-21 08:08] LABS: HEMATOCRIT 19.5 % (37.0-47.0); MEAN CORPUSCULAR VOLUME 82 FL (80-99); PLATELET COUNT 295 K/UL (150-450); RED BLOOD COUNT 2.36 M/UL (4.20-5.40); RED CELL DISTRIBUTION WIDTH 14.8 % (11.6-14.8); WHITE BLOOD COUNT 9.8 K/UL (4.8-10.8)
[2019-10-21 08:11] LABS: HEMOGLOBIN 6.8 G/DL (12.0-16.0)
[2019-10-21 08:35] LABS: ANION GAP 9 mmol/L (5-15); BLOOD UREA NITROGEN 32 mg/dL (7-18); CALCIUM 7.1 MG/DL (8.5-10.1); CARBON DIOXIDE 21 MMOL/L (21-32); CHLORIDE 113 MMOL/L (98-107); CREATININE 0.8 MG/DL (0.55-1.30); POTASSIUM 3.8 MMOL/L (3.5-5.1); SODIUM 143 MMOL/L (136-145)
[2019-10-21] MEDS: Heparin 5000 units/ml inj SUBQ SCH (09:00)
[2019-10-21] MEDS: Aspirin EC 81mg tab ORAL SCH (09:26)
[2019-10-21] MEDS: Zinc Sulfate 220mg cap ORAL SCH (09:27)
[2019-10-21] MEDS: Fluconazole 100mg tab ORAL SCH (09:27)
[2019-10-21] MEDS: Docusate 100mg cap ORAL SCH ×2 (09:27→17:48)
[2019-10-21] MEDS: Ascorbic Acid 500mg tab ORAL SCH (09:27)
[2019-10-21] MEDS: Cefepime HCl 2 GM in D5W 55 ML IVPB SCH ×2 (09:29→20:53)
[2019-10-21] MEDS ORDERED: NS 275ml ONE (10:41)
[2019-10-21] MEDS ORDERED: Tubing IV Secondary IV ONE (10:41)
--- NOTE | 2019-10-21 11:23 | General Progress Note ---
Assessment/Plan Problem List: (1) Chronic pain syndrome ICD Codes: G89.4 - Chronic pain syndrome SNOMED: 691816730 (2) HTN (hypertension) ICD Codes: I10 - Essential (primary) hypertension SNOMED: 35502402 (3) HLD (hyperlipidemia) ICD Codes: E78.5 - Hyperlipidemia, unspecified SNOMED: 71238495 (4) Moderate protein malnutrition ICD Codes: E44.0 - Moderate protein-calorie malnutrition SNOMED: 258543767 (5) Stage 4 skin ulcer of sacral region ICD Codes: L98.429 - Non-pressure chronic ulcer of back with unspecified severity SNOMED: 58518515, 763659463 (6) Back pain ICD Codes: M54.9 - Dorsalgia, unspecified SNOMED: 390634572 (7) Costochondritis ICD Codes: M94.0 - Chondrocostal junction syndrome [Tietze] SNOMED: 66194215 (8) UTI (urinary tract infection) ICD Codes: N39.0 - Urinary tract infection, site not specified SNOMED: 57406752 (9) Sepsis ICD Codes: A41.9 - Sepsis, unspecified organism SNOMED: 63361730 (10) Multiple sclerosis ICD Codes: G35 - Multiple sclerosis SNOMED: 75526864 (11) Anemia ICD Codes: D64.9 - Anemia, unspecified SNOMED: 117957350 Status: progressing Assessment/Plan: 54 year old female with multiple sclerosis, neurogenic bladder and functional quadriplegia being admitted for sepsis secondary to UTI, ?fungal uti, MRSA uti . Responded to fluid resuscitation. VSS. Ucx: 10/13, yeast >100K, 10/11: MRSA, 10/10: E.coli . Blood culture: 10/10: Strep Agalactias group B, Staph capitis. CXR negative x 2 # Acute Blood Loss Anemia # Iron deficiency Anemia - pt continues to refuse intervention - s/p 2 U prbc 10/20 - 2 units today - iron replacement - stop asa and hep dvt ppx, start protonix 40 iv bid - CTM cbc - FOBT , no bm yet ICU --> telemetry Continue Cefepime, vancomycin. s/p Azithromycin. Added Fluconazole and metronidazole. d/w ID MRI pelvis reviewed. no abscess or osteo. CT abdomen pelvis, no abscess. bilateral ischial decubitus. follow up blood cultures continue briseno for unstageable sacral decub monitor wbc outpatient urology follow up. ID consult with Dr. Palacios. d/w Licensed Home Inspector consult appreciated wound care and wound MD consult with Dr. Solis NERVE SPECIALIST consult to evaluate. d/w Princess. Tolerated regular diet, slow bites. Aspiration precautions Hold all BP meds, introduce when more stable pain control. Severe hypokalemia. Resolved. no labs today to monitor Normocytic anemia, occult blood positive stool. received 1 unit prbc, iron studies pending. seen by GI refused all interventions Appetite stimulant psychiatry consult appreciated. continue Zyprexa 2.5 mg at bedtime vte ppx: scd GI ppx: protonix CM consult for discharge planning Code status: full code, POLST signed by SNF Md but not patient and it's blank. Will attempt to call Kirsten Richardson, daughter of patient: [phone] Disposition: Waiting for labs to monitor wbc and adjust antibiotics I spent 40 minutes on this encounter, > 50% spent on counselling and care coordination The time of my note may not reflect the time of my patient encounter. Subjective Date patient seen: Oct 21, 2019 Time patient seen: 11:18 Allergies: Coded Allergies: PENICILLINS (Verified Allergy, Unknown, 07/05/16) Uncoded Allergies: seafood (Allergy, Mild, 10/15/19) Subjective denies sob, cp, light headedness vomiting blood this am non compliant a aspiration precautions Objective Last 24 Hour Vital Signs Date Time Temp Pulse Resp B/P (MAP) Pulse Ox O2 Delivery O2 Flow Rate FiO2 10/21/19 10:52 99.5 10/21/19 09:00 Room Air 10/21/19 08:00 100.0 118 18 129/73 (91) 100 10/21/19 04:00 96 10/21/19 04:00 98.8 105 20 123/77 (92) 100 10/21/19 00:00 99.0 116 20 146/99 (115) 95 10/21/19 00:00 106 10/20/19 21:00 Room Air 10/20/19 20:00 99.5 117 20 130/74 (92) 100 10/20/19 20:00 112 10/20/19 16:00 110 10/20/19 16:00 98.4 116 20 103/77 (86) 97 10/20/19 12:00 99.5 103 18 119/69 (86) 96 10/20/19 12:00 124 Intake and Output 10/20/19 10/21/19 19:00 07:00 Intake Total 500 ml 870.15 ml Output Total 1400 ml 300 ml Balance -900 ml 570.15 ml Intake Oral 240 ml IV Total 630.15 ml Blood Product 500 ml Output Urine Total 1400 ml 300 ml Laboratory Tests 10/20/19 21:53: Vancomycin Level Trough 17.1H 10/21/19 06:45: White Blood Count 9.8, Red Blood Count 2.36L, Hemoglobin 6.8*L, Hematocrit 19.5L , Mean Corpuscular Volume 82, Mean Corpuscular Hemoglobin 28.9, Mean Corpuscular Hemoglobin Concent 35.0, Red Cell Distribution Width 14.8, Platelet Count 295, Mean Platelet Volume 6.8, Neutrophils (%) (Auto) , Lymphocytes (%) ( Auto) , Monocytes (%) (Auto) , Eosinophils (%) (Auto) , Basophils (%) (Auto) , Differential Total Cells Counted 100, Neutrophils % (Manual) 66, Lymphocytes % ( Manual) 22, Monocytes % (Manual) 11H, Eosinophils % (Manual) 1, Basophils % ( Manual) 0, Band Neutrophils 0, Platelet Estimate Adequate, Platelet Morphology Normal, Hypochromasia 1+, Anisocytosis 1+, Sodium Level 143, Potassium Level 3.8 , Chloride Level 113H, Carbon Dioxide Level 21, Anion Gap 9, Blood Urea Nitrogen 32H, Creatinine 0.8, Estimat Glomerular Filtration Rate > 60, Glucose Level 135H, Calcium Level 7.1L Height (Feet): 5 Height (Inches): 1.00 Weight (Pounds): 188 Objective GENERAL: No acute distress, appears comfortable, alert, vomiting mucus with dark blood HEENT: NCAT, non-icteric eyes, Neck: No cervical lymphadenopathy, trachea midline CV: Regular rate and rhythm, no murmurs rubs or gallops RESP: Clear to auscultation bilaterally, no wheezes/rhonchi/crackles ABD: soft, non-distended, no TTP EXT: Normal muscle tone, +5/5 muscle strength NEURO: No obvious deficits, alert and oriented x3 Xenia Abraham DO Oct 21, 2019 11:23
[2019-10-21] MEDS: Pantoprazole Inj IVP SCH ×2 (11:30→21:06)
[2019-10-21 12:00] VITALS: BP 113/73
--- NOTE | 2019-10-21 14:35 | Surgery Progress Note ---
Surgery Progress Note Subjective Additional Comments low grade fevers tachycardia leukocytosis resolved anemia Objective Last 24 Hour Vital Signs Date Time Temp Pulse Resp B/P (MAP) Pulse Ox O2 Delivery O2 Flow Rate FiO2 10/21/19 12:00 98.2 106 20 113/73 (86) 97 10/21/19 12:00 103 10/21/19 10:52 99.5 10/21/19 09:00 Room Air 10/21/19 08:00 100 10/21/19 08:00 100.0 118 18 129/73 (91) 100 10/21/19 04:00 96 10/21/19 04:00 98.8 105 20 123/77 (92) 100 10/21/19 00:00 99.0 116 20 146/99 (115) 95 10/21/19 00:00 106 10/20/19 21:00 Room Air 10/20/19 20:00 99.5 117 20 130/74 (92) 100 10/20/19 20:00 112 10/20/19 16:00 110 10/20/19 16:00 98.4 116 20 103/77 (86) 97 I&O Intake and Output 10/20/19 10/21/19 19:00 07:00 Intake Total 500 ml 870.15 ml Output Total 1400 ml 300 ml Balance -900 ml 570.15 ml Intake Oral 240 ml IV Total 630.15 ml Blood Product 500 ml Output Urine Total 1400 ml 300 ml Dressing: saturated Wound: clean, other Drains: other Cardiovascular: RSR Respiratory: clear, decreased breath sounds Abdomen: soft, present bowel sounds Extremities: edema, no cyanosis, other Laboratory Tests Test 10/20/19 21:53 10/21/19 06:45 Vancomycin Level Trough 17.1 ug/mL (5.0-12.0) H White Blood Count 9.8 K/UL (4.8-10.8) Red Blood Count 2.36 M/UL (4.20-5.40) L Hemoglobin 6.8 G/DL (12.0-16.0) *L Hematocrit 19.5 % (37.0-47.0) L Mean Corpuscular Volume 82 FL (80-99) Mean Corpuscular Hemoglobin 28.9 PG (27.0-31.0) Mean Corpuscular Hemoglobin Concent 35.0 G/DL (32.0-36.0) Red Cell Distribution Width 14.8 % (11.6-14.8) Platelet Count 295 K/UL (150-450) Mean Platelet Volume 6.8 FL (6.5-10.1) Neutrophils (%) (Auto) % (45.0-75.0) Lymphocytes (%) (Auto) % (20.0-45.0) Monocytes (%) (Auto) % (1.0-10.0) Eosinophils (%) (Auto) % (0.0-3.0) Basophils (%) (Auto) % (0.0-2.0) Differential Total Cells Counted 100 Neutrophils % (Manual) 66 % (45-75) Lymphocytes % (Manual) 22 % (20-45) Monocytes % (Manual) 11 % (1-10) H Eosinophils % (Manual) 1 % (0-3) Basophils % (Manual) 0 % (0-2) Band Neutrophils 0 % (0-8) Platelet Estimate Adequate Platelet Morphology Normal Hypochromasia 1+ Anisocytosis 1+ Sodium Level 143 MMOL/L (136-145) Potassium Level 3.8 MMOL/L (3.5-5.1) Chloride Level 113 MMOL/L (98-107) H Carbon Dioxide Level 21 MMOL/L (21-32) Anion Gap 9 mmol/L (5-15) Blood Urea Nitrogen 32 mg/dL (7-18) H Creatinine 0.8 MG/DL (0.55-1.30) Estimat Glomerular Filtration Rate > 60 mL/min (>60) Glucose Level 135 MG/DL (74-106) H Calcium Level 7.1 MG/DL (8.5-10.1) L Plan Problems: (1) Decubitus ulcer Assessment & Plan: 54-year-old female multiple comorbidities who is fairly bedbound and care dependent presented from nursing facility with multiple decubitus ulcers requiring care and management and evaluation. Patient identified to have a right ischial and left ischial stage IV decubitus ulcers Patient Identified to have historic healed sacral decubitus ulcer pt presented on admission with multiple pressure injuries. Full thickness wound L abd with 95% slough, 5% surrounding erythema with macerated borders. Erythema without induration or elevation in skin temp periwound.(L)1.6cm x (W)1.7cm. Moisture intertrigo noted to abd folds and groin folds. Labia majora noted to be swollen. Hyperpigmentation from previous wound noted to Sacrum. Full thickness stage 4 pressure injury with undermining noted to L Ischium. Hurlock granulation noted to base of wound. No odor noted. Small amt serous exudate.(L)7.5cm x (W)4.5cm x (D)2.3cm, undermining clockwise 9-12o'clock by 3.6cm @12o'clock. Full thickness stage 4 pressure injury R ischium with two areas of tunneling. Hurlock granulation at base of wound with small amt of Biofilm. Surrounding pink epithelial borders. Small amt serosanguineous exudate noted. No odor noted. Periwound skin is dark without erythema,induration or elevation in skin temp.(L) 4cm x (W)2.5cm x (D)2.6cm ,tunneling clockwise @12 o'clock by3.6cm ,Tunneling clockwise @2o'clock by5.7cm. Areas of hyperpigmentation noted to L heel, distal/lateral L foot extending into plantar aspect. R heel is boggy with non-blanching erythema. unlikely etiology of sepsis as chronic wounds with good granulation tissue slowly healing Tx.Plan: Cleanse Abdominal wound with Saline. Apply TheraHoney. Apply Cavilon Skin Barrier periwound. Cover with Optifoam drsg. Change every 3 days and prn. Cleanse L ischial wound with Saline. Loosely Pack with Hydrogel impregnated Kerlix packing. Apply Moisture Barrier Paste periwound. Cover with Optifoam drsg Daily and prn. Cleanse R Ischial wound with Saline. Loosely pack with Hydrogel impregnated Kerlix. (ATTENTION:2 Tunneled areas 9o'clock and 2o'clock). Apply Moisture Barrier Paste periwound. Cover with Optifoam drsg Daily and prn. Apply Cavilon Skin BArrier to both heels. Cover each heel with Optifoam drsg. Change every 7 days and prn. APM/AURA Mattress overlay. Reposition at least every 2hours or as tolerated. Off-load heels with pillow. Place pillow between knees. nutritional optimization as below (2) Sepsis Assessment & Plan: 54-year-old female multiple committees presents with hypotension altered mental status. Patient with leukocytosis, abnormal labs. Currently intensive care unit under care and management. Wound evaluated and stage IV multiple but chronic and unlikely etiology of sepsis. MRI ordered to ensure no leukocytosis from acute osteo despite clean clinical appearance - reviewed Evidence of a small soft tissue ulcer within the subcutaneous fat posterior to the upper sacrum. Surrounding edema likely reflects adjacent inflammation. This does not appear to extend through the subjacent musculature, and no marrow edema to suggest osteomyelitis is demonstrated. Smaller apparent area of edema adjacent to the tip of the coccyx, likewise with no underlying marrow signal abnormality Edema of the subcutaneous fat adjacent to both ischia, could indicate decubitus changes 2.4 x 2.4 cm apparent fluid collection superficial to the right ischium. Could represent a small subcutaneous abscess, but suspect that this actually represents extracorporeal incontinent urine within a skin fold. Correlate with clinical findings Small left hip joint effusion Edema of the fat surrounding the umbilicus, could indicate inflammation of the periumbilical skin and subcutaneous fat. Correlate with clinical findings Edema of the bilateral hips and anterior pelvic dean, probably a manifestation of generalized systemic edema. Nonspecific edema of the presacral fat Haynes catheter seen within the bladder CT noted Bilateral ischial ulcers, also previously reported on prior MRI. There appears to be packing material within the ulcers. Correlate with clinical findings Small retrococcygeal and retrosacral decubitus changes, also previously described No definite acute abdominal or pelvic process Trace left pleural effusion. Small amount of basilar pulmonary parenchymal atelectasis Haynes catheter, inferior vena cava filter incidentally noted Right basilar pulmonary cystic spaces We will continue to monitor and evaluate IV fluids IV antibiotics as per infectious disease O2 Trend labs transfuse prn scope per GI - pt refused at this time We will follow with recommendations Thank you for let me participate in patient's care (3) Moderate protein malnutrition Assessment & Plan: DAILY ESTIMATED NEEDS: Needs based on Sepsis, stage 4 wounds; 51.6kg adj 30-35 kcals/kg [id number] total kcals 1.5-2 g protein/kg 77-103 g total protein 25-30 mL/kg 1290- 1548 total fluid mLs NUTRITION DIAGNOSIS: * Increased kcal and pro needs r/t wound healing AEB pt adm with stage 4 wounds x2, unstageable abdominal wound, h/o MS. CURRENT DIET: No diet order in place yet. PO DIET RECOMMENDATIONS: Regular as tolerated; texture per COFFEE WEIGHER Monitor PO intake w/ diet/ need for supplements and/or snacks ADDITIONAL RECOMMENDATIONS: 1) Obtain calibrated bedscale wt PER SNF: 139 lbs + 61 inches 2) 2) Wound healing: provide Elias in 8oz water BID -> Vit C 250mg BID + Zinc 220mg daily x 10days + MVI w/ MIN 3) Monitor BG- slightly low (72)-> rec D5 for hydration 4) COFFEE WEIGHER eval for appropriate texture/ previously on aspiration precautions Matty Solis Oct 21, 2019 14:35
--- NOTE | 2019-10-21 15:13 | Hematology/Onc Progress Note ---
Assessment/Plan Assessment/Plan Assessment and Recs # Anemia due to underlying chronic disease, has been downtrending since admission r/o gi bleed as well, underlying cause likely due to stage IV ulceration, MS, sepsis POA --> anemia panel reviewed and c/w acd --> hold off on epogen at this time, not indicated --> ferritin 859, doesn't need iron --> hgb trend 9.2-->8.6-->7.6-->6.6-->8.3-->5.7-->6.8 --> hgb goal >7, transfuse prn --> blood tx: 1 unit 10/16, 2 units 10/21 --> continue folic acid --> OCCULT ++ --> consider gi --> pt refusing egd # Thrombocytopenia ACUTE likely due to sepsis --> send off prelim pt/ptt, if any evidence dic --> hep and hiv ordered, both negative --> on abx for underlying cause --> plt trend: 123k-->252-->295 # 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 --> has not migrated per imaging # Leukocytosis with Sepsis poa with uti --> on abx as per id --> on vanc/cefepime--> vanc/fluc/flagy-->vanc/cefe/flagy --> wbc trend: 16.7-->9.8 # Urinary tract infection, with e.coli --> per id # Multiple sclerosis # Functional quadriplegia # Stage 4 skin ulcer of sacral region --> per surg, offloading, wound care # HTN # HLD # Unspecified dementia without behavioral disturbance # Chronic pain syndrome # Moderate protein malnutrition # Severe hypokalemia # Dvt ppx heparin sq Appreciate consultation and geeta RN Subjective Allergies: Coded Allergies: PENICILLINS (Verified Allergy, Unknown, 07/05/16) Uncoded Allergies: seafood (Allergy, Mild, 10/15/19) Subjective 10/16: remains confused, no bleeding, labs noted, plt lower, hgb requiring prbc transf 10/17: awake and alert, s/p blood tx, hgb improved to 8.3, stool ob positive 10/18: no events to report, is on abx per id, geeta Solis, labs noted, occult + 10/19: awake, remains confused, wants to be discharged, labs reviewed, ordered for am 10/21: refused egd, hgb 6.8, 2 units ordered, Objective Objective Current Medications Medications (Trade) Dose Ordered Sig/Lenard Route PRN Reason Start Time Stop Time Status Last Admin Dose Admin Acetaminophen (Tylenol) 650 mg Q4H PRN ORAL Mild Pain (Pain Scale 1-3) 10/11/19 21:28 11/10/19 21:27 10/21/19 10:22 Acetaminophen (Tylenol) 650 mg Q4H PRN ORAL fever 10/11/19 21:28 11/10/19 21:27 Ascorbic Acid (Vitamin C) 500 mg DAILY ORAL 10/12/19 09:00 11/11/19 08:59 10/21/19 09:27 Atorvastatin Calcium (Lipitor) 20 mg BEDTIME ORAL 10/12/19 21:00 11/10/19 20:59 10/20/19 20:41 Cefepime HCl 2 gm/ Dextrose 55 ml @ 110 mls/hr Q12H IVPB 10/19/19 21:00 10/26/19 20:59 10/21/19 09:29 Chlorhexidine Gluconate (Bailee-Hex 2%) 1 applic DAILY@2000 TOPIC 10/12/19 20:00 11/11/19 19:59 10/20/19 20:31 Dextrose (Dextrose 50%) 25 ml Q30M PRN IV Hypoglycemia 10/11/19 21:45 11/10/19 02:44 Dextrose (Dextrose 50%) 50 ml Q30M PRN IV Hypoglycemia 10/11/19 21:45 11/10/19 02:44 Dextrose/ Electrolytes 1,000 ml @ 75 mls/hr [id number] IV 10/16/19 10:00 11/11/19 09:59 10/21/19 10:00 Docusate Sodium (Colace) 100 mg TWICE A DAY ORAL 10/15/19 20:45 11/14/19 20:44 10/21/19 09:27 Fluconazole (Diflucan) 200 mg DAILY ORAL 10/16/19 09:00 10/22/19 10:06 10/21/19 09:27 Folic Acid (Folate) 1 mg DAILY ORAL 10/12/19 09:00 11/11/19 08:59 10/21/19 09:27 Metronidazole (Flagyl) 500 mg Q8HR ORAL 10/19/19 22:00 10/26/19 21:59 10/21/19 06:11 Multivitamins (Multivitamins) 1 tab DAILY ORAL 10/12/19 09:00 11/11/19 08:59 10/21/19 09:27 Ondansetron HCl (Zofran) 4 mg Q6H PRN IVP Nausea & Vomiting 10/21/19 11:15 11/20/19 11:14 Pantoprazole (Protonix) 40 mg EVERY 12 HOURS IVP 10/21/19 11:30 11/20/19 11:29 Polyethylene Glycol (Miralax) 17 gm BEDTIME ORAL 10/15/19 21:00 11/14/19 20:59 10/17/19 20:33 Sennosides (Senokot) 8.6 mg DAILY PRN ORAL Constipation 10/21/19 08:00 11/20/19 07:59 Vancomycin HCl (Vanco rx to dose) 1 ea DAILY PRN MISC Per rx protocol 10/12/19 12:45 11/11/19 12:44 Vancomycin HCl 750 mg/Sodium Chloride 275 ml @ 183.333 mls/hr Q24H IVPB 10/18/19 23:00 10/23/19 22:59 10/20/19 23:21 Zinc Sulfate (Zinc Sulfate) 220 mg DAILY ORAL 10/12/19 09:00 11/11/19 08:59 10/21/19 09:27 Last 24 Hour Vital Signs Date Time Temp Pulse Resp B/P (MAP) Pulse Ox O2 Delivery O2 Flow Rate FiO2 10/21/19 12:00 98.2 106 20 113/73 (86) 97 10/21/19 12:00 103 10/21/19 10:52 99.5 10/21/19 09:00 Room Air 10/21/19 08:00 100 10/21/19 08:00 100.0 118 18 129/73 (91) 100 10/21/19 04:00 96 10/21/19 04:00 98.8 105 20 123/77 (92) 100 10/21/19 00:00 99.0 116 20 146/99 (115) 95 10/21/19 00:00 106 10/20/19 21:00 Room Air 10/20/19 20:00 99.5 117 20 130/74 (92) 100 10/20/19 20:00 112 10/20/19 16:00 110 10/20/19 16:00 98.4 116 20 103/77 (86) 97 10/20/19 12:00 99.5 103 18 119/69 (86) 96 10/20/19 12:00 124 10/20/19 09:00 Room Air 10/20/19 08:00 103 10/20/19 08:00 100.0 101 20 128/64 (85) 98 10/20/19 04:00 97.9 114 17 114/71 (85) 97 10/20/19 04:00 116 10/20/19 01:00 90 99 10/20/19 00:00 99.3 102 18 106/65 (79) 90 10/20/19 00:00 104 10/19/19 21:00 Room Air 10/19/19 20:00 110 10/19/19 20:00 97.9 118 20 122/81 (95) 98 10/19/19 16:00 98.9 89 18 120/70 (87) 98 10/19/19 16:00 99 Intake and Output 10/20/19 10/21/19 19:00 07:00 Intake Total 500 ml 870.15 ml Output Total 1400 ml 300 ml Balance -900 ml 570.15 ml Intake Oral 240 ml IV Total 630.15 ml Blood Product 500 ml Output Urine Total 1400 ml 300 ml Labs Test 10/18/19 18:05 10/18/19 19:15 10/20/19 07:00 10/20/19 21:53 White Blood Count 12.9 K/UL (4.8-10.8) 12.8 K/UL (4.8-10.8) Red Blood Count 3.10 M/UL (4.20-5.40) 2.18 M/UL (4.20-5.40) Hemoglobin 8.3 G/DL (12.0-16.0) 5.7 G/DL (12.0-16.0) Hematocrit 24.4 % (37.0-47.0) 17.9 % (37.0-47.0) Mean Corpuscular Volume 79 FL (80-99) 82 FL (80-99) Mean Corpuscular Hemoglobin 26.6 PG (27.0-31.0) 26.2 PG (27.0-31.0) Mean Corpuscular Hemoglobin Concent 33.8 G/DL (32.0-36.0) 31.8 G/DL (32.0-36.0) Red Cell Distribution Width 15.4 % (11.6-14.8) 18.1 % (11.6-14.8) Platelet Count 252 K/UL (150-450) 345 K/UL (150-450) Mean Platelet Volume 8.2 FL (6.5-10.1) 6.7 FL (6.5-10.1) Neutrophils (%) (Auto) 73.4 % (45.0-75.0) % (45.0-75.0) Lymphocytes (%) (Auto) 19.7 % (20.0-45.0) % (20.0-45.0) Monocytes (%) (Auto) 5.9 % (1.0-10.0) % (1.0-10.0) Eosinophils (%) (Auto) 0.5 % (0.0-3.0) % (0.0-3.0) Basophils (%) (Auto) 0.4 % (0.0-2.0) % (0.0-2.0) Sodium Level 136 MMOL/L (136-145) 144 MMOL/L (136-145) Potassium Level 3.2 MMOL/L (3.5-5.1) 3.2 MMOL/L (3.5-5.1) Chloride Level 108 MMOL/L (98-107) 115 MMOL/L (98-107) Carbon Dioxide Level 21 MMOL/L (21-32) 22 MMOL/L (21-32) Anion Gap 7 mmol/L (5-15) 8 mmol/L (5-15) Blood Urea Nitrogen 10 mg/dL (7-18) 31 mg/dL (7-18) Creatinine 0.8 MG/DL (0.55-1.30) 0.8 MG/DL (0.55-1.30) Estimat Glomerular Filtration Rate > 60 mL/min (>60) > 60 mL/min (>60) Glucose Level 106 MG/DL (74-106) 103 MG/DL (74-106) Calcium Level 7.2 MG/DL (8.5-10.1) 7.3 MG/DL (8.5-10.1) Vancomycin Level Trough 23.9 ug/mL (5.0-12.0) 17.1 ug/mL (5.0-12.0) Differential Total Cells Counted 100 Neutrophils % (Manual) 74 % (45-75) Lymphocytes % (Manual) 19 % (20-45) Monocytes % (Manual) 7 % (1-10) Eosinophils % (Manual) 0 % (0-3) Basophils % (Manual) 0 % (0-2) Band Neutrophils 0 % (0-8) Platelet Estimate Adequate Platelet Morphology Normal Hypochromasia 2+ Anisocytosis 1+ Prothrombin Time 20.6 SEC (9.30-11.50) Prothromb Time International Ratio 2.0 (0.9-1.1) Iron Level 17 ug/dL (50-175) Total Iron Binding Capacity 89 ug/dL (250-450) Percent Iron Saturation 19 % (15-50) Unsaturated Iron Binding 72 ug/dL (112-346) Total Bilirubin 0.2 MG/DL (0.2-1.0) Aspartate Amino Transf (AST/SGOT) 12 U/L (15-37) Alanine Aminotransferase (ALT/SGPT) 13 U/L (12-78) Alkaline Phosphatase 138 U/L (46-116) Total Protein 6.3 G/DL (6.4-8.2) Albumin 1.0 G/DL (3.4-5.0) Globulin 5.3 g/dL Albumin/Globulin Ratio 0.2 (1.0-2.7) Test 10/21/19 06:45 White Blood Count 9.8 K/UL (4.8-10.8) Red Blood Count 2.36 M/UL (4.20-5.40) Hemoglobin 6.8 G/DL (12.0-16.0) Hematocrit 19.5 % (37.0-47.0) Mean Corpuscular Volume 82 FL (80-99) Mean Corpuscular Hemoglobin 28.9 PG (27.0-31.0) Mean Corpuscular Hemoglobin Concent 35.0 G/DL (32.0-36.0) Red Cell Distribution Width 14.8 % (11.6-14.8) Platelet Count 295 K/UL (150-450) Mean Platelet Volume 6.8 FL (6.5-10.1) Neutrophils (%) (Auto) % (45.0-75.0) Lymphocytes (%) (Auto) % (20.0-45.0) Monocytes (%) (Auto) % (1.0-10.0) Eosinophils (%) (Auto) % (0.0-3.0) Basophils (%) (Auto) % (0.0-2.0) Differential Total Cells Counted 100 Neutrophils % (Manual) 66 % (45-75) Lymphocytes % (Manual) 22 % (20-45) Monocytes % (Manual) 11 % (1-10) Eosinophils % (Manual) 1 % (0-3) Basophils % (Manual) 0 % (0-2) Band Neutrophils 0 % (0-8) Platelet Estimate Adequate Platelet Morphology Normal Hypochromasia 1+ Anisocytosis 1+ Sodium Level 143 MMOL/L (136-145) Potassium Level 3.8 MMOL/L (3.5-5.1) Chloride Level 113 MMOL/L (98-107) Carbon Dioxide Level 21 MMOL/L (21-32) Anion Gap 9 mmol/L (5-15) Blood Urea Nitrogen 32 mg/dL (7-18) Creatinine 0.8 MG/DL (0.55-1.30) Estimat Glomerular Filtration Rate > 60 mL/min (>60) Glucose Level 135 MG/DL (74-106) Calcium Level 7.1 MG/DL (8.5-10.1) Height (Feet): 5 Height (Inches): 1.00 Weight (Pounds): 188 Objective GeN: nad, somewhat confused Pulm: ctab, no cwr CV: rrr, no gmr Abd: soft, nt, nd Ext: no cce Jerry Ervin MD Oct 21, 2019 15:13
[2019-10-21 16:00] VITALS: BP 131/61
--- NOTE | 2019-10-21 18:38 | Infectious Diseases Prog Note ---
Assessment/Plan Assessment/Plan ASSESSMENT AND PLAN: 1. e.coli uti, streptococcus bacteremia/instructional interventionist bacteremia, sepsis, leukocytosis, fevers, mrsa uti, ? fungemia/fungal uti, ? mrsa pna (previous chest x-ray negative, wounds noted - ? infected but look fairly clean, MRI without osteo, MRI with incontinent urine within skin fold > right ischium/hip abscess - vancomycin, cefepime, flagyl, on diflucan for fungemia coverage x 5 days more - monitor chest x-ray and labs, cultures noted - leukocytosis resolved, lgt, clinically improved - wound care per surgery and protocol - echo report without vegetation mentioned - CT abdomen and pelvis - no abscess, report noted - stable ID standpoint 2. telemetry care 3. Skin care protocol. 4. The patient is anemic. 5. Hypertension. 6. Blood pressure treatment primary care team. 7. Multiple sclerosis. 8. History of UTIs. 9. Hyperlipidemia. 10. Seizures. 11. Chronic pain syndrome. 12. Dementia. 13. Malnutrition. 14. Allergic to penicillin. 15. Social history is negative. 16. Family history is noncontributory. 17. MAR is noted. 18. Case was discussed with RN. 19. Case was discussed with Dr. Quiles. 20. Continue treatment per primary consultants. Subjective Constitutional: Reports: fever - lgt - 100.0, fatigue HEENT: Denies: congestion Respiratory: Denies: shortness of breath Cardiovascular: Denies: chest pain Gastrointestinal/Abdominal: Denies: nausea, vomiting, diarrhea Genitourinary: Reports: other - + briseno Neurologic: Denies: headache Psychiatric: Denies: depression Skin: Denies: rash Hematologic: Denies: bleeding Musculoskeletal: Denies: pain Allergies: Coded Allergies: PENICILLINS (Verified Allergy, Unknown, 07/05/16) Uncoded Allergies: seafood (Allergy, Mild, 10/15/19) Objective Vital Signs Last 24 Hour Vital Signs Date Time Temp Pulse Resp B/P (MAP) Pulse Ox O2 Delivery O2 Flow Rate FiO2 10/21/19 16:00 99.0 93 18 131/61 (84) 100 10/21/19 12:00 98.2 106 20 113/73 (86) 97 10/21/19 12:00 103 10/21/19 10:52 99.5 10/21/19 09:00 Room Air 10/21/19 08:00 100 10/21/19 08:00 100.0 118 18 129/73 (91) 100 10/21/19 04:00 96 10/21/19 04:00 98.8 105 20 123/77 (92) 100 10/21/19 00:00 99.0 116 20 146/99 (115) 95 10/21/19 00:00 106 10/20/19 21:00 Room Air 10/20/19 20:00 99.5 117 20 130/74 (92) 100 10/20/19 20:00 112 Height (Feet): 5 Height (Inches): 1.00 Weight (Pounds): 188 General Appearance: no acute distress HEENT: normocephalic, atraumatic, anicteric, mucous membranes moist Respiratory/Chest: lungs clear, normal breath sounds, no respiratory distress, no accessory muscle use Cardiovascular: normal rate, regular rhythm, no gallop/murmur, no JVD Abdomen: normal bowel sounds, soft, non tender, no organomegaly, non distended Genitourinary: other - + briseno - urine slt cloudy Extremities: no cyanosis Skin: no rash 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 Lungs and pleural spaces are clear. No significant interim change Impression: No acute process Chest x-ray - 10/15/19 - Procedure: XRAY Chest 1v Indication: Shortness of breath Technique: One view of the chest Comparison: 10/12/2019 Findings: Lungs and pleural spaces are clear. Heart size is normal. Is no significant interim change Impression: No acute process MRI - Pelvis: Impression: Evidence of a small soft tissue ulcer within the subcutaneous fat posterior to the upper sacrum. Surrounding edema likely reflects adjacent inflammation. This does not appear to extend through the subjacent musculature, and no marrow edema to suggest osteomyelitis is demonstrated. Smaller apparent area of edema adjacent to the tip of the coccyx, likewise with no underlying marrow signal abnormality Edema of the subcutaneous fat adjacent to both ischia, could indicate decubitus changes 2.4 x 2.4 cm apparent fluid collection superficial to the right ischium. Could represent a small subcutaneous abscess, but suspect that this actually represents extracorporeal incontinent urine within a skin fold. Correlate with clinical findings Small left hip joint effusion Edema of the fat surrounding the umbilicus, could indicate inflammation of the periumbilical skin and subcutaneous fat. Correlate with clinical findings Edema of the bilateral hips and anterior pelvic dean, probably a manifestation of generalized systemic edema. Nonspecific edema of the presacral fat CT scan of abdomen and pelvis: Impression: Bilateral ischial ulcers, also previously reported on prior MRI. There appears to be packing material within the ulcers. Correlate with clinical findings Small retrococcygeal and retrosacral decubitus changes, also previously described No definite acute abdominal or pelvic process Trace left pleural effusion. Small amount of basilar pulmonary parenchymal atelectasis Briseno catheter, inferior vena cava filter incidentally noted Right basilar pulmonary cystic spaces Other findings as noted, including degenerative spondylosis The CT scanner at [facility] is accredited by the [employer] and the scans are performed using protocols designed to limit radiation exposure to as low as reasonably achievable to attain images of sufficient resolution adequate for diagnostic evaluation. Chest x-ray - 10/20/19 - IMPRESSION: Asymmetry in the densities of the lungs, right is more lucent than the left. Could possibly be related to rotational changes and/or layering effusion or other. Minimal left basilar atelectasis/pneumonitis. No confluent consolidation. Microbiology Date/Time Source Procedure Growth Status 10/13/19 18:20 Blood Blood Culture - Final NO GROWTH AFTER 5 DAYS Complete 10/13/19 06:30 Sputum Gram Stain - Final Complete 10/13/19 06:30 Sputum Culture - Final April Albicans Staphylococcus Aureus Complete 10/13/19 17:55 Urine,Clean Catch Urine Culture - Final April Albicans Complete 10/11/19 01:35 Rectum - Final NO CARBAPENEM-RESISTANT ENTEROBACTERI... Complete Laboratory Tests Test 10/20/19 21:53 10/21/19 06:45 Vancomycin Level Trough 17.1 ug/mL (5.0-12.0) H White Blood Count 9.8 K/UL (4.8-10.8) Red Blood Count 2.36 M/UL (4.20-5.40) L Hemoglobin 6.8 G/DL (12.0-16.0) *L Hematocrit 19.5 % (37.0-47.0) L Mean Corpuscular Volume 82 FL (80-99) Mean Corpuscular Hemoglobin 28.9 PG (27.0-31.0) Mean Corpuscular Hemoglobin Concent 35.0 G/DL (32.0-36.0) Red Cell Distribution Width 14.8 % (11.6-14.8) Platelet Count 295 K/UL (150-450) Mean Platelet Volume 6.8 FL (6.5-10.1) Neutrophils (%) (Auto) % (45.0-75.0) Lymphocytes (%) (Auto) % (20.0-45.0) Monocytes (%) (Auto) % (1.0-10.0) Eosinophils (%) (Auto) % (0.0-3.0) Basophils (%) (Auto) % (0.0-2.0) Differential Total Cells Counted 100 Neutrophils % (Manual) 66 % (45-75) Lymphocytes % (Manual) 22 % (20-45) Monocytes % (Manual) 11 % (1-10) H Eosinophils % (Manual) 1 % (0-3) Basophils % (Manual) 0 % (0-2) Band Neutrophils 0 % (0-8) Platelet Estimate Adequate Platelet Morphology Normal Hypochromasia 1+ Anisocytosis 1+ Sodium Level 143 MMOL/L (136-145) Potassium Level 3.8 MMOL/L (3.5-5.1) Chloride Level 113 MMOL/L (98-107) H Carbon Dioxide Level 21 MMOL/L (21-32) Anion Gap 9 mmol/L (5-15) Blood Urea Nitrogen 32 mg/dL (7-18) H Creatinine 0.8 MG/DL (0.55-1.30) Estimat Glomerular Filtration Rate > 60 mL/min (>60) Glucose Level 135 MG/DL (74-106) H Calcium Level 7.1 MG/DL (8.5-10.1) L Current Medications Medications (Trade) Dose Ordered Sig/Lenard Route PRN Reason Start Time Stop Time Status Last Admin Dose Admin Acetaminophen (Tylenol) 650 mg Q4H PRN ORAL Mild Pain (Pain Scale 1-3) 10/11/19 21:28 11/10/19 21:27 10/21/19 10:22 Acetaminophen (Tylenol) 650 mg Q4H PRN ORAL fever 10/11/19 21:28 11/10/19 21:27 Ascorbic Acid (Vitamin C) 500 mg DAILY ORAL 10/12/19 09:00 11/11/19 08:59 10/21/19 09:27 Atorvastatin Calcium (Lipitor) 20 mg BEDTIME ORAL 10/12/19 21:00 11/10/19 20:59 10/20/19 20:41 Cefepime HCl 2 gm/ Dextrose 55 ml @ 110 mls/hr Q12H IVPB 10/19/19 21:00 10/26/19 20:59 10/21/19 09:29 Chlorhexidine Gluconate (Bailee-Hex 2%) 1 applic DAILY@2000 TOPIC 10/12/19 20:00 11/11/19 19:59 10/20/19 20:31 Dextrose (Dextrose 50%) 25 ml Q30M PRN IV Hypoglycemia 10/11/19 21:45 11/10/19 02:44 Dextrose (Dextrose 50%) 50 ml Q30M PRN IV Hypoglycemia 10/11/19 21:45 11/10/19 02:44 Dextrose/ Electrolytes 1,000 ml @ 75 mls/hr [id number] IV 10/16/19 10:00 11/11/19 09:59 10/21/19 10:00 Docusate Sodium (Colace) 100 mg TWICE A DAY ORAL 10/15/19 20:45 11/14/19 20:44 10/21/19 09:27 Fluconazole (Diflucan) 200 mg DAILY ORAL 10/16/19 09:00 10/22/19 10:06 10/21/19 09:27 Folic Acid (Folate) 1 mg DAILY ORAL 10/12/19 09:00 11/11/19 08:59 10/21/19 09:27 Metronidazole (Flagyl) 500 mg Q8HR ORAL 10/19/19 22:00 10/26/19 21:59 10/21/19 15:51 Multivitamins (Multivitamins) 1 tab DAILY ORAL 10/12/19 09:00 11/11/19 08:59 10/21/19 09:27 Ondansetron HCl (Zofran) 4 mg Q6H PRN IVP Nausea & Vomiting 10/21/19 11:15 11/20/19 11:14 Pantoprazole (Protonix) 40 mg EVERY 12 HOURS IVP 10/21/19 11:30 11/20/19 11:29 Polyethylene Glycol (Miralax) 17 gm BEDTIME ORAL 10/15/19 21:00 11/14/19 20:59 10/17/19 20:33 Sennosides (Senokot) 8.6 mg DAILY PRN ORAL Constipation 10/21/19 08:00 11/20/19 07:59 Vancomycin HCl (Vanco rx to dose) 1 ea DAILY PRN MISC Per rx protocol 10/12/19 12:45 11/11/19 12:44 Vancomycin HCl 750 mg/Sodium Chloride 275 ml @ 183.333 mls/hr Q24H IVPB 10/18/19 23:00 10/23/19 22:59 10/20/19 23:21 Zinc Sulfate (Zinc Sulfate) 220 mg DAILY ORAL 10/12/19 09:00 11/11/19 08:59 10/21/19 09:27 Jt Land MD Oct 21, 2019 18:38
[2019-10-21 20:00] VITALS: BP 146/61
[2019-10-21] MEDS: Dyna-Hex 2% Top Sol 2oz TOPIC SCH (20:53)
[2019-10-21] MEDS: Miralax 17gm pkt ORAL SCH (21:00)
[2019-10-21] MEDS: Atorvastatin 20mg tab ORAL SCH (21:00)
[2019-10-21] MEDS ORDERED: Miralax 17gm pkt ORAL SCH (21:00)
[2019-10-21] MEDS: Vancomycin 750 MG in NS 275 ML IVPB SCH (22:14)
[2019-10-22 04:00] VITALS: BP 127/78
[2019-10-22] MEDS: metroNIDAZOLE 500mg tab ORAL SCH ×3 (06:09→21:27)
[2019-10-22 08:00] VITALS: BP 149/94
[2019-10-22] MEDS: Fluconazole 100mg tab ORAL SCH (08:52)
[2019-10-22] MEDS: Docusate 100mg cap ORAL SCH ×2 (08:52→17:27)
[2019-10-22] MEDS: Zinc Sulfate 220mg cap ORAL SCH (08:52)
[2019-10-22] MEDS: Pantoprazole Inj IVP SCH ×2 (08:52→21:27)
[2019-10-22] MEDS: Ascorbic Acid 500mg tab ORAL SCH (08:52)
[2019-10-22] MEDS: Cefepime HCl 2 GM in D5W 55 ML IVPB SCH ×2 (08:58→21:28)
--- NOTE | 2019-10-22 09:17 | General Progress Note ---
Assessment/Plan Problem List: (1) Sepsis ICD Codes: A41.9 - Sepsis, unspecified organism SNOMED: 43930543 (2) Urinary tract infection ICD Codes: N39.0 - Urinary tract infection, site not specified SNOMED: 30039617 (3) Multiple sclerosis ICD Codes: G35 - Multiple sclerosis SNOMED: 84414971 (4) Stage 4 skin ulcer of sacral region ICD Codes: L98.429 - Non-pressure chronic ulcer of back with unspecified severity SNOMED: 38256150, 266616127 (5) HTN (hypertension) ICD Codes: I10 - Essential (primary) hypertension SNOMED: 12476741 (6) HLD (hyperlipidemia) ICD Codes: E78.5 - Hyperlipidemia, unspecified SNOMED: 55038241 (7) Unspecified dementia without behavioral disturbance ICD Codes: F03.90 - Unspecified dementia without behavioral disturbance SNOMED: 98435119 (8) Chronic pain syndrome ICD Codes: G89.4 - Chronic pain syndrome SNOMED: 102745304 (9) Moderate protein malnutrition ICD Codes: E44.0 - Moderate protein-calorie malnutrition SNOMED: 768078599 (10) Hypokalemia ICD Codes: E87.6 - Hypokalemia SNOMED: 78658230 (11) Anemia ICD Codes: D64.9 - Anemia, unspecified SNOMED: 527243160 (12) Acute blood loss anemia ICD Codes: D62 - Acute posthemorrhagic anemia SNOMED: 888119073 (13) Thrombocytopenia ICD Codes: D69.6 - Thrombocytopenia, unspecified SNOMED: 978441171 Status: progressing Assessment/Plan: # Acute Blood Loss Anemia # Iron deficiency Anemia #Severe hypokalemia. Resolved. no labs today to monitor #thrombocytopenia- resolved - EGD today - transfuse prn - iron replacement - CTM cbc - FOBT + ICU --> telemetry Continue Cefepime, vancomycin. s/p Azithromycin. Added Fluconazole and metronidazole. d/w ID MRI pelvis reviewed. no abscess or osteo. CT abdomen pelvis, no abscess. bilateral ischial decubitus. follow up blood cultures continue briseno monitor wbc outpatient urology follow up. ID consult with Dr. Palacios. d/w Engraver consult appreciated wound care and wound MD consult with Dr. Solis PIANO MOVER consult to evaluate. d/w Princess. Tolerated regular diet, slow bites. Aspiration precautions Hold all BP meds, introduce when more stable pain control. Appetite stimulant psychiatry consult appreciated. continue Zyprexa 2.5 mg at bedtime vte ppx: heparin subq GI ppx: not indicated CM consult for discharge planning Code status: full code, POLST signed by SNF Md but not patient and it's blank. attempted to call Kirsten Richardson, daughter of patient: [phone] Disposition: SNF I spent 40 minutes on this encounter, > 50% spent on counselling and care coordination I spent an additional 38 minutes in review and interpretation of prior medical records including notes, imaging, labs, ancillary data. time of this note may not reflect time of encounter. Subjective Date patient seen: Oct 22, 2019 ROS Limited/Unobtainable: No Constitutional: Denies: no symptoms, chills, diaphoresis, fever, malaise, weakness, other HEENT: Denies: no symptoms, eye pain, blurred vision, tearing, double vision, ear pain, ear discharge, nose pain, nose congestion, throat pain, throat swelling, mouth pain, mouth swelling, other Respiratory: Denies: no symptoms, cough, orthopnea, shortness of breath, SOB with excertion, SOB at rest, sputum, stridor, wheezing, other Gastrointestinal/Abdominal: Denies: no symptoms, abdomen distended, abdominal pain, black stools, tarry stools, blood in stool, constipated, diarrhea, difficulty swallowing, nausea, poor appetite, poor fluid intake, rectal bleeding , vomiting, other Genitourinary: Denies: no symptoms, burning, discharge, frequency, flank pain, hematuria, incontinence, pain, urgency, other Neurologic/Psychiatric: Denies: no symptoms, anxiety, depressed, emotional problems, headache, numbness, paresthesia, pre-existing deficit, seizure, tingling, tremors, weakness, other Endocrine: Denies: no symptoms, excessive sweating, flushing, intolerance to cold, intolerance to heat, increased hunger, increased thirst, increased urine, unexplained weight gain, unexplained weight loss, other Hematologic/Lymphatic: Denies: no symptoms, anemia, easy bleeding, easy bruising, other Allergies: Coded Allergies: PENICILLINS (Verified Allergy, Unknown, 07/05/16) Uncoded Allergies: seafood (Allergy, Mild, 10/15/19) Subjective Following up for sepsis and bacteremia due to UTI, blood loss anemia. Mental status much improved. Alert and oriented x4. Afebrile, wbc slowly coming down, Received multiple units of prbc transfusion over the weekend .Refused Gi intervention, however after much discussion today, she is agreeable to EGD. INR elevated, will received vit k and ffp. Also nursing reported coffee ground emesis. Objective Last 24 Hour Vital Signs Date Time Temp Pulse Resp B/P (MAP) Pulse Ox O2 Delivery O2 Flow Rate FiO2 10/22/19 08:00 97.9 95 15 149/94 (112) 98 10/22/19 04:00 93 10/22/19 04:00 97.6 93 18 127/78 (94) 95 10/22/19 00:00 90 10/21/19 21:37 99.0 10/21/19 21:00 Room Air 10/21/19 20:00 97.9 90 19 146/61 (89) 100 10/21/19 20:00 96 10/21/19 16:00 91 10/21/19 16:00 99.0 93 18 131/61 (84) 100 10/21/19 12:00 98.2 106 20 113/73 (86) 97 10/21/19 12:00 103 Intake and Output 10/21/19 10/22/19 19:00 07:00 Intake Total 75 ml 1111.38 ml Output Total 2500 ml 800 ml Balance -2425 ml 311.38 ml IV Total 75 ml 1111.38 ml Output Urine Total 2500 ml 800 ml Height (Feet): 5 Height (Inches): 1.00 Weight (Pounds): 173 Objective General Appearance: no apparent distress, confused Lines, tubes and drains: peripheral HEENT: normocephalic, atraumatic, anicteric, no JVD, other - right eye deviated to the right, unable to abduct Neck: non-tender, supple Respiratory/Chest: lungs clear, normal breath sounds, no respiratory distress, no accessory muscle use Cardiovascular/Chest: normal peripheral pulses, normal rate, regular rhythm, no gallop/murmur Abdomen: normal bowel sounds, non tender, soft, no organomegaly, other - pressure ulcer LLQ Genitourinary/Rectal: briseno, other - +CVA tenderness Extremities: no calf tenderness, no edema, no cyanosis Skin Exam: other - multiple stage 4 sacral decub Neurologic: confused , motor weakness - quadriplegia, now bilateral upper extremity motor improved to 4/5, bl LE / Musculoskeletal: atrophy Mikal Quiles M.D. Oct 22, 2019 09:17
--- NOTE | 2019-10-22 10:03 | General Progress Note ---
Assessment/Plan Status: progressing Assessment/Plan: 1. Multiple sclerosis. 2. Multiple UTIs. 3. Hypertension. 4. Hyperlipidemia. 5. Seizure disorder. 6. Chronic pain syndrome. 7. Malnutrition. 8. Decubital ulcerations 9. Anemia patient agreed to EGD will correct INR with Vit K and FFP fu H&H ppi BID plan EGD in am Subjective ROS Limited/Unobtainable: Yes Allergies: Coded Allergies: PENICILLINS (Verified Allergy, Unknown, 07/05/16) Uncoded Allergies: seafood (Allergy, Mild, 10/15/19) Objective Last 24 Hour Vital Signs Date Time Temp Pulse Resp B/P (MAP) Pulse Ox O2 Delivery O2 Flow Rate FiO2 10/22/19 08:00 97.9 95 15 149/94 (112) 98 10/22/19 04:00 93 10/22/19 04:00 97.6 93 18 127/78 (94) 95 10/22/19 00:00 90 10/21/19 21:37 99.0 10/21/19 21:00 Room Air 10/21/19 20:00 97.9 90 19 146/61 (89) 100 10/21/19 20:00 96 10/21/19 16:00 91 10/21/19 16:00 99.0 93 18 131/61 (84) 100 10/21/19 12:00 98.2 106 20 113/73 (86) 97 10/21/19 12:00 103 Intake and Output 10/21/19 10/22/19 19:00 07:00 Intake Total 75 ml 1111.38 ml Output Total 2500 ml 800 ml Balance -2425 ml 311.38 ml IV Total 75 ml 1111.38 ml Output Urine Total 2500 ml 800 ml Height (Feet): 5 Height (Inches): 1.00 Weight (Pounds): 173 General Appearance: alert EENT: normal ENT inspection Neck: supple Cardiovascular: tachycardia Respiratory/Chest: decreased breath sounds Abdomen: normal bowel sounds, non tender, soft Extremities: non-tender Paulo Christine MD Oct 22, 2019 10:03
[2019-10-22] MEDS ORDERED: Phytonadione 1 MG in D5W 55 ML IVPB SCH (11:00)
[2019-10-22] MEDS: HYDROcodone/Acetamin 5/325 tab ORAL PRN (11:08)
[2019-10-22 12:00] VITALS: BP 132/87
[2019-10-22] MEDS ORDERED: Fleet's Enema 133ml RECTAL SCH (13:00)
--- NOTE | 2019-10-22 14:13 | Hematology/Onc Progress Note ---
Assessment/Plan Assessment/Plan Assessment and Recs # Anemia due to underlying chronic disease, has been downtrending since admission r/o gi bleed as well, underlying cause likely due to stage IV ulceration, MS, sepsis POA --> anemia panel reviewed and c/w acd --> hold off on epogen at this time, not indicated --> ferritin 859, doesn't need iron --> hgb trend 9.2-->8.6-->7.6-->6.6-->8.3-->5.7-->6.8 --> hgb goal >7, transfuse prn --> blood tx: 1 unit 10/16, 2 units 10/21 --> continue folic acid --> OCCULT ++ --> now agreed to egd, pending --> GIVEN ffp and vitk correct coagulopathy # Thrombocytopenia ACUTE likely due to sepsis --> send off prelim pt/ptt, if any evidence dic --> hep and hiv ordered, both negative --> on abx for underlying cause --> plt trend: 123k-->252-->295 # Coagulopathy due to meds/infection --> vit k and ffp ordered # 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 --> has not migrated per imaging # Leukocytosis with Sepsis poa with uti --> on abx as per id --> on vanc/cefepime--> vanc/fluc/flagy-->vanc/cefe/flagy --> wbc trend: 16.7-->9.8 # Urinary tract infection, with e.coli --> per id # Multiple sclerosis # Functional quadriplegia # Stage 4 skin ulcer of sacral region --> per surg, offloading, wound care # HTN # HLD # Unspecified dementia without behavioral disturbance # Chronic pain syndrome # Moderate protein malnutrition # Severe hypokalemia # Dvt ppx heparin sq Appreciate consultation and geeta RN Subjective Constitutional: Denies: no symptoms, chills, fever, malaise, weakness, other HEENT: Denies: no symptoms, eye pain, blurred vision, tearing, double vision, ear pain, ear discharge, nose pain, nose congestion, throat pain, throat swelling, mouth pain, mouth swelling, other Cardiovascular: Denies: no symptoms, chest pain, edema, irregular heart rate, lightheadedness, palpitations, syncope, other Respiratory: Denies: no symptoms, cough, shortness of breath, SOB with excertion, SOB at rest, sputum, wheezing, other Neurologic/Psychiatric: Denies: no symptoms, anxiety, depressed, emotional problems, headache, numbness, paresthesia, pre-existing deficit, seizure, tingling, tremors, weakness, other Endocrine: Denies: no symptoms, excessive sweating, flushing, intolerance to cold, intolerance to heat, increased hunger, increased thirst, increased urine, unexplained weight gain, unexplained weight loss, other Allergies: Coded Allergies: PENICILLINS (Verified Allergy, Unknown, 07/05/16) Uncoded Allergies: seafood (Allergy, Mild, 10/15/19) Subjective 10/16: remains confused, no bleeding, labs noted, plt lower, hgb requiring prbc transf 10/17: awake and alert, s/p blood tx, hgb improved to 8.3, stool ob positive 10/18: no events to report, is on abx per id, geeta Solis, labs noted, occult + 10/19: awake, remains confused, wants to be discharged, labs reviewed, ordered for am 10/21: refused egd, hgb 6.8, 2 units ordered, 10/22: no events, hgb remains decreased she agreed to egd, on protonix and cbc reordered Objective Objective Current Medications Medications (Trade) Dose Ordered Sig/Lenard Route PRN Reason Start Time Stop Time Status Last Admin Dose Admin Acetaminophen (Tylenol) 650 mg Q4H PRN ORAL Mild Pain (Pain Scale 1-3) 10/11/19 21:28 11/10/19 21:27 10/21/19 21:07 Acetaminophen (Tylenol) 650 mg Q4H PRN ORAL fever 10/11/19 21:28 11/10/19 21:27 Acetaminophen/ Hydrocodone Bitart ([place] 5/325) 1 tab Q6H PRN ORAL Moderate Pain (Pain Scale 4-6) 10/22/19 09:15 10/29/19 09:14 10/22/19 11:08 Acetaminophen/ Hydrocodone Bitart ([place] 7.5/325) 1 tab Q4H PRN ORAL Severe Pain (Pain Scale 7-10) 10/22/19 09:15 10/29/19 09:14 Ascorbic Acid (Vitamin C) 500 mg DAILY ORAL 10/12/19 09:00 11/11/19 08:59 10/22/19 08:52 Atorvastatin Calcium (Lipitor) 20 mg BEDTIME ORAL 10/12/19 21:00 11/10/19 20:59 10/20/19 20:41 Baclofen (Lioresal) 20 mg THREE TIMES A DAY ORAL 10/22/19 09:15 11/21/19 09:14 10/22/19 13:14 Cefepime HCl 2 gm/ Dextrose 55 ml @ 110 mls/hr Q12H IVPB 10/19/19 21:00 10/26/19 20:59 10/22/19 08:58 Chlorhexidine Gluconate (Bailee-Hex 2%) 1 applic DAILY@2000 TOPIC 10/12/19 20:00 11/11/19 19:59 10/21/19 20:53 Dextrose (Dextrose 50%) 25 ml Q30M PRN IV Hypoglycemia 10/11/19 21:45 11/10/19 02:44 Dextrose (Dextrose 50%) 50 ml Q30M PRN IV Hypoglycemia 10/11/19 21:45 11/10/19 02:44 Dextrose/ Electrolytes 1,000 ml @ 75 mls/hr [id number] IV 10/16/19 10:00 11/11/19 09:59 10/22/19 11:04 Docusate Sodium (Colace) 100 mg TWICE A DAY ORAL 10/15/19 20:45 11/14/19 20:44 10/22/19 08:52 Folic Acid (Folate) 1 mg DAILY ORAL 10/12/19 09:00 11/11/19 08:59 10/22/19 08:52 Metronidazole (Flagyl) 500 mg Q8HR ORAL 10/19/19 22:00 10/26/19 21:59 10/22/19 13:13 Multivitamins (Multivitamins) 1 tab DAILY ORAL 10/12/19 09:00 11/11/19 08:59 10/22/19 08:52 Ondansetron HCl (Zofran) 4 mg Q6H PRN IVP Nausea & Vomiting 10/21/19 11:15 11/20/19 11:14 Pantoprazole (Protonix) 40 mg EVERY 12 HOURS IVP 10/21/19 11:30 11/20/19 11:29 10/22/19 08:52 Polyethylene Glycol (Miralax) 17 gm BEDTIME ORAL 10/15/19 21:00 11/14/19 20:59 10/17/19 20:33 Sennosides (Senokot) 8.6 mg DAILY PRN ORAL Constipation 10/21/19 08:00 11/20/19 07:59 Sodium Phosphate (Fleet's Sodium Phosl Enema) 133 ml ONCE RECTAL 10/22/19 13:00 10/22/19 15:00 10/22/19 13:15 Vancomycin HCl (Vanco rx to dose) 1 ea DAILY PRN MISC Per rx protocol 10/21/19 18:45 11/20/19 18:44 Vancomycin HCl 750 mg/Sodium Chloride 275 ml @ 183.333 mls/hr Q24H IVPB 10/21/19 23:00 10/26/19 22:59 10/21/19 22:14 Zinc Sulfate (Zinc Sulfate) 220 mg DAILY ORAL 10/12/19 09:00 11/11/19 08:59 10/22/19 08:52 Last 24 Hour Vital Signs Date Time Temp Pulse Resp B/P (MAP) Pulse Ox O2 Delivery O2 Flow Rate FiO2 10/22/19 12:00 97.2 88 14 132/87 (102) 98 10/22/19 12:00 80 10/22/19 09:00 Room Air 10/22/19 08:00 87 10/22/19 08:00 97.9 95 15 149/94 (112) 98 10/22/19 04:00 93 10/22/19 04:00 97.6 93 18 127/78 (94) 95 10/22/19 00:00 90 10/21/19 21:37 99.0 10/21/19 21:00 Room Air 10/21/19 20:00 97.9 90 19 146/61 (89) 100 10/21/19 20:00 96 10/21/19 16:00 91 10/21/19 16:00 99.0 93 18 131/61 (84) 100 10/21/19 12:00 98.2 106 20 113/73 (86) 97 10/21/19 12:00 103 10/21/19 09:00 Room Air 10/21/19 08:00 100 10/21/19 08:00 100.0 118 18 129/73 (91) 100 10/21/19 04:00 96 10/21/19 04:00 98.8 105 20 123/77 (92) 100 10/21/19 00:00 99.0 116 20 146/99 (115) 95 10/21/19 00:00 106 10/20/19 21:00 Room Air 10/20/19 20:00 99.5 117 20 130/74 (92) 100 10/20/19 20:00 112 10/20/19 16:00 110 10/20/19 16:00 98.4 116 20 103/77 (86) 97 Intake and Output 10/21/19 10/22/19 19:00 07:00 Intake Total 75 ml 1111.38 ml Output Total 2500 ml 800 ml Balance -2425 ml 311.38 ml IV Total 75 ml 1111.38 ml Output Urine Total 2500 ml 800 ml Labs Test 10/20/19 07:00 10/20/19 21:53 10/21/19 06:45 White Blood Count 12.8 K/UL (4.8-10.8) 9.8 K/UL (4.8-10.8) Red Blood Count 2.18 M/UL (4.20-5.40) 2.36 M/UL (4.20-5.40) Hemoglobin 5.7 G/DL (12.0-16.0) 6.8 G/DL (12.0-16.0) Hematocrit 17.9 % (37.0-47.0) 19.5 % (37.0-47.0) Mean Corpuscular Volume 82 FL (80-99) 82 FL (80-99) Mean Corpuscular Hemoglobin 26.2 PG (27.0-31.0) 28.9 PG (27.0-31.0) Mean Corpuscular Hemoglobin Concent 31.8 G/DL (32.0-36.0) 35.0 G/DL (32.0-36.0) Red Cell Distribution Width 18.1 % (11.6-14.8) 14.8 % (11.6-14.8) Platelet Count 345 K/UL (150-450) 295 K/UL (150-450) Mean Platelet Volume 6.7 FL (6.5-10.1) 6.8 FL (6.5-10.1) Neutrophils (%) (Auto) % (45.0-75.0) % (45.0-75.0) Lymphocytes (%) (Auto) % (20.0-45.0) % (20.0-45.0) Monocytes (%) (Auto) % (1.0-10.0) % (1.0-10.0) Eosinophils (%) (Auto) % (0.0-3.0) % (0.0-3.0) Basophils (%) (Auto) % (0.0-2.0) % (0.0-2.0) Differential Total Cells Counted 100 100 Neutrophils % (Manual) 74 % (45-75) 66 % (45-75) Lymphocytes % (Manual) 19 % (20-45) 22 % (20-45) Monocytes % (Manual) 7 % (1-10) 11 % (1-10) Eosinophils % (Manual) 0 % (0-3) 1 % (0-3) Basophils % (Manual) 0 % (0-2) 0 % (0-2) Band Neutrophils 0 % (0-8) 0 % (0-8) Platelet Estimate Adequate Adequate Platelet Morphology Normal Normal Hypochromasia 2+ 1+ Anisocytosis 1+ 1+ Prothrombin Time 20.6 SEC (9.30-11.50) Prothromb Time International Ratio 2.0 (0.9-1.1) Sodium Level 144 MMOL/L (136-145) 143 MMOL/L (136-145) Potassium Level 3.2 MMOL/L (3.5-5.1) 3.8 MMOL/L (3.5-5.1) Chloride Level 115 MMOL/L (98-107) 113 MMOL/L (98-107) Carbon Dioxide Level 22 MMOL/L (21-32) 21 MMOL/L (21-32) Anion Gap 8 mmol/L (5-15) 9 mmol/L (5-15) Blood Urea Nitrogen 31 mg/dL (7-18) 32 mg/dL (7-18) Creatinine 0.8 MG/DL (0.55-1.30) 0.8 MG/DL (0.55-1.30) Estimat Glomerular Filtration Rate > 60 mL/min (>60) > 60 mL/min (>60) Glucose Level 103 MG/DL (74-106) 135 MG/DL (74-106) Calcium Level 7.3 MG/DL (8.5-10.1) 7.1 MG/DL (8.5-10.1) Iron Level 17 ug/dL (50-175) Total Iron Binding Capacity 89 ug/dL (250-450) Percent Iron Saturation 19 % (15-50) Unsaturated Iron Binding 72 ug/dL (112-346) Total Bilirubin 0.2 MG/DL (0.2-1.0) Aspartate Amino Transf (AST/SGOT) 12 U/L (15-37) Alanine Aminotransferase (ALT/SGPT) 13 U/L (12-78) Alkaline Phosphatase 138 U/L (46-116) Total Protein 6.3 G/DL (6.4-8.2) Albumin 1.0 G/DL (3.4-5.0) Globulin 5.3 g/dL Albumin/Globulin Ratio 0.2 (1.0-2.7) Vancomycin Level Trough 17.1 ug/mL (5.0-12.0) Height (Feet): 5 Height (Inches): 1.00 Weight (Pounds): 173 Objective GeN: nad, somewhat confused Pulm: ctab, no cwr CV: rrr, no gmr Abd: soft, nt, nd Ext: no cce Jerry Ervin MD Oct 22, 2019 14:13
--- NOTE | 2019-10-22 15:42 | Surgery Progress Note ---
Surgery Progress Note Subjective Additional Comments anemia now agreeable for scope will discuss with GI Objective Last 24 Hour Vital Signs Date Time Temp Pulse Resp B/P (MAP) Pulse Ox O2 Delivery O2 Flow Rate FiO2 10/22/19 12:00 97.2 88 14 132/87 (102) 98 10/22/19 12:00 80 10/22/19 09:00 Room Air 10/22/19 08:00 87 10/22/19 08:00 97.9 95 15 149/94 (112) 98 10/22/19 04:00 93 10/22/19 04:00 97.6 93 18 127/78 (94) 95 10/22/19 00:00 90 10/21/19 21:37 99.0 10/21/19 21:00 Room Air 10/21/19 20:00 97.9 90 19 146/61 (89) 100 10/21/19 20:00 96 10/21/19 16:00 91 10/21/19 16:00 99.0 93 18 131/61 (84) 100 I&O Intake and Output 10/21/19 10/22/19 19:00 07:00 Intake Total 75 ml 1111.38 ml Output Total 2500 ml 800 ml Balance -2425 ml 311.38 ml IV Total 75 ml 1111.38 ml Output Urine Total 2500 ml 800 ml Dressing: other Wound: other Drains: other Cardiovascular: RSR Respiratory: decreased breath sounds Abdomen: soft, present bowel sounds Extremities: no cyanosis, other Plan Problems: (1) Decubitus ulcer Assessment & Plan: 54-year-old female multiple comorbidities who is fairly bedbound and care dependent presented from nursing facility with multiple decubitus ulcers requiring care and management and evaluation. Patient identified to have a right ischial and left ischial stage IV decubitus ulcers Patient Identified to have historic healed sacral decubitus ulcer pt presented on admission with multiple pressure injuries. Full thickness wound L abd with 95% slough, 5% surrounding erythema with macerated borders. Erythema without induration or elevation in skin temp periwound.(L)1.6cm x (W)1.7cm. Moisture intertrigo noted to abd folds and groin folds. Labia majora noted to be swollen. Hyperpigmentation from previous wound noted to Sacrum. Full thickness stage 4 pressure injury with undermining noted to L Ischium. [place] granulation noted to base of wound. No odor noted. Small amt serous exudate.(L)7.5cm x (W)4.5cm x (D)2.3cm, undermining clockwise 9-12o'clock by 3.6cm @12o'clock. Full thickness stage 4 pressure injury R ischium with two areas of tunneling. [place] granulation at base of wound with small amt of Biofilm. Surrounding pink epithelial borders. Small amt serosanguineous exudate noted. No odor noted. Periwound skin is dark without erythema,induration or elevation in skin temp.(L) 4cm x (W)2.5cm x (D)2.6cm ,tunneling clockwise @12 o'clock by3.6cm ,Tunneling clockwise @2o'clock by5.7cm. Areas of hyperpigmentation noted to L heel, distal/lateral L foot extending into plantar aspect. R heel is boggy with non-blanching erythema. unlikely etiology of sepsis as chronic wounds with good granulation tissue slowly healing Tx.Plan: Cleanse Abdominal wound with Saline. Apply TheraHoney. Apply Cavilon Skin Barrier periwound. Cover with Optifoam drsg. Change every 3 days and prn. Cleanse L ischial wound with Saline. Loosely Pack with Hydrogel impregnated Kerlix packing. Apply Moisture Barrier Paste periwound. Cover with Optifoam drsg Daily and prn. Cleanse R Ischial wound with Saline. Loosely pack with Hydrogel impregnated Kerlix. (ATTENTION:2 Tunneled areas 9o'clock and 2o'clock). Apply Moisture Barrier Paste periwound. Cover with Optifoam drsg Daily and prn. Apply [place]ilon Skin BArrier to both heels. Cover each heel with Optifoam drsg. Change every 7 days and prn. APM/AURA Mattress overlay. Reposition at least every 2hours or as tolerated. Off-load heels with pillow. Place pillow between knees. nutritional optimization as below (2) Sepsis Assessment & Plan: 54-year-old female multiple committees presents with hypotension altered mental status. Patient with leukocytosis, abnormal labs. Currently intensive care unit under care and management. Wound evaluated and stage IV multiple but chronic and unlikely etiology of sepsis. MRI ordered to ensure no leukocytosis from acute osteo despite clean clinical appearance - reviewed Evidence of a small soft tissue ulcer within the subcutaneous fat posterior to the upper sacrum. Surrounding edema likely reflects adjacent inflammation. This does not appear to extend through the subjacent musculature, and no marrow edema to suggest osteomyelitis is demonstrated. Smaller apparent area of edema adjacent to the tip of the coccyx, likewise with no underlying marrow signal abnormality Edema of the subcutaneous fat adjacent to both ischia, could indicate decubitus changes 2.4 x 2.4 cm apparent fluid collection superficial to the right ischium. Could represent a small subcutaneous abscess, but suspect that this actually represents extracorporeal incontinent urine within a skin fold. Correlate with clinical findings Small left hip joint effusion Edema of the fat surrounding the umbilicus, could indicate inflammation of the periumbilical skin and subcutaneous fat. Correlate with clinical findings Edema of the bilateral hips and anterior pelvic dean, probably a manifestation of generalized systemic edema. Nonspecific edema of the presacral fat Haynes catheter seen within the bladder CT noted Bilateral ischial ulcers, also previously reported on prior MRI. There appears to be packing material within the ulcers. Correlate with clinical findings Small retrococcygeal and retrosacral decubitus changes, also previously described No definite acute abdominal or pelvic process Trace left pleural effusion. Small amount of basilar pulmonary parenchymal atelectasis Hyanes catheter, inferior vena cava filter incidentally noted Right basilar pulmonary cystic spaces We will continue to monitor and evaluate IV fluids IV antibiotics as per infectious disease O2 Trend labs transfuse prn scope per GI - pt refused at this time - may consider. discussed with GI We will follow with recommendations Thank you for let me participate in patient's care (3) Moderate protein malnutrition Assessment & Plan: DAILY ESTIMATED NEEDS: Needs based on Sepsis, stage 4 wounds; 51.6kg adj 30-35 kcals/kg [id number] total kcals 1.5-2 g protein/kg 77-103 g total protein 25-30 mL/kg 1290- 1548 total fluid mLs NUTRITION DIAGNOSIS: * Increased kcal and pro needs r/t wound healing AEB pt adm with stage 4 wounds x2, unstageable abdominal wound, h/o MS. CURRENT DIET: No diet order in place yet. PO DIET RECOMMENDATIONS: Regular as tolerated; texture per LABORER DRIVER Monitor PO intake w/ diet/ need for supplements and/or snacks ADDITIONAL RECOMMENDATIONS: 1) Obtain calibrated bedscale wt PER SNF: 139 lbs + 61 inches 2) 2) Wound healing: provide Elias in 8oz water BID -> Vit C 250mg BID + Zinc 220mg daily x 10days + MVI w/ MIN 3) Monitor BG- slightly low (72)-> rec D5 for hydration 4) LABORER DRIVER eval for appropriate texture/ previously on aspiration precautions Matty Solis Oct 22, 2019 15:42
[2019-10-22 16:00] VITALS: BP 116/69
[2019-10-22 20:00] VITALS: BP 122/76
[2019-10-22] MEDS: Dyna-Hex 2% Top Sol 2oz TOPIC SCH (21:27)
[2019-10-22] MEDS: Atorvastatin 20mg tab ORAL SCH (21:27)
[2019-10-22] MEDS: Miralax 17gm pkt ORAL SCH (21:27)
--- NOTE | 2019-10-22 22:17 | Psych Consult Progress Note ---
Psychiatry Progress Note Psychiatry Progress Note Medications Current Medications Medications (Trade) Dose Ordered Sig/Lenard Route PRN Reason Start Time Stop Time Status Last Admin Dose Admin Acetaminophen (Tylenol) 650 mg Q4H PRN ORAL Mild Pain (Pain Scale 1-3) 10/11/19 21:28 11/10/19 21:27 10/21/19 21:07 Acetaminophen (Tylenol) 650 mg Q4H PRN ORAL fever 10/11/19 21:28 11/10/19 21:27 Acetaminophen/ Hydrocodone Bitart ([place] 5/325) 1 tab Q6H PRN ORAL Moderate Pain (Pain Scale 4-6) 10/22/19 09:15 10/29/19 09:14 10/22/19 11:08 Acetaminophen/ Hydrocodone Bitart ([place] 7.5/325) 1 tab Q4H PRN ORAL Severe Pain (Pain Scale 7-10) 10/22/19 09:15 10/29/19 09:14 Ascorbic Acid (Vitamin C) 500 mg DAILY ORAL 10/12/19 09:00 11/11/19 08:59 10/22/19 08:52 Atorvastatin Calcium (Lipitor) 20 mg BEDTIME ORAL 10/12/19 21:00 11/10/19 20:59 10/22/19 21:27 Baclofen (Lioresal) 20 mg THREE TIMES A DAY ORAL 10/22/19 09:15 11/21/19 09:14 10/22/19 17:27 Cefepime HCl 2 gm/ Dextrose 55 ml @ 110 mls/hr Q12H IVPB 10/19/19 21:00 10/26/19 20:59 10/22/19 21:28 Chlorhexidine Gluconate (Bailee-Hex 2%) 1 applic DAILY@2000 TOPIC 10/12/19 20:00 11/11/19 19:59 10/22/19 21:27 Dextrose (Dextrose 50%) 25 ml Q30M PRN IV Hypoglycemia 10/11/19 21:45 11/10/19 02:44 Dextrose (Dextrose 50%) 50 ml Q30M PRN IV Hypoglycemia 10/11/19 21:45 11/10/19 02:44 Dextrose/ Electrolytes 1,000 ml @ 75 mls/hr [id number] IV 10/16/19 10:00 11/11/19 09:59 10/22/19 11:04 Docusate Sodium (Colace) 100 mg TWICE A DAY ORAL 10/15/19 20:45 11/14/19 20:44 10/22/19 17:27 Folic Acid (Folate) 1 mg DAILY ORAL 10/12/19 09:00 11/11/19 08:59 10/22/19 08:52 Metronidazole (Flagyl) 500 mg Q8HR ORAL 10/19/19 22:00 10/26/19 21:59 10/22/19 21:27 Multivitamins (Multivitamins) 1 tab DAILY ORAL 10/12/19 09:00 11/11/19 08:59 10/22/19 08:52 Ondansetron HCl (Zofran) 4 mg Q6H PRN IVP Nausea & Vomiting 10/21/19 11:15 11/20/19 11:14 Pantoprazole (Protonix) 40 mg EVERY 12 HOURS IVP 10/21/19 11:30 11/20/19 11:29 10/22/19 21:27 Polyethylene Glycol (Miralax) 17 gm BEDTIME ORAL 10/15/19 21:00 11/14/19 20:59 10/22/19 21:27 Sennosides (Senokot) 8.6 mg DAILY PRN ORAL Constipation 10/21/19 08:00 11/20/19 07:59 Vancomycin HCl (Vanco rx to dose) 1 ea DAILY PRN MISC Per rx protocol 10/21/19 18:45 11/20/19 18:44 Vancomycin HCl 750 mg/Sodium Chloride 275 ml @ 183.333 mls/hr Q24H IVPB 10/21/19 23:00 10/26/19 22:59 10/21/19 22:14 Zinc Sulfate (Zinc Sulfate) 220 mg DAILY ORAL 10/12/19 09:00 11/11/19 08:59 10/22/19 08:52 Neurological/Psychiatric: Reports: anxiety, depressed, emotional problems Allergies: Coded Allergies: PENICILLINS (Verified Allergy, Unknown, 07/05/16) Uncoded Allergies: seafood (Allergy, Mild, 10/15/19) Objective Data Height (Feet): 5 Height (Inches): 1.00 Weight (Pounds): 173 General Appearance: WD/WN, no apparent distress, alert, alert oriented x3 Appearance: no abnormalities noted Behavior Mannerisms: good eye contact Mental Status Exam - Affect: blunted Mental Status Exam - Thought P: goal-directed Mental Status Exam - Cognition: no abnormalities Assessment/Plan Status: progressing Assessment/Plan: 1. Acute encephalopathy. 2. Depression. PLAN: 1. no new meds. 2. The patient should be discharged when medically cleared. Laron Louie MD Oct 22, 2019 22:17
[2019-10-22] MEDS: Vancomycin 750 MG in NS 275 ML IVPB SCH (23:00)
[2019-10-23] VITALS (11 sets, daily range): BP systolic 107–150; BP diastolic 46–77
[2019-10-23] MEDS: metroNIDAZOLE 500mg tab ORAL SCH ×3 (05:45→21:13)
--- NOTE | 2019-10-23 06:09 | Hematology/Onc Progress Note ---
Assessment/Plan Assessment/Plan Assessment and Recs # Anemia due to underlying chronic disease, has been downtrending since admission r/o gi bleed as well, underlying cause likely due to stage IV ulceration, MS, sepsis POA --> anemia panel reviewed and c/w acd --> hold off on epogen at this time, not indicated --> ferritin 859, doesn't need iron --> hgb trend 9.2-->8.6-->7.6-->6.6-->8.3-->5.7-->6.8 --> hgb goal >7, transfuse prn --> blood tx: 1 unit 10/16, 2 units 10/21 --> continue folic acid --> OCCULT ++ --> now agreed to egd, pending --> GIVEN ffp and vitk correct coagulopathy # Thrombocytopenia ACUTE likely due to sepsis --> send off prelim pt/ptt, if any evidence dic --> hep and hiv ordered, both negative --> on abx for underlying cause --> plt trend: 123k-->252-->295 # Coagulopathy due to meds/infection --> vit k and ffp ordered # 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 --> has not migrated per imaging # Leukocytosis with Sepsis poa with uti --> on abx as per id --> on vanc/cefepime--> vanc/fluc/flagy-->vanc/cefe/flagy --> wbc trend: 16.7-->9.8 # Urinary tract infection, with e.coli --> per id # Multiple sclerosis # Functional quadriplegia # Stage 4 skin ulcer of sacral region --> per surg, offloading, wound care # HTN # HLD # Unspecified dementia without behavioral disturbance # Chronic pain syndrome # Moderate protein malnutrition # Severe hypokalemia # Dvt ppx heparin sq Appreciate consultation and geeta RN Subjective HEENT: Denies: no symptoms, eye pain, blurred vision, tearing, double vision, ear pain, ear discharge, nose pain, nose congestion, throat pain, throat swelling, mouth pain, mouth swelling, other Cardiovascular: Denies: no symptoms, chest pain, edema, irregular heart rate, lightheadedness, palpitations, syncope, other Respiratory: Denies: no symptoms, cough, shortness of breath, SOB with excertion, SOB at rest, sputum, wheezing, other Genitourinary: Denies: no symptoms, burning, discharge, frequency, flank pain, hematuria, incontinence, pain, urgency, other Neurologic/Psychiatric: Denies: no symptoms, anxiety, depressed, emotional problems, headache, numbness, paresthesia, pre-existing deficit, seizure, tingling, tremors, weakness, other Endocrine: Denies: no symptoms, excessive sweating, flushing, intolerance to cold, intolerance to heat, increased hunger, increased thirst, increased urine, unexplained weight gain, unexplained weight loss, other Hematologic/Lymphatic: Denies: no symptoms, anemia, easy bleeding, easy bruising, adenopathy, other Allergies: Coded Allergies: PENICILLINS (Verified Allergy, Unknown, 07/05/16) Uncoded Allergies: seafood (Allergy, Mild, 10/15/19) Subjective 10/16: remains confused, no bleeding, labs noted, plt lower, hgb requiring prbc transf 10/17: awake and alert, s/p blood tx, hgb improved to 8.3, stool ob positive 10/18: no events to report, is on abx per id, geeta Solis, labs noted, occult + 10/19: awake, remains confused, wants to be discharged, labs reviewed, ordered for am 10/21: refused egd, hgb 6.8, 2 units ordered, 10/22: no events, hgb remains decreased she agreed to egd, on protonix and cbc reordered 10/23: potential for scope shortly, pending lab draws, no overt bleeding Objective Objective Current Medications Medications (Trade) Dose Ordered Sig/Lenard Route PRN Reason Start Time Stop Time Status Last Admin Dose Admin Acetaminophen (Tylenol) 650 mg Q4H PRN ORAL Mild Pain (Pain Scale 1-3) 10/11/19 21:28 11/10/19 21:27 10/21/19 21:07 Acetaminophen (Tylenol) 650 mg Q4H PRN ORAL fever 10/11/19 21:28 11/10/19 21:27 Acetaminophen/ Hydrocodone Bitart ([place] 5/325) 1 tab Q6H PRN ORAL Moderate Pain (Pain Scale 4-6) 10/22/19 09:15 10/29/19 09:14 10/22/19 11:08 Acetaminophen/ Hydrocodone Bitart ([place] 7.5/325) 1 tab Q4H PRN ORAL Severe Pain (Pain Scale 7-10) 10/22/19 09:15 10/29/19 09:14 Ascorbic Acid (Vitamin C) 500 mg DAILY ORAL 10/12/19 09:00 11/11/19 08:59 10/22/19 08:52 Atorvastatin Calcium (Lipitor) 20 mg BEDTIME ORAL 10/12/19 21:00 11/10/19 20:59 10/22/19 21:27 Baclofen (Lioresal) 20 mg THREE TIMES A DAY ORAL 10/22/19 09:15 11/21/19 09:14 10/22/19 17:27 Cefepime HCl 2 gm/ Dextrose 55 ml @ 110 mls/hr Q12H IVPB 10/19/19 21:00 10/26/19 20:59 10/22/19 21:28 Chlorhexidine Gluconate (Bailee-Hex 2%) 1 applic DAILY@2000 TOPIC 10/12/19 20:00 11/11/19 19:59 10/22/19 21:27 Dextrose (Dextrose 50%) 25 ml Q30M PRN IV Hypoglycemia 10/11/19 21:45 11/10/19 02:44 Dextrose (Dextrose 50%) 50 ml Q30M PRN IV Hypoglycemia 10/11/19 21:45 11/10/19 02:44 Dextrose/ Electrolytes 1,000 ml @ 75 mls/hr [id number] IV 10/16/19 10:00 11/11/19 09:59 10/23/19 01:50 Docusate Sodium (Colace) 100 mg TWICE A DAY ORAL 10/15/19 20:45 11/14/19 20:44 10/22/19 17:27 Folic Acid (Folate) 1 mg DAILY ORAL 10/12/19 09:00 11/11/19 08:59 10/22/19 08:52 Metronidazole (Flagyl) 500 mg Q8HR ORAL 10/19/19 22:00 10/26/19 21:59 10/22/19 21:27 Multivitamins (Multivitamins) 1 tab DAILY ORAL 10/12/19 09:00 11/11/19 08:59 10/22/19 08:52 Ondansetron HCl (Zofran) 4 mg Q6H PRN IVP Nausea & Vomiting 10/21/19 11:15 11/20/19 11:14 Pantoprazole (Protonix) 40 mg EVERY 12 HOURS IVP 10/21/19 11:30 11/20/19 11:29 10/22/19 21:27 Polyethylene Glycol (Miralax) 17 gm BEDTIME ORAL 10/15/19 21:00 11/14/19 20:59 10/22/19 21:27 Sennosides (Senokot) 8.6 mg DAILY PRN ORAL Constipation 10/21/19 08:00 11/20/19 07:59 Vancomycin HCl (Vanco rx to dose) 1 ea DAILY PRN MISC Per rx protocol 10/21/19 18:45 11/20/19 18:44 Vancomycin HCl 750 mg/Sodium Chloride 275 ml @ 183.333 mls/hr Q24H IVPB 10/21/19 23:00 10/26/19 22:59 10/22/19 23:00 Zinc Sulfate (Zinc Sulfate) 220 mg DAILY ORAL 10/12/19 09:00 11/11/19 08:59 10/22/19 08:52 Last 24 Hour Vital Signs Date Time Temp Pulse Resp B/P (MAP) Pulse Ox O2 Delivery O2 Flow Rate FiO2 10/23/19 04:00 97.1 55 20 108/71 (83) 98 10/23/19 04:00 62 10/23/19 00:00 97.0 68 20 110/67 (81) 100 10/23/19 00:00 60 10/22/19 21:00 Room Air 10/22/19 20:00 55 10/22/19 20:00 97.7 65 20 122/76 (91) 98 10/22/19 16:00 97.0 78 15 116/69 (85) 98 10/22/19 16:00 82 10/22/19 12:00 97.2 88 14 132/87 (102) 98 10/22/19 12:00 80 10/22/19 09:00 Room Air 10/22/19 08:00 87 10/22/19 08:00 97.9 95 15 149/94 (112) 98 10/22/19 04:00 93 10/22/19 04:00 97.6 93 18 127/78 (94) 95 10/22/19 00:00 90 10/21/19 21:37 99.0 10/21/19 21:00 Room Air 10/21/19 20:00 97.9 90 19 146/61 (89) 100 10/21/19 20:00 96 10/21/19 16:00 91 10/21/19 16:00 99.0 93 18 131/61 (84) 100 10/21/19 12:00 98.2 106 20 113/73 (86) 97 10/21/19 12:00 103 10/21/19 09:00 Room Air 10/21/19 08:00 100 10/21/19 08:00 100.0 118 18 129/73 (91) 100 Intake and Output 10/22/19 10/23/19 18:59 06:59 Intake Total 755 ml Output Total 700 ml Balance 55 ml Intake Oral 360 ml IV Total 75 ml Blood Product 320 ml Output Urine Total 700 ml # Bowel Movements 1 Labs Test 10/20/19 07:00 10/20/19 21:53 10/21/19 06:45 10/22/19 12:16 White Blood Count 12.8 K/UL (4.8-10.8) 9.8 K/UL (4.8-10.8) Red Blood Count 2.18 M/UL (4.20-5.40) 2.36 M/UL (4.20-5.40) Hemoglobin 5.7 G/DL (12.0-16.0) 6.8 G/DL (12.0-16.0) Hematocrit 17.9 % (37.0-47.0) 19.5 % (37.0-47.0) Mean Corpuscular Volume 82 FL (80-99) 82 FL (80-99) Mean Corpuscular Hemoglobin 26.2 PG (27.0-31.0) 28.9 PG (27.0-31.0) Mean Corpuscular Hemoglobin Concent 31.8 G/DL (32.0-36.0) 35.0 G/DL (32.0-36.0) Red Cell Distribution Width 18.1 % (11.6-14.8) 14.8 % (11.6-14.8) Platelet Count 345 K/UL (150-450) 295 K/UL (150-450) Mean Platelet Volume 6.7 FL (6.5-10.1) 6.8 FL (6.5-10.1) Neutrophils (%) (Auto) % (45.0-75.0) % (45.0-75.0) Lymphocytes (%) (Auto) % (20.0-45.0) % (20.0-45.0) Monocytes (%) (Auto) % (1.0-10.0) % (1.0-10.0) Eosinophils (%) (Auto) % (0.0-3.0) % (0.0-3.0) Basophils (%) (Auto) % (0.0-2.0) % (0.0-2.0) Differential Total Cells Counted 100 100 Neutrophils % (Manual) 74 % (45-75) 66 % (45-75) Lymphocytes % (Manual) 19 % (20-45) 22 % (20-45) Monocytes % (Manual) 7 % (1-10) 11 % (1-10) Eosinophils % (Manual) 0 % (0-3) 1 % (0-3) Basophils % (Manual) 0 % (0-2) 0 % (0-2) Band Neutrophils 0 % (0-8) 0 % (0-8) Platelet Estimate Adequate Adequate Platelet Morphology Normal Normal Hypochromasia 2+ 1+ Anisocytosis 1+ 1+ Prothrombin Time 20.6 SEC (9.30-11.50) Prothromb Time International Ratio 2.0 (0.9-1.1) Sodium Level 144 MMOL/L (136-145) 143 MMOL/L (136-145) Potassium Level 3.2 MMOL/L (3.5-5.1) 3.8 MMOL/L (3.5-5.1) Chloride Level 115 MMOL/L (98-107) 113 MMOL/L (98-107) Carbon Dioxide Level 22 MMOL/L (21-32) 21 MMOL/L (21-32) Anion Gap 8 mmol/L (5-15) 9 mmol/L (5-15) Blood Urea Nitrogen 31 mg/dL (7-18) 32 mg/dL (7-18) Creatinine 0.8 MG/DL (0.55-1.30) 0.8 MG/DL (0.55-1.30) Estimat Glomerular Filtration Rate > 60 mL/min (>60) > 60 mL/min (>60) Glucose Level 103 MG/DL (74-106) 135 MG/DL (74-106) Calcium Level 7.3 MG/DL (8.5-10.1) 7.1 MG/DL (8.5-10.1) Iron Level 17 ug/dL (50-175) Total Iron Binding Capacity 89 ug/dL (250-450) Percent Iron Saturation 19 % (15-50) Unsaturated Iron Binding 72 ug/dL (112-346) Total Bilirubin 0.2 MG/DL (0.2-1.0) Aspartate Amino Transf (AST/SGOT) 12 U/L (15-37) Alanine Aminotransferase (ALT/SGPT) 13 U/L (12-78) Alkaline Phosphatase 138 U/L (46-116) Total Protein 6.3 G/DL (6.4-8.2) Albumin 1.0 G/DL (3.4-5.0) Globulin 5.3 g/dL Albumin/Globulin Ratio 0.2 (1.0-2.7) Vancomycin Level Trough 17.1 ug/mL (5.0-12.0) Height (Feet): 5 Height (Inches): 1.00 Weight (Pounds): 173 Objective GeN: nad, somewhat confused Pulm: ctab, no cwr CV: rrr, no gmr Abd: soft, nt, nd Ext: no cce Jerry Ervin MD Oct 23, 2019 06:08
[2019-10-23] MEDS ORDERED: DiphenhydrAMINE 50mg/ml Inj IVP PRN (07:15)
[2019-10-23] MEDS ORDERED: Midazolam 2mg/2ml Inj IVP PRN (07:15)
[2019-10-23] MEDS ORDERED: Atropine Inj 1mg/10ml Syr IV PRN (07:15)
[2019-10-23] MEDS ORDERED: fentaNYL 100 mcg/2 mL IV PRN (07:15)
--- NOTE | 2019-10-23 07:19 | Anethesia Preoperative Eval ---
Anesthesia Pre-op PMH/ROS General Date of Evaluation: Oct 23, 2019 Time of Evaluation: 07:14 Anesthesiologist: jamie ASA Score: ASA 4 Mallampati Score Class I : Soft palate, uvula, fauces, pillars visible Class II: Soft palate, uvula, fauces visible Class III: Soft palate, base of uvula visible Class IV: Only hard plate visible Mallampati Classification: Class II Surgeon: julieta Diagnosis: anemia Surgical Procedure: egd Anesthesia History: none Social History: current smoker Family History: no anesthesia problems Allergies: Coded Allergies: PENICILLINS (Verified Allergy, Unknown, 07/05/16) Uncoded Allergies: seafood (Allergy, Mild, 10/15/19) Medications: see eMAR Patient NPO?: Yes Past Medical History Cardiovascular: Reports: HTN, other - hyperlipidemia, acs Gastrointestinal/Genitourinary: Reports: other - moderate protein malnutrition , uti Neurologic/Psychiatric: Reports: dementia, other - quadriplegia, chronic pain syndrome, multiple sclerosis Hematology/Immune: Reports: bleeding disorder - thrombocytopenia, other - sepsis Musculoskeletal/Integumentary: Reports: other Anesthesia Pre-op Phys. Exam Physician Exam Last Vital Signs Date Time Temp Pulse Resp B/P (MAP) Pulse Ox O2 Delivery O2 Flow Rate FiO2 10/23/19 04:00 97.1 55 20 108/71 (83) 98 10/22/19 21:00 Room Air 10/16/19 09:00 2.0 Constitutional: NAD Neurologic: CN 2-12 intact Cardiovascular: RRR Respiratory: CTA Gastrointestinal: S/NT/ND Airway Exam Mallampati Score: Class II MO: limited Neck: flexible TMD: 2fb ROM: limited Teeth: missing Anesthesia Pre-op A/P Risk Assessment & Plan Assessment: asa4 Plan: mac Status Change Before Surgery: No Pre-Antibiotics Drug: Brittney Manjarrez MD Oct 23, 2019 07:19
[2019-10-23] MEDS ORDERED: Propofol 200mg/20ml IV ONE (07:30)
[2019-10-23] MEDS ORDERED: Lidocaine 1% MPF 10mg/ml 5ml ONE (07:30)
[2019-10-23 07:49] LABS: BASOPHILS % (AUTO) 0.8 % (0.0-2.0); EOSINOPHILS % (AUTO) 2.8 % (0.0-3.0); HEMOGLOBIN 11.8 G/DL (12.0-16.0); LYMPHOCYTES % (AUTO) 32.4 % (20.0-45.0); MEAN CORPUSCULAR VOLUME 85 FL (80-99); MONOCYTES % (AUTO) 6.6 % (1.0-10.0); NEUTROPHILS % (AUTO) 57.5 % (45.0-75.0); PLATELET COUNT 245 K/UL (150-450); RED BLOOD COUNT 4.01 M/UL (4.20-5.40); RED CELL DISTRIBUTION WIDTH 13.5 % (11.6-14.8); WHITE BLOOD COUNT 6.7 K/UL (4.8-10.8)
--- NOTE | 2019-10-23 07:53 | Pre-Procedure Note/Attestation ---
Pre-Procedure Note/Attestation Complete Prior to Procedure Planned Procedure: not applicable Procedure Narrative: egd Indications for Procedure Pre-Operative Diagnosis: gib Attestation I attest that I discussed the nature of the procedure; its benefits; risks and complications; and alternatives (and the risks and benefits of such alternatives ), prior to the procedure, with the patient (or the patient's legal outbound sales representative). I attest that, if there was a reasonable possibility of needing a blood transfusion, the patient (or the patient's legal outbound sales representative) was given the [facility] standardized written summary, pursuant to the Jacobo Dayan Blood Safety Act ([place] Health and Safety Code # 1645, as amended). I attest that I re-evaluated the patient just prior to the surgery and that there has been no change in the patient's H&P, except as documented below: Paulo Christine MD Oct 23, 2019 07:53
[2019-10-23 07:58] LABS: ANION GAP 6 mmol/L (5-15); BLOOD UREA NITROGEN 17 mg/dL (7-18); CALCIUM 7.4 MG/DL (8.5-10.1); CARBON DIOXIDE 21 MMOL/L (21-32); CHLORIDE 112 MMOL/L (98-107); CREATININE 0.7 MG/DL (0.55-1.30); POTASSIUM 3.4 MMOL/L (3.5-5.1); SODIUM 139 MMOL/L (136-145)
[2019-10-23 07:59] LABS: INR 1.3 (0.9-1.1)
[2019-10-23] MEDS ORDERED: NS 500ML IVPB ONE (08:00)
--- NOTE | 2019-10-23 08:09 | General Progress Note ---
Assessment/Plan Problem List: (1) Sepsis ICD Codes: A41.9 - Sepsis, unspecified organism SNOMED: 84879225 (2) Urinary tract infection ICD Codes: N39.0 - Urinary tract infection, site not specified SNOMED: 96971188 (3) Multiple sclerosis ICD Codes: G35 - Multiple sclerosis SNOMED: 50756116 (4) Stage 4 skin ulcer of sacral region ICD Codes: L98.429 - Non-pressure chronic ulcer of back with unspecified severity SNOMED: 71660170, 135432955 (5) HTN (hypertension) ICD Codes: I10 - Essential (primary) hypertension SNOMED: 63734109 (6) HLD (hyperlipidemia) ICD Codes: E78.5 - Hyperlipidemia, unspecified SNOMED: 81466157 (7) Unspecified dementia without behavioral disturbance ICD Codes: F03.90 - Unspecified dementia without behavioral disturbance SNOMED: 48394744 (8) Chronic pain syndrome ICD Codes: G89.4 - Chronic pain syndrome SNOMED: 149889995 (9) Moderate protein malnutrition ICD Codes: E44.0 - Moderate protein-calorie malnutrition SNOMED: 952198486 (10) Hypokalemia ICD Codes: E87.6 - Hypokalemia SNOMED: 71865889 (11) Anemia ICD Codes: D64.9 - Anemia, unspecified SNOMED: 864249966 (12) Acute blood loss anemia ICD Codes: D62 - Acute posthemorrhagic anemia SNOMED: 623873922 (13) Thrombocytopenia ICD Codes: D69.6 - Thrombocytopenia, unspecified SNOMED: 481043114 Status: progressing Assessment/Plan: # Acute Blood Loss Anemia # Iron deficiency Anemia #Severe hypokalemia. Resolved. #thrombocytopenia- resolved - EGD - transfuse prn - iron replacement - CTM cbc - FOBT + ICU --> telemetry Continue Cefepime, vancomycin. s/p Azithromycin. Added Fluconazole and metronidazole. d/w ID MRI pelvis reviewed. no abscess or osteo. CT abdomen pelvis, no abscess. bilateral ischial decubitus. follow up blood cultures continue briseno monitor wbc outpatient urology follow up. ID consult with Dr. Palacios. d/w Dead Mail Checker consult appreciated wound care and wound MD consult with Dr. Solis SENIOR POWER SCHEDULER consult to evaluate. d/w Princess. Tolerated regular diet, slow bites. Aspiration precautions Hold all BP meds, introduce when more stable pain control. Appetite stimulant psychiatry consult appreciated. continue Zyprexa 2.5 mg at bedtime vte ppx: heparin subq GI ppx: not indicated CM consult for discharge planning Code status: full code, POLST signed by SNF Md but not patient and it's blank. attempted to call Kirsten Richardson, daughter of patient: [phone] Disposition: SNF I spent 40 minutes on this encounter, > 50% spent on counselling and care coordination time of this note may not reflect time of encounter. Subjective Date patient seen: Oct 23, 2019 ROS Limited/Unobtainable: No Constitutional: Denies: no symptoms, chills, diaphoresis, fever, malaise, weakness, other HEENT: Denies: no symptoms, eye pain, blurred vision, tearing, double vision, ear pain, ear discharge, nose pain, nose congestion, throat pain, throat swelling, mouth pain, mouth swelling, other Cardiovascular: Denies: no symptoms, chest pain, edema, irregular heart rate, lightheadedness, palpitations, syncope, other Respiratory: Denies: no symptoms, cough, orthopnea, shortness of breath, SOB with excertion, SOB at rest, sputum, stridor, wheezing, other Gastrointestinal/Abdominal: Denies: no symptoms, abdomen distended, abdominal pain, black stools, tarry stools, blood in stool, constipated, diarrhea, difficulty swallowing, nausea, poor appetite, poor fluid intake, rectal bleeding , vomiting, other Genitourinary: Denies: no symptoms, burning, discharge, frequency, flank pain, hematuria, incontinence, pain, urgency, other Neurologic/Psychiatric: Denies: no symptoms, anxiety, depressed, emotional problems, headache, numbness, paresthesia, pre-existing deficit, seizure, tingling, tremors, weakness, other Endocrine: Denies: no symptoms, excessive sweating, flushing, intolerance to cold, intolerance to heat, increased hunger, increased thirst, increased urine, unexplained weight gain, unexplained weight loss, other Hematologic/Lymphatic: Denies: no symptoms, anemia, easy bleeding, easy bruising, other Allergies: Coded Allergies: PENICILLINS (Verified Allergy, Unknown, 07/05/16) Uncoded Allergies: seafood (Allergy, Mild, 10/15/19) Subjective Following up for sepsis and bacteremia due to UTI, blood loss anemia. Mental status much improved. Alert and oriented x4. Afebrile, wbc normal, Received multiple units of prbc transfusion .Refused Gi intervention, however after much discussion , she is agreeable to EGD. INR elevated, will received vit k and ffp. Also nursing reported coffee ground emesis. Objective Last 24 Hour Vital Signs Date Time Temp Pulse Resp B/P (MAP) Pulse Ox O2 Delivery O2 Flow Rate FiO2 10/23/19 04:00 97.1 55 20 108/71 (83) 98 10/23/19 04:00 62 10/23/19 00:00 97.0 68 20 110/67 (81) 100 10/23/19 00:00 60 10/22/19 21:00 Room Air 10/22/19 20:00 55 10/22/19 20:00 97.7 65 20 122/76 (91) 98 10/22/19 16:00 97.0 78 15 116/69 (85) 98 10/22/19 16:00 82 10/22/19 12:00 97.2 88 14 132/87 (102) 98 10/22/19 12:00 80 10/22/19 09:00 Room Air Intake and Output 10/22/19 10/23/19 19:00 07:00 Intake Total 680 ml Output Total 700 ml Balance -20 ml Intake Oral 360 ml Blood Product 320 ml Output Urine Total 700 ml # Bowel Movements 1 Laboratory Tests 10/22/19 12:16: Stool Occult Blood [Pending] 10/23/19 07:30: White Blood Count 6.7, Red Blood Count 4.01L, Hemoglobin 11.8L, Hematocrit 34.0L , Mean Corpuscular Volume 85, Mean Corpuscular Hemoglobin 29.5, Mean Corpuscular Hemoglobin Concent 34.8, Red Cell Distribution Width 13.5, Platelet Count 245, Mean Platelet Volume 7.7, Neutrophils (%) (Auto) 57.5, Lymphocytes (% ) (Auto) 32.4, Monocytes (%) (Auto) 6.6, Eosinophils (%) (Auto) 2.8, Basophils ( %) (Auto) 0.8, Prothrombin Time 13.2H, Prothromb Time International Ratio 1.3H, Sodium Level 139, Potassium Level 3.4L, Chloride Level 112H, Carbon Dioxide Level 21, Anion Gap 6, Blood Urea Nitrogen 17, Creatinine 0.7, Estimat Glomerular Filtration Rate > 60, Glucose Level 92, Calcium Level 7.4L Height (Feet): 5 Height (Inches): 1.00 Weight (Pounds): 173 Objective General Appearance: no apparent distress, confused Lines, tubes and drains: peripheral HEENT: normocephalic, atraumatic, anicteric, no JVD, other - right eye deviated to the right, unable to abduct Neck: non-tender, supple Respiratory/Chest: lungs clear, normal breath sounds, no respiratory distress, no accessory muscle use Cardiovascular/Chest: normal peripheral pulses, normal rate, regular rhythm, no gallop/murmur Abdomen: normal bowel sounds, non tender, soft, no organomegaly, other - pressure ulcer LLQ Genitourinary/Rectal: briseno, other - +CVA tenderness Extremities: no calf tenderness, no edema, no cyanosis Skin Exam: other - multiple stage 4 sacral decub Neurologic: confused , motor weakness - quadriplegia, now bilateral upper extremity motor improved to 4/5, bl LE 1/5 Musculoskeletal: atrophy Mikal Quiles M.D. Oct 23, 2019 08:09
--- NOTE | 2019-10-23 08:49 | Endoscopy Procedure Note ---
Endoscopy Procedure Note General Indication for Procedure: gib Procedures Performed: EGD Operative Findings/Diagnosis: Specimen: yes Pt Tolerated Procedure Well: Yes Estimated Blood Loss: none Anesthesia Anesthesiologist: venita Anesthesia: MAC Inserted Devices Implant(s) used?: No GI Core Measures 50 yrs or older w/o bx or poly: Not Applicable 10yrs. F/U recommended: Not Applicable Paulo Christine MD Oct 23, 2019 08:49
[2019-10-23] MEDS: Pantoprazole Inj IVP SCH ×2 (09:58→21:15)
[2019-10-23] MEDS: Sucralfate 1gm tab ORAL SCH ×4 (09:58→21:13)
[2019-10-23] MEDS: Zinc Sulfate 220mg cap ORAL SCH (09:59)
[2019-10-23] MEDS: Ascorbic Acid 500mg tab ORAL SCH (09:59)
[2019-10-23] MEDS: Docusate 100mg cap ORAL SCH ×2 (10:00→17:33)
[2019-10-23] MEDS: Cefepime HCl 2 GM in D5W 55 ML IVPB SCH ×2 (10:01→21:15)
--- NOTE | 2019-10-23 14:45 | Procedure Note ---
DATE OF PROCEDURE: 10/23/2019 SURGEON: Paulo Christine M.D. PROCEDURE: Upper endoscopy with biopsy. ANESTHESIA: Per Dr. Vásquez. INSTRUMENT: Olympus adult flexible upper endoscope. INDICATION: Upper GI bleeding. REASON FOR PROCEDURE: The procedure, risks, benefits, and possible consequences, including hemorrhage, aspiration, perforation and infection, and alternative treatments, were explained to the patient/legal guardian by Dr. Paulo Christine and the patient/legal guardian understood and accepted these risks. DESCRIPTION OF PROCEDURE: After informed consent was obtained and the patient was adequately sedated, Olympus upper endoscope was advanced from mouth into the second portion of the duodenum and retroflexion was performed in the stomach. The patient had evidence of severe diffuse gastritis. Random biopsy from the antrum was obtained to rule out H. pylori infection. The patient had evidence of an ulcer in the cardia of the stomach. This ulcer measured roughly about 1 cm. There was no obvious visible vessel or adherent clot. So, no hemostasis was performed. At this time, the upper endoscope was retrieved and the procedure was terminated. SUMMARY OF FINDINGS: 1. About 1 cm ulcer in the cardia of the stomach without any visible vessel or adherent clot. 2. Severe gastritis, status post biopsy. RECOMMENDATIONS: Continue on Protonix twice a day. Continue to monitor hemoglobin and hematocrit, transfuse as needed. Followup biopsy results and treat accordingly. The patient also will benefit with repeat endoscopy in eight weeks to see if the ulcer is healed. We are also going to add Carafate. I want to thank, Dr. Tai, and , for this kind referral. Paulo Christine M.D. DR: KALPANA JOB#: [id number] CC: Yoly Tai M.D.; Fax#: [phone]
--- NOTE | 2019-10-23 15:07 | Surgery Progress Note ---
Surgery Progress Note Subjective Additional Comments no acute events labs reviewed exam stable micro reviewed dressings changed Objective Last 24 Hour Vital Signs Date Time Temp Pulse Resp B/P (MAP) Pulse Ox O2 Delivery O2 Flow Rate FiO2 10/23/19 12:00 58 10/23/19 12:00 96.8 56 20 150/77 (101) 95 10/23/19 09:01 50 10/23/19 08:58 97.0 66 18 126/76 (93) 96 10/23/19 08:36 67 18 131/60 100 Room Air 10/23/19 08:32 58 18 124/72 100 Room Air 10/23/19 08:20 58 18 122/70 100 Nasal Cannula 3 10/23/19 08:16 97.5 64 18 120/71 100 Nasal Cannula 3 10/23/19 08:00 97.0 65 18 129/77 (94) 96 10/23/19 04:00 97.1 55 20 108/71 (83) 98 10/23/19 04:00 62 10/23/19 00:00 97.0 68 20 110/67 (81) 100 10/23/19 00:00 60 10/22/19 21:00 Room Air 10/22/19 20:00 55 10/22/19 20:00 97.7 65 20 122/76 (91) 98 10/22/19 16:00 97.0 78 15 116/69 (85) 98 10/22/19 16:00 82 I&O Intake and Output 10/22/19 10/23/19 19:00 07:00 Intake Total 680 ml Output Total 700 ml Balance -20 ml Intake Oral 360 ml Blood Product 320 ml Output Urine Total 700 ml # Bowel Movements 1 Dressing: other Wound: other Drains: other Cardiovascular: RSR Respiratory: decreased breath sounds Abdomen: soft, present bowel sounds Extremities: no cyanosis, other Laboratory Tests Test 10/23/19 07:30 White Blood Count 6.7 K/UL (4.8-10.8) Red Blood Count 4.01 M/UL (4.20-5.40) L Hemoglobin 11.8 G/DL (12.0-16.0) L Hematocrit 34.0 % (37.0-47.0) L Mean Corpuscular Volume 85 FL (80-99) Mean Corpuscular Hemoglobin 29.5 PG (27.0-31.0) Mean Corpuscular Hemoglobin Concent 34.8 G/DL (32.0-36.0) Red Cell Distribution Width 13.5 % (11.6-14.8) Platelet Count 245 K/UL (150-450) Mean Platelet Volume 7.7 FL (6.5-10.1) Neutrophils (%) (Auto) 57.5 % (45.0-75.0) Lymphocytes (%) (Auto) 32.4 % (20.0-45.0) Monocytes (%) (Auto) 6.6 % (1.0-10.0) Eosinophils (%) (Auto) 2.8 % (0.0-3.0) Basophils (%) (Auto) 0.8 % (0.0-2.0) Prothrombin Time 13.2 SEC (9.30-11.50) H Prothromb Time International Ratio 1.3 (0.9-1.1) H Sodium Level 139 MMOL/L (136-145) Potassium Level 3.4 MMOL/L (3.5-5.1) L Chloride Level 112 MMOL/L (98-107) H Carbon Dioxide Level 21 MMOL/L (21-32) Anion Gap 6 mmol/L (5-15) Blood Urea Nitrogen 17 mg/dL (7-18) Creatinine 0.7 MG/DL (0.55-1.30) Estimat Glomerular Filtration Rate > 60 mL/min (>60) Glucose Level 92 MG/DL (74-106) Calcium Level 7.4 MG/DL (8.5-10.1) L Plan Problems: (1) Decubitus ulcer Assessment & Plan: 54-year-old female multiple comorbidities who is fairly bedbound and care dependent presented from nursing facility with multiple decubitus ulcers requiring care and management and evaluation. Patient identified to have a right ischial and left ischial stage IV decubitus ulcers Patient Identified to have historic healed sacral decubitus ulcer pt presented on admission with multiple pressure injuries. Full thickness wound L abd with 95% slough, 5% surrounding erythema with macerated borders. Erythema without induration or elevation in skin temp periwound.(L)1.6cm x (W)1.7cm. Moisture intertrigo noted to abd folds and groin folds. Labia majora noted to be swollen. Hyperpigmentation from previous wound noted to Sacrum. Full thickness stage 4 pressure injury with undermining noted to L Ischium. [place] granulation noted to base of wound. No odor noted. Small amt serous exudate.(L)7.5cm x (W)4.5cm x (D)2.3cm, undermining clockwise 9-12o'clock by 3.6cm @12o'clock. Full thickness stage 4 pressure injury R ischium with two areas of tunneling. [place] granulation at base of wound with small amt of Biofilm. Surrounding pink epithelial borders. Small amt serosanguineous exudate noted. No odor noted. Periwound skin is dark without erythema,induration or elevation in skin temp.(L) 4cm x (W)2.5cm x (D)2.6cm ,tunneling clockwise @12 o'clock by3.6cm ,Tunneling clockwise @2o'clock by5.7cm. Areas of hyperpigmentation noted to L heel, distal/lateral L foot extending into plantar aspect. R heel is boggy with non-blanching erythema. unlikely etiology of sepsis as chronic wounds with good granulation tissue slowly healing Tx.Plan: Cleanse Abdominal wound with Saline. Apply TheraHoney. Apply Cavilon Skin Barrier periwound. Cover with Optifoam drsg. Change every 3 days and prn. Cleanse L ischial wound with Saline. Loosely Pack with Hydrogel impregnated Kerlix packing. Apply Moisture Barrier Paste periwound. Cover with Optifoam drsg Daily and prn. Cleanse R Ischial wound with Saline. Loosely pack with Hydrogel impregnated Kerlix. (ATTENTION:2 Tunneled areas 9o'clock and 2o'clock). Apply Moisture Barrier Paste periwound. Cover with Optifoam drsg Daily and prn. Apply Cavilon Skin BArrier to both heels. Cover each heel with Optifoam drsg. Change every 7 days and prn. APM/AURA Mattress overlay. Reposition at least every 2hours or as tolerated. Off-load heels with pillow. Place pillow between knees. nutritional optimization as below (2) Sepsis Assessment & Plan: 54-year-old female multiple committees presents with hypotension altered mental status. Patient with leukocytosis, abnormal labs. Currently intensive care unit under care and management. Wound evaluated and stage IV multiple but chronic and unlikely etiology of sepsis. MRI ordered to ensure no leukocytosis from acute osteo despite clean clinical appearance - reviewed Evidence of a small soft tissue ulcer within the subcutaneous fat posterior to the upper sacrum. Surrounding edema likely reflects adjacent inflammation. This does not appear to extend through the subjacent musculature, and no marrow edema to suggest osteomyelitis is demonstrated. Smaller apparent area of edema adjacent to the tip of the coccyx, likewise with no underlying marrow signal abnormality Edema of the subcutaneous fat adjacent to both ischia, could indicate decubitus changes 2.4 x 2.4 cm apparent fluid collection superficial to the right ischium. Could represent a small subcutaneous abscess, but suspect that this actually represents extracorporeal incontinent urine within a skin fold. Correlate with clinical findings Small left hip joint effusion Edema of the fat surrounding the umbilicus, could indicate inflammation of the periumbilical skin and subcutaneous fat. Correlate with clinical findings Edema of the bilateral hips and anterior pelvic dean, probably a manifestation of generalized systemic edema. Nonspecific edema of the presacral fat Haynes catheter seen within the bladder CT noted Bilateral ischial ulcers, also previously reported on prior MRI. There appears to be packing material within the ulcers. Correlate with clinical findings Small retrococcygeal and retrosacral decubitus changes, also previously described No definite acute abdominal or pelvic process Trace left pleural effusion. Small amount of basilar pulmonary parenchymal atelectasis Haynes catheter, inferior vena cava filter incidentally noted Right basilar pulmonary cystic spaces We will continue to monitor and evaluate IV fluids IV antibiotics as per infectious disease O2 Trend labs transfuse prn scope per GI - pt refused at this time - may consider. discussed with GI We will follow with recommendations Thank you for let me participate in patient's care (3) Moderate protein malnutrition Assessment & Plan: DAILY ESTIMATED NEEDS: Needs based on Sepsis, stage 4 wounds; 51.6kg adj 30-35 kcals/kg [id number] total kcals 1.5-2 g protein/kg 77-103 g total protein 25-30 mL/kg 1290- 1548 total fluid mLs NUTRITION DIAGNOSIS: * Increased kcal and pro needs r/t wound healing AEB pt adm with stage 4 wounds x2, unstageable abdominal wound, h/o MS. CURRENT DIET: No diet order in place yet. PO DIET RECOMMENDATIONS: Regular as tolerated; texture per [employer] Monitor PO intake w/ diet/ need for supplements and/or snacks ADDITIONAL RECOMMENDATIONS: 1) Obtain calibrated bedscale wt PER SNF: 139 lbs + 61 inches 2) 2) Wound healing: provide Elias in 8oz water BID -> Vit C 250mg BID + Zinc 220mg daily x 10days + MVI w/ MIN 3) Monitor BG- slightly low (72)-> rec D5 for hydration 4) [employer] eval for appropriate texture/ previously on aspiration precautions Matty Solis Oct 23, 2019 15:07
--- NOTE | 2019-10-23 17:42 | Diagnostic Imaging Report ---
Indication: Abnormal liver function tests, abnormal renal function tests Technique: Rangel-scale and duplex images of the upper abdomen were obtained Comparison: No comparison sonograms. Reference made to abdomen pelvis CT dated 10/16/2019 Findings: Exam is somewhat limited, as patient is contracted, unable to turn for exam. Gallbladder demonstrate wall thickening, gallbladder wall measuring up to 4 mm thick. No definite gallstones are evident. Sonographic Shaffer's sign is negative. Common bile duct measures 3 mm in diameter. No intrahepatic biliary ductal dilatation. Liver demonstrates normal echogenicity, no focal abnormality. Portal vein and hepatic veins are patent. Pancreas is unremarkable. Spleen is unremarkable. Left kidney measures 7.5 cm in length. Right kidney measures 8.5 cm length. Both kidneys demonstrate increased echogenicity. There is no hydronephrosis. No focal abnormality . Non-aneurysmal abdominal aorta . Impression: No gallstones. However, the gallbladder wall is thickened. Differential considerations include gallbladder wall edema due to systemic processes, acalculous acute cholecystitis, chronic cholecystitis. Consider hepatobiliary nuclear scan if there is high clinical suspicion Negative for dilated bile ducts Small echogenic kidneys bilaterally, consistent with medical renal disease
--- NOTE | 2019-10-23 18:45 | Progress Note ---
DATE: 10/23/2019 SUBJECTIVE: The patient had an endoscopy today. She was anxious and did not know the day today, it could be after endoscopy, sedation. MENTAL STATUS EXAMINATION: Alert and oriented x2 to 3. Mood is dysphoric and anxious. Affect is constricted. Congruent with mood. Thought process is concrete. Thought content, no suicidal, homicidal ideation. ASSESSMENT: 1. Acute encephalopathy, improved. 2. Failure to thrive. 3. Endoscopy showed stomach ulcer. PLAN: 1. No medication at this time. 2. Provide the patient with reality orientation and supportive therapy. Laron Louie M.D. DR: SAMUEL JOB#: [id number] CC:
--- NOTE | 2019-10-23 19:24 | Infectious Diseases Prog Note ---
Assessment/Plan Assessment/Plan ASSESSMENT AND PLAN: 1. e.coli uti, streptococcus bacteremia/solar sales bacteremia, sepsis, leukocytosis, fevers, mrsa uti, ? fungemia/fungal uti, ? mrsa pna (previous chest x-ray negative, wounds noted - ? infected but look fairly clean, MRI without osteo, MRI with incontinent urine within skin fold > right ischium/hip abscess ? cholecystitis on abdominal US - clinically abdomen benign - vancomycin, cefepime, flagyl, on diflucan for fungemia coverage x 3 days more - monitor chest x-ray and labs, cultures noted - leukocytosis resolved, lgt, clinically improved - wound care per surgery and protocol - echo report without vegetation mentioned - CT abdomen and pelvis - no abscess, report noted - stable ID standpoint - communicated with surgery about US abdomen and agrees patient clinically stable and no surgical intervention for now 2. telemetry care 3. Skin care protocol. 4. The patient is anemic. 5. Hypertension. 6. Blood pressure treatment primary care team. 7. Multiple sclerosis. 8. History of UTIs. 9. Hyperlipidemia. 10. Seizures. 11. Chronic pain syndrome. 12. Dementia. 13. Malnutrition. 14. Allergic to penicillin. 15. Social history is negative. 16. Family history is noncontributory. 17. MAR is noted. 18. Case was discussed with RN. 19. Case was discussed with Dr. Quiles. 20. Continue treatment per primary consultants. Subjective Constitutional: Denies: fever HEENT: Denies: congestion Respiratory: Denies: shortness of breath Cardiovascular: Denies: chest pain Gastrointestinal/Abdominal: Denies: nausea, vomiting, diarrhea Genitourinary: Reports: other - + briseno Neurologic: Denies: headache Psychiatric: Denies: depression Skin: Denies: rash Hematologic: Denies: bleeding Musculoskeletal: Denies: pain Allergies: Coded Allergies: PENICILLINS (Verified Allergy, Unknown, 07/05/16) Uncoded Allergies: seafood (Allergy, Mild, 10/15/19) Objective Vital Signs Last 24 Hour Vital Signs Date Time Temp Pulse Resp B/P (MAP) Pulse Ox O2 Delivery O2 Flow Rate FiO2 10/23/19 16:00 71 10/23/19 16:00 97.1 68 18 107/61 (76) 96 10/23/19 12:00 58 10/23/19 12:00 96.8 56 20 150/77 (101) 95 10/23/19 09:01 50 10/23/19 08:58 97.0 66 18 126/76 (93) 96 10/23/19 08:36 67 18 131/60 100 Room Air 10/23/19 08:32 58 18 124/72 100 Room Air 10/23/19 08:20 58 18 122/70 100 Nasal Cannula 3 10/23/19 08:16 97.5 64 18 120/71 100 Nasal Cannula 3 10/23/19 08:00 97.0 65 18 129/77 (94) 96 10/23/19 04:00 97.1 55 20 108/71 (83) 98 10/23/19 04:00 62 10/23/19 00:00 97.0 68 20 110/67 (81) 100 10/23/19 00:00 60 10/22/19 21:00 Room Air 10/22/19 20:00 55 10/22/19 20:00 97.7 65 20 122/76 (91) 98 Height (Feet): 5 Height (Inches): 1.00 Weight (Pounds): 173 General Appearance: no acute distress HEENT: normocephalic, atraumatic, anicteric, mucous membranes moist Respiratory/Chest: crackles/rales, rhonchi - bilaterally Cardiovascular: normal rate, regular rhythm, no gallop/murmur Abdomen: normal bowel sounds, soft, non tender, no organomegaly, non distended Genitourinary: other - + briseno - urine slt cloudy Extremities: no cyanosis Skin: no rash Neurologic/Psychiatric: mushroom cultivator II-XII grossly normal, alert, responsive Lymphatic: no neck adenopathy Musculoskeletal: no effusion Objective Chest x- ray - 10/12/19 - Procedure: XRAY Chest 1v Indication: Shortness of breath Technique: One view of the chest Comparison: Of 02/24/2019 Findings: The heart is upper limits of normal in size. Lungs and pleural spaces are clear. No significant interim change Impression: No acute process Chest x-ray - 10/15/19 - Procedure: XRAY Chest 1v Indication: Shortness of breath Technique: One view of the chest Comparison: 10/12/2019 Findings: Lungs and pleural spaces are clear. Heart size is normal. Is no significant interim change Impression: No acute process MRI - Pelvis: Impression: Evidence of a small soft tissue ulcer within the subcutaneous fat posterior to the upper sacrum. Surrounding edema likely reflects adjacent inflammation. This does not appear to extend through the subjacent musculature, and no marrow edema to suggest osteomyelitis is demonstrated. Smaller apparent area of edema adjacent to the tip of the coccyx, likewise with no underlying marrow signal abnormality Edema of the subcutaneous fat adjacent to both ischia, could indicate decubitus changes 2.4 x 2.4 cm apparent fluid collection superficial to the right ischium. Could represent a small subcutaneous abscess, but suspect that this actually represents extracorporeal incontinent urine within a skin fold. Correlate with clinical findings Small left hip joint effusion Edema of the fat surrounding the umbilicus, could indicate inflammation of the periumbilical skin and subcutaneous fat. Correlate with clinical findings Edema of the bilateral hips and anterior pelvic dean, probably a manifestation of generalized systemic edema. Nonspecific edema of the presacral fat CT scan of abdomen and pelvis: Impression: Bilateral ischial ulcers, also previously reported on prior MRI. There appears to be packing material within the ulcers. Correlate with clinical findings Small retrococcygeal and retrosacral decubitus changes, also previously described No definite acute abdominal or pelvic process Trace left pleural effusion. Small amount of basilar pulmonary parenchymal atelectasis Briseno catheter, inferior vena cava filter incidentally noted Right basilar pulmonary cystic spaces Other findings as noted, including degenerative spondylosis The CT scanner at [facility] is accredited by the [employer] and the scans are performed using protocols designed to limit radiation exposure to as low as reasonably achievable to attain images of sufficient resolution adequate for diagnostic evaluation. Chest x-ray - 10/20/19 - IMPRESSION: Asymmetry in the densities of the lungs, right is more lucent than the left. Could possibly be related to rotational changes and/or layering effusion or other. Minimal left basilar atelectasis/pneumonitis. No confluent consolidation. Microbiology Date/Time Source Procedure Growth Status 10/21/19 22:50 Blood Blood Culture - Preliminary NO GROWTH AFTER 24 HOURS Resulted 10/13/19 06:30 Sputum Gram Stain - Final Complete 10/13/19 06:30 Sputum Culture - Final April Albicans Staphylococcus Aureus Complete 10/13/19 17:55 Urine,Clean Catch Urine Culture - Final April Albicans Complete 10/11/19 01:35 Rectum - Final NO CARBAPENEM-RESISTANT ENTEROBACTERI... Complete Microbiology Date/Time Source Procedure Growth Status 10/21/19 22:50 Blood Blood Culture - Preliminary NO GROWTH AFTER 24 HOURS Resulted 10/21/19 22:45 Blood Blood Culture - Preliminary NO GROWTH AFTER 24 HOURS Resulted Laboratory Tests Test 10/23/19 07:30 White Blood Count 6.7 K/UL (4.8-10.8) Red Blood Count 4.01 M/UL (4.20-5.40) L Hemoglobin 11.8 G/DL (12.0-16.0) L Hematocrit 34.0 % (37.0-47.0) L Mean Corpuscular Volume 85 FL (80-99) Mean Corpuscular Hemoglobin 29.5 PG (27.0-31.0) Mean Corpuscular Hemoglobin Concent 34.8 G/DL (32.0-36.0) Red Cell Distribution Width 13.5 % (11.6-14.8) Platelet Count 245 K/UL (150-450) Mean Platelet Volume 7.7 FL (6.5-10.1) Neutrophils (%) (Auto) 57.5 % (45.0-75.0) Lymphocytes (%) (Auto) 32.4 % (20.0-45.0) Monocytes (%) (Auto) 6.6 % (1.0-10.0) Eosinophils (%) (Auto) 2.8 % (0.0-3.0) Basophils (%) (Auto) 0.8 % (0.0-2.0) Prothrombin Time 13.2 SEC (9.30-11.50) H Prothromb Time International Ratio 1.3 (0.9-1.1) H Sodium Level 139 MMOL/L (136-145) Potassium Level 3.4 MMOL/L (3.5-5.1) L Chloride Level 112 MMOL/L (98-107) H Carbon Dioxide Level 21 MMOL/L (21-32) Anion Gap 6 mmol/L (5-15) Blood Urea Nitrogen 17 mg/dL (7-18) Creatinine 0.7 MG/DL (0.55-1.30) Estimat Glomerular Filtration Rate > 60 mL/min (>60) Glucose Level 92 MG/DL (74-106) Calcium Level 7.4 MG/DL (8.5-10.1) L Current Medications Medications (Trade) Dose Ordered Sig/Lenard Route PRN Reason Start Time Stop Time Status Last Admin Dose Admin Acetaminophen (Tylenol) 650 mg Q4H PRN ORAL Mild Pain (Pain Scale 1-3) 10/11/19 21:28 11/10/19 21:27 10/21/19 21:07 Acetaminophen (Tylenol) 650 mg Q4H PRN ORAL fever 10/11/19 21:28 11/10/19 21:27 Acetaminophen/ Hydrocodone Bitart ([place] 5/325) 1 tab Q6H PRN ORAL Moderate Pain (Pain Scale 4-6) 10/22/19 09:15 10/29/19 09:14 10/22/19 11:08 Acetaminophen/ Hydrocodone Bitart ([place] 7.5/325) 1 tab Q4H PRN ORAL Severe Pain (Pain Scale 7-10) 10/22/19 09:15 10/29/19 09:14 Ascorbic Acid (Vitamin C) 500 mg DAILY ORAL 10/12/19 09:00 11/11/19 08:59 10/23/19 09:59 Atorvastatin Calcium (Lipitor) 20 mg BEDTIME ORAL 10/12/19 21:00 11/10/19 20:59 10/22/19 21:27 Baclofen (Lioresal) 20 mg THREE TIMES A DAY ORAL 10/22/19 09:15 11/21/19 09:14 10/23/19 17:33 Cefepime HCl 2 gm/ Dextrose 55 ml @ 110 mls/hr Q12H IVPB 10/19/19 21:00 10/26/19 20:59 10/23/19 10:01 Chlorhexidine Gluconate (Bailee-Hex 2%) 1 applic DAILY@2000 TOPIC 10/12/19 20:00 11/11/19 19:59 10/22/19 21:27 Dextrose (Dextrose 50%) 25 ml Q30M PRN IV Hypoglycemia 10/11/19 21:45 11/10/19 02:44 Dextrose (Dextrose 50%) 50 ml Q30M PRN IV Hypoglycemia 10/11/19 21:45 11/10/19 02:44 Dextrose/ Electrolytes 1,000 ml @ 75 mls/hr [id number] IV 10/16/19 10:00 11/11/19 09:59 10/23/19 15:01 Docusate Sodium (Colace) 100 mg TWICE A DAY ORAL 10/15/19 20:45 11/14/19 20:44 10/23/19 17:33 Folic Acid (Folate) 1 mg DAILY ORAL 10/12/19 09:00 11/11/19 08:59 10/23/19 10:00 Metronidazole (Flagyl) 500 mg Q8HR ORAL 10/19/19 22:00 10/26/19 21:59 10/23/19 15:00 Multivitamins (Multivitamins) 1 tab DAILY ORAL 10/12/19 09:00 11/11/19 08:59 10/23/19 10:00 Ondansetron HCl (Zofran) 4 mg Q6H PRN IVP Nausea & Vomiting 10/21/19 11:15 11/20/19 11:14 Pantoprazole (Protonix) 40 mg EVERY 12 HOURS IVP 10/21/19 11:30 11/20/19 11:29 10/23/19 09:58 Polyethylene Glycol (Miralax) 17 gm BEDTIME ORAL 10/15/19 21:00 11/14/19 20:59 10/22/19 21:27 Sennosides (Senokot) 8.6 mg DAILY PRN ORAL Constipation 10/21/19 08:00 11/20/19 07:59 Sucralfate (Carafate) 1 gm FOUR TIMES A DAY ORAL 10/23/19 09:00 11/22/19 08:59 10/23/19 17:33 Vancomycin HCl (Vanco rx to dose) 1 ea DAILY PRN MISC Per rx protocol 10/21/19 18:45 11/20/19 18:44 Vancomycin HCl 750 mg/Sodium Chloride 275 ml @ 183.333 mls/hr Q24H IVPB 10/21/19 23:00 10/26/19 22:59 10/22/19 23:00 Zinc Sulfate (Zinc Sulfate) 220 mg DAILY ORAL 10/12/19 09:00 11/11/19 08:59 10/23/19 09:59 Jt Land MD Oct 23, 2019 19:24
[2019-10-23] MEDS: Dyna-Hex 2% Top Sol 2oz TOPIC SCH (21:13)
[2019-10-23] MEDS: Miralax 17gm pkt ORAL SCH (21:13)
[2019-10-23] MEDS: Atorvastatin 20mg tab ORAL SCH (21:14)
[2019-10-23] MEDS: Vancomycin 750 MG in NS 275 ML IVPB SCH (22:24)
[2019-10-24] VITALS: BP_SYST 103; BP_SYST 171; BP_DIAS 57; BP_DIAS 64
[2019-10-24 04:00] VITALS: BP 135/48
[2019-10-24] MEDS: metroNIDAZOLE 500mg tab ORAL SCH ×4 (05:54→21:34)
[2019-10-24 08:00] VITALS: BP 142/67
[2019-10-24] MEDS: Zinc Sulfate 220mg cap ORAL SCH ×2 (08:13→09:00)
[2019-10-24] MEDS: Ascorbic Acid 500mg tab ORAL SCH ×2 (08:13→09:00)
[2019-10-24] MEDS: Docusate 100mg cap ORAL SCH ×3 (08:13→17:06)
[2019-10-24] MEDS: Pantoprazole Inj IVP SCH ×2 (08:15→20:34)
[2019-10-24] MEDS: Sucralfate 1gm tab ORAL SCH ×5 (08:15→20:34)
[2019-10-24] MEDS: Cefepime HCl 2 GM in D5W 55 ML IVPB SCH ×2 (08:17→20:34)
--- NOTE | 2019-10-24 09:49 | General Progress Note ---
Assessment/Plan Status: progressing Assessment/Plan: 1. Multiple sclerosis. 2. Multiple UTIs. 3. Hypertension. 4. Hyperlipidemia. 5. Seizure disorder. 6. Chronic pain syndrome. 7. Malnutrition. 8. Decubital ulcerations 9. Anemia s/p EGD >>> gastri ulcer poor po intake refuses medication abd us reviewed >>> HIDA scan and LFTS ordered fu H&H ppi BID add marinol Subjective ROS Limited/Unobtainable: Yes Allergies: Coded Allergies: PENICILLINS (Verified Allergy, Unknown, 07/05/16) Uncoded Allergies: seafood (Allergy, Mild, 10/15/19) Objective Last 24 Hour Vital Signs Date Time Temp Pulse Resp B/P (MAP) Pulse Ox O2 Delivery O2 Flow Rate FiO2 10/24/19 08:00 96.8 81 20 142/67 (92) 96 10/24/19 07:36 66 10/24/19 04:00 97.4 73 20 135/48 (77) 98 10/24/19 04:00 69 10/24/19 00:00 97.0 70 20 103/57 (72) 96 10/24/19 00:00 69 10/23/19 20:00 75 10/23/19 20:00 97.2 76 20 111/46 (67) 96 10/23/19 16:00 71 10/23/19 16:00 97.1 68 18 107/61 (76) 96 10/23/19 12:00 58 10/23/19 12:00 96.8 56 20 150/77 (101) 95 Intake and Output 10/23/19 10/24/19 18:59 06:59 Intake Total 200 ml 938.75 ml Output Total 300 ml 900 ml Balance -100 ml 38.75 ml IV Total 200 ml 938.75 ml Output Urine Total 300 ml 900 ml Height (Feet): 5 Height (Inches): 1.00 Weight (Pounds): 158 General Appearance: alert EENT: normal ENT inspection Neck: supple Cardiovascular: normal rate Respiratory/Chest: decreased breath sounds Abdomen: normal bowel sounds, non tender, soft Extremities: non-tender Paulo Christine MD Oct 24, 2019 09:49
[2019-10-24] MEDS ORDERED: Morphine Sulfate 2mg/ml Inj(IV/IM USE ONLY) IVP ONE (10:00)
[2019-10-24 10:32] LABS: BASOPHILS % (AUTO) 1.1 % (0.0-2.0); EOSINOPHILS % (AUTO) 1.9 % (0.0-3.0); HEMATOCRIT 38.9 % (37.0-47.0); LYMPHOCYTES % (AUTO) 28.6 % (20.0-45.0); MEAN CORPUSCULAR VOLUME 86 FL (80-99); NEUTROPHILS % (AUTO) 61.3 % (45.0-75.0); PLATELET COUNT 256 K/UL (150-450); WHITE BLOOD COUNT 5.8 K/UL (4.8-10.8)
[2019-10-24 12:00] VITALS: BP 131/58
[2019-10-24] MEDS: HYDROcodone/Acetamin 5/325 tab ORAL PRN (13:24)
[2019-10-24] MEDS: Fluconazole 100mg tab ORAL SCH (13:25)
[2019-10-24 16:00] VITALS: BP 154/60
--- NOTE | 2019-10-24 17:04 | General Progress Note ---
Assessment/Plan Problem List: (1) Sepsis ICD Codes: A41.9 - Sepsis, unspecified organism SNOMED: 91976353 (2) Urinary tract infection ICD Codes: N39.0 - Urinary tract infection, site not specified SNOMED: 01128552 (3) Multiple sclerosis ICD Codes: G35 - Multiple sclerosis SNOMED: 95271453 (4) Stage 4 skin ulcer of sacral region ICD Codes: L98.429 - Non-pressure chronic ulcer of back with unspecified severity SNOMED: 82571205, 124187591 (5) HTN (hypertension) ICD Codes: I10 - Essential (primary) hypertension SNOMED: 11428347 (6) HLD (hyperlipidemia) ICD Codes: E78.5 - Hyperlipidemia, unspecified SNOMED: 16130599 (7) Unspecified dementia without behavioral disturbance ICD Codes: F03.90 - Unspecified dementia without behavioral disturbance SNOMED: 89651774 (8) Chronic pain syndrome ICD Codes: G89.4 - Chronic pain syndrome SNOMED: 745783611 (9) Moderate protein malnutrition ICD Codes: E44.0 - Moderate protein-calorie malnutrition SNOMED: 464954523 (10) Hypokalemia ICD Codes: E87.6 - Hypokalemia SNOMED: 02633086 (11) Anemia ICD Codes: D64.9 - Anemia, unspecified SNOMED: 776870136 (12) Acute blood loss anemia ICD Codes: D62 - Acute posthemorrhagic anemia SNOMED: 029046305 (13) Thrombocytopenia ICD Codes: D69.6 - Thrombocytopenia, unspecified SNOMED: 596604448 Status: progressing Assessment/Plan: # Acute Blood Loss Anemia # Iron deficiency Anemia #Severe hypokalemia. Resolved. #thrombocytopenia- resolved #?Cholecystitis on abdominal US. Patient refused HIDA. LFTs normal, no abdominal pain on exam. no wbc. no fever. Doubt cholecystitis - EGD --> gastric ulcer - transfuse prn - iron replacement - CTM cbc - FOBT + ICU --> telemetry Continue Cefepime, vancomycin. s/p Azithromycin. Added Fluconazole and metronidazole. All for 2 more days. d/w ID MRI pelvis reviewed. no abscess or osteo. CT abdomen pelvis, no abscess. bilateral ischial decubitus. follow up blood cultures continue briseno monitor wbc outpatient urology follow up. ID consult with Dr. Palacios. d/w Surgical Aides Teacher consult appreciated wound care and wound MD consult with Dr. Solis OVEN LABORER consult to evaluate. d/w Princess. Tolerated regular diet, slow bites. Aspiration precautions Hold all BP meds, introduce when more stable pain control. Appetite stimulant psychiatry consult appreciated. continue Zyprexa 2.5 mg at bedtime vte ppx: heparin subq GI ppx: not indicated CM consult for discharge planning Code status: full code, POLST signed by SNF Md but not patient and it's blank. attempted to call Kirsten Richardson, daughter of patient: [phone], polst still not singed Disposition: SNF I spent 40 minutes on this encounter, > 50% spent on counselling and care coordination time of this note may not reflect time of encounter. Patient is medically stable for discharge Subjective Date patient seen: Oct 24, 2019 ROS Limited/Unobtainable: No Constitutional: Denies: no symptoms, chills, diaphoresis, fever, malaise, weakness, other HEENT: Denies: no symptoms, eye pain, blurred vision, tearing, double vision, ear pain, ear discharge, nose pain, nose congestion, throat pain, throat swelling, mouth pain, mouth swelling, other Cardiovascular: Denies: no symptoms, chest pain, edema, irregular heart rate, lightheadedness, palpitations, syncope, other Respiratory: Denies: no symptoms, cough, orthopnea, shortness of breath, SOB with excertion, SOB at rest, sputum, stridor, wheezing, other Gastrointestinal/Abdominal: Denies: no symptoms, abdomen distended, abdominal pain, black stools, tarry stools, blood in stool, constipated, diarrhea, difficulty swallowing, nausea, poor appetite, poor fluid intake, rectal bleeding , vomiting, other Genitourinary: Denies: no symptoms, burning, discharge, frequency, flank pain, hematuria, incontinence, pain, urgency, other Endocrine: Denies: no symptoms, excessive sweating, flushing, intolerance to cold, intolerance to heat, increased hunger, increased thirst, increased urine, unexplained weight gain, unexplained weight loss, other Hematologic/Lymphatic: Denies: no symptoms, anemia, easy bleeding, easy bruising, other Allergies: Coded Allergies: PENICILLINS (Verified Allergy, Unknown, 8/29/16) Uncoded Allergies: seafood (Allergy, Mild, 10/15/19) Subjective Following up for sepsis and bacteremia due to UTI, blood loss anemia. Mental status much improved. Alert and oriented x4. Afebrile, wbc normal, s/p EGD, found gastric ulcer. hgb stable. refusing HIDA which was done for suspected cholecystitis on abdominal US. Patient is hemodynamically stable Objective Last 24 Hour Vital Signs Date Time Temp Pulse Resp B/P (MAP) Pulse Ox O2 Delivery O2 Flow Rate FiO2 10/24/19 16:00 96.9 68 20 154/60 (91) 99 10/24/19 12:00 96.3 71 18 131/58 (82) 97 10/24/19 11:40 58 10/24/19 08:00 96.8 81 20 142/67 (92) 96 10/24/19 07:36 66 10/24/19 04:00 97.4 73 20 135/48 (77) 98 10/24/19 04:00 69 10/24/19 00:00 97.0 70 20 103/57 (72) 96 10/24/19 00:00 69 10/23/19 20:00 75 10/23/19 20:00 97.2 76 20 111/46 (67) 96 Intake and Output 10/23/19 10/24/19 19:00 07:00 Intake Total 200 ml 938.75 ml Output Total 300 ml 900 ml Balance -100 ml 38.75 ml IV Total 200 ml 938.75 ml Output Urine Total 300 ml 900 ml Laboratory Tests 10/24/19 09:45: White Blood Count 5.8, Red Blood Count 4.50, Hemoglobin 13.0, Hematocrit 38.9, Mean Corpuscular Volume 86, Mean Corpuscular Hemoglobin 28.9, Mean Corpuscular Hemoglobin Concent 33.4, Red Cell Distribution Width 14.0, Platelet Count 256, Mean Platelet Volume 7.2, Neutrophils (%) (Auto) 61.3, Lymphocytes (%) (Auto) 28.6, Monocytes (%) (Auto) 7.0, Eosinophils (%) (Auto) 1.9, Basophils (%) (Auto ) 1.1 Height (Feet): 5 Height (Inches): 1.00 Weight (Pounds): 158 Objective General Appearance: no apparent distress, confused Lines, tubes and drains: peripheral HEENT: normocephalic, atraumatic, anicteric, no JVD, other - right eye deviated to the right, unable to abduct Neck: non-tender, supple Respiratory/Chest: lungs clear, normal breath sounds, no respiratory distress, no accessory muscle use Cardiovascular/Chest: normal peripheral pulses, normal rate, regular rhythm, no gallop/murmur Abdomen: normal bowel sounds, non tender, soft, no organomegaly, other - pressure ulcer LLQ Genitourinary/Rectal: briseno, other - +CVA tenderness Extremities: no calf tenderness, no edema, no cyanosis Skin Exam: other - multiple stage 4 sacral decub Neurologic: confused , motor weakness - quadriplegia, now bilateral upper extremity motor improved to 4/5, bl LE 1/5 Musculoskeletal: atrophy Mikal Quiles M.D. Oct 24, 2019 17:04
[2019-10-24] MEDS: Dronabinol 2.5mg Cap ORAL SCH (17:07)
--- NOTE | 2019-10-24 18:14 | Surgery Progress Note ---
Surgery Progress Note Subjective Additional Comments comfortable stable US noted exam benign without abd pain no wbc labs okay Objective Last 24 Hour Vital Signs Date Time Temp Pulse Resp B/P (MAP) Pulse Ox O2 Delivery O2 Flow Rate FiO2 10/24/19 16:00 96.9 68 20 154/60 (91) 99 10/24/19 16:00 74 10/24/19 12:00 96.3 71 18 131/58 (82) 97 10/24/19 11:40 58 10/24/19 08:00 96.8 81 20 142/67 (92) 96 10/24/19 07:36 66 10/24/19 04:00 97.4 73 20 135/48 (77) 98 10/24/19 04:00 69 10/24/19 00:00 97.0 70 20 103/57 (72) 96 10/24/19 00:00 69 10/23/19 20:00 75 10/23/19 20:00 97.2 76 20 111/46 (67) 96 I&O Intake and Output 10/23/19 10/24/19 19:00 07:00 Intake Total 200 ml 938.75 ml Output Total 300 ml 900 ml Balance -100 ml 38.75 ml IV Total 200 ml 938.75 ml Output Urine Total 300 ml 900 ml Dressing: saturated, other Wound: other Drains: other Cardiovascular: RSR Respiratory: decreased breath sounds Abdomen: soft, non-tender, present bowel sounds, non-distended Extremities: no tenderness, no cyanosis Laboratory Tests Test 10/24/19 09:45 White Blood Count 5.8 K/UL (4.8-10.8) Red Blood Count 4.50 M/UL (4.20-5.40) Hemoglobin 13.0 G/DL (12.0-16.0) Hematocrit 38.9 % (37.0-47.0) Mean Corpuscular Volume 86 FL (80-99) Mean Corpuscular Hemoglobin 28.9 PG (27.0-31.0) Mean Corpuscular Hemoglobin Concent 33.4 G/DL (32.0-36.0) Red Cell Distribution Width 14.0 % (11.6-14.8) Platelet Count 256 K/UL (150-450) Mean Platelet Volume 7.2 FL (6.5-10.1) Neutrophils (%) (Auto) 61.3 % (45.0-75.0) Lymphocytes (%) (Auto) 28.6 % (20.0-45.0) Monocytes (%) (Auto) 7.0 % (1.0-10.0) Eosinophils (%) (Auto) 1.9 % (0.0-3.0) Basophils (%) (Auto) 1.1 % (0.0-2.0) Plan Problems: (1) Decubitus ulcer Assessment & Plan: 54-year-old female multiple comorbidities who is fairly bedbound and care dependent presented from nursing facility with multiple decubitus ulcers requiring care and management and evaluation. Patient identified to have a right ischial and left ischial stage IV decubitus ulcers Patient Identified to have historic healed sacral decubitus ulcer pt presented on admission with multiple pressure injuries. Full thickness wound L abd with 95% slough, 5% surrounding erythema with macerated borders. Erythema without induration or elevation in skin temp periwound.(L)1.6cm x (W)1.7cm. Moisture intertrigo noted to abd folds and groin folds. Labia majora noted to be swollen. Hyperpigmentation from previous wound noted to Sacrum. Full thickness stage 4 pressure injury with undermining noted to L Ischium. Bandera granulation noted to base of wound. No odor noted. Small amt serous exudate.(L)7.5cm x (W)4.5cm x (D)2.3cm, undermining clockwise 9-12o'clock by 3.6cm @12o'clock. Full thickness stage 4 pressure injury R ischium with two areas of tunneling. Bandera granulation at base of wound with small amt of Biofilm. Surrounding pink epithelial borders. Small amt serosanguineous exudate noted. No odor noted. Periwound skin is dark without erythema,induration or elevation in skin temp.(L) 4cm x (W)2.5cm x (D)2.6cm ,tunneling clockwise @12 o'clock by3.6cm ,Tunneling clockwise @2o'clock by5.7cm. Areas of hyperpigmentation noted to L heel, distal/lateral L foot extending into plantar aspect. R heel is boggy with non-blanching erythema. unlikely etiology of sepsis as chronic wounds with good granulation tissue slowly healing Tx.Plan: Cleanse Abdominal wound with Saline. Apply TheraHoney. Apply Cavilon Skin Barrier periwound. Cover with Optifoam drsg. Change every 3 days and prn. Cleanse L ischial wound with Saline. Loosely Pack with Hydrogel impregnated Kerlix packing. Apply Moisture Barrier Paste periwound. Cover with Optifoam drsg Daily and prn. Cleanse R Ischial wound with Saline. Loosely pack with Hydrogel impregnated Kerlix. (ATTENTION:2 Tunneled areas 9o'clock and 2o'clock). Apply Moisture Barrier Paste periwound. Cover with Optifoam drsg Daily and prn. Apply Cavilon Skin BArrier to both heels. Cover each heel with Optifoam drsg. Change every 7 days and prn. APM/AURA Mattress overlay. Reposition at least every 2hours or as tolerated. Off-load heels with pillow. Place pillow between knees. nutritional optimization as below (2) Sepsis Assessment & Plan: 54-year-old female multiple committees presents with hypotension altered mental status. Patient with leukocytosis, abnormal labs. Currently intensive care unit under care and management. Wound evaluated and stage IV multiple but chronic and unlikely etiology of sepsis. MRI ordered to ensure no leukocytosis from acute osteo despite clean clinical appearance - reviewed Evidence of a small soft tissue ulcer within the subcutaneous fat posterior to the upper sacrum. Surrounding edema likely reflects adjacent inflammation. This does not appear to extend through the subjacent musculature, and no marrow edema to suggest osteomyelitis is demonstrated. Smaller apparent area of edema adjacent to the tip of the coccyx, likewise with no underlying marrow signal abnormality Edema of the subcutaneous fat adjacent to both ischia, could indicate decubitus changes 2.4 x 2.4 cm apparent fluid collection superficial to the right ischium. Could represent a small subcutaneous abscess, but suspect that this actually represents extracorporeal incontinent urine within a skin fold. Correlate with clinical findings Small left hip joint effusion Edema of the fat surrounding the umbilicus, could indicate inflammation of the periumbilical skin and subcutaneous fat. Correlate with clinical findings Edema of the bilateral hips and anterior pelvic dean, probably a manifestation of generalized systemic edema. Nonspecific edema of the presacral fat Haynes catheter seen within the bladder CT noted Bilateral ischial ulcers, also previously reported on prior MRI. There appears to be packing material within the ulcers. Correlate with clinical findings Small retrococcygeal and retrosacral decubitus changes, also previously described No definite acute abdominal or pelvic process Trace left pleural effusion. Small amount of basilar pulmonary parenchymal atelectasis Haynes catheter, inferior vena cava filter incidentally noted Right basilar pulmonary cystic spaces We will continue to monitor and evaluate IV fluids IV antibiotics as per infectious disease O2 Trend labs transfuse prn scope per GI - pt refused at this time - may consider. discussed with GI We will follow with recommendations Thank you for let me participate in patient's care No gallstones. However, the gallbladder wall is thickened. Differential considerations include gallbladder wall edema due to systemic processes, acalculous acute cholecystitis, chronic cholecystitis. Consider hepatobiliary nuclear scan if there is high clinical suspicion Negative for dilated bile ducts Small echogenic kidneys bilaterally, consistent with medical renal disease GB wall thickening unlikely cholecystitis given clinical exam (3) Moderate protein malnutrition Assessment & Plan: DAILY ESTIMATED NEEDS: Needs based on Sepsis, stage 4 wounds; 51.6kg adj 30-35 kcals/kg 3320-3965 total kcals 1.5-2 g protein/kg 77-103 g total protein 25-30 mL/kg 1290- 1548 total fluid mLs NUTRITION DIAGNOSIS: * Increased kcal and pro needs r/t wound healing AEB pt adm with stage 4 wounds x2, unstageable abdominal wound, h/o MS. CURRENT DIET: No diet order in place yet. PO DIET RECOMMENDATIONS: Regular as tolerated; texture per FINANCIAL ACCOUNTING ANALYST Monitor PO intake w/ diet/ need for supplements and/or snacks ADDITIONAL RECOMMENDATIONS: 1) Obtain calibrated bedscale wt PER SNF: 139 lbs + 61 inches 2) 2) Wound healing: provide Elias in 8oz water BID -> Vit C 250mg BID + Zinc 220mg daily x 10days + MVI w/ MIN 3) Monitor BG- slightly low (72)-> rec D5 for hydration 4) FINANCIAL ACCOUNTING ANALYST eval for appropriate texture/ previously on aspiration precautions Matty Solis Oct 24, 2019 18:14
--- NOTE | 2019-10-24 18:17 | Hematology/Onc Progress Note ---
Assessment/Plan Assessment/Plan Assessment and Recs # Anemia due to underlying chronic disease, has been downtrending since admission r/o gi bleed as well, underlying cause likely due to stage IV ulceration, MS, sepsis POA --> anemia panel reviewed and c/w acd --> hold off on epogen at this time, not indicated --> ferritin 859, doesn't need iron --> hgb trend 9.2-->8.6-->7.6-->6.6-->8.3-->5.7-->6.8-->13 --> hgb goal >7, transfuse prn --> blood tx: 1 unit 10/16, 2 units 10/21 --> continue folic acid --> OCCULT ++ --> now agreed to egd, pending --> GIVEN ffp and vitk correct coagulopathy # Thrombocytopenia ACUTE likely due to sepsis --> send off prelim pt/ptt, if any evidence dic --> hep and hiv ordered, both negative --> us abd negative --> on abx for underlying cause --> plt trend: 123k-->252-->295-->256 # Coagulopathy due to meds/infection --> vit k and ffp ordered # 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 --> has not migrated per imaging # Leukocytosis with Sepsis poa with uti --> on abx as per id --> on vanc/cefepime--> vanc/fluc/flagy-->vanc/cefe/flagy --> wbc trend: 16.7-->9.8 # Urinary tract infection, with e.coli --> per id # Multiple sclerosis # Functional quadriplegia # Stage 4 skin ulcer of sacral region --> per surg, offloading, wound care # HTN # HLD # Unspecified dementia without behavioral disturbance # Chronic pain syndrome # Moderate protein malnutrition # Severe hypokalemia # Dvt ppx heparin sq Appreciate consultation and dw RN Subjective Allergies: Coded Allergies: PENICILLINS (Verified Allergy, Unknown, 07/05/16) Uncoded Allergies: seafood (Allergy, Mild, 10/15/19) Subjective 10/16: remains confused, no bleeding, labs noted, plt lower, hgb requiring prbc transf 12/11: awake and alert, s/p blood tx, hgb improved to 8.3, stool ob positive 10/18: no events to report, is on abx per geeta tucker, labs noted, occult + 10/19: awake, remains confused, wants to be discharged, labs reviewed, ordered for am 10/21: refused egd, hgb 6.8, 2 units ordered, 10/22: no events, hgb remains decreased she agreed to egd, on protonix and cbc reordered 10/23: potential for scope shortly, pending lab draws, no overt bleeding 10/24: uncooperative and refusing treatment, vs stable Objective Objective Current Medications Medications (Trade) Dose Ordered Sig/Lenard Route PRN Reason Start Time Stop Time Status Last Admin Dose Admin Acetaminophen (Tylenol) 650 mg Q4H PRN ORAL Mild Pain (Pain Scale 1-3) 10/11/19 21:28 11/10/19 21:27 10/21/19 21:07 Acetaminophen (Tylenol) 650 mg Q4H PRN ORAL fever 10/11/19 21:28 11/10/19 21:27 Acetaminophen/ Hydrocodone Bitart ([place] 5/325) 1 tab Q6H PRN ORAL Moderate Pain (Pain Scale 4-6) 10/22/19 09:15 10/29/19 09:14 10/22/19 11:08 Acetaminophen/ Hydrocodone Bitart ([place] 7.5/325) 1 tab Q4H PRN ORAL Severe Pain (Pain Scale 7-10) 10/22/19 09:15 10/29/19 09:14 Ascorbic Acid (Vitamin C) 500 mg DAILY ORAL 10/12/19 09:00 11/11/19 08:59 10/23/19 09:59 Atorvastatin Calcium (Lipitor) 20 mg BEDTIME ORAL 10/12/19 21:00 11/10/19 20:59 10/23/19 21:14 Baclofen (Lioresal) 20 mg THREE TIMES A DAY ORAL 10/22/19 09:15 11/21/19 09:14 10/23/19 17:33 Cefepime HCl 2 gm/ Dextrose 55 ml @ 110 mls/hr Q12H IVPB 10/19/19 21:00 10/26/19 20:59 10/24/19 08:17 Chlorhexidine Gluconate (Bailee-Hex 2%) 1 applic DAILY@2000 TOPIC 10/12/19 20:00 11/11/19 19:59 10/23/19 21:13 Dextrose (Dextrose 50%) 25 ml Q30M PRN IV Hypoglycemia 10/11/19 21:45 11/10/19 02:44 Dextrose (Dextrose 50%) 50 ml Q30M PRN IV Hypoglycemia 10/11/19 21:45 11/10/19 02:44 Dextrose/ Electrolytes 1,000 ml @ 75 mls/hr [id number] IV 10/16/19 10:00 11/11/19 09:59 10/24/19 05:14 Docusate Sodium (Colace) 100 mg TWICE A DAY ORAL 10/15/19 20:45 11/14/19 20:44 10/23/19 17:33 Dronabinol (Marinol) 2.5 mg BID ORAL 10/24/19 18:00 11/23/19 17:59 Fluconazole (Diflucan) 200 mg DAILY ORAL 10/24/19 13:25 10/26/19 13:24 Folic Acid (Folate) 1 mg DAILY ORAL 10/12/19 09:00 11/11/19 08:59 10/23/19 10:00 Metronidazole (Flagyl) 500 mg Q8HR ORAL 10/19/19 22:00 10/26/19 21:59 10/23/19 21:13 Multivitamins (Multivitamins) 1 tab DAILY ORAL 10/12/19 09:00 11/11/19 08:59 10/23/19 10:00 Ondansetron HCl (Zofran) 4 mg Q6H PRN IVP Nausea & Vomiting 10/21/19 11:15 11/20/19 11:14 Pantoprazole (Protonix) 40 mg EVERY 12 HOURS IVP 10/21/19 11:30 11/20/19 11:29 10/24/19 08:15 Polyethylene Glycol (Miralax) 17 gm BEDTIME ORAL 10/15/19 21:00 11/14/19 20:59 10/23/19 21:13 Sennosides (Senokot) 8.6 mg DAILY PRN ORAL Constipation 10/21/19 08:00 11/20/19 07:59 Sucralfate (Carafate) 1 gm FOUR TIMES A DAY ORAL 10/23/19 09:00 11/22/19 08:59 10/23/19 21:13 Vancomycin HCl (Vanco rx to dose) 1 ea DAILY PRN MISC Per rx protocol 10/21/19 18:45 11/20/19 18:44 Vancomycin HCl 750 mg/Sodium Chloride 275 ml @ 183.333 mls/hr Q24H IVPB 10/21/19 23:00 10/26/19 22:59 10/23/19 22:24 Zinc Sulfate (Zinc Sulfate) 220 mg DAILY ORAL 10/12/19 09:00 11/11/19 08:59 10/23/19 09:59 Last 24 Hour Vital Signs Date Time Temp Pulse Resp B/P (MAP) Pulse Ox O2 Delivery O2 Flow Rate FiO2 10/24/19 16:00 96.9 68 20 154/60 (91) 99 10/24/19 16:00 74 10/24/19 12:00 96.3 71 18 131/58 (82) 97 10/24/19 11:40 58 10/24/19 08:00 96.8 81 20 142/67 (92) 96 10/24/19 07:36 66 10/24/19 04:00 97.4 73 20 135/48 (77) 98 10/24/19 04:00 69 10/24/19 00:00 97.0 70 20 103/57 (72) 96 10/24/19 00:00 69 10/23/19 20:00 75 10/23/19 20:00 97.2 76 20 111/46 (67) 96 10/23/19 16:00 71 10/23/19 16:00 97.1 68 18 107/61 (76) 96 10/23/19 12:00 58 10/23/19 12:00 96.8 56 20 150/77 (101) 95 10/23/19 09:01 50 10/23/19 08:58 97.0 66 18 126/76 (93) 96 10/23/19 08:36 67 18 131/60 100 Room Air 10/23/19 08:32 58 18 124/72 100 Room Air 10/23/19 08:20 58 18 122/70 100 Nasal Cannula 3 10/23/19 08:16 97.5 64 18 120/71 100 Nasal Cannula 3 10/23/19 08:00 97.0 65 18 129/77 (94) 96 10/23/19 04:00 97.1 55 20 108/71 (83) 98 10/23/19 04:00 62 10/23/19 00:00 97.0 68 20 110/67 (81) 100 10/23/19 00:00 60 10/22/19 21:00 Room Air 10/22/19 20:00 55 10/22/19 20:00 97.7 65 20 122/76 (91) 98 Intake and Output 10/23/19 10/24/19 19:00 07:00 Intake Total 200 ml 938.75 ml Output Total 300 ml 900 ml Balance -100 ml 38.75 ml IV Total 200 ml 938.75 ml Output Urine Total 300 ml 900 ml Labs Test 10/22/19 12:16 10/23/19 07:30 10/24/19 09:45 Stool Occult Blood Positive (NEGATIVE) White Blood Count 6.7 K/UL (4.8-10.8) 5.8 K/UL (4.8-10.8) Red Blood Count 4.01 M/UL (4.20-5.40) 4.50 M/UL (4.20-5.40) Hemoglobin 11.8 G/DL (12.0-16.0) 13.0 G/DL (12.0-16.0) Hematocrit 34.0 % (37.0-47.0) 38.9 % (37.0-47.0) Mean Corpuscular Volume 85 FL (80-99) 86 FL (80-99) Mean Corpuscular Hemoglobin 29.5 PG (27.0-31.0) 28.9 PG (27.0-31.0) Mean Corpuscular Hemoglobin Concent 34.8 G/DL (32.0-36.0) 33.4 G/DL (32.0-36.0) Red Cell Distribution Width 13.5 % (11.6-14.8) 14.0 % (11.6-14.8) Platelet Count 245 K/UL (150-450) 256 K/UL (150-450) Mean Platelet Volume 7.7 FL (6.5-10.1) 7.2 FL (6.5-10.1) Neutrophils (%) (Auto) 57.5 % (45.0-75.0) 61.3 % (45.0-75.0) Lymphocytes (%) (Auto) 32.4 % (20.0-45.0) 28.6 % (20.0-45.0) Monocytes (%) (Auto) 6.6 % (1.0-10.0) 7.0 % (1.0-10.0) Eosinophils (%) (Auto) 2.8 % (0.0-3.0) 1.9 % (0.0-3.0) Basophils (%) (Auto) 0.8 % (0.0-2.0) 1.1 % (0.0-2.0) Prothrombin Time 13.2 SEC (9.30-11.50) Prothromb Time International Ratio 1.3 (0.9-1.1) Sodium Level 139 MMOL/L (136-145) Potassium Level 3.4 MMOL/L (3.5-5.1) Chloride Level 112 MMOL/L (98-107) Carbon Dioxide Level 21 MMOL/L (21-32) Anion Gap 6 mmol/L (5-15) Blood Urea Nitrogen 17 mg/dL (7-18) Creatinine 0.7 MG/DL (0.55-1.30) Estimat Glomerular Filtration Rate > 60 mL/min (>60) Glucose Level 92 MG/DL (74-106) Calcium Level 7.4 MG/DL (8.5-10.1) Height (Feet): 5 Height (Inches): 1.00 Weight (Pounds): 158 Objective GeN: nad, somewhat confused Pulm: ctab, no cwr CV: rrr, no gmr Abd: soft, nt, nd Ext: no cce Jerry Ervin MD Oct 24, 2019 18:17
[2019-10-24] MEDS: Dyna-Hex 2% Top Sol 2oz TOPIC SCH (20:00)
[2019-10-24] MEDS: Atorvastatin 20mg tab ORAL SCH (20:34)
[2019-10-24] MEDS: Miralax 17gm pkt ORAL SCH (20:35)
[2019-10-24] MEDS: HYDROcodone/Acetamin 7.5/325 tab ORAL PRN (20:35)
[2019-10-24] MEDS: Vancomycin 750 MG in NS 275 ML IVPB SCH (22:48)
[2019-10-25] VITALS: BP 134/55
[2019-10-25 04:00] VITALS: BP 123/57
[2019-10-25] MEDS: metroNIDAZOLE 500mg tab ORAL SCH ×2 (06:00→13:29)
--- NOTE | 2019-10-25 06:28 | General Progress Note ---
Assessment/Plan Status: progressing Assessment/Plan: 1. Multiple sclerosis. 2. Multiple UTIs. 3. Hypertension. 4. Hyperlipidemia. 5. Seizure disorder. 6. Chronic pain syndrome. 7. Malnutrition. 8. Decubital ulcerations 9. Anemia s/p EGD >>> gastri ulcer poor po intake refuses medication abd us reviewed >>> HIDA scan and LFTS ordered>>> patient refused fu H&H ppi BID marinol dc planning per primary team Subjective Allergies: Coded Allergies: PENICILLINS (Verified Allergy, Unknown, 07/05/16) Uncoded Allergies: seafood (Allergy, Mild, 10/15/19) Objective Last 24 Hour Vital Signs Date Time Temp Pulse Resp B/P (MAP) Pulse Ox O2 Delivery O2 Flow Rate FiO2 10/25/19 04:00 97.1 70 18 123/57 (79) 98 10/25/19 04:00 71 10/25/19 00:00 97.0 78 20 134/55 (81) 95 10/25/19 00:00 72 10/24/19 21:05 96.9 10/24/19 20:00 67 10/24/19 16:00 96.9 68 20 154/60 (91) 99 10/24/19 16:00 74 10/24/19 12:00 96.3 71 18 131/58 (82) 97 10/24/19 11:40 58 10/24/19 08:00 96.8 81 20 142/67 (92) 96 10/24/19 07:36 66 Intake and Output 10/24/19 10/25/19 19:00 07:00 Intake Total 935 ml Output Total 500 ml Balance 435 ml IV Total 935 ml Output Urine Total 500 ml Laboratory Tests 10/24/19 09:45: White Blood Count 5.8, Red Blood Count 4.50, Hemoglobin 13.0, Hematocrit 38.9, Mean Corpuscular Volume 86, Mean Corpuscular Hemoglobin 28.9, Mean Corpuscular Hemoglobin Concent 33.4, Red Cell Distribution Width 14.0, Platelet Count 256, Mean Platelet Volume 7.2, Neutrophils (%) (Auto) 61.3, Lymphocytes (%) (Auto) 28.6, Monocytes (%) (Auto) 7.0, Eosinophils (%) (Auto) 1.9, Basophils (%) (Auto ) 1.1 Height (Feet): 5 Height (Inches): 1.00 Weight (Pounds): 158 General Appearance: alert EENT: normal ENT inspection Neck: supple Cardiovascular: normal rate Respiratory/Chest: decreased breath sounds Abdomen: normal bowel sounds, non tender, soft Extremities: non-tender Paulo Christine MD Oct 25, 2019 06:28
--- NOTE | 2019-10-25 06:43 | Immediate Post-Op Evaluation ---
Immediate Post-Op Evalulation Immediate Post-Op Evalulation Procedure: egd Date of Evaluation: Oct 23, 2019 Time of Evaluation: 08:00 Blood Products: none Estimated Blood Loss: negligible Blood Pressure Systolic: 129 Blood Pressure Diastolic: 77 Pulse Rate: 65 Respiratory Rate: 18 O2 Sat by Pulse Oximetry: 100 Temperature (Fahrenheit): 97.0 Pain Score (1-10): 0 Nausea: No Vomiting: No Complications none Patient Status: awake, reacts, patent Hydration Status: adequate Drug: Brittney Manjarrez MD Oct 25, 2019 06:43
--- NOTE | 2019-10-25 06:45 | 48 Hour Post Anesthesia Eval ---
Post Anesthesia Evaluation Procedure: egd Date of Evaluation: Oct 25, 2019 Time of Evaluation: 06:43 Blood Pressure Systolic: 123 0: 57 Pulse Rate: 70 Respiratory Rate: 18 Temperature (Fahrenheit): 97.0 O2 Sat by Pulse Oximetry: 100 Airway: patent Nausea: No Vomiting: No Pain Intensity: 0 Hydration Status: adequate Cardiopulmonary Status: stable Mental Status/LOC: patient returned to baseline Post-Anesthesia Complications: none Follow-up care needed: N/A Brittney Cruz MD Oct 25, 2019 06:45
[2019-10-25 08:00] VITALS: BP 136/93
[2019-10-25] MEDS: Dronabinol 2.5mg Cap ORAL SCH (09:00)
[2019-10-25] MEDS: Pantoprazole Inj IVP SCH (09:00)
[2019-10-25] MEDS: Zinc Sulfate 220mg cap ORAL SCH (09:00)
[2019-10-25] MEDS: Sucralfate 1gm tab ORAL SCH ×2 (09:00→13:00)
--- NOTE | 2019-10-25 09:05 | Hematology/Onc Progress Note ---
Assessment/Plan Assessment/Plan Assessment and Recs # Anemia due to underlying chronic disease, has been downtrending since admission r/o gi bleed as well, underlying cause likely due to stage IV ulceration, MS, sepsis POA --> anemia panel reviewed and c/w acd --> hold off on epogen at this time, not indicated --> ferritin 859, doesn't need iron --> hgb trend 9.2-->8.6-->7.6-->6.6-->8.3-->5.7-->6.8-->13 --> hgb goal >7, transfuse prn --> blood tx: 1 unit 10/16, 2 units 10/21 --> continue folic acid --> OCCULT ++ --> egd showed gastric ulceration --> CONTINUE ppi bid --> GIVEN ffp and vitk prn to correct coagulopathy # Thrombocytopenia ACUTE likely due to sepsis --> send off prelim pt/ptt, if any evidence dic --> hep and hiv ordered, both negative --> us abd negative --> on abx for underlying cause --> plt trend: 123k-->252-->295-->256 # 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 --> has not migrated per imaging # Coagulopathy due to meds/infection --> vit k and ffp ordered pre procedure --> no major bleeding during egd # Leukocytosis with Sepsis poa with uti --> on abx as per id --> on vanc/cefepime--> vanc/fluc/flagy-->vanc/cefe/flagy--> vanc/cefe/flucon --> wbc trend: 16.7-->9.8 # Urinary tract infection, with e.coli --> per id # Multiple sclerosis # Functional quadriplegia # Stage 4 skin ulcer of sacral region --> per surg, offloading, wound care # HTN # HLD # Unspecified dementia without behavioral disturbance # Chronic pain syndrome # Moderate protein malnutrition # Severe hypokalemia # Dvt ppx heparin sq Appreciate consultation and dw RN Subjective Constitutional: Denies: no symptoms, chills, fever, malaise, weakness, other Cardiovascular: Denies: no symptoms, chest pain, edema, irregular heart rate, lightheadedness, palpitations, syncope, other Respiratory: Denies: no symptoms, cough, shortness of breath, SOB with excertion, SOB at rest, sputum, wheezing, other Genitourinary: Denies: no symptoms, burning, discharge, frequency, flank pain, hematuria, incontinence, pain, urgency, other Neurologic/Psychiatric: Denies: no symptoms, anxiety, depressed, emotional problems, headache, numbness, paresthesia, pre-existing deficit, seizure, tingling, tremors, weakness, other Endocrine: Denies: no symptoms, excessive sweating, flushing, intolerance to cold, intolerance to heat, increased hunger, increased thirst, increased urine, unexplained weight gain, unexplained weight loss, other Hematologic/Lymphatic: Denies: no symptoms, anemia, easy bleeding, easy bruising, adenopathy, other Allergies: Coded Allergies: PENICILLINS (Verified Allergy, Unknown, 07/05/16) Uncoded Allergies: seafood (Allergy, Mild, 10/15/19) Subjective 10/16: remains confused, no bleeding, labs noted, plt lower, hgb requiring prbc transf 10/17: awake and alert, s/p blood tx, hgb improved to 8.3, stool ob positive 10/18: no events to report, is on abx per geeta tucker, labs noted, occult + 10/19: awake, remains confused, wants to be discharged, labs reviewed, ordered for am 10/21: refused egd, hgb 6.8, 2 units ordered, 10/22: no events, hgb remains decreased she agreed to egd, on protonix and cbc reordered 10/23: potential for scope shortly, pending lab draws, no overt bleeding 10/24: uncooperative and refusing treatment, vs stable 10/25: no events, no bleeding, still refusing some labs Objective Objective Current Medications Medications (Trade) Dose Ordered Sig/Lenard Route PRN Reason Start Time Stop Time Status Last Admin Dose Admin Acetaminophen (Tylenol) 650 mg Q4H PRN ORAL Mild Pain (Pain Scale 1-3) 10/11/19 21:28 11/10/19 21:27 10/21/19 21:07 Acetaminophen (Tylenol) 650 mg Q4H PRN ORAL fever 10/11/19 21:28 11/10/19 21:27 Acetaminophen/ Hydrocodone Bitart ([place] 5/325) 1 tab Q6H PRN ORAL Moderate Pain (Pain Scale 4-6) 10/22/19 09:15 10/29/19 09:14 10/22/19 11:08 Acetaminophen/ Hydrocodone Bitart ([place] 7.5/325) 1 tab Q4H PRN ORAL Severe Pain (Pain Scale 7-10) 10/22/19 09:15 10/29/19 09:14 10/24/19 20:35 Ascorbic Acid (Vitamin C) 500 mg DAILY ORAL 10/12/19 09:00 11/11/19 08:59 10/23/19 09:59 Atorvastatin Calcium (Lipitor) 20 mg BEDTIME ORAL 10/12/19 21:00 11/10/19 20:59 10/24/19 20:34 Baclofen (Lioresal) 20 mg THREE TIMES A DAY ORAL 10/22/19 09:15 11/21/19 09:14 10/23/19 17:33 Cefepime HCl 2 gm/ Dextrose 55 ml @ 110 mls/hr Q12H IVPB 10/19/19 21:00 10/26/19 20:59 10/24/19 20:34 Chlorhexidine Gluconate (Bailee-Hex 2%) 1 applic DAILY@2000 TOPIC 10/12/19 20:00 11/11/19 19:59 10/24/19 20:00 Dextrose (Dextrose 50%) 25 ml Q30M PRN IV Hypoglycemia 10/11/19 21:45 11/10/19 02:44 Dextrose (Dextrose 50%) 50 ml Q30M PRN IV Hypoglycemia 10/11/19 21:45 11/10/19 02:44 Dextrose/ Electrolytes 1,000 ml @ 75 mls/hr [id number] IV 10/16/19 10:00 11/11/19 09:59 10/24/19 18:43 Docusate Sodium (Colace) 100 mg TWICE A DAY ORAL 10/15/19 20:45 11/14/19 20:44 10/23/19 17:33 Dronabinol (Marinol) 2.5 mg BID ORAL 10/24/19 18:00 11/23/19 17:59 Fluconazole (Diflucan) 200 mg DAILY ORAL 10/24/19 13:25 10/26/19 13:24 Folic Acid (Folate) 1 mg DAILY ORAL 10/12/19 09:00 11/11/19 08:59 10/23/19 10:00 Metronidazole (Flagyl) 500 mg Q8HR ORAL 10/19/19 22:00 10/26/19 21:59 10/24/19 21:34 Multivitamins (Multivitamins) 1 tab DAILY ORAL 10/12/19 09:00 11/11/19 08:59 10/23/19 10:00 Ondansetron HCl (Zofran) 4 mg Q6H PRN IVP Nausea & Vomiting 10/21/19 11:15 11/20/19 11:14 Pantoprazole (Protonix) 40 mg EVERY 12 HOURS IVP 10/21/19 11:30 11/20/19 11:29 10/24/19 20:34 Polyethylene Glycol (Miralax) 17 gm BEDTIME ORAL 10/15/19 21:00 11/14/19 20:59 10/23/19 21:13 Sennosides (Senokot) 8.6 mg DAILY PRN ORAL Constipation 10/21/19 08:00 11/20/19 07:59 Sucralfate (Carafate) 1 gm FOUR TIMES A DAY ORAL 10/23/19 09:00 11/22/19 08:59 10/24/19 20:34 Vancomycin HCl (Vanco rx to dose) 1 ea DAILY PRN MISC Per rx protocol 10/21/19 18:45 11/20/19 18:44 Vancomycin HCl 750 mg/Sodium Chloride 275 ml @ 183.333 mls/hr Q24H IVPB 10/21/19 23:00 10/26/19 22:59 10/24/19 22:48 Zinc Sulfate (Zinc Sulfate) 220 mg DAILY ORAL 10/12/19 09:00 11/11/19 08:59 10/23/19 09:59 Last 24 Hour Vital Signs Date Time Temp Pulse Resp B/P (MAP) Pulse Ox O2 Delivery O2 Flow Rate FiO2 10/25/19 08:34 Room Air 10/25/19 08:00 96.4 67 18 136/93 (107) 92 10/25/19 06:45 70 18 100 10/25/19 06:43 65 18 100 10/25/19 04:00 97.1 70 18 123/57 (79) 98 10/25/19 04:00 71 10/25/19 00:00 97.0 78 20 134/55 (81) 95 10/25/19 00:00 72 10/24/19 21:05 96.9 10/24/19 20:00 67 10/24/19 16:00 96.9 68 20 154/60 (91) 99 10/24/19 16:00 74 10/24/19 12:00 96.3 71 18 131/58 (82) 97 10/24/19 11:40 58 10/24/19 08:00 96.8 81 20 142/67 (92) 96 10/24/19 07:36 66 10/24/19 04:00 97.4 73 20 135/48 (77) 98 10/24/19 04:00 69 10/24/19 00:00 97.0 70 20 103/57 (72) 96 10/24/19 00:00 69 10/23/19 20:00 75 10/23/19 20:00 97.2 76 20 111/46 (67) 96 10/23/19 16:00 71 10/23/19 16:00 97.1 68 18 107/61 (76) 96 10/23/19 12:00 58 10/23/19 12:00 96.8 56 20 150/77 (101) 95 Intake and Output 10/24/19 10/25/19 19:00 07:00 Intake Total 935 ml Output Total 500 ml 800 ml Balance 435 ml -800 ml IV Total 935 ml Output Urine Total 500 ml 800 ml Labs Test 10/22/19 12:16 10/23/19 07:30 10/24/19 09:45 Stool Occult Blood Positive (NEGATIVE) White Blood Count 6.7 K/UL (4.8-10.8) 5.8 K/UL (4.8-10.8) Red Blood Count 4.01 M/UL (4.20-5.40) 4.50 M/UL (4.20-5.40) Hemoglobin 11.8 G/DL (12.0-16.0) 13.0 G/DL (12.0-16.0) Hematocrit 34.0 % (37.0-47.0) 38.9 % (37.0-47.0) Mean Corpuscular Volume 85 FL (80-99) 86 FL (80-99) Mean Corpuscular Hemoglobin 29.5 PG (27.0-31.0) 28.9 PG (27.0-31.0) Mean Corpuscular Hemoglobin Concent 34.8 G/DL (32.0-36.0) 33.4 G/DL (32.0-36.0) Red Cell Distribution Width 13.5 % (11.6-14.8) 14.0 % (11.6-14.8) Platelet Count 245 K/UL (150-450) 256 K/UL (150-450) Mean Platelet Volume 7.7 FL (6.5-10.1) 7.2 FL (6.5-10.1) Neutrophils (%) (Auto) 57.5 % (45.0-75.0) 61.3 % (45.0-75.0) Lymphocytes (%) (Auto) 32.4 % (20.0-45.0) 28.6 % (20.0-45.0) Monocytes (%) (Auto) 6.6 % (1.0-10.0) 7.0 % (1.0-10.0) Eosinophils (%) (Auto) 2.8 % (0.0-3.0) 1.9 % (0.0-3.0) Basophils (%) (Auto) 0.8 % (0.0-2.0) 1.1 % (0.0-2.0) Prothrombin Time 13.2 SEC (9.30-11.50) Prothromb Time International Ratio 1.3 (0.9-1.1) Sodium Level 139 MMOL/L (136-145) Potassium Level 3.4 MMOL/L (3.5-5.1) Chloride Level 112 MMOL/L (98-107) Carbon Dioxide Level 21 MMOL/L (21-32) Anion Gap 6 mmol/L (5-15) Blood Urea Nitrogen 17 mg/dL (7-18) Creatinine 0.7 MG/DL (0.55-1.30) Estimat Glomerular Filtration Rate > 60 mL/min (>60) Glucose Level 92 MG/DL (74-106) Calcium Level 7.4 MG/DL (8.5-10.1) Height (Feet): 5 Height (Inches): 1.00 Weight (Pounds): 158 Objective GeN: nad, somewhat confused Pulm: ctab, no cwr CV: rrr, no gmr Abd: soft, nt, nd Ext: no cce Jerry Ervin MD Oct 25, 2019 09:05
[2019-10-25] MEDS: Docusate 100mg cap ORAL SCH (09:29)
[2019-10-25] MEDS: Ascorbic Acid 500mg tab ORAL SCH (09:29)
[2019-10-25] MEDS: Fluconazole 100mg tab ORAL SCH (09:31)
[2019-10-25] MEDS: Cefepime HCl 2 GM in D5W 55 ML IVPB SCH (09:32)
[2019-10-25 12:00] VITALS: BP 121/70
[2019-10-25] MEDS: HYDROcodone/Acetamin 7.5/325 tab ORAL PRN (13:30)
--- NOTE | 2019-10-25 14:25 | Surgery Progress Note ---
Surgery Progress Note Subjective Additional Comments Patient seen and examined bedside. No acute events. States she feels great. No nausea vomiting fever chills. Declined proceeding with HIDA scan. Denies any abdominal pain. States tolerating diet without problem. States she has no interest in any whenever operating on her opening her up. States her mom told her never to be opened up. Objective Last 24 Hour Vital Signs Date Time Temp Pulse Resp B/P (MAP) Pulse Ox O2 Delivery O2 Flow Rate FiO2 10/25/19 12:00 96.3 81 18 121/70 (87) 98 10/25/19 11:49 73 10/25/19 08:34 Room Air 10/25/19 08:12 67 10/25/19 08:00 96.4 67 18 136/93 (107) 92 10/25/19 06:45 70 18 100 10/25/19 06:43 65 18 100 10/25/19 04:00 97.1 70 18 123/57 (79) 98 10/25/19 04:00 71 10/25/19 00:00 97.0 78 20 134/55 (81) 95 10/25/19 00:00 72 10/24/19 21:05 96.9 10/24/19 20:00 67 10/24/19 16:00 96.9 68 20 154/60 (91) 99 10/24/19 16:00 74 I&O Intake and Output 10/24/19 10/25/19 19:00 07:00 Intake Total 935 ml Output Total 500 ml 800 ml Balance 435 ml -800 ml IV Total 935 ml Output Urine Total 500 ml 800 ml Dressing: saturated Wound: clean Cardiovascular: RSR Respiratory: clear Abdomen: soft, flat, non-tender, present bowel sounds, non-distended Extremities: no edema, no tenderness, no cyanosis Plan Problems: (1) Decubitus ulcer Assessment & Plan: 54-year-old female multiple comorbidities who is fairly bedbound and care dependent presented from nursing facility with multiple decubitus ulcers requiring care and management and evaluation. Patient identified to have a right ischial and left ischial stage IV decubitus ulcers Patient Identified to have historic healed sacral decubitus ulcer pt presented on admission with multiple pressure injuries. Full thickness wound L abd with 95% slough, 5% surrounding erythema with macerated borders. Erythema without induration or elevation in skin temp periwound.(L)1.6cm x (W)1.7cm. Moisture intertrigo noted to abd folds and groin folds. Labia majora noted to be swollen. Hyperpigmentation from previous wound noted to Sacrum. Full thickness stage 4 pressure injury with undermining noted to L Ischium. Round Top granulation noted to base of wound. No odor noted. Small amt serous exudate.(L)7.5cm x (W)4.5cm x (D)2.3cm, undermining clockwise 9-12o'clock by 3.6cm @12o'clock. Full thickness stage 4 pressure injury R ischium with two areas of tunneling. Round Top granulation at base of wound with small amt of Biofilm. Surrounding pink epithelial borders. Small amt serosanguineous exudate noted. No odor noted. Periwound skin is dark without erythema,induration or elevation in skin temp.(L) 4cm x (W)2.5cm x (D)2.6cm ,tunneling clockwise @12 o'clock by3.6cm ,Tunneling clockwise @2o'clock by5.7cm. Areas of hyperpigmentation noted to L heel, distal/lateral L foot extending into plantar aspect. R heel is boggy with non-blanching erythema. unlikely etiology of sepsis as chronic wounds with good granulation tissue slowly healing Tx.Plan: Cleanse Abdominal wound with Saline. Apply TheraHoney. Apply Cavilon Skin Barrier periwound. Cover with Optifoam drsg. Change every 3 days and prn. Cleanse L ischial wound with Saline. Loosely Pack with Hydrogel impregnated Kerlix packing. Apply Moisture Barrier Paste periwound. Cover with Optifoam drsg Daily and prn. Cleanse R Ischial wound with Saline. Loosely pack with Hydrogel impregnated Kerlix. (ATTENTION:2 Tunneled areas 9o'clock and 2o'clock). Apply Moisture Barrier Paste periwound. Cover with Optifoam drsg Daily and prn. Apply Cavilon Skin BArrier to both heels. Cover each heel with Optifoam drsg. Change every 7 days and prn. APM/AURA Mattress overlay. Reposition at least every 2hours or as tolerated. Off-load heels with pillow. Place pillow between knees. nutritional optimization as below (2) Sepsis Assessment & Plan: 54-year-old female multiple committees presents with hypotension altered mental status. Patient with leukocytosis, abnormal labs. Currently intensive care unit under care and management. Wound evaluated and stage IV multiple but chronic and unlikely etiology of sepsis. MRI ordered to ensure no leukocytosis from acute osteo despite clean clinical appearance - reviewed Evidence of a small soft tissue ulcer within the subcutaneous fat posterior to the upper sacrum. Surrounding edema likely reflects adjacent inflammation. This does not appear to extend through the subjacent musculature, and no marrow edema to suggest osteomyelitis is demonstrated. Smaller apparent area of edema adjacent to the tip of the coccyx, likewise with no underlying marrow signal abnormality Edema of the subcutaneous fat adjacent to both ischia, could indicate decubitus changes 2.4 x 2.4 cm apparent fluid collection superficial to the right ischium. Could represent a small subcutaneous abscess, but suspect that this actually represents extracorporeal incontinent urine within a skin fold. Correlate with clinical findings Small left hip joint effusion Edema of the fat surrounding the umbilicus, could indicate inflammation of the periumbilical skin and subcutaneous fat. Correlate with clinical findings Edema of the bilateral hips and anterior pelvic dean, probably a manifestation of generalized systemic edema. Nonspecific edema of the presacral fat Haynes catheter seen within the bladder CT noted Bilateral ischial ulcers, also previously reported on prior MRI. There appears to be packing material within the ulcers. Correlate with clinical findings Small retrococcygeal and retrosacral decubitus changes, also previously described No definite acute abdominal or pelvic process Trace left pleural effusion. Small amount of basilar pulmonary parenchymal atelectasis Haynes catheter, inferior vena cava filter incidentally noted Right basilar pulmonary cystic spaces We will continue to monitor and evaluate IV fluids IV antibiotics as per infectious disease O2 Trend labs transfuse prn scope per GI - pt refused at this time - may consider. discussed with GI We will follow with recommendations Thank you for let me participate in patient's care No gallstones. However, the gallbladder wall is thickened. Differential considerations include gallbladder wall edema due to systemic processes, acalculous acute cholecystitis, chronic cholecystitis. Consider hepatobiliary nuclear scan if there is high clinical suspicion Negative for dilated bile ducts Small echogenic kidneys bilaterally, consistent with medical renal disease GB wall thickening unlikely cholecystitis given clinical exam Does not need HIDA Diet as tolerated Discharge planning from surgical standpoint Continue with above wound care for discharge (3) Moderate protein malnutrition Assessment & Plan: DAILY ESTIMATED NEEDS: Needs based on Sepsis, stage 4 wounds; 51.6kg adj 30-35 kcals/kg [id number] total kcals 1.5-2 g protein/kg 77-103 g total protein 25-30 mL/kg 1290- 1548 total fluid mLs NUTRITION DIAGNOSIS: * Increased kcal and pro needs r/t wound healing AEB pt adm with stage 4 wounds x2, unstageable abdominal wound, h/o MS. CURRENT DIET: No diet order in place yet. PO DIET RECOMMENDATIONS: Regular as tolerated; texture per PUBLIC HEALTH NURSE Monitor PO intake w/ diet/ need for supplements and/or snacks ADDITIONAL RECOMMENDATIONS: 1) Obtain calibrated bedscale wt PER SNF: 139 lbs + 61 inches 2) 2) Wound healing: provide Elias in 8oz water BID -> Vit C 250mg BID + Zinc 220mg daily x 10days + MVI w/ MIN 3) Monitor BG- slightly low (72)-> rec D5 for hydration 4) PUBLIC HEALTH NURSE eval for appropriate texture/ previously on aspiration precautions Matty Solis Oct 25, 2019 14:25
[2019-10-25] MEDS ORDERED: Pantoprazole IVP (15:29)
[2019-10-25] MEDS ORDERED: SUCRALFATE1 GM ORAL (15:29)
[2019-10-25] MEDS ORDERED: ACETAMINOPHEN325 M1 ORAL (15:29)
[2019-10-25] MEDS ORDERED: MARINOL2.5 MG ORAL (15:29)
--- NOTE | 2019-10-25 15:31 | Discharge Summary ---
Discharge Summary Hospital Course Date of Admission Oct 11, 2019 at 01:41 Date of Discharge 10/25/2019 Admitting Diagnosis HYPOTENSION,SEPSIS HPI Cass Richardson is a 54 year old female who was admitted on Oct 11, 2019 at 01: 41 for Hypotension/Sepsis Consultations GI, ID, heme/onc Procedures EGD Hospital Course 54 year old female with multiple sclerosis and functional quadriplegia being admitted for sepsis secondary to UTI. 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 fungemia/fungal uti, ? mrsa pna (previous chest x-ray negative, wounds noted - ? infected but look fairly clean, MRI without osteo, MRI with incontinent urine within skin fold > right ischium/hip abscess - vancomycin, cefepime, flagyl, on diflucan for fungemia coverage - monitor chest x-ray and labs, cultures noted - leukocytosis resolved, lgt, clinically improved - wound care per surgery and protocol - echo report without vegetation mentioned - CT abdomen and pelvis - no abscess, report noted - stable ID standpoint - communicated with surgery about US abdomen and agrees patient clinically stable and no surgical intervention for now -outpatient urology follow up. -ID consult with Dr. Palacios. d/w # Acute Blood Loss Anemia # Iron deficiency Anemia #Severe hypokalemia. Resolved. #thrombocytopenia- resolved #?Cholecystitis on abdominal US. Patient refused HIDA. LFTs normal, no abdominal pain on exam. no wbc. no fever. 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 Solis COMMERCIAL UNDERWRITER consult to evaluate. d/w Princess. Tolerated regular diet, slow bites. Aspiration precautions pain control. Appetite stimulant psychiatry consult appreciated. continue Zyprexa 2.5 mg at bedtime vte ppx: heparin subq GI ppx: not indicated CM consult for discharge planning Code status: full code, POLST signed by SNF Md but not patient and it's blank. attempted to call Kirsten Richardson, daughter of patient: [phone], polst still not singed Disposition: SNF I spent 40 minutes on this encounter, > 50% spent on counselling and care coordination time of this note may not reflect time of encounter. Patient is medically stable for discharge Discharge Medications New Medications: Acetaminophen* (Acetaminophen 325MG Tablet*) 325 Mg Tablet 650 MG ORAL Q4H PRN for 30 Days, #60 TAB Dronabinol* (Marinol*) 2.5 Mg Capsule 2.5 MG ORAL BID for 30 Days, #60 CAP [Pantoprazole] () 40 MG VIAL 40 MG IVP EVERY 12 HOURS for 30 Days, #60 Sucralfate* (Carafate*) 1 Gm Tablet 1 GM ORAL FOUR TIMES A DAY for 30 Days, #120 TAB Continued Medications: Albuterol Sulfate (Albuterol Sulfate) 0.63 Mg/3 Ml Vial.neb 0.63 MG HHN Q4HR, VIAL (This prescription has been renewed) Amino Acids/Protein Hydrolys (Pro-Stat Liquid) 30 Ml Liquid.pkt 30 ML ORAL TWICE A DAY, ML (This prescription has been renewed) Ascorbic Acid* (Vitamin C*) 500 Mg Tablet 500 MG ORAL DAILY, #30 TAB 0 Refills (This prescription has been renewed) Atorvastatin Calcium* (Atorvastatin Calcium*) 20 Mg Tablet 20 MG ORAL BEDTIME, TAB (This prescription has been renewed) Baclofen (Baclofen) 20 Mg Tablet 20 MG ORAL Q8HR, #30 TAB Clonidine Hcl* (Catapres*) 0.1 Mg Tablet 0.1 MG ORAL EVERY 6 HOURS, TAB (This prescription has been renewed) Cranberry (Cranberry) 400 Mg Capsule 450 MG PO DAILY, CAP (This prescription has been renewed) Folic Acid* (Folic Acid*) 1 Mg Tablet 1 MG ORAL DAILY, #30 TAB Gabapentin (Neurontin) 300 Mg Capsule 300 MG ORAL TID, #30 CAP Hydrocodone Bit/Acetaminophen 5-325* (Lynwood 5-325*) 1 Each Tablet 1 TAB ORAL Q6H PRN for For Pain, #12 TAB 0 Refills (This prescription has been renewed) Ipratropium/Albuterol Sulfate (DuoNeb 0.5-3(2.5)mg/3ml) 3 Ml Ampul.neb 3 ML HHN, EA (This prescription has been renewed) Metoprolol Tartrate* (Metoprolol Tartrate*) 25 Mg Tablet 25 MG ORAL EVERY 12 HOURS, TAB (This prescription has been renewed) Multivitamin (Multi-Vitamin Daily) 1 Each Tablet 1 EACH PO, TAB (This prescription has been renewed) No Known Medications* (NKM - No Known Medications*) . 0 ., 0 Refills Ondansetron (Zofran) 4 Mg Tablet 4 MG ORAL Q6H PRN for Nausea & Vomiting, TAB (This prescription has been renewed ) Polyethylene Glycol 3350* (Miralax*) 17 Gm Powd.pack 17 GM ORAL HSPRN PRN for Constipation, #30 PACK Zinc Sulfate (Zinc Sulfate) 220 Mg Tablet 220 MG ORAL DAILY, #30 TAB 0 Refills (This prescription has been renewed) Discontinued Medications: Aspirin (Aspirin EC) 81 Mg Tablet.dr 81 MG ORAL DAILY, TAB Aspirin* (Aspir 81*) 81 Mg Tablet.dr 81 MG ORAL DAILY, TAB Hydrocodone Bit/Acetaminophen 5-325* (Lynwood 5-325*) 1 Each Tablet 1 TAB ORAL EVERY 8 HOURS PRN for Moderate Breakthru Pain (5-7), #10 TAB 0 Refills Hydrocodone Bit/Acetaminophen 7.5-325* (Lynwood 7.5-325*) 1 Each Tablet 1 TAB ORAL Q4H PRN for For Pain, #10 TAB 0 Refills Ibuprofen (Ibuprofen*) 200 Mg Tablet 400 MG ORAL TID PRN for Mild Pain (Pain Scale 1-3), #30 TAB Ondansetron (Zofran) 4 Mg Tablet 4 MG ORAL Q6H PRN for Nausea & Vomiting, TAB Discharge Condition Upon Discharge: stable Discharge Disposition Patient was discharged to SNF Discharge Diagnoses: (1) Sepsis (2) Gastric ulcer (3) Acute blood loss anemia (4) Thrombocytopenia (5) four point quadroplegia (6) Decubitus ulcer (7) Urinary tract infection (8) Hypokalemia (9) Multiple sclerosis (10) Chronic pain syndrome (11) Stage 4 skin ulcer of sacral region (12) Bacteremia Mikal Quiles M.D. Oct 25, 2019 15:31
--- NOTE | 2019-10-25 15:33 | Infectious Diseases Prog Note ---
Assessment/Plan Assessment/Plan ASSESSMENT AND PLAN: 1. 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 fungemia/fungal uti, ? mrsa pna (previous chest x-ray negative, wounds noted - ? infected but look fairly clean, MRI without osteo, MRI with incontinent urine within skin fold > right ischium/hip abscess ? cholecystitis on abdominal US - clinically abdomen benign - vancomycin, cefepime, flagyl, on diflucan for fungemia coverage - finish course, last day of abx - monitor chest x-ray and labs, cultures noted - leukocytosis resolved, lgt, clinically improved - wound care per surgery and protocol - echo report without vegetation mentioned - CT abdomen and pelvis - no abscess, report noted - stable ID standpoint - d/w Dr. Quiles about abx and discharge 2. telemetry care 3. Skin care protocol. 4. The patient is anemic. 5. Hypertension. 6. Blood pressure treatment primary care team. 7. Multiple sclerosis. 8. History of UTIs. 9. Hyperlipidemia. 10. Seizures. 11. Chronic pain syndrome. 12. Dementia. 13. Malnutrition. 14. Allergic to penicillin. 15. Social history is negative. 16. Family history is noncontributory. 17. MAR is noted. 18. Case was discussed with RN. 19. Case was discussed with Dr. Quiles. 20. Continue treatment per primary consultants. Subjective Constitutional: Denies: fever, chills, fatigue HEENT: Denies: congestion Respiratory: Denies: shortness of breath Cardiovascular: Denies: chest pain Gastrointestinal/Abdominal: Denies: nausea, vomiting, diarrhea Genitourinary: Reports: other - + briseno Neurologic: Denies: headache Psychiatric: Denies: depression Skin: Denies: rash Hematologic: Denies: bleeding Musculoskeletal: Denies: pain Allergies: Coded Allergies: PENICILLINS (Verified Allergy, Unknown, 07/05/16) Uncoded Allergies: seafood (Allergy, Mild, 10/15/19) Objective Vital Signs Last 24 Hour Vital Signs Date Time Temp Pulse Resp B/P (MAP) Pulse Ox O2 Delivery O2 Flow Rate FiO2 10/25/19 14:00 96.3 10/25/19 12:00 96.3 81 18 121/70 (87) 98 10/25/19 11:49 73 10/25/19 08:34 Room Air 10/25/19 08:12 67 10/25/19 08:00 96.4 67 18 136/93 (107) 92 10/25/19 06:45 70 18 100 10/25/19 06:43 65 18 100 10/25/19 04:00 97.1 70 18 123/57 (79) 98 10/25/19 04:00 71 10/25/19 00:00 97.0 78 20 134/55 (81) 95 10/25/19 00:00 72 10/24/19 20:00 67 10/24/19 16:00 96.9 68 20 154/60 (91) 99 10/24/19 16:00 74 Height (Feet): 5 Height (Inches): 1.00 Weight (Pounds): 158 General Appearance: no acute distress HEENT: normocephalic, atraumatic, anicteric, mucous membranes moist Respiratory/Chest: lungs clear, normal breath sounds, no respiratory distress, no accessory muscle use Cardiovascular: normal rate, regular rhythm, no gallop/murmur, no JVD Abdomen: normal bowel sounds, soft, non tender, no organomegaly, non distended Genitourinary: other - + briseno - urine clear Extremities: no cyanosis Skin: no rash 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 Lungs and pleural spaces are clear. No significant interim change Impression: No acute process Chest x-ray - 10/15/19 - Procedure: XRAY Chest 1v Indication: Shortness of breath Technique: One view of the chest Comparison: 10/12/2019 Findings: Lungs and pleural spaces are clear. Heart size is normal. Is no significant interim change Impression: No acute process MRI - Pelvis: Impression: Evidence of a small soft tissue ulcer within the subcutaneous fat posterior to the upper sacrum. Surrounding edema likely reflects adjacent inflammation. This does not appear to extend through the subjacent musculature, and no marrow edema to suggest osteomyelitis is demonstrated. Smaller apparent area of edema adjacent to the tip of the coccyx, likewise with no underlying marrow signal abnormality Edema of the subcutaneous fat adjacent to both ischia, could indicate decubitus changes 2.4 x 2.4 cm apparent fluid collection superficial to the right ischium. Could represent a small subcutaneous abscess, but suspect that this actually represents extracorporeal incontinent urine within a skin fold. Correlate with clinical findings Small left hip joint effusion Edema of the fat surrounding the umbilicus, could indicate inflammation of the periumbilical skin and subcutaneous fat. Correlate with clinical findings Edema of the bilateral hips and anterior pelvic dean, probably a manifestation of generalized systemic edema. Nonspecific edema of the presacral fat CT scan of abdomen and pelvis: Impression: Bilateral ischial ulcers, also previously reported on prior MRI. There appears to be packing material within the ulcers. Correlate with clinical findings Small retrococcygeal and retrosacral decubitus changes, also previously described No definite acute abdominal or pelvic process Trace left pleural effusion. Small amount of basilar pulmonary parenchymal atelectasis Briseno catheter, inferior vena cava filter incidentally noted Right basilar pulmonary cystic spaces Other findings as noted, including degenerative spondylosis The CT scanner at [facility] is accredited by the [place] [employer] and the scans are performed using protocols designed to limit radiation exposure to as low as reasonably achievable to attain images of sufficient resolution adequate for diagnostic evaluation. Chest x-ray - 10/20/19 - IMPRESSION: Asymmetry in the densities of the lungs, right is more lucent than the left. Could possibly be related to rotational changes and/or layering effusion or other. Minimal left basilar atelectasis/pneumonitis. No confluent consolidation. Microbiology Date/Time Source Procedure Growth Status 10/21/19 22:50 Blood Blood Culture - Preliminary NO GROWTH AFTER 48 HOURS Resulted 10/13/19 06:30 Sputum Gram Stain - Final Complete 10/13/19 06:30 Sputum Culture - Final April Albicans Staphylococcus Aureus Complete 10/13/19 17:55 Urine,Clean Catch Urine Culture - Final April Albicans Complete 10/11/19 01:35 Rectum - Final NO CARBAPENEM-RESISTANT ENTEROBACTERI... Complete Labs Test 10/23/19 07:30 10/24/19 09:45 White Blood Count 6.7 K/UL (4.8-10.8) 5.8 K/UL (4.8-10.8) Red Blood Count 4.01 M/UL (4.20-5.40) 4.50 M/UL (4.20-5.40) Hemoglobin 11.8 G/DL (12.0-16.0) 13.0 G/DL (12.0-16.0) Hematocrit 34.0 % (37.0-47.0) 38.9 % (37.0-47.0) Mean Corpuscular Volume 85 FL (80-99) 86 FL (80-99) Mean Corpuscular Hemoglobin 29.5 PG (27.0-31.0) 28.9 PG (27.0-31.0) Mean Corpuscular Hemoglobin Concent 34.8 G/DL (32.0-36.0) 33.4 G/DL (32.0-36.0) Red Cell Distribution Width 13.5 % (11.6-14.8) 14.0 % (11.6-14.8) Platelet Count 245 K/UL (150-450) 256 K/UL (150-450) Mean Platelet Volume 7.7 FL (6.5-10.1) 7.2 FL (6.5-10.1) Neutrophils (%) (Auto) 57.5 % (45.0-75.0) 61.3 % (45.0-75.0) Lymphocytes (%) (Auto) 32.4 % (20.0-45.0) 28.6 % (20.0-45.0) Monocytes (%) (Auto) 6.6 % (1.0-10.0) 7.0 % (1.0-10.0) Eosinophils (%) (Auto) 2.8 % (0.0-3.0) 1.9 % (0.0-3.0) Basophils (%) (Auto) 0.8 % (0.0-2.0) 1.1 % (0.0-2.0) Prothrombin Time 13.2 SEC (9.30-11.50) Prothromb Time International Ratio 1.3 (0.9-1.1) Sodium Level 139 MMOL/L (136-145) Potassium Level 3.4 MMOL/L (3.5-5.1) Chloride Level 112 MMOL/L (98-107) Carbon Dioxide Level 21 MMOL/L (21-32) Anion Gap 6 mmol/L (5-15) Blood Urea Nitrogen 17 mg/dL (7-18) Creatinine 0.7 MG/DL (0.55-1.30) Estimat Glomerular Filtration Rate > 60 mL/min (>60) Glucose Level 92 MG/DL (74-106) Calcium Level 7.4 MG/DL (8.5-10.1) Current Medications Medications (Trade) Dose Ordered Sig/Lenard Route PRN Reason Start Time Stop Time Status Last Admin Dose Admin Acetaminophen (Tylenol) 650 mg Q4H PRN ORAL Mild Pain (Pain Scale 1-3) 10/11/19 21:28 11/10/19 21:27 10/21/19 21:07 Acetaminophen (Tylenol) 650 mg Q4H PRN ORAL fever 10/11/19 21:28 11/10/19 21:27 Acetaminophen/ Hydrocodone Bitart (Logan 5/325) 1 tab Q6H PRN ORAL Moderate Pain (Pain Scale 4-6) 10/22/19 09:15 10/29/19 09:14 10/22/19 11:08 Acetaminophen/ Hydrocodone Bitart (Logan 7.5/325) 1 tab Q4H PRN ORAL Severe Pain (Pain Scale 7-10) 10/22/19 09:15 10/29/19 09:14 10/25/19 13:30 Ascorbic Acid (Vitamin C) 500 mg DAILY ORAL 10/12/19 09:00 11/11/19 08:59 10/25/19 09:29 Atorvastatin Calcium (Lipitor) 20 mg BEDTIME ORAL 10/12/19 21:00 11/10/19 20:59 10/24/19 20:34 Baclofen (Lioresal) 20 mg THREE TIMES A DAY ORAL 10/22/19 09:15 11/21/19 09:14 10/25/19 13:29 Cefepime HCl 2 gm/ Dextrose 55 ml @ 110 mls/hr Q12H IVPB 10/19/19 21:00 10/26/19 20:59 10/25/19 09:32 Chlorhexidine Gluconate (Bailee-Hex 2%) 1 applic DAILY@2000 TOPIC 10/12/19 20:00 11/11/19 19:59 10/24/19 20:00 Dextrose (Dextrose 50%) 25 ml Q30M PRN IV Hypoglycemia 10/11/19 21:45 11/10/19 02:44 Dextrose (Dextrose 50%) 50 ml Q30M PRN IV Hypoglycemia 10/11/19 21:45 11/10/19 02:44 Dextrose/ Electrolytes 1,000 ml @ 75 mls/hr [id number] IV 10/16/19 10:00 11/11/19 09:59 10/25/19 09:33 Docusate Sodium (Colace) 100 mg TWICE A DAY ORAL 10/15/19 20:45 11/14/19 20:44 10/25/19 09:29 Dronabinol (Marinol) 2.5 mg BID ORAL 10/24/19 18:00 11/23/19 17:59 Fluconazole (Diflucan) 200 mg DAILY ORAL 10/24/19 13:25 10/26/19 13:24 10/25/19 09:31 Folic Acid (Folate) 1 mg DAILY ORAL 10/12/19 09:00 11/11/19 08:59 10/25/19 09:29 Metronidazole (Flagyl) 500 mg Q8HR ORAL 10/19/19 22:00 10/26/19 21:59 10/25/19 13:29 Multivitamins (Multivitamins) 1 tab DAILY ORAL 10/12/19 09:00 11/11/19 08:59 10/25/19 09:30 Ondansetron HCl (Zofran) 4 mg Q6H PRN IVP Nausea & Vomiting 10/21/19 11:15 11/20/19 11:14 Pantoprazole (Protonix) 40 mg EVERY 12 HOURS IVP 10/21/19 11:30 11/20/19 11:29 10/24/19 20:34 Polyethylene Glycol (Miralax) 17 gm BEDTIME ORAL 10/15/19 21:00 11/14/19 20:59 10/23/19 21:13 Sennosides (Senokot) 8.6 mg DAILY PRN ORAL Constipation 10/21/19 08:00 11/20/19 07:59 Sucralfate (Carafate) 1 gm FOUR TIMES A DAY ORAL 10/23/19 09:00 11/22/19 08:59 10/24/19 20:34 Vancomycin HCl (Vanco rx to dose) 1 ea DAILY PRN MISC Per rx protocol 10/21/19 18:45 11/20/19 18:44 Vancomycin HCl 750 mg/Sodium Chloride 275 ml @ 183.333 mls/hr Q24H IVPB 10/21/19 23:00 10/26/19 22:59 10/24/19 22:48 Zinc Sulfate (Zinc Sulfate) 220 mg DAILY ORAL 10/12/19 09:00 11/11/19 08:59 10/23/19 09:59 Jt Land MD Oct 25, 2019 15:33
[2019-10-25 15:49] VITALS: BP 120/77
== END 2019-10-25 16:54 | DRG 871 ==
LOC: EDBD 22:18 → EDUNIT# 22:18 → EMR 22:56 → EDBEDREQ 10-11 01:26 → ICU 10-11 01:41 → EDBEDREQ 10-11 02:39 → 2E 10-11 21:00
PROC: 0DD78ZX Extraction of Stomach, Pylorus, Via Natural or Artificial Opening Endoscopic, Diagnostic (ICD-10-PCS; principal; 2019-10-23 08:02)
DX: A41.9 Sepsis, unspecified organism (principal); L89.154 Pressure ulcer of sacral region, stage 4; K25.0 Acute gastric ulcer with hemorrhage; R53.2 Functional quadriplegia; N39.0 Urinary tract infection, site not specified; E44.0 Moderate protein-calorie malnutrition; D62 Acute posthemorrhagic anemia; D68.9 Coagulation defect, unspecified; G93.40 Encephalopathy, unspecified; G35 Multiple sclerosis; I10 Essential (primary) hypertension; E78.5 Hyperlipidemia, unspecified; G89.4 Chronic pain syndrome; F03.90 Unspecified dementia, unspecified severity, without behavioral disturbance, psychotic disturbance, mood disturbance, and anxiety; B96.20 Unspecified Escherichia coli [E. coli] as the cause of diseases classified elsewhere; D69.6 Thrombocytopenia, unspecified; E87.6 Hypokalemia; G40.909 Epilepsy, unspecified, not intractable, without status epilepticus; K29.70 Gastritis, unspecified, without bleeding; R62.7 Adult failure to thrive; Z68.29 Body mass index [BMI] 29.0-29.9, adult; F32.9 Major depressive disorder, single episode, unspecified
CPT/HCPCS: 36415; 71045; 72195; 74176; 76700; 80048; 80053; 80150; 80202; 81003; 82270; 82378; 82550; 82553; 82728; 82962; 83540; 83550; 83605; 83690; 83735; 84100; 84484; 85007; 85025; 85384; 85610; 85651; 86140; 86703; 86705; 86709; 86803; 86850; 86900; 86901; 86920; 87040; 87070; 87081; 87086; 87181; 87205; 87340; 93005; 93306; 93970; 94003; 94150; 96361; 96365; 99285; J3430; J7030; J8499